=== PATIENT | male | born 1975 ===

== ENCOUNTER 2021-05-24 10:58 | Inpatient (IN) | payer OTHER, SELFPAY ==
[2021-05-24] MEDS ORDERED: ACETAMINOPHEN 325 MG TAB ONE (11:05)
[2021-05-24] MEDS ORDERED: ACETAMINOPHEN 325 MG TAB PO ONE (11:08)
[2021-05-24] MEDS ORDERED: SODIUM CHLORIDE 0.9% 1000 ML IV SOLN IV ONE (11:10)
--- NOTE | 2021-05-24 11:19 | Event Note ---
ED Screening Note ED Screening Note: cough, fever, SOB, chest discomfort, sore throat began two days ago has not been vaccinated for COVID 19 tachycardic, febrile, hypoxic given tylenol sepsis and COVID orders initiated pt placed on oxygen with improvement of oxygen saturation This initial assessment/diagnostic orders/clinical plan/treatment(s) is/are subject to change based on patients health status, clinical progression and re- assessment by fellow clinical providers in the ED. Further treatment and workup at subsequent clinical providers discretion. Patient/guardian urged not to elope from the ED as their condition may be serious if not clinically assessed and managed. Initial orders include: charge nurse Bri notified pt needs room STEPHAN
--- NOTE | 2021-05-24 11:50 | XRay Report ---
XR chest 1V ap INDICATION / CLINICAL INFORMATION: fever, cough, SOB. COMPARISON: None available. FINDINGS: SUPPORT DEVICES: None. HEART /PULMONARY VASCULATURE: No significant abnormality. LUNGS / PLEURA: Moderate multifocal airspace disease seen throughout the lungs. Nodular opacities pre sent within the left midlung. This could reflect focal infiltrate, though mass is not excluded. No pn eumothorax. ADDITIONAL FINDINGS: No significant additional findings. IMPRESSION: Multifocal pulmonary airspace disease, compatible with pneumonia. Recommend continued follow-up to re solution, as well as left-sided pulmonary mass cannot be excluded. Signer Name: Azar Juarez MD Signed: 05/24/2021 11:45 AM Workstation Name: [id number]
[2021-05-24] MEDS ORDERED: cefTRIAXone/NS 2 GM/100 ML 2 GM/100 ML BAG IV ONE (11:54)
[2021-05-24] MEDS ORDERED: AZITHROMYCIN/NS 500 MG/250 ML 500 MG/250 ML BAG IV ONE (11:55)
[2021-05-24] MEDS ORDERED: dexAMETHasone 20 MG/5 ML VIAL IV ONE (12:05)
[2021-05-24 12:19] LABS: Alanine Aminotransferase 32 units/L (7-56); Albumin 3.6 g/dL (3.9-5); BUN/Creatinine Ratio 14; Blood Urea Nitrogen 13 mg/dL (9-20); Calcium 9.1 mg/dL (8.4-10.2); Hemolysis Index 13
[2021-05-24 12:38] LABS: Hematocrit 42.5 % (35.5-45.6); Hemoglobin 14.8 gm/dl (11.8-15.2); Mean Corpuscular HGB Conc 35 % (32-34); Mean Corpuscular Volume 90 fl (84-94); Platelet Count 343 K/mm3 (140-440); Red Blood Count 4.73 M/mm3 (3.65-5.03); Red Cell Distribution Width 13.5 % (13.2-15.2)
[2021-05-24 13:06] LABS: Monocytes # (Auto) 0.6 K/mm3 (0.0-0.8); Monocytes % (Auto) 10.2 % (0.0-7.3)
--- NOTE | 2021-05-24 13:23 | Emergency Department Report ---
ED Fever HPI - General Chief Complaint: Fever Stated Complaint: CP/COUGH/SORETHROAT Time Seen by Provider: 05/24/21 12:05 - History of Present Illness Initial Comments: Patient is a 46-year-old male with no significant past medical history who is presenting with cough congestion shortness of breath. Patient did not receive vaccination for COVID-19. Patient states for the past 2 to 3 days he has had body aches shortness of breath with exertion and a cough. Patient does not know of any known exposure to anyone with COVID-19. Denies nausea vomiting diarrhea) ED Review of Systems ROS: Stated complaint: CP/COUGH/SORETHROAT Other details as noted in HPI Comment: All other systems reviewed and negative ED Past Medical Hx - Past Medical History Previous Medical History?: No - Surgical History Past Surgical History?: No - Social History Smoking Status: Never Smoker Substance Use Type: None ED Physical Exam - General Limitations: No Limitations General appearance: alert, in no apparent distress - Head Head exam: Present: atraumatic, normocephalic - Eye Eye exam: Present: normal appearance, PERRL, EOMI - ENT ENT exam: Present: mucous membranes moist - Neck Neck exam: Present: normal inspection - Respiratory Respiratory exam: Present: respiratory distress (Tachypnea), rhonchi. Absent: normal lung sounds bilaterally, wheezes, rales - Cardiovascular Cardiovascular Exam: Present: normal rhythm, tachycardia, normal heart sounds. Absent: systolic murmur, diastolic murmur, rubs, gallop - GI/Abdominal GI/Abdominal exam: Present: soft, normal bowel sounds. Absent: distended, tenderness, guarding, rebound, rigid - Rectal Rectal exam: Present: deferred - Extremities Exam Extremities exam: Present: normal inspection - Back Exam Back exam: Present: normal inspection - Neurological Exam Neurological exam: Present: alert, oriented X3 - Psychiatric Psychiatric exam: Present: normal affect, normal mood - Skin Skin exam: Present: warm, dry, intact, normal color. Absent: rash ED Course Vital Signs 05/24/21 11:01 Temperature 101.2 F H Pulse Rate 118 H Respiratory 18 Rate Blood Pressure 113/77 O2 Sat by Pulse 88 Oximetry ED Medical Decision Making - Lab Data Result diagrams: 05/24/21 11:19 05/24/21 11:19 Lab Results 05/24/21 05/24/21 05/24/21 Range/Units 11:19 11:19 11:19 WBC 5.1 (4.5-11.0) K/mm3 RBC 4.73 (3.65-5.03) M/mm3 Hgb 14.8 (11.8-15.2) gm/dl Hct 42.5 (35.5-45.6) % MCV 90 (84-94) fl MCH 31 (28-32) pg MCHC 35 H (32-34) % RDW 13.5 (13.2-15.2) % Plt Count 343 (140-440) K/mm3 [place] % (Auto) 10.2 H (0.0-7.3) % Eos % (Auto) 0.0 (0.0-4.3) % [place] # (Auto) 0.6 (0.0-0.8) K/mm3 Eos # (Auto) 0.0 (0.0-0.4) K/mm3 Baso # (Auto) 0.0 (0.0-0.1) K/mm3 Seg Neutrophils % 82.0 H (40.0-70.0) % Seg Neutrophils # 4.4 (1.8-7.7) K/mm3 D-Dimer (0-234) ng/mlDDU Sodium 131 L (137-145) mmol/L Potassium 5.0 (3.6-5.0) mmol/L Chloride 96.9 L (98-107) mmol/L Carbon Dioxide 23 (22-30) mmol/L Anion Gap 16 mmol/L BUN 13 (9-20) mg/dL Creatinine 0.9 (0.8-1.3) mg/dL Estimated GFR > 60 ml/min BUN/Creatinine Ratio 14 % Glucose 180 H (75-100) mg/dL Lactic Acid 1.90 (0.7-2.0) mmol/L Calcium 9.1 (8.4-10.2) mg/dL Ferritin (30.0-300.0) ng/mL Total Bilirubin 0.40 (0.1-1.2) mg/dL AST 36 (5-40) units/L ALT 32 (7-56) units/L Alkaline Phosphatase 55 (35-129) units/L Lactate Dehydrogenase (91-180) units/L C-Reactive Protein (0.00-1.30) mg/dL Total Protein 7.8 (6.3-8.2) g/dL Albumin 3.6 L (3.9-5) g/dL Albumin/Globulin Ratio 0.9 % 05/24/21 05/24/21 05/24/21 Range/Units 11:19 11:19 11:19 WBC (4.5-11.0) K/mm3 RBC (3.65-5.03) M/mm3 Hgb (11.8-15.2) gm/dl Hct (35.5-45.6) % MCV (84-94) fl MCH (28-32) pg MCHC (32-34) % RDW (13.2-15.2) % Plt Count (140-440) K/mm3 [place] % (Auto) (0.0-7.3) % Eos % (Auto) (0.0-4.3) % [place] # (Auto) (0.0-0.8) K/mm3 Eos # (Auto) (0.0-0.4) K/mm3 Baso # (Auto) (0.0-0.1) K/mm3 Seg Neutrophils % (40.0-70.0) % Seg Neutrophils # (1.8-7.7) K/mm3 D-Dimer 809.12 H (0-234) ng/mlDDU Sodium (137-145) mmol/L Potassium (3.6-5.0) mmol/L Chloride (98-107) mmol/L Carbon Dioxide (22-30) mmol/L Anion Gap mmol/L BUN (9-20) mg/dL Creatinine (0.8-1.3) mg/dL Estimated GFR ml/min BUN/Creatinine Ratio % Glucose (75-100) mg/dL Lactic Acid (0.7-2.0) mmol/L Calcium (8.4-10.2) mg/dL Ferritin 1761.0 H (30.0-300.0) ng/mL Total Bilirubin (0.1-1.2) mg/dL AST (5-40) units/L ALT (7-56) units/L Alkaline Phosphatase (35-129) units/L Lactate Dehydrogenase 491 H (91-180) units/L C-Reactive Protein 22.00 H (0.00-1.30) mg/dL Total Protein (6.3-8.2) g/dL Albumin (3.9-5) g/dL Albumin/Globulin Ratio % - EKG Data -: EKG Interpreted by Me EKG shows normal: sinus rhythm, axis, intervals, QRS complexes, ST-T waves Rate: normal - EKG Data Interpretation: normal EKG - Radiology Data [facility] [address] [place] [address] XRay Report Signed Patient: VICKY MARIE MR#: [id number] : 1975 Acct:[id number] Age/Sex: 46 / M ADM Date: 05/24/21 Loc: ED Attending Dr: Ordering Physician: KELVIN REEDER Date of Service: 05/24/21 Procedure(s): XR chest 1V ap Accession Number(s): [id number] cc: KELVIN REEDER Fluoro Time In Minutes: XR chest 1V ap INDICATION / CLINICAL INFORMATION: fever, cough, SOB. COMPARISON: None available. FINDINGS: SUPPORT DEVICES: None. HEART /PULMONARY VASCULATURE: No significant abnormality. LUNGS / PLEURA: Moderate multifocal airspace disease seen throughout the lungs. Nodular opacities present within the left midlung. This could reflect focal infiltrate, though mass is not excluded. No pneumothorax. ADDITIONAL FINDINGS: No significant additional findings. IMPRESSION: Multifocal pulmonary airspace disease, compatible with pneumonia. Recommend continued follow-up to resolution, as well as left-sided pulmonary mass cannot be excluded. Signer Name: Denzel Juarez MD Signed: 05/24/2021 11:45 AM Workstation Name: [email or web address] Transcribed By: Dictated By: DENZEL JUAREZ MD - Medical Decision Making Patient is oxygen saturation is 88% on room air at rest. Patient states he is more short short of breath with exertion but we did not get a post ambulatory O2 saturation. Patient started on Rocephin and azithromycin after we reviewed the chest x-ray. Given a dose of Decadron. Started on 2 L of oxygen. Patient be admitted to the hospitalist service. Critical Care Time: Yes (30) Critical care attestation.: If time is entered above; I have spent that time in minutes in the direct care of this critically ill patient, excluding procedure time. ED Disposition Clinical Impression: Suspected COVID-19 virus infection, Bilateral pneumonia, Hyponatremia, Dehydration Disposition: ADMITTED INPATIENT Is pt being admited?: Yes Does the pt Need Aspirin: No Condition: Serious Instructions: Bacterial Pneumonia (ED) Time of Disposition: 13:25
[2021-05-24 13:57] LABS: Basophils % (Auto) 0.2 % (0.0-1.8); Lymphocytes # (Auto) 0.4 K/mm3 (1.2-5.4); Lymphocytes % (Auto) 7.6 % (13.4-35.0)
[2021-05-24] MEDS ORDERED: SODIUM CHLORIDE 0.9% 500 ML 500 ML ONE (15:18)
[2021-05-24] MEDS ORDERED: SODIUM CHLORIDE 0.9% 1000 ML 2,000 ML ONE (15:18)
[2021-05-24] MEDS ORDERED: NALOXONE 0.4 MG/1 ML INJ IV PRN (20:00)
[2021-05-24] MEDS ORDERED: ONDANSETRON 4 MG/2 ML INJ IV PRN ×2 (20:00→20:06)
[2021-05-24] MEDS ORDERED: SODIUM CHLORIDE 0.9% 1000 ML 1,000 ML IV SCH (20:00)
[2021-05-24] MEDS ORDERED: oxyCODONE /ACETAMINOPHEN 5-325MG TAB PO PRN (20:00)
[2021-05-24] MEDS ORDERED: MAGNESIUM HYDROXIDE (MOM) ORAL LIQD UDC PO PRN (20:00)
[2021-05-24] MEDS ORDERED: METOCLOPRAMIDE 10 MG/2 ML INJ IV PRN (20:00)
[2021-05-24] MEDS ORDERED: ALUM-MAG HYDROXIDE-SIMETHICONE 200-200-20MG/5ML ORAL LIQD 30 ML PO PRN (20:00)
[2021-05-24] MEDS ORDERED: SENNOSIDES 8.6 MG TAB PO PRN (20:00)
[2021-05-24] MEDS ORDERED: MORPHINE 4 MG/1 ML INJ IV PRN (20:00)
[2021-05-24] MEDS ORDERED: ACETAMINOPHEN 325 MG TAB PO PRN (20:06)
[2021-05-24] MEDS ORDERED: traMADol 50 MG TAB PO PRN (20:08)
[2021-05-24] MEDS ORDERED: traZODone 50 MG TAB PO PRN (20:08)
--- NOTE | 2021-05-24 20:57 | History and Physical Report ---
<KUSH CAMPOS - Last Filed: 05/25/21 03:45> History of Present Illness Date of examination: 05/24/21 Date of admission: 05/24/21 13:25 Chief complaint: shortness of breath Cough History of present illness: This is a 46-year-old male who came to the ED with chief complaint of shortness of breath, congestion and a cough. Patient seen in the ED at bedside. He denied any past medical history including surgical history. He is seen on oxygen by nasal cannula at 2 L. He reported that he did not receive vaccination for COVID-19. He also reports generalized body ache and exertion from coughing. He denies tobacco use, chronic alcohol use, and illicit drug use. Chest x-ray was done which showed bilateral pneumonia. Patient is placed on empiric antibiotics. Blood work reviewed elevated D-dimer. CTA of the chest ordered to rule out PE. Denies nausea vomiting diarrhea) Past History Past Medical History: No medical history Past Surgical History: No surgical history Social history: lives with family Family history: no significant family history Medications and Allergies Allergies Allergy/AdvReac Type Severity Reaction Status Date / Time No Known Allergies Allergy Unverified 05/24/21 11:01 Active Meds: Active Medications Acetaminophen (Acetaminophen 325 Mg Tab) 650 mg PO Q4H PRN PRN Reason: Pain MILD(1-3)/Fever >100.5/SADLER Al Hydrox/Mg Hydrox/Simethicone (Alum-Mag Hydroxide-Simethicone 800-107-06hx/5ml Oral Liqd 30 Ml) 30 ml PO Q4H PRN PRN Reason: Indigestion Ascorbic Acid (Ascorbic Acid 500 Mg Tab) 500 mg PO QDAY [facility] Cholecalciferol (Cholecalciferol (Vit D3) 400 Unit Tab) 1,000 unit PO QDAY [facility] Dexamethasone (Dexamethasone 4 Mg/Ml Vial) 6 mg IV DAILY [facility] Famotidine (Famotidine 20 Mg/2 Ml Inj) 20 mg IV BID [facility] Sodium Chloride (Nacl 0.9% 1000 Ml) 1,000 mls @ 75 mls/hr IV DIRECT [facility] Azithromycin (Zithromax/Ns) 500 mg in 250 mls @ 250 mls/hr IV Q24H [facility] Ceftriaxone Sodium (Rocephin/Ns 1 Gm/50 Ml) 1 gm in 50 mls @ 100 mls/hr IV Q24H [facility]; Protocol Magnesium Hydroxide (Magnesium Hydroxide (Mom) Oral Liqd Udc) 30 ml PO Q4H PRN PRN Reason: Constipation Metoclopramide HCl (Metoclopramide 10 Mg/2 Ml Inj) 10 mg IV Q6H PRN PRN Reason: Nausea And Vomiting Naloxone HCl (Naloxone 0.4 Mg/1 Ml Inj) 0.1 mg IV Q2MIN PRN PRN Reason: Res Rate </= 8 or 02 SAT < 92% Ondansetron HCl (Ondansetron 4 Mg/2 Ml Inj) 4 mg IV Q8H PRN PRN Reason: Nausea And Vomiting Ondansetron HCl (Ondansetron 4 Mg/2 Ml Inj) 4 mg IV Q8H PRN PRN Reason: Nausea And Vomiting Oxycodone/Acetaminophen (Oxycodone /Acetaminophen 5-325mg Tab) 1 tab PO Q6H PRN PRN Reason: Pain, Moderate (4-6) Senna (Sennosides 8.6 Mg Tab) 8.6 mg PO Q12HR PRN PRN Reason: Constipation Tramadol HCl (Tramadol 50 Mg Tab) 50 mg PO Q6H PRN PRN Reason: Pain, Moderate (4-6) Trazodone HCl (Trazodone 50 Mg Tab) 50 mg PO QHS PRN PRN Reason: Insomnia Zinc Sulfate (Zinc Sulfate 220 Mg Cap) 220 mg PO QDAY [facility] Review of Systems Constitutional: fatigue, weakness Cardiovascular: shortness of breath Gastrointestinal: no melena Rectal: no itching, no hemorrhoids Musculoskeletal: muscle weakness, muscle cramps Neurological: no confusion Psychiatric: no disorientation, no hallucinations Hematologic/Lymphatic: no easy bruising, no easy bleeding Allergic/Immunologic: no urticaria Exam - Constitutional Vitals: Temp Pulse Resp BP Pulse Ox 101.2 F H 118 H 18 113/77 93 05/24/21 11:01 05/24/21 11:01 05/24/21 11:01 05/24/21 11:01 05/24/21 20:27 General appearance: Present: mild distress, well-nourished - EENT Eyes: Present: PERRL ENT: hearing intact, clear oral mucosa - Neck Neck: Present: supple, normal ROM - Respiratory Respiratory effort: other (Shortness of breath requiring oxygen) Respiratory: bilateral: CTA - Cardiovascular Heart rate: 118 Heart Sounds: Present: S1 & S2. Absent: rub, click - Extremities Extremities: pulses symmetrical, No edema Peripheral Pulses: within normal limits - Abdominal General gastrointestinal: Present: soft, non-tender, non-distended, normal bowel sounds Male genitourinary: Present: normal - Integumentary Integumentary: Present: clear, warm, dry - Musculoskeletal Musculoskeletal: generalized weakness - Psychiatric Psychiatric: appropriate mood/affect, intact judgment & insight, cooperative - Neurologic Neurologic: CNII-XII intact, moves all extremities - Allied Health Allied health notes reviewed: nursing Results - Labs CBC & Chem 7: 05/24/21 11:19 05/24/21 20:30 Labs: Abnormal lab results 05/24/21 05/24/21 05/24/21 Range/Units 11:19 11:19 11:19 MCHC 35 H (32-34) % Lymph % (Auto) 7.6 L (13.4-35.0) % [place] % (Auto) 10.2 H (0.0-7.3) % Lymph # (Auto) 0.4 L (1.2-5.4) K/mm3 Seg Neutrophils % 82.0 H (40.0-70.0) % D-Dimer 809.12 H (0-234) ng/mlDDU Sodium 131 L (137-145) mmol/L Chloride 96.9 L (98-107) mmol/L Glucose 180 H (75-100) mg/dL Ferritin (30.0-300.0) ng/mL Lactate Dehydrogenase (91-180) units/L C-Reactive Protein (0.00-1.30) mg/dL Albumin 3.6 L (3.9-5) g/dL 05/24/21 05/24/21 Range/Units 11:19 11:19 MCHC (32-34) % Lymph % (Auto) (13.4-35.0) % [place] % (Auto) (0.0-7.3) % Lymph # (Auto) (1.2-5.4) K/mm3 Seg Neutrophils % (40.0-70.0) % D-Dimer (0-234) ng/mlDDU Sodium (137-145) mmol/L Chloride (98-107) mmol/L Glucose (75-100) mg/dL Ferritin 1761.0 H (30.0-300.0) ng/mL Lactate Dehydrogenase 491 H (91-180) units/L C-Reactive Protein 22.00 H (0.00-1.30) mg/dL Albumin (3.9-5) g/dL Assessment and Plan - Patient Problems (1) Bilateral pneumonia Current Visit: Yes Status: Acute Plan to address problem: Start empiric antibiotic azithromycin and Rocephin ABG and chest x-ray (2) Suspected COVID-19 virus infection Current Visit: Yes Status: Acute Plan to address problem: Airborne and contact isolation Monitor inflammatory markers Empiric antibiotics, bronchodilators, oxygen supplement, and systemic steroid Ascorbic acid, zinc sulfate, vitamin D supplement Encourage the use of incentive spirometer Infectious disease consultfollow-up with plan of care. (3) Hyponatremia Current Visit: Yes Status: Acute Plan to address problem: Likely secondary to dehydration IV hydration with normal saline Monitor sodium level and other electrolytes (4) Elevated d-dimer Current Visit: Yes Status: Acute Plan to address problem: CTA of the chestrule outs PE (5) DVT prophylaxis Current Visit: Yes Status: Acute Plan to address problem: Subcutaneous Lovenox <DHAVAL EMMANUEL S - Last Filed: 05/25/21 07:11> History of Present Illness Date of admission: 05/24/21 13:25 Medications and Allergies Active Meds: Active Medications Acetaminophen (Acetaminophen 325 Mg Tab) 650 mg PO Q4H PRN PRN Reason: Pain MILD(1-3)/Fever >100.5/SADLER Al Hydrox/Mg Hydrox/Simethicone (Alum-Mag Hydroxide-Simethicone 879-441-63ka/5ml Oral Liqd 30 Ml) 30 ml PO Q4H PRN PRN Reason: Indigestion Ascorbic Acid (Ascorbic Acid 500 Mg Tab) 500 mg PO QDAY [facility] Cholecalciferol (Cholecalciferol (Vit D3) 1000 Unit (25 Mcg) Tab) 1,000 unit PO QDAY [facility] Dexamethasone (Dexamethasone 4 Mg/Ml Vial) 6 mg IV DAILY [facility] Famotidine (Famotidine 20 Mg/2 Ml Inj) 20 mg IV BID [facility] Last Admin: 05/24/21 21:37 Dose: 20 mg Documented by: Sodium Chloride (Nacl 0.9% 1000 Ml) 1,000 mls @ 75 mls/hr IV DIRECT [facility] Last Admin: 05/24/21 21:37 Dose: 75 mls/hr Documented by: Azithromycin (Zithromax/Ns) 500 mg in 250 mls @ 250 mls/hr IV Q24H [facility] Ceftriaxone Sodium (Rocephin/Ns 1 Gm/50 Ml) 1 gm in 50 mls @ 100 mls/hr IV Q24H [facility]; Protocol Magnesium Hydroxide (Magnesium Hydroxide (Mom) Oral Liqd Udc) 30 ml PO Q4H PRN PRN Reason: Constipation Metoclopramide HCl (Metoclopramide 10 Mg/2 Ml Inj) 10 mg IV Q6H PRN PRN Reason: Nausea And Vomiting Naloxone HCl (Naloxone 0.4 Mg/1 Ml Inj) 0.1 mg IV Q2MIN PRN PRN Reason: Res Rate </= 8 or 02 SAT < 92% Ondansetron HCl (Ondansetron 4 Mg/2 Ml Inj) 4 mg IV Q8H PRN PRN Reason: Nausea And Vomiting Oxycodone/Acetaminophen (Oxycodone /Acetaminophen 5-325mg Tab) 1 tab PO Q6H PRN PRN Reason: Pain, Moderate (4-6) Senna (Sennosides 8.6 Mg Tab) 8.6 mg PO Q12HR PRN PRN Reason: Constipation Tramadol HCl (Tramadol 50 Mg Tab) 50 mg PO Q6H PRN PRN Reason: Pain, Moderate (4-6) Trazodone HCl (Trazodone 50 Mg Tab) 50 mg PO QHS PRN PRN Reason: Insomnia Last Admin: 05/24/21 21:37 Dose: 50 mg Documented by: Zinc Sulfate (Zinc Sulfate 220 Mg Cap) 220 mg PO QDAY [facility] Exam - Constitutional Vitals: Temp Pulse Resp BP Pulse Ox 101.2 F H 79 35 H 119/64 95 05/24/21 11:01 05/25/21 05:46 05/25/21 05:46 05/25/21 05:46 05/25/21 05:46 Results - Labs CBC & Chem 7: 05/24/21 11:19 05/24/21 20:30 Labs: Abnormal lab results 05/24/21 05/24/21 05/24/21 Range/Units 11:19 11:19 11:19 MCHC 35 H (32-34) % Lymph % (Auto) 7.6 L (13.4-35.0) % [place] % (Auto) 10.2 H (0.0-7.3) % Lymph # (Auto) 0.4 L (1.2-5.4) K/mm3 Seg Neutrophils % 82.0 H (40.0-70.0) % D-Dimer 809.12 H (0-234) ng/mlDDU Sodium 131 L (137-145) mmol/L Chloride 96.9 L (98-107) mmol/L Glucose 180 H (75-100) mg/dL Ferritin (30.0-300.0) ng/mL Lactate Dehydrogenase (91-180) units/L C-Reactive Protein (0.00-1.30) mg/dL Albumin 3.6 L (3.9-5) g/dL 05/24/21 05/24/21 05/24/21 Range/Units 11:19 11:19 20:30 MCHC (32-34) % Lymph % (Auto) (13.4-35.0) % [place] % (Auto) (0.0-7.3) % Lymph # (Auto) (1.2-5.4) K/mm3 Seg Neutrophils % (40.0-70.0) % D-Dimer (0-234) ng/mlDDU Sodium (137-145) mmol/L Chloride (98-107) mmol/L Glucose (75-100) mg/dL Ferritin 1761.0 H (30.0-300.0) ng/mL Lactate Dehydrogenase 491 H (91-180) units/L C-Reactive Protein 22.00 H 19.30 H (0.00-1.30) mg/dL Albumin (3.9-5) g/dL 05/24/21 05/24/21 05/24/21 Range/Units 20:30 20:30 20:30 MCHC (32-34) % Lymph % (Auto) (13.4-35.0) % [place] % (Auto) (0.0-7.3) % Lymph # (Auto) (1.2-5.4) K/mm3 Seg Neutrophils % (40.0-70.0) % D-Dimer 773.79 H (0-234) ng/mlDDU Sodium (137-145) mmol/L Chloride (98-107) mmol/L Glucose 186 H (75-100) mg/dL Ferritin 1632.0 H (30.0-300.0) ng/mL Lactate Dehydrogenase 433 H (91-180) units/L C-Reactive Protein 18.90 H (0.00-1.30) mg/dL Albumin (3.9-5) g/dL Assessment and Plan Acute respiratory failure with hypoxia Patient was hypoxic at the time of admission to the emergency room sats are better at 86 and 88% on room air Patient was put on 4 L nasal cannula oxygen with which oxygen improved to 96%
[2021-05-24 21:33] LABS: C-Reactive Protein 18.9 mg/dL (0.00-1.30)
[2021-05-24] MEDS: FAMOTIDINE 20 MG/2 ML INJ IV SCH (21:37)
--- NOTE | 2021-05-24 21:45 | Cat Scan Report ---
CTA CHEST WITH IV CONTRAST INDICATION: elevated d-dimer. TECHNIQUE: Axial CT images were obtained through the chest after injection of 100 cc Omnipaque 350 IV contrast. 3 plane MIP reconstructions were produced. All CT scans at this location are performed using CT dose reduction for ALARA by means of automated exposure control. COMPARISON: One view of the chest performed today. FINDINGS: PULMONARY ARTERIES: No pulmonary emboli. AORTA AND ARTERIES: No significant abnormality. HEART: No significant abnormality. MEDIASTINUM: Multiple mildly enlarged lymph nodes are seen. A customer development representative right paratracheal node measures 1 cm in short axis dimension on image 166 of series 3. No significant abnormality of the tra kathie/main bronchi. LUNGS: There are extensive bilateral ground glass opacities and consolidations. No suspicious nodule or mass. No pneumothorax or pleural effusion. ADDITIONAL FINDINGS: None. UPPER ABDOMEN: No acute findings. BONES: No significant osseous abnormality. IMPRESSION: 1. No CT evidence for pulmonary embolism. 2. Bilateral pneumonia with likely reactive mildly enlarged mediastinal nodes. Signer Name: Lázaro Rashid MD Signed: 05/24/2021 9:40 PM Workstation Name: [id number]
[2021-05-25 08:18] LABS: Basophils % (Auto) 0.2 % (0.0-1.8); Hematocrit 38.8 % (35.5-45.6); Hemoglobin 13.7 gm/dl (11.8-15.2); Lymphocytes # (Auto) 0.7 K/mm3 (1.2-5.4); Lymphocytes % (Auto) 7.8 % (13.4-35.0); Mean Corpuscular HGB Conc 35 % (32-34); Mean Corpuscular Volume 91 fl (84-94); Monocytes # (Auto) 0.6 K/mm3 (0.0-0.8); Monocytes % (Auto) 6.4 % (0.0-7.3); Platelet Count 347 K/mm3 (140-440); Red Blood Count 4.27 M/mm3 (3.65-5.03); Red Cell Distribution Width 13.8 % (13.2-15.2)
[2021-05-25 08:36] LABS: Alanine Aminotransferase 23 units/L (7-56); Blood Urea Nitrogen 14 mg/dL (9-20); Calcium 8.4 mg/dL (8.4-10.2); Hemolysis Index 5
[2021-05-25 08:38] LABS: BUN/Creatinine Ratio 23
--- NOTE | 2021-05-25 08:40 | Progress Note ---
Assessment and Plan Assessment and plan: - Patient Problems (1) Acute Hypoxic Respiratory Failure Supplemental oxygen via 4 L nasal cannula Etiology high suspicion for COVID-19 pneumonia Admit CXR: Multifocal airspace disease, possible left-sided pulmonary mass. Please refer to official radiology report Admit CTA chest: Bilateral airspace disease with mildly enlarged mediastinal nodes. No suspicious mass or lymph nodes appreciated. abx and steroids as below prn albuterol May consider pulm consult if o2 does not improve/worsens (2) Bilateral pneumonia Start empiric antibiotic azithromycin and Rocephin (3) Suspected COVID-19 virus infection Current Visit: Yes Status: Acute Plan to address problem: Airborne and contact isolation Monitor inflammatory markers Empiric antibiotics, bronchodilators, oxygen supplement, and systemic steroid Ascorbic acid, zinc sulfate, vitamin D supplement Encourage the use of incentive spirometery Infectious disease consultfollow-up with plan of care. (4) Hyponatremia Current Visit: Yes Status: Acute Plan to address problem: Likely secondary to dehydration IV hydration with normal saline Monitor sodium level and other electrolytes (5) Elevated d-dimer Current Visit: Yes Status: Acute Plan to address problem: CTA of the chestrule outs PE (6) DVT prophylaxis Current Visit: Yes Status: Acute Plan to address problem: Subcutaneous Lovenox Hospital course to date 05/25/2021: Resting comfortably on encounter. Will follow up results of Covid test. Continue therapy above at this time. Will follow ID recommendations. If patient deteriorates will consult pulmonology. History Interval history: No overnight events. Patient resting comfortably on encounter saturating 90 to 91% currently on nasal cannula 3 L/min. Hospitalist Physical - Physical exam Narrative exam: Physical Exam: Constitutional: Alert, cooperative. No acute distress Head, Ears, Nose: Normocephalic, atraumatic. External ears, nose normal Eyes: Conjunctivae/corneas clear. No icterus. No ptosis. Neck: Supple, no meningeal signs Oral: dentition fair, no thrush Cardiovascular: S1, S2 normal. Respiratory: Good air entry, rhonchi bilaterally. On nasal cannula 3 L. GI: Soft, non-tender; bowel sounds normal. No peritoneal signs. Musculoskeletal: No pedal edema, no cyanosis. Skin: No rash or abscess, see nursing assessment for full skin exam Hem/Lymphatic: No palpable cervical or supraclavicular nodes. No lymphangitis Psych: Mood ok. Affect normal Neurological: Awake, alert, oriented. No gross abnormality - Constitutional Vitals: Temp Pulse Resp BP Pulse Ox 101.2 F H 79 35 H 119/64 95 05/24/21 11:01 05/25/21 05:46 05/25/21 05:46 05/25/21 05:46 05/25/21 05:46 General appearance: Present: mild distress, well-nourished Results - Labs CBC & Chem 7: 05/25/21 07:48 05/25/21 07:48 Labs: Laboratory Last Values WBC 9.5 K/mm3 (4.5-11.0) 05/25/21 07:48 RBC 4.27 M/mm3 (3.65-5.03) 05/25/21 07:48 Hgb 13.7 gm/dl (11.8-15.2) 05/25/21 07:48 Hct 38.8 % (35.5-45.6) 05/25/21 07:48 MCV 91 fl (84-94) 05/25/21 07:48 MCH 32 pg (28-32) 05/25/21 07:48 MCHC 35 % (32-34) H 05/25/21 07:48 RDW 13.8 % (13.2-15.2) 05/25/21 07:48 Plt Count 347 K/mm3 (140-440) 05/25/21 07:48 Lymph % (Auto) 7.8 % (13.4-35.0) L 05/25/21 07:48 [place] % (Auto) 6.4 % (0.0-7.3) 05/25/21 07:48 Eos % (Auto) 0.0 % (0.0-4.3) 05/25/21 07:48 Baso % (Auto) 0.2 % (0.0-1.8) 05/25/21 07:48 Lymph # (Auto) 0.7 K/mm3 (1.2-5.4) L 05/25/21 07:48 [place] # (Auto) 0.6 K/mm3 (0.0-0.8) 05/25/21 07:48 Eos # (Auto) 0.0 K/mm3 (0.0-0.4) 05/25/21 07:48 Baso # (Auto) 0.0 K/mm3 (0.0-0.1) 05/25/21 07:48 Add Manual Diff Complete 05/24/21 11:19 Seg Neutrophils % 85.6 % (40.0-70.0) H 05/25/21 07:48 Nucleated RBC % Not Reportable 05/24/21 11:19 Seg Neutrophils # 8.1 K/mm3 (1.8-7.7) H 05/25/21 07:48 WBC Morphology Not Reportable 05/24/21 11:19 Hypersegmented Neuts Not Reportable 05/24/21 11:19 Hyposegmented Neuts Not Reportable 05/24/21 11:19 Hypogranular Neuts Not Reportable 05/24/21 11:19 Smudge Cells Not Reportable 05/24/21 11:19 Toxic Granulation Not Reportable 05/24/21 11:19 Toxic Vacuolation Not Reportable 05/24/21 11:19 Dohle Bodies Not Reportable 05/24/21 11:19 Pelger-Huet Anomaly Not Reportable 05/24/21 11:19 Job Rods Not Reportable 05/24/21 11:19 Platelet Estimate Not Reportable 05/24/21 11:19 Clumped Platelets Not Reportable 05/24/21 11:19 Plt Clumps, EDTA Not Reportable 05/24/21 11:19 Large Platelets Not Reportable 05/24/21 11:19 Giant Platelets Not Reportable 05/24/21 11:19 Platelet Satelliting Not Reportable 05/24/21 11:19 Plt Morphology Comment Not Reportable 05/24/21 11:19 RBC Morphology Not Reportable 05/24/21 11:19 Dimorphic RBCs Not Reportable 05/24/21 11:19 Polychromasia Not Reportable 05/24/21 11:19 Hypochromasia Not Reportable 05/24/21 11:19 Poikilocytosis Not Reportable 05/24/21 11:19 Anisocytosis Not Reportable 05/24/21 11:19 Microcytosis Not Reportable 05/24/21 11:19 Macrocytosis Not Reportable 05/24/21 11:19 Spherocytes Not Reportable 05/24/21 11:19 Pappenheimer Bodies Not Reportable 05/24/21 11:19 Sickle Cells Not Reportable 05/24/21 11:19 Target Cells Not Reportable 05/24/21 11:19 Tear Drop Cells Not Reportable 05/24/21 11:19 Ovalocytes Not Reportable 05/24/21 11:19 Helmet Cells Not Reportable 05/24/21 11:19 [place] Bodies Not Reportable 05/24/21 11:19 [place] Rings Not Reportable 05/24/21 11:19 [place] Cells Not Reportable 05/24/21 11:19 Bite Cells Not Reportable 05/24/21 11:19 Crenated Cell Not Reportable 05/24/21 11:19 Elliptocytes Not Reportable 05/24/21 11:19 Acanthocytes (Spur) Not Reportable 05/24/21 11:19 Rouleaux Not Reportable 05/24/21 11:19 Hemoglobin C Crystals Not Reportable 05/24/21 11:19 Schistocytes Not Reportable 05/24/21 11:19 Malaria parasites Not Reportable 05/24/21 11:19 [place] Bodies Not Reportable 05/24/21 11:19 Hem Pathologist Commnt No 05/24/21 11:19 D-Dimer 773.79 ng/mlDDU (0-234) H 05/24/21 20:30 Sodium 137 mmol/L (137-145) 05/25/21 07:48 Potassium 4.4 mmol/L (3.6-5.0) 05/25/21 07:48 Chloride 104.4 mmol/L (98-107) 05/25/21 07:48 Carbon Dioxide 22 mmol/L (22-30) 05/25/21 07:48 Anion Gap 15 mmol/L 05/25/21 07:48 BUN 14 mg/dL (9-20) 05/25/21 07:48 Creatinine 0.6 mg/dL (0.8-1.3) L 05/25/21 07:48 Estimated GFR > 60 ml/min 05/25/21 07:48 BUN/Creatinine Ratio 23 % 05/25/21 07:48 Glucose 178 mg/dL (75-100) H 05/25/21 07:48 Lactic Acid 1.50 mmol/L (0.7-2.0) 05/24/21 13:59 Calcium 8.4 mg/dL (8.4-10.2) 05/25/21 07:48 Ferritin 1632.0 ng/mL (30.0-300.0) H 05/24/21 20:30 Total Bilirubin 0.30 mg/dL (0.1-1.2) 05/25/21 07:48 AST 26 units/L (5-40) 05/25/21 07:48 ALT 23 units/L (7-56) 05/25/21 07:48 Alkaline Phosphatase 46 units/L (35-129) 05/25/21 07:48 Lactate Dehydrogenase 433 units/L (91-180) H 05/24/21 20:30 C-Reactive Protein 18.90 mg/dL (0.00-1.30) H 05/24/21 20:30 C-Reactive Protein 19.30 mg/dL (0.00-1.30) H 05/24/21 20:30 Total Protein 6.7 g/dL (6.3-8.2) 05/25/21 07:48 Albumin 3.0 g/dL (3.9-5) L 05/25/21 07:48 Albumin/Globulin Ratio 0.8 % 05/25/21 07:48 Microbiology: Microbiology 05/24/21 11:19 Peripheral/Venous Blood Culture - Preliminary Culture in Progress 05/24/21 11:19 Peripheral/Venous Blood Culture - Preliminary Culture in Progress Active Medications - Current Medications Current Medications: Generic Name Dose Route Start Last Admin Trade Name Freq PRN Reason Stop Dose Admin Acetaminophen 650 mg 05/24/21 20:06 Acetaminophen 325 Mg Tab PO Q4H PRN Pain MILD(1-3)/Fever >100.5/SADLER Al Hydrox/Mg Hydrox/Simethicone 30 ml 05/24/21 20:00 Alum-Mag Hydroxide-Simethicone [id number]/5ml Oral Liqd 30 Ml PO Q4H PRN Indigestion Ascorbic Acid 500 mg 05/25/21 10:00 Ascorbic Acid 500 Mg Tab PO QDAY [facility] Cholecalciferol 1,000 unit 05/25/21 10:00 Cholecalciferol (Vit D3) 1000 Unit (25 Mcg) Tab PO QDAY [facility] Dexamethasone 6 mg 05/25/21 10:00 Dexamethasone 4 Mg/Ml Vial IV DAILY [facility] Famotidine 20 mg 05/24/21 22:00 08/25/21 21:37 Famotidine 20 Mg/2 Ml Inj IV 20 mg BID [facility] Administration Sodium Chloride 1,000 mls @ 75 mls/hr 05/24/21 20:00 05/24/21 21:37 Nacl 0.9% 1000 Ml IV 75 mls/hr DIRECT [facility] Administration Azithromycin 500 mg in 250 mls @ 250 mls/hr 05/25/21 17:00 Zithromax/Ns IV Q24H [facility] Ceftriaxone Sodium 2 gm in 100 mls @ 200 mls/hr 05/25/21 16:00 Rocephin/Ns 2 Gm/100 Ml IV Q24H [facility] Protocol Magnesium Hydroxide 30 ml 05/24/21 20:00 Magnesium Hydroxide (Mom) Oral Liqd Udc PO Q4H PRN Constipation Metoclopramide HCl 10 mg 05/24/21 20:00 Metoclopramide 10 Mg/2 Ml Inj IV Q6H PRN Nausea And Vomiting Naloxone HCl 0.1 mg 05/24/21 20:00 Naloxone 0.4 Mg/1 Ml Inj IV Q2MIN PRN Res Rate </= 8 or 02 SAT < 92% Ondansetron HCl 4 mg 05/24/21 20:00 Ondansetron 4 Mg/2 Ml Inj IV Q8H PRN Nausea And Vomiting Oxycodone/Acetaminophen 1 tab 05/24/21 20:00 Oxycodone /Acetaminophen 5-325mg Tab PO Q6H PRN Pain, Moderate (4-6) Senna 8.6 mg 05/24/21 20:00 Sennosides 8.6 Mg Tab PO Q12HR PRN Constipation Tramadol HCl 50 mg 05/24/21 20:08 Tramadol 50 Mg Tab PO Q6H PRN Pain, Moderate (4-6) Trazodone HCl 50 mg 05/24/21 20:08 05/24/21 21:37 Trazodone 50 Mg Tab PO 50 mg QHS PRN Administration Insomnia Zinc Sulfate 220 mg 05/25/21 10:00 Zinc Sulfate 220 Mg Cap PO QDAY [facility]
[2021-05-25] MEDS: dexAMETHasone 4 MG/ML VIAL IV SCH (10:18)
[2021-05-25] MEDS: FAMOTIDINE 20 MG/2 ML INJ IV SCH ×2 (10:18→23:49)
[2021-05-25] MEDS: ASCORBIC ACID 500 MG TAB PO SCH (10:19)
[2021-05-25] MEDS: CHOLECALCIFEROL (VIT D3) 1000 UNIT (25 mcg) TAB PO SCH (10:19)
[2021-05-25] MEDS: ZINC SULFATE 220 MG CAP PO SCH (10:19)
--- NOTE | 2021-05-25 11:06 | Electrocardiograph Report ---
[facility] Test Date: 2021-05-24 Test Time: 11:11:48 Pat Name: VICKY MARIE Department: Room: [facility] Gender: M Counter Server: HUGH : 1975 Requested By: RUTH NAPIER Order Number: [id number] Reading MD: Jeffrey Huber Measurements Intervals [place] Rate: 107 P: 19 [place]: 135 QRS: 58 QRSD: 87 T: 16 QT: 310 QTc: 414 Interpretive Statements Sinus tachycardia No previous ECG available for comparison Electronically Signed On 05-25-2021 11:06:00 EDT by Jeffrey Huber
--- NOTE | 2021-05-25 13:42 | Consultation ---
History of Present Illness - Reason for Consult Consult date: 05/25/21 PUI Requesting physician: KUSH CAMPOS - History of Present Illness The patient is a 43-year-old male with no past medical history admitted as COVID-19 PUI. Hypoxic requiring nasal cannula, unvaccinated, chest x-ray showed bilateral pneumonia. Review of Systems: reviewed in the chart, unable to obtain, minimize risk of transmission Past History Past Medical History: No medical history Past Surgical History: No surgical history Social history: lives with family Family history: no significant family history Medications and Allergies Allergies Allergy/AdvReac Type Severity Reaction Status Date / Time No Known Allergies Allergy Unverified 05/24/21 11:01 Home Medications Medication Instructions Recorded Confirmed Last Taken Type No Known Home Medications [No 05/25/21 05/25/21 Unknown History Reported Home Medications] Active Meds: Active Medications Acetaminophen (Acetaminophen 325 Mg Tab) 650 mg PO Q4H PRN PRN Reason: Pain MILD(1-3)/Fever >100.5/[place]AD[place] Al Hydrox/Mg Hydrox/Simethicone (Alum-Mag Hydroxide-Simethicone [id number]/5ml Oral Liqd 30 Ml) 30 ml PO Q4H PRN PRN Reason: Indigestion Ascorbic Acid (Ascorbic Acid 500 Mg Tab) 500 mg PO QDAY [facility] Last Admin: 05/25/21 10:19 Dose: 500 mg Documented by: Cholecalciferol (Cholecalciferol (Vit D3) 1000 Unit (25 Mcg) Tab) 1,000 unit PO QDAY [facility] Last Admin: 05/25/21 10:19 Dose: 1,000 unit Documented by: Dexamethasone (Dexamethasone 4 Mg/Ml Vial) 6 mg IV DAILY [facility] Last Admin: 05/25/21 10:18 Dose: 6 mg Documented by: Famotidine (Famotidine 20 Mg/2 Ml Inj) 20 mg IV BID [facility] Last Admin: 05/25/21 10:18 Dose: 20 mg Documented by: Sodium Chloride (Nacl 0.9% 1000 Ml) 1,000 mls @ 75 mls/hr IV DIRECT [facility] Last Admin: 05/24/21 21:37 Dose: 75 mls/hr Documented by: Azithromycin (Zithromax/Ns) 500 mg in 250 mls @ 250 mls/hr IV Q24H [facility] Ceftriaxone Sodium (Rocephin/Ns 2 Gm/100 Ml) 2 gm in 100 mls @ 200 mls/hr IV Q24H [facility]; Protocol Magnesium Hydroxide (Magnesium Hydroxide (Mom) Oral Liqd Udc) 30 ml PO Q4H PRN PRN Reason: Constipation Metoclopramide HCl (Metoclopramide 10 Mg/2 Ml Inj) 10 mg IV Q6H PRN PRN Reason: Nausea And Vomiting Naloxone HCl (Naloxone 0.4 Mg/1 Ml Inj) 0.1 mg IV Q2MIN PRN PRN Reason: Res Rate </= 8 or 02 SAT < 92% Ondansetron HCl (Ondansetron 4 Mg/2 Ml Inj) 4 mg IV Q8H PRN PRN Reason: Nausea And Vomiting Oxycodone/Acetaminophen (Oxycodone /Acetaminophen 5-325mg Tab) 1 tab PO Q6H PRN PRN Reason: Pain, Moderate (4-6) Senna (Sennosides 8.6 Mg Tab) 8.6 mg PO Q12HR PRN PRN Reason: Constipation Tramadol HCl (Tramadol 50 Mg Tab) 50 mg PO Q6H PRN PRN Reason: Pain, Moderate (4-6) Trazodone HCl (Trazodone 50 Mg Tab) 50 mg PO QHS PRN PRN Reason: Insomnia Last Admin: 05/24/21 21:37 Dose: 50 mg Documented by: Zinc Sulfate (Zinc Sulfate 220 Mg Cap) 220 mg PO QDAY [facility] Last Admin: 05/25/21 10:19 Dose: 220 mg Documented by: Physical Examination - Physical Exam Narrative exam: Physical Exam (reviewed in chart to minimize risk of transmission) Constitutional: deferred Head, Ears, Nose: deferred Eyes: deferred Neck: deferred Oral: deferred Cardiovascular: deferred Respiratory: deferred GI: deferred Musculoskeletal: deferred Skin: deferred Hem/Lymphatic: deferred Psych: deferred Neurological: deferred - Constitutional Vitals: Vital Signs Temp Pulse Resp BP Pulse Ox 101.2 F H 97 H 54 H 122/44 94 05/24/21 11:01 05/25/21 13:00 05/25/21 10:46 05/25/21 13:00 05/25/21 13:00 Results - Labs CBC & Chem 7: 05/25/21 07:48 05/25/21 07:48 Labs: Abnormal lab results 05/24/21 05/24/21 05/24/21 Range/Units 11:19 20:30 20:30 MCHC (32-34) % Lymph % (Auto) 7.6 L (13.4-35.0) % Lymph # (Auto) 0.4 L (1.2-5.4) K/mm3 Seg Neutrophils % (40.0-70.0) % Seg Neutrophils # (1.8-7.7) K/mm3 D-Dimer 773.79 H (0-234) ng/mlDDU Creatinine (0.8-1.3) mg/dL Glucose (75-100) mg/dL Ferritin (30.0-300.0) ng/mL Lactate Dehydrogenase (91-180) units/L C-Reactive Protein 19.30 H (0.00-1.30) mg/dL Albumin (3.9-5) g/dL 05/24/21 05/24/21 05/25/21 Range/Units 20:30 20:30 07:48 MCHC 35 H (32-34) % Lymph % (Auto) 7.8 L (13.4-35.0) % Lymph # (Auto) 0.7 L (1.2-5.4) K/mm3 Seg Neutrophils % 85.6 H (40.0-70.0) % Seg Neutrophils # 8.1 H (1.8-7.7) K/mm3 D-Dimer (0-234) ng/mlDDU Creatinine (0.8-1.3) mg/dL Glucose 186 H (75-100) mg/dL Ferritin 1632.0 H (30.0-300.0) ng/mL Lactate Dehydrogenase 433 H (91-180) units/L C-Reactive Protein 18.90 H (0.00-1.30) mg/dL Albumin (3.9-5) g/dL 05/25/21 Range/Units 07:48 MCHC (32-34) % Lymph % (Auto) (13.4-35.0) % Lymph # (Auto) (1.2-5.4) K/mm3 Seg Neutrophils % (40.0-70.0) % Seg Neutrophils # (1.8-7.7) K/mm3 D-Dimer (0-234) ng/mlDDU Creatinine 0.6 L (0.8-1.3) mg/dL Glucose 178 H (75-100) mg/dL Ferritin (30.0-300.0) ng/mL Lactate Dehydrogenase (91-180) units/L C-Reactive Protein (0.00-1.30) mg/dL Albumin 3.0 L (3.9-5) g/dL - Imaging and Cardiology Chest x-ray: report reviewed Assessment and Plan Cultures: SARS CoV2 PCR: Pending A/P: 46/M with: #Bilateral pneumonia: Suspicion for COVID-19 #Acute hypoxic respiratory failure: #Morbid obesity Recs: IV/PO Dexamethasone x 10 days IV remdesivir x 5 days ordered, d/c if COVID negative Currently, not a candidate for Actemra however, if requiring HFNC >30 L/min, CRP >7.5, please administer Actemra (depending on availability) prophylactic anticoagulation based on d-dimer per hospital protocol if procalcitonin is low, abx not needed trend ferritin, d-dimer, CRP every 2-3 days Quoc Oakes MD, FACP [facility] O: [phone] F: [phone]
[2021-05-25 15:26] LABS: Alanine Aminotransferase 24 units/L (7-56); Blood Urea Nitrogen 14 mg/dL (9-20); Calcium 8.3 mg/dL (8.4-10.2); Hemolysis Index 12
[2021-05-25 15:28] LABS: BUN/Creatinine Ratio 20
[2021-05-25] MEDS ORDERED: REMDESIVIR 200 MG in SODIUM CHLORIDE 0.9% 250ML 250 ML IV ONE (15:30)
[2021-05-25] MEDS ORDERED: cefTRIAXone/NS 1 GM/50 ML 1 GM/50 ML BAG IV SCH (16:00)
[2021-05-25] MEDS: SODIUM CHLORIDE 0.9% 50 ML IVPB IV SCH (16:25)
[2021-05-25] MEDS: cefTRIAXone/NS 2 GM/100 ML 2 GM/100 ML BAG IV SCH (16:26)
[2021-05-25] MEDS: BENZONATATE 100 MG CAP PO SCH ×2 (17:01→23:50)
[2021-05-25] MEDS: AZITHROMYCIN/NS 500 MG/250 ML 500 MG/250 ML BAG IV SCH (17:01)
[2021-05-26] MEDS: BENZONATATE 100 MG CAP PO SCH ×3 (05:52→22:06)
[2021-05-26 06:41] LABS: Alanine Aminotransferase 25 units/L (7-56); Albumin 3.2 g/dL (3.9-5); BUN/Creatinine Ratio 18; Blood Urea Nitrogen 14 mg/dL (9-20); Calcium 8.9 mg/dL (8.4-10.2); Hemolysis Index 5
--- NOTE | 2021-05-26 11:28 | Progress Note ---
Assessment and Plan Assessment and plan: - Patient Problems (1) Acute Hypoxic Respiratory Failure Supplemental oxygen via 4 L nasal cannula Etiology high suspicion for COVID-19 pneumonia Admit CXR: Multifocal airspace disease, possible left-sided pulmonary mass. Please refer to official radiology report Admit CTA chest: Bilateral airspace disease with mildly enlarged mediastinal nodes. No suspicious mass or lymph nodes appreciated. Covid therapies as below prn albuterol May consider pulm consult if o2 does not improve/worsens (2) COVID 19 Pneumonia Airborne and contact isolation Monitor inflammatory markers IV/PO Dexamethasone x 10 days IV remdesivir x 5 days ordered Currently not a candidate for Actemra Prophylactic Lovenox Ascorbic acid, zinc sulfate, vitamin D supplement Encourage the use of incentive spirometery Infectious disease consultfollow-up with plan of care. (3) Hyponatremia Likely secondary to dehydration IV hydration with normal saline Monitor sodium level and other electrolytes (4) Elevated d-dimer CTA of the chestrule outs PE (5) DVT prophylaxis Subcutaneous Lovenox Hospital course to date 05/25/2021: Resting comfortably on encounter. Will follow up results of Covid test. Continue therapy above at this time. Will follow ID recommendations. If patient deteriorates will consult pulmonology. 05/26/2021: Resting comfortably on encounter. Patient is Covid positive. Continuing therapy with abx, steroids, remdesivir. De-escalate O2 to NC. Anticipate d/c home with O2 in 1-2 days if patient tolerates NC. History Interval history: No acute complaints this morning. He states that he feels better compared to yesterday; the cough is still persistent and chest congestion still exists but overall improved. Still saturating 95-97% on Ventimask. When oxygen was shut off, patient began coughing and desaturating into the low 90s. Resumed oxygen therapy. Hospitalist Physical - Physical exam Narrative exam: Physical Exam: Constitutional: Alert, cooperative. No acute distress Head, Ears, Nose: Normocephalic, atraumatic. External ears, nose normal Eyes: Conjunctivae/corneas clear. No icterus. No ptosis. Neck: Supple, no meningeal signs Oral: dentition fair, no thrush Cardiovascular: S1, S2 normal. Respiratory: Good air entry, rhonchi bilaterally. On Venturi mask GI: Soft, non-tender; bowel sounds normal. No peritoneal signs. Musculoskeletal: No pedal edema, no cyanosis. Skin: No rash or abscess, see nursing assessment for full skin exam Hem/Lymphatic: No palpable cervical or supraclavicular nodes. No lymphangitis Psych: Mood ok. Affect normal Neurological: Awake, alert, oriented. No gross abnormality - Constitutional Vitals: Temp Pulse Resp BP Pulse Ox 101.2 F H 73 33 H 123/67 99 05/24/21 11:01 05/26/21 09:01 05/26/21 09:01 05/26/21 09:01 05/26/21 09:01 General appearance: Present: mild distress, well-nourished Results - Labs CBC & Chem 7: 05/25/21 07:48 05/26/21 05:50 Labs: Laboratory Last Values WBC 9.5 K/mm3 (4.5-11.0) 05/25/21 07:48 RBC 4.27 M/mm3 (3.65-5.03) 05/25/21 07:48 Hgb 13.7 gm/dl (11.8-15.2) 05/25/21 07:48 Hct 38.8 % (35.5-45.6) 05/25/21 07:48 MCV 91 fl (84-94) 05/25/21 07:48 MCH 32 pg (28-32) 05/25/21 07:48 MCHC 35 % (32-34) H 05/25/21 07:48 RDW 13.8 % (13.2-15.2) 05/25/21 07:48 Plt Count 347 K/mm3 (140-440) 05/25/21 07:48 Lymph % (Auto) 7.8 % (13.4-35.0) L 05/25/21 07:48 [place] % (Auto) 6.4 % (0.0-7.3) 05/25/21 07:48 Eos % (Auto) 0.0 % (0.0-4.3) 05/25/21 07:48 Baso % (Auto) 0.2 % (0.0-1.8) 05/25/21 07:48 Lymph # (Auto) 0.7 K/mm3 (1.2-5.4) L 05/25/21 07:48 [place] # (Auto) 0.6 K/mm3 (0.0-0.8) 05/25/21 07:48 Eos # (Auto) 0.0 K/mm3 (0.0-0.4) 05/25/21 07:48 Baso # (Auto) 0.0 K/mm3 (0.0-0.1) 05/25/21 07:48 Add Manual Diff Complete 05/24/21 11:19 Seg Neutrophils % 85.6 % (40.0-70.0) H 05/25/21 07:48 Nucleated RBC % Not Reportable 05/24/21 11:19 Seg Neutrophils # 8.1 K/mm3 (1.8-7.7) H 05/25/21 07:48 WBC Morphology Not Reportable 05/24/21 11:19 Hypersegmented Neuts Not Reportable 05/24/21 11:19 Hyposegmented Neuts Not Reportable 05/24/21 11:19 Hypogranular Neuts Not Reportable 05/24/21 11:19 Smudge Cells Not Reportable 05/24/21 11:19 Toxic Granulation Not Reportable 05/24/21 11:19 Toxic Vacuolation Not Reportable 05/24/21 11:19 Dohle Bodies Not Reportable 05/24/21 11:19 Pelger-Huet Anomaly Not Reportable 05/24/21 11:19 Job Rods Not Reportable 05/24/21 11:19 Platelet Estimate Not Reportable 05/24/21 11:19 Clumped Platelets Not Reportable 05/24/21 11:19 Plt Clumps, EDTA Not Reportable 05/24/21 11:19 Large Platelets Not Reportable 05/24/21 11:19 Giant Platelets Not Reportable 05/24/21 11:19 Platelet Satelliting Not Reportable 05/24/21 11:19 Plt Morphology Comment Not Reportable 05/24/21 11:19 RBC Morphology Not Reportable 05/24/21 11:19 Dimorphic RBCs Not Reportable 05/24/21 11:19 Polychromasia Not Reportable 05/24/21 11:19 Hypochromasia Not Reportable 05/24/21 11:19 Poikilocytosis Not Reportable 05/24/21 11:19 Anisocytosis Not Reportable 05/24/21 11:19 Microcytosis Not Reportable 05/24/21 11:19 Macrocytosis Not Reportable 05/24/21 11:19 Spherocytes Not Reportable 05/24/21 11:19 Pappenheimer Bodies Not Reportable 05/24/21 11:19 Sickle Cells Not Reportable 05/24/21 11:19 Target Cells Not Reportable 05/24/21 11:19 Tear Drop Cells Not Reportable 05/24/21 11:19 Ovalocytes Not Reportable 05/24/21 11:19 Helmet Cells Not Reportable 05/24/21 11:19 [place] Bodies Not Reportable 05/24/21 11:19 [place] Rings Not Reportable 05/24/21 11:19 Jl Cells Not Reportable 05/24/21 11:19 Bite Cells Not Reportable 05/24/21 11:19 Crenated Cell Not Reportable 05/24/21 11:19 Elliptocytes Not Reportable 05/24/21 11:19 Acanthocytes (Spur) Not Reportable 05/24/21 11:19 Rouleaux Not Reportable 05/24/21 11:19 Hemoglobin C Crystals Not Reportable 05/24/21 11:19 Schistocytes Not Reportable 05/24/21 11:19 Malaria parasites Not Reportable 05/24/21 11:19 [place]an Bodies Not Reportable 05/24/21 11:19 Hem Pathologist Commnt No 05/24/21 11:19 D-Dimer 773.79 ng/mlDDU (0-234) H 05/24/21 20:30 Sodium 138 mmol/L (137-145) 05/26/21 05:50 Potassium 4.6 mmol/L (3.6-5.0) 05/26/21 05:50 Chloride 102.3 mmol/L (98-107) 05/26/21 05:50 Carbon Dioxide 24 mmol/L (22-30) 05/26/21 05:50 Anion Gap 16 mmol/L 05/26/21 05:50 BUN 14 mg/dL (9-20) 05/26/21 05:50 Creatinine 0.8 mg/dL (0.8-1.3) 05/26/21 05:50 Estimated GFR > 60 ml/min 05/26/21 05:50 BUN/Creatinine Ratio 18 % 05/26/21 05:50 Glucose 206 mg/dL (75-100) H 05/26/21 05:50 Lactic Acid 1.50 mmol/L (0.7-2.0) 05/24/21 13:59 Calcium 8.9 mg/dL (8.4-10.2) 05/26/21 05:50 Ferritin 1632.0 ng/mL (30.0-300.0) H 05/24/21 20:30 Total Bilirubin 0.40 mg/dL (0.1-1.2) 05/26/21 05:50 AST 26 units/L (5-40) 05/26/21 05:50 ALT 25 units/L (7-56) 05/26/21 05:50 Alkaline Phosphatase 52 units/L (35-129) 05/26/21 05:50 Lactate Dehydrogenase 433 units/L (91-180) H 05/24/21 20:30 C-Reactive Protein 18.90 mg/dL (0.00-1.30) H 05/24/21 20:30 C-Reactive Protein 19.30 mg/dL (0.00-1.30) H 05/24/21 20:30 Total Protein 7.3 g/dL (6.3-8.2) 05/26/21 05:50 Albumin 3.2 g/dL (3.9-5) L 05/26/21 05:50 Albumin/Globulin Ratio 0.8 % 05/26/21 05:50 Coronavirus (PCR) Positive (Negative) A 05/25/21 Unknown Microbiology: Microbiology 05/24/21 11:19 Peripheral/Venous Blood Culture - Preliminary NO GROWTH AFTER 24 HOURS 05/24/21 11:19 Peripheral/Venous Blood Culture - Preliminary NO GROWTH AFTER 24 HOURS Active Medications - Current Medications Current Medications: Generic Name Dose Route Start Last Admin Trade Name Freq PRN Reason Stop Dose Admin Acetaminophen 650 mg 05/24/21 20:06 Acetaminophen 325 Mg Tab PO Q4H PRN Pain MILD(1-3)/Fever >100.5/SADLER Al Hydrox/Mg Hydrox/Simethicone 30 ml 05/24/21 20:00 Alum-Mag Hydroxide-Simethicone [phone]/5ml Oral Liqd 30 Ml PO Q4H PRN Indigestion Ascorbic Acid 500 mg 05/25/21 10:00 05/25/21 10:19 Ascorbic Acid 500 Mg Tab PO 500 mg QDAY TAURUS Administration Benzonatate 100 mg 05/25/21 17:00 05/26/21 05:52 Benzonatate 100 Mg Cap PO Not Given Q8HR TAURUS Cholecalciferol 1,000 unit 05/25/21 10:00 05/25/21 10:19 Cholecalciferol (Vit D3) 1000 Unit (25 Mcg) Tab PO 1,000 unit QDAY TAURUS Administration Dexamethasone 6 mg 05/25/21 10:00 05/25/21 10:18 Dexamethasone 4 Mg/Ml Vial IV 06/02/21 10:01 6 mg DAILY TAURUS Administration Famotidine 20 mg 05/24/21 22:00 05/25/21 23:49 Famotidine 20 Mg/2 Ml Inj IV 20 mg BID TAURUS Administration Sodium Chloride 1,000 mls @ 75 mls/hr 05/24/21 20:00 05/24/21 21:37 Nacl 0.9% 1000 Ml IV 75 mls/hr DIRECT TAURUS Administration Azithromycin 500 mg in 250 mls @ 250 mls/hr 05/25/21 17:00 05/25/21 17:01 Zithromax/Ns IV 250 mls/hr Q24H TAURUS Administration Ceftriaxone Sodium 2 gm in 100 mls @ 200 mls/hr 05/25/21 16:00 05/25/21 16:26 Rocephin/Ns 2 Gm/100 Ml IV 200 mls/hr Q24H TAURUS Administration Protocol REMDESIVIR 100 mg/ Sodium 250 mls @ 500 mls/hr 05/26/21 21:00 Chloride IV 05/29/21 21:29 Q24HR@2100 TAURUS Magnesium Hydroxide 30 ml 05/24/21 20:00 Magnesium Hydroxide (Mom) Oral Liqd Udc PO Q4H PRN Constipation Metoclopramide HCl 10 mg 05/24/21 20:00 Metoclopramide 10 Mg/2 Ml Inj IV Q6H PRN Nausea And Vomiting Naloxone HCl 0.1 mg 05/24/21 20:00 Naloxone 0.4 Mg/1 Ml Inj IV Q2MIN PRN Res Rate </= 8 or 02 SAT < 92% Ondansetron HCl 4 mg 05/24/21 20:00 Ondansetron 4 Mg/2 Ml Inj IV Q8H PRN Nausea And Vomiting Oxycodone/Acetaminophen 1 tab 05/24/21 20:00 Oxycodone /Acetaminophen 5-325mg Tab PO Q6H PRN Pain, Moderate (4-6) Senna 8.6 mg 05/24/21 20:00 Sennosides 8.6 Mg Tab PO Q12HR PRN Constipation Sodium Chloride 50 ml 05/25/21 15:30 05/25/21 16:25 Sodium Chloride 0.9% 50 Ml Ivpb IV 05/29/21 21:01 50 ml Q24HR@2100 TAURUS Administration Tramadol HCl 50 mg 05/24/21 20:08 Tramadol 50 Mg Tab PO Q6H PRN Pain, Moderate (4-6) Trazodone HCl 50 mg 05/24/21 20:08 05/24/21 21:37 Trazodone 50 Mg Tab PO 50 mg QHS PRN Administration Insomnia Zinc Sulfate 220 mg 05/25/21 10:00 05/25/21 10:19 Zinc Sulfate 220 Mg Cap PO 220 mg QDAY TAURUS Administration
[2021-05-26] MEDS: dexAMETHasone 4 MG/ML VIAL IV SCH (11:41)
[2021-05-26] MEDS: FAMOTIDINE 20 MG/2 ML INJ IV SCH ×2 (11:41→22:06)
[2021-05-26] MEDS: CHOLECALCIFEROL (VIT D3) 1000 UNIT (25 mcg) TAB PO SCH (11:42)
[2021-05-26] MEDS: ASCORBIC ACID 500 MG TAB PO SCH (11:42)
[2021-05-26] MEDS: ZINC SULFATE 220 MG CAP PO SCH (11:43)
--- NOTE | 2021-05-26 14:27 | Progress Note ---
Assessment and Plan Cultures: SARS CoV2 PCR: positive A/P: 46/M with: #Bilateral pneumonia due to COVID-19 #Acute hypoxic respiratory failure: on ventimask / NRB #Morbid obesity Recs: -IV/PO Dexamethasone x 10 days -IV remdesivir x 5 days -worsening hypoxia, CRP high, Actemra ordered (administer depending on availability) prophylactic anticoagulation based on d-dimer per hospital protocol if procalcitonin is low, abx not needed trend ferritin, d-dimer, CRP every 2-3 days Quoc Oakes MD, FACP [facility] O: [phone] F: [phone] Subjective Date of service: 05/26/21 Interval history: No temperature documented. Hypoxic requiring nonrebreather now. Objective - Exam Narrative Exam: Physical Exam (reviewed in chart to minimize risk of transmission) Constitutional: deferred Head, Ears, Nose: deferred Eyes: deferred Neck: deferred Oral: deferred Cardiovascular: deferred Respiratory: deferred GI: deferred Musculoskeletal: deferred Skin: deferred Hem/Lymphatic: deferred Psych: deferred Neurological: deferred - Constitutional Vitals: Vital Signs Temp Pulse Resp BP Pulse Ox 101.2 F H 73 33 H 123/67 99 05/24/21 11:01 05/26/21 09:01 05/26/21 09:01 05/26/21 09:01 05/26/21 09:01 - Labs CBC & Chem 7: 05/25/21 07:48 05/26/21 05:50 Labs: Abnormal lab results 05/25/21 05/25/21 05/26/21 Range/Units 14:42 Unknown 05:50 Sodium 136 L (137-145) mmol/L Carbon Dioxide 20 L (22-30) mmol/L Creatinine 0.7 L (0.8-1.3) mg/dL Glucose 271 H 206 H (75-100) mg/dL Calcium 8.3 L (8.4-10.2) mg/dL Albumin 3.0 L 3.2 L (3.9-5) g/dL Coronavirus (PCR) Positive A (Negative)
[2021-05-26] MEDS ORDERED: TOCILIZUMAB 600 MG in SODIUM CHLORIDE 0.9% 100 ML IV ONE (14:29)
[2021-05-26] MEDS: AZITHROMYCIN/NS 500 MG/250 ML 500 MG/250 ML BAG IV SCH (20:06)
[2021-05-26] MEDS: cefTRIAXone/NS 2 GM/100 ML 2 GM/100 ML BAG IV SCH (20:23)
[2021-05-26] MEDS: REMDESIVIR 100 MG in SODIUM CHLORIDE 0.9% 250ML 250 ML IV SCH (23:19)
[2021-05-26] MEDS: SODIUM CHLORIDE 0.9% 50 ML IVPB IV SCH (23:20)
[2021-05-27] MEDS: BENZONATATE 100 MG CAP PO SCH ×3 (05:44→21:45)
[2021-05-27 06:48] LABS: Alanine Aminotransferase 32 units/L (7-56); Albumin 3.1 g/dL (3.9-5); Blood Urea Nitrogen 16 mg/dL (9-20); Calcium 8.9 mg/dL (8.4-10.2); Hemolysis Index 50
[2021-05-27 06:49] LABS: BUN/Creatinine Ratio 27
--- NOTE | 2021-05-27 08:15 | Progress Note ---
Assessment and Plan Assessment and plan: - Patient Problems (1) Acute Hypoxic Respiratory Failure Supplemental oxygen via NRB. Saturating 93 to 95% Etiology high suspicion for COVID-19 pneumonia Admit CXR: Multifocal airspace disease, possible left-sided pulmonary mass. Please refer to official radiology report Admit CTA chest: Bilateral airspace disease with mildly enlarged mediastinal nodes. No suspicious mass or lymph nodes appreciated. Covid therapies as below prn albuterol Pulmonology consult placed: Recommends increase steroid dosage, ABX, Actemra, remdesivir, patient problems. (2) COVID 19 Pneumonia Airborne and contact isolation Monitor inflammatory markers IV/PO Dexamethasone x 10 days IV remdesivir x 5 days ordered Worsening respiratory status, Actemra ordered by ID Prophylactic Lovenox Ascorbic acid, zinc sulfate, vitamin D supplement Encourage the use of incentive spirometery Infectious disease consultfollow-up with plan of care. (3) Hyponatremia Likely secondary to dehydration IV hydration with normal saline Monitor sodium level and other electrolytes (4) Elevated d-dimer CTA of the chestrule outs PE (5) DVT prophylaxis Subcutaneous Lovenox Hospital course to date 05/25/2021: Resting comfortably on encounter. Will follow up results of Covid test. Continue therapy above at this time. Will follow ID recommendations. If patient deteriorates will consult pulmonology. 05/26/2021: Resting comfortably on encounter. Patient is Covid positive. Continuing therapy with abx, steroids, remdesivir. De-escalate O2 to NC. Anticipate d/c home with O2 in 1-2 days if patient tolerates NC. 05/27/2021: Steroids increased by pulmonology to 10 twice daily. May need to consider high-dose Solu-Medrol if no response. Patient will be encouraged to self prone. History Interval history: No overnight events. Patient remains on nonrebreather. He has occasional dry cough. Hospitalist Physical - Physical exam Narrative exam: Physical Exam: Constitutional: Alert, cooperative. No acute distress Head, Ears, Nose: Normocephalic, atraumatic. External ears, nose normal Eyes: Conjunctivae/corneas clear. No icterus. No ptosis. Neck: Supple, no meningeal signs Oral: dentition fair, no thrush Cardiovascular: S1, S2 normal. Respiratory: Good air entry, rhonchi bilaterally. On NRB mask GI: Soft, non-tender; bowel sounds normal. No peritoneal signs. Musculoskeletal: No pedal edema, no cyanosis. Skin: No rash or abscess, see nursing assessment for full skin exam Hem/Lymphatic: No palpable cervical or supraclavicular nodes. No lymphangitis Psych: Mood ok. Affect normal Neurological: Awake, alert, oriented. No gross abnormality - Constitutional Vitals: Temp Pulse Resp BP Pulse Ox 98.5 F 69 22 130/76 93 05/27/21 03:57 05/27/21 03:57 05/27/21 03:57 05/27/21 03:57 05/27/21 03:57 General appearance: Present: mild distress, well-nourished Results - Labs CBC & Chem 7: 05/25/21 07:48 05/27/21 04:14 Labs: Laboratory Last Values WBC 9.5 K/mm3 (4.5-11.0) 05/25/21 07:48 RBC 4.27 M/mm3 (3.65-5.03) 05/25/21 07:48 Hgb 13.7 gm/dl (11.8-15.2) 05/25/21 07:48 Hct 38.8 % (35.5-45.6) 05/25/21 07:48 MCV 91 fl (84-94) 05/25/21 07:48 MCH 32 pg (28-32) 05/25/21 07:48 MCHC 35 % (32-34) H 05/25/21 07:48 RDW 13.8 % (13.2-15.2) 05/25/21 07:48 Plt Count 347 K/mm3 (140-440) 05/25/21 07:48 Lymph % (Auto) 7.8 % (13.4-35.0) L 05/25/21 07:48 [place] % (Auto) 6.4 % (0.0-7.3) 05/25/21 07:48 Eos % (Auto) 0.0 % (0.0-4.3) 05/25/21 07:48 Baso % (Auto) 0.2 % (0.0-1.8) 05/25/21 07:48 Lymph # (Auto) 0.7 K/mm3 (1.2-5.4) L 05/25/21 07:48 [place] # (Auto) 0.6 K/mm3 (0.0-0.8) 05/25/21 07:48 Eos # (Auto) 0.0 K/mm3 (0.0-0.4) 05/25/21 07:48 Baso # (Auto) 0.0 K/mm3 (0.0-0.1) 05/25/21 07:48 Add Manual Diff Complete 05/24/21 11:19 Seg Neutrophils % 85.6 % (40.0-70.0) H 05/25/21 07:48 Nucleated RBC % Not Reportable 05/24/21 11:19 Seg Neutrophils # 8.1 K/mm3 (1.8-7.7) H 05/25/21 07:48 WBC Morphology Not Reportable 05/24/21 11:19 Hypersegmented Neuts Not Reportable 05/24/21 11:19 Hyposegmented Neuts Not Reportable 05/24/21 11:19 Hypogranular Neuts Not Reportable 05/24/21 11:19 Smudge Cells Not Reportable 05/24/21 11:19 Toxic Granulation Not Reportable 05/24/21 11:19 Toxic Vacuolation Not Reportable 05/24/21 11:19 Dohle Bodies Not Reportable 05/24/21 11:19 Pel[place]-Huet Anomaly Not Reportable 05/24/21 11:19 Job Rods Not Reportable 05/24/21 11:19 Platelet Estimate Not Reportable 05/24/21 11:19 Clumped Platelets Not Reportable 05/24/21 11:19 Plt Clumps, EDTA Not Reportable 05/24/21 11:19 Large Platelets Not Reportable 05/24/21 11:19 Giant Platelets Not Reportable 05/24/21 11:19 Platelet Satelliting Not Reportable 05/24/21 11:19 Plt Morphology Comment Not Reportable 05/24/21 11:19 RBC Morphology Not Reportable 05/24/21 11:19 Dimorphic RBCs Not Reportable 05/24/21 11:19 Polychromasia Not Reportable 05/24/21 11:19 Hypochromasia Not Reportable 05/24/21 11:19 Poikilocytosis Not Reportable 05/24/21 11:19 Anisocytosis Not Reportable 05/24/21 11:19 Microcytosis Not Reportable 05/24/21 11:19 Macrocytosis Not Reportable 05/24/21 11:19 Spherocytes Not Reportable 05/24/21 11:19 Pappenheimer Bodies Not Reportable 05/24/21 11:19 Sickle Cells Not Reportable 05/24/21 11:19 Target Cells Not Reportable 05/24/21 11:19 Tear Drop Cells Not Reportable 05/24/21 11:19 Ovalocytes Not Reportable 05/24/21 11:19 Helmet Cells Not Reportable 05/24/21 11:19 Faith-[place] Bodies Not Reportable 05/24/21 11:19 [place] Rings Not Reportable 05/24/21 11:19 Jl Cells Not Reportable 05/24/21 11:19 Bite Cells Not Reportable 05/24/21 11:19 Crenated Cell Not Reportable 05/24/21 11:19 Elliptocytes Not Reportable 05/24/21 11:19 Acanthocytes (Spur) Not Reportable 05/24/21 11:19 Rouleaux Not Reportable 05/24/21 11:19 Hemoglobin C Crystals Not Reportable 05/24/21 11:19 Schistocytes Not Reportable 05/24/21 11:19 Malaria parasites Not Reportable 05/24/21 11:19 Saman Bodies Not Reportable 05/24/21 11:19 Hem Pathologist Commnt No 05/24/21 11:19 D-Dimer 773.79 ng/mlDDU (0-234) H 05/24/21 20:30 Sodium 139 mmol/L (137-145) 05/27/21 04:14 Potassium 4.7 mmol/L (3.6-5.0) 05/27/21 04:14 Chloride 102.1 mmol/L (98-107) 05/27/21 04:14 Carbon Dioxide 26 mmol/L (22-30) 05/27/21 04:14 Anion Gap 16 mmol/L 05/27/21 04:14 BUN 16 mg/dL (9-20) 05/27/21 04:14 Creatinine 0.6 mg/dL (0.8-1.3) L 05/27/21 04:14 Estimated GFR > 60 ml/min 05/27/21 04:14 BUN/Creatinine Ratio 27 % 05/27/21 04:14 Glucose 182 mg/dL (75-100) H 05/27/21 04:14 Lactic Acid 1.50 mmol/L (0.7-2.0) 05/24/21 13:59 Calcium 8.9 mg/dL (8.4-10.2) 05/27/21 04:14 Ferritin 1632.0 ng/mL (30.0-300.0) H 05/24/21 20:30 Total Bilirubin 0.30 mg/dL (0.1-1.2) 05/27/21 04:14 AST 34 units/L (5-40) 05/27/21 04:14 ALT 32 units/L (7-56) 05/27/21 04:14 Alkaline Phosphatase 58 units/L (35-129) 05/27/21 04:14 Lactate Dehydrogenase 433 units/L (91-180) H 05/24/21 20:30 C-Reactive Protein 18.90 mg/dL (0.00-1.30) H 05/24/21 20:30 C-Reactive Protein 19.30 mg/dL (0.00-1.30) H 05/24/21 20:30 Total Protein 7.0 g/dL (6.3-8.2) 05/27/21 04:14 Albumin 3.1 g/dL (3.9-5) L 05/27/21 04:14 Albumin/Globulin Ratio 0.8 % 05/27/21 04:14 Coronavirus (PCR) Positive (Negative) A 05/25/21 Unknown Microbiology: Microbiology 05/24/21 11:19 Peripheral/Venous Blood Culture - Preliminary NO GROWTH AFTER 48 HOURS 05/24/21 11:19 Peripheral/Venous Blood Culture - Preliminary NO GROWTH AFTER 48 HOURS Johnson/IV: Voiding Method Urinal Active Medications - Current Medications Current Medications: Generic Name Dose Route Start Last Admin Trade Name Freq PRN Reason Stop Dose Admin Acetaminophen 650 mg 05/24/21 20:06 Acetaminophen 325 Mg Tab PO Q4H PRN Pain MILD(1-3)/Fever >100.5/SADLER Al Hydrox/Mg Hydrox/Simethicone 30 ml 05/24/21 20:00 Alum-Mag Hydroxide-Simethicone [phone]/5ml Oral Liqd 30 Ml PO Q4H PRN Indigestion Ascorbic Acid 500 mg 05/25/21 10:00 05/26/21 11:42 Ascorbic Acid 500 Mg Tab PO 500 mg QDAY TAURUS Administration Benzonatate 100 mg 05/25/21 17:00 05/27/21 05:44 Benzonatate 100 Mg Cap PO 100 mg Q8HR TAURUS Administration Cholecalciferol 1,000 unit 05/25/21 10:00 05/26/21 11:42 Cholecalciferol (Vit D3) 1000 Unit (25 Mcg) Tab PO 1,000 unit QDAY TAURUS Administration Dexamethasone 6 mg 05/27/21 10:00 Dexamethasone 4 Mg Tab PO 06/02/21 12:00 DAILY TAURUS Enoxaparin Sodium 40 mg 05/27/21 22:00 Enoxaparin 40 Mg/0.4 Ml Inj SUB-Q QDAY@2200 [facility] Protocol Famotidine 20 mg 05/24/21 22:00 05/26/21 22:06 Famotidine 20 Mg/2 Ml Inj IV 20 mg BID TAURUS Administration Sodium Chloride 1,000 mls @ 75 mls/hr 05/24/21 20:00 05/24/21 21:37 Nacl 0.9% 1000 Ml IV 75 mls/hr DIRECT TAURUS Administration Azithromycin 500 mg in 250 mls @ 250 mls/hr 05/25/21 17:00 05/26/21 20:06 Zithromax/Ns IV 250 mls/hr Q24H TAURUS Administration Ceftriaxone Sodium 2 gm in 100 mls @ 200 mls/hr 05/25/21 16:00 05/26/21 20:23 Rocephin/Ns 2 Gm/100 Ml IV 200 mls/hr Q24H TAURUS Administration Protocol REMDESIVIR 100 mg/ Sodium 250 mls @ 500 mls/hr 05/26/21 21:00 05/26/21 23:19 Chloride IV 05/29/21 21:29 500 mls/hr Q24HR@2100 TAURUS Administration TOCILIZUMAB 648 mg/ Sodium 103.6 mls @ 120 mls/hr 05/26/21 16:00 Chloride IV 05/26/21 16:51 ONCE ONE Magnesium Hydroxide 30 ml 05/24/21 20:00 Magnesium Hydroxide (Mom) Oral Liqd Udc PO Q4H PRN Constipation Metoclopramide HCl 10 mg 05/24/21 20:00 Metoclopramide 10 Mg/2 Ml Inj IV Q6H PRN Nausea And Vomiting Naloxone HCl 0.1 mg 05/24/21 20:00 Naloxone 0.4 Mg/1 Ml Inj IV Q2MIN PRN Res Rate </= 8 or 02 SAT < 92% Ondansetron HCl 4 mg 05/24/21 20:00 Ondansetron 4 Mg/2 Ml Inj IV Q8H PRN Nausea And Vomiting Oxycodone/Acetaminophen 1 tab 05/24/21 20:00 Oxycodone /Acetaminophen 5-325mg Tab PO Q6H PRN Pain, Moderate (4-6) Senna 8.6 mg 05/24/21 20:00 Sennosides 8.6 Mg Tab PO Q12HR PRN Constipation Sodium Chloride 50 ml 05/25/21 15:30 05/26/21 23:20 Sodium Chloride 0.9% 50 Ml Ivpb IV 05/29/21 21:01 50 ml Q24HR@2100 TAURUS Administration Tramadol HCl 50 mg 05/24/21 20:08 Tramadol 50 Mg Tab PO Q6H PRN Pain, Moderate (4-6) Trazodone HCl 50 mg 05/24/21 20:08 05/24/21 21:37 Trazodone 50 Mg Tab PO 50 mg QHS PRN Administration Insomnia Zinc Sulfate 220 mg 05/25/21 10:00 05/26/21 11:43 Zinc Sulfate 220 Mg Cap PO 220 mg QDAY TAURUS Administration
[2021-05-27] MEDS: ASCORBIC ACID 500 MG TAB PO SCH (09:26)
[2021-05-27] MEDS: CHOLECALCIFEROL (VIT D3) 1000 UNIT (25 mcg) TAB PO SCH (09:26)
[2021-05-27] MEDS: ZINC SULFATE 220 MG CAP PO SCH (09:26)
--- NOTE | 2021-05-27 09:59 | XRay Report ---
CHEST 1 VIEW 05/27/2021 8:50 AM INDICATION / CLINICAL INFORMATION: pneumonia. COMPARISON: 05/24/2021 FINDINGS: SUPPORT DEVICES: None. HEART / MEDIASTINUM: No significant abnormality. LUNGS / PLEURA: Extensive multifocal bilateral airspace disease has worsened. No pneumothorax. ADDITIONAL FINDINGS: No significant additional findings. IMPRESSION: 1. Worsening bilateral pneumonia Signer Name: Elvin Alcala MD Signed: 05/27/2021 9:55 AM Workstation Name: [id number] ([id number]
[2021-05-27] MEDS ORDERED: DEXAMETHASONE 4 MG TAB PO SCH (10:00)
[2021-05-27 10:19] LABS: C-Reactive Protein 10.4 mg/dL (0.00-1.30)
[2021-05-27] MEDS: FAMOTIDINE 20 MG/2 ML INJ IV SCH ×2 (10:33→21:45)
--- NOTE | 2021-05-27 11:39 | Consultation ---
History of Present Illness Consult date: 05/27/21 Requesting physician: DUANE CASTRO Reason for consult: hypoxemia, other (COVID) History of present illness: 46 y/o obese male admitted with acute respiratory failure secondary to COVID 19 Past History Past Medical History: No medical history Past Surgical History: No surgical history Social history: lives with family Family history: no significant family history Medications and Allergies Allergies Allergy/AdvReac Type Severity Reaction Status Date / Time No Known Allergies Allergy Unverified 05/24/21 11:01 Home Medications Medication Instructions Recorded Confirmed Last Taken Type No Known Home Medications [No 05/25/21 05/25/21 Unknown History Reported Home Medications] Active Meds: Active Medications Acetaminophen (Acetaminophen 325 Mg Tab) 650 mg PO Q4H PRN PRN Reason: Pain MILD(1-3)/Fever >100.5/SADLER Al Hydrox/Mg Hydrox/Simethicone (Alum-Mag Hydroxide-Simethicone [id number]/5ml Oral Liqd 30 Ml) 30 ml PO Q4H PRN PRN Reason: Indigestion Ascorbic Acid (Ascorbic Acid 500 Mg Tab) 500 mg PO QDAY [facility] Last Admin: 05/27/21 09:26 Dose: 500 mg Documented by: Benzonatate (Benzonatate 100 Mg Cap) 100 mg PO Q8HR [facility] Last Admin: 05/27/21 05:44 Dose: 100 mg Documented by: Cholecalciferol (Cholecalciferol (Vit D3) 1000 Unit (25 Mcg) Tab) 1,000 unit PO QDAY [facility] Last Admin: 05/27/21 09:26 Dose: 1,000 unit Documented by: Dexamethasone (Dexamethasone 4 Mg Tab) 10 mg PO Q12H [facility] Stop: 06/02/21 12:00 Enoxaparin Sodium (Enoxaparin 40 Mg/0.4 Ml Inj) 40 mg SUB-Q QDAY@2200 [facility]; Protocol Famotidine (Famotidine 20 Mg/2 Ml Inj) 20 mg IV BID [facility] Last Admin: 05/27/21 10:33 Dose: 20 mg Documented by: Sodium Chloride (Nacl 0.9% 1000 Ml) 1,000 mls @ 75 mls/hr IV DIRECT [facility] Last Admin: 05/24/21 21:37 Dose: 75 mls/hr Documented by: Azithromycin (Zithromax/Ns) 500 mg in 250 mls @ 250 mls/hr IV Q24H [facility] Stop: 05/28/21 20:00 Last Admin: 05/26/21 20:06 Dose: 250 mls/hr Documented by: Ceftriaxone Sodium (Rocephin/Ns 2 Gm/100 Ml) 2 gm in 100 mls @ 200 mls/hr IV Q24H [facility]; Protocol Stop: 05/28/21 20:00 Last Admin: 05/26/21 20:23 Dose: 200 mls/hr Documented by: REMDESIVIR 100 mg/ Sodium (Chloride) 250 mls @ 500 mls/hr IV Q24HR@2100 [facility] Stop: 05/29/21 21:29 Last Admin: 05/26/21 23:19 Dose: 500 mls/hr Documented by: TOCILIZUMAB 648 mg/ Sodium (Chloride) 103.6 mls @ 120 mls/hr IV ONCE ONE Stop: 05/26/21 16:51 Magnesium Hydroxide (Magnesium Hydroxide (Mom) Oral Liqd Udc) 30 ml PO Q4H PRN PRN Reason: Constipation Metoclopramide HCl (Metoclopramide 10 Mg/2 Ml Inj) 10 mg IV Q6H PRN PRN Reason: Nausea And Vomiting Naloxone HCl (Naloxone 0.4 Mg/1 Ml Inj) 0.1 mg IV Q2MIN PRN PRN Reason: Res Rate </= 8 or 02 SAT < 92% Ondansetron HCl (Ondansetron 4 Mg/2 Ml Inj) 4 mg IV Q8H PRN PRN Reason: Nausea And Vomiting Oxycodone/Acetaminophen (Oxycodone /Acetaminophen 5-325mg Tab) 1 tab PO Q6H PRN PRN Reason: Pain, Moderate (4-6) Senna (Sennosides 8.6 Mg Tab) 8.6 mg PO Q12HR PRN PRN Reason: Constipation Sodium Chloride (Sodium Chloride 0.9% 50 Ml Ivpb) 50 ml IV Q24HR@2100 [facility] Stop: 05/29/21 21:01 Last Admin: 05/26/21 23:20 Dose: 50 ml Documented by: Tramadol HCl (Tramadol 50 Mg Tab) 50 mg PO Q6H PRN PRN Reason: Pain, Moderate (4-6) Trazodone HCl (Trazodone 50 Mg Tab) 50 mg PO QHS PRN PRN Reason: Insomnia Last Admin: 05/24/21 21:37 Dose: 50 mg Documented by: Zinc Sulfate (Zinc Sulfate 220 Mg Cap) 220 mg PO QDAY [facility] Last Admin: 05/27/21 09:26 Dose: 220 mg Documented by: Physical Examination Vital signs: Vital Signs Temp Pulse Resp BP Pulse Ox 101.2 F H 118 H 18 113/77 88 05/24/21 11:01 05/24/21 11:01 05/24/21 11:01 05/24/21 11:01 05/24/21 11:01 Results - Laboratory Findings CBC and BMP: 05/25/21 07:48 05/27/21 04:14 PT/INR, D-dimer D-Dimer 1730.61 ng/mlDDU (0-234) H 05/27/21 10:00 Abnormal lab findings: Abnormal Labs 05/24/21 05/24/21 05/24/21 11:19 11:19 11:19 MCHC 35 H Lymph % (Auto) 7.6 L [place] % (Auto) 10.2 H Lymph # (Auto) 0.4 L Seg Neutrophils % 82.0 H Seg Neutrophils # D-Dimer 809.12 H Sodium 131 L Chloride 96.9 L Carbon Dioxide Creatinine Glucose 180 H Calcium Ferritin Lactate Dehydrogenase C-Reactive Protein Albumin 3.6 L Coronavirus (PCR) 05/24/21 05/24/21 05/24/21 11:19 11:19 20:30 MCHC Lymph % (Auto) [place] % (Auto) Lymph # (Auto) Seg Neutrophils % Seg Neutrophils # D-Dimer Sodium Chloride Carbon Dioxide Creatinine Glucose Calcium Ferritin 1761.0 H Lactate Dehydrogenase 491 H C-Reactive Protein 22.00 H 19.30 H Albumin Coronavirus (PCR) 05/24/21 05/24/21 05/24/21 20:30 20:30 20:30 MCHC Lymph % (Auto) [place] % (Auto) Lymph # (Auto) Seg Neutrophils % Seg Neutrophils # D-Dimer 773.79 H Sodium Chloride Carbon Dioxide Creatinine Glucose 186 H Calcium Ferritin 1632.0 H Lactate Dehydrogenase 433 H C-Reactive Protein 18.90 H Albumin Coronavirus (PCR) 05/25/21 05/25/21 05/25/21 07:48 07:48 14:42 MCHC 35 H Lymph % (Auto) 7.8 L [place] % (Auto) Lymph # (Auto) 0.7 L Seg Neutrophils % 85.6 H Seg Neutrophils # 8.1 H D-Dimer Sodium 136 L Chloride Carbon Dioxide 20 L Creatinine 0.6 L 0.7 L Glucose 178 H 271 H Calcium 8.3 L Ferritin Lactate Dehydrogenase C-Reactive Protein Albumin 3.0 L 3.0 L Coronavirus (PCR) 05/25/21 05/26/21 05/27/21 Unknown 05:50 04:14 MCHC Lymph % (Auto) [place] % (Auto) Lymph # (Auto) Seg Neutrophils % Seg Neutrophils # D-Dimer Sodium Chloride Carbon Dioxide Creatinine 0.6 L Glucose 206 H 182 H Calcium Ferritin Lactate Dehydrogenase C-Reactive Protein Albumin 3.2 L 3.1 L Coronavirus (PCR) Positive A 05/27/21 05/27/21 05/27/21 04:14 10:00 10:00 MCHC Lymph % (Auto) [place] % (Auto) Lymph # (Auto) Seg Neutrophils % Seg Neutrophils # D-Dimer 1730.61 H Sodium Chloride Carbon Dioxide Creatinine Glucose Calcium Ferritin 1694.0 H Lactate Dehydrogenase 604 H C-Reactive Protein 10.40 H Albumin Coronavirus (PCR) - Diagnostic Findings Chest x-ray: image reviewed Assessment and Plan 46 y/o obese male admitted with acute respiratory failure secondary to COVID 19 1. Increased steroids to 10 BID given obesity. If no improvement in 96 hours then will change to high dose solumedrol 2. Remdesivir 3. Actemra given yesterday 4. Prone 5. Guarded prognosis.
[2021-05-27] MEDS: DEXAMETHASONE 4 MG TAB PO SCH (13:02)
[2021-05-27] MEDS: cefTRIAXone/NS 2 GM/100 ML 2 GM/100 ML BAG IV SCH (15:33)
[2021-05-27] MEDS: AZITHROMYCIN/NS 500 MG/250 ML 500 MG/250 ML BAG IV SCH (16:37)
[2021-05-27] MEDS: REMDESIVIR 100 MG in SODIUM CHLORIDE 0.9% 250ML 250 ML IV SCH (21:44)
[2021-05-27] MEDS: SODIUM CHLORIDE 0.9% 50 ML IVPB IV SCH (21:45)
[2021-05-27] MEDS: ENOXAPARIN 40 MG/0.4 ML INJ SUB-Q SCH ×2 (21:45→21:59)
[2021-05-28] MEDS: DEXAMETHASONE 4 MG TAB PO SCH ×3 (00:10→23:46)
[2021-05-28 05:16] LABS: Hematocrit 41.3 % (35.5-45.6); Hemoglobin 14.1 gm/dl (11.8-15.2); Mean Corpuscular HGB Conc 34 % (32-34); Mean Corpuscular Volume 92 fl (84-94); Platelet Count 449 K/mm3 (140-440); Red Cell Distribution Width 13.5 % (13.2-15.2)
[2021-05-28 05:32] LABS: Alanine Aminotransferase 29 units/L (7-56); Albumin 3.2 g/dL (3.9-5); Blood Urea Nitrogen 17 mg/dL (9-20); Calcium 9.1 mg/dL (8.4-10.2); Hemolysis Index 3
[2021-05-28] MEDS: BENZONATATE 100 MG CAP PO SCH ×3 (06:15→23:37)
[2021-05-28 07:01] LABS: BUN/Creatinine Ratio 28
--- NOTE | 2021-05-28 07:56 | Progress Note ---
Assessment and Plan - Patient Problems (1) Acute Hypoxic Respiratory Failure Supplemental oxygen via NRB. Saturating 93 to 95% Etiology high suspicion for COVID-19 pneumonia Admit CXR: Multifocal airspace disease, possible left-sided pulmonary mass. Please refer to official radiology report Admit CTA chest: Bilateral airspace disease with mildly enlarged mediastinal nodes. No suspicious mass or lymph nodes appreciated. Covid therapies as below prn albuterol Pulmonology consult placed: Recommends increase steroid dosage, ABX, Actemra, remdesivir, patient problems. (2) COVID 19 Pneumonia Airborne and contact isolation Monitor inflammatory markers IV/PO Dexamethasone x 10 days IV remdesivir x 5 days ordered Worsening respiratory status, Actemra ordered by ID Prophylactic Lovenox Ascorbic acid, zinc sulfate, vitamin D supplement Encourage the use of incentive spirometery Infectious disease consultfollow-up with plan of care. (3) Hyponatremia Likely secondary to dehydration IV hydration with normal saline Monitor sodium level and other electrolytes (4) Elevated d-dimer CTA of the chestrule outs PE (5) DVT prophylaxis Subcutaneous Lovenox Hospital course to date 05/25/2021: Resting comfortably on encounter. Will follow up results of Covid test. Continue therapy above at this time. Will follow ID recommendations. If patient deteriorates will consult pulmonology. 05/26/2021: Resting comfortably on encounter. Patient is Covid positive. Continuing therapy with abx, steroids, remdesivir. De-escalate O2 to NC. Anticipate d/c home with O2 in 1-2 days if patient tolerates NC. 05/27/2021: Steroids increased by Pulmonology to 10 twice daily. May need to consider high-dose Solu-Medrol if no response in 96 hours. Patient will be encouraged to self prone. 05/28/2021: Patient remains on Ventimask. Did not tolerate de-escalation to nasal cannula. continued to encourage patient to self prone Subjective Interval history: Patient feeling well on encounter. He had no acute complaints and was comfortable. Ventimask overlying face during encounter with saturations in the mid 90s. Attempted to de-escalate to nasal cannula however saturations fell to range of 78-83. During this time, patient was coughing. Remainder of ROS negative. Objective - Exam Narrative Exam: Physical Exam: Constitutional: Alert, cooperative. No acute distress Head, Ears, Nose: Normocephalic, atraumatic. External ears, nose normal Eyes: Conjunctivae/corneas clear. No icterus. No ptosis. Neck: Supple, no meningeal signs Oral: dentition fair, no thrush Cardiovascular: S1, S2 normal. Respiratory: Good air entry, rhonchi bilaterally. On NRB mask GI: Soft, non-tender; bowel sounds normal. No peritoneal signs. Musculoskeletal: No pedal edema, no cyanosis. Skin: No rash or abscess, see nursing assessment for full skin exam Hem/Lymphatic: No palpable cervical or supraclavicular nodes. No lymphangitis Psych: Mood ok. Affect normal Neurological: Awake, alert, oriented. No gross abnormality - Constitutional Vitals: Vital Signs - 12hr 05/27/21 05/27/21 05/28/21 21:52 23:00 06:09 Temperature 97.5 F L 98.2 F Pulse Rate 75 80 Pulse Rate [ 75 Right Brachial] Respiratory 18 18 18 Rate Blood Pressure 137/80 131/84 O2 Sat by Pulse 91 91 90 Oximetry - Labs CBC & Chem 7: 05/28/21 04:05 05/28/21 04:05 Labs: Abnormal lab results 05/27/21 05/27/21 05/27/21 Range/Units 04:14 10:00 10:00 Plt Count (140-440) K/mm3 D-Dimer 1730.61 H (0-234) ng/mlDDU Creatinine (0.8-1.3) mg/dL Glucose (75-100) mg/dL Ferritin 1694.0 H (30.0-300.0) ng/mL Lactate Dehydrogenase 604 H (91-180) units/L C-Reactive Protein 10.40 H (0.00-1.30) mg/dL Albumin (3.9-5) g/dL 05/28/21 05/28/21 05/28/21 Range/Units 04:05 04:05 04:05 Plt Count 449 H (140-440) K/mm3 D-Dimer 3141.44 H (0-234) ng/mlDDU Creatinine 0.6 L (0.8-1.3) mg/dL Glucose 248 H (75-100) mg/dL Ferritin (30.0-300.0) ng/mL Lactate Dehydrogenase (91-180) units/L C-Reactive Protein (0.00-1.30) mg/dL Albumin 3.2 L (3.9-5) g/dL 05/28/21 05/28/21 Range/Units 04:05 04:05 Plt Count (140-440) K/mm3 D-Dimer (0-234) ng/mlDDU Creatinine (0.8-1.3) mg/dL Glucose (75-100) mg/dL Ferritin 1374.0 H (30.0-300.0) ng/mL Lactate Dehydrogenase 460 H (91-180) units/L C-Reactive Protein 9.00 H (0.00-1.30) mg/dL Albumin (3.9-5) g/dL
[2021-05-28] MEDS ORDERED: DEXTROSE 50% IN WATER (25GM) 50 ML SYRINGE IV PRN (07:58)
[2021-05-28] MEDS: CHOLECALCIFEROL (VIT D3) 1000 UNIT (25 mcg) TAB PO SCH (09:06)
[2021-05-28] MEDS: ZINC SULFATE 220 MG CAP PO SCH (09:06)
[2021-05-28] MEDS: FAMOTIDINE 20 MG/2 ML INJ IV SCH ×2 (09:06→23:36)
[2021-05-28] MEDS: ASCORBIC ACID 500 MG TAB PO SCH (09:06)
[2021-05-28 09:12] LABS: RBC Morphology Normal; Total Cells Counted 100
[2021-05-28 09:13] LABS: Platelet Estimate Consistent w Auto; Toxic Granulation 1+
--- NOTE | 2021-05-28 09:40 | Progress Note ---
Assessment and Plan 46 y/o obese male admitted with acute respiratory failure secondary to COVID 19 05/28/21: Continue BID steroids given obesity. Continue for another 72 hours. Patient refusing prophylaxis for DVT as D-Dimer continues to rise. COVID patient's are prone to be hypercoaguable. COntinue Remdesivir 1. Increased steroids to 10 BID given obesity. If no improvement in 96 hours then will change to high dose solumedrol 2. Remdesivir 3. Actemra pending availability 4. Prone 5. Guarded prognosis. Subjective Date of service: 05/28/21 Interval history: Patient refused lovenox injection for DVT prophylaxis per nurse documentation. Remains on HFNC, last sat documented at 90 at 0600 this morning. Objective Vital Signs - 12hr 05/27/21 05/27/21 05/28/21 21:52 23:00 06:09 Temperature 97.5 F L 98.2 F Pulse Rate 75 80 Pulse Rate [ 75 Right Brachial] Respiratory 18 18 18 Rate Blood Pressure 137/80 131/84 O2 Sat by Pulse 91 91 90 Oximetry CBC and BMP: 05/28/21 04:05 05/28/21 04:05 ABG, PT/INR, D-dimer: PT/INR, D-dimer D-Dimer 3141.44 ng/mlDDU (0-234) H 05/28/21 04:05 Abnormal lab findings: Abnormal Labs 05/24/21 05/24/21 05/24/21 11:19 11:19 11:19 MCHC 35 H Plt Count Lymph % (Auto) 7.6 L [place] % (Auto) 10.2 H Lymph # (Auto) 0.4 L Seg Neutrophils % 82.0 H Seg Neuts % (Manual) Lymphocytes % (Manual) Seg Neutrophils # Seg Neutrophils # Man Lymphocytes # (Manual) D-Dimer 809.12 H Sodium 131 L Chloride 96.9 L Carbon Dioxide Creatinine Glucose 180 H Calcium Ferritin Lactate Dehydrogenase C-Reactive Protein Albumin 3.6 L Coronavirus (PCR) 05/24/21 05/24/21 05/24/21 11:19 11:19 20:30 MCHC Plt Count Lymph % (Auto) [place] % (Auto) Lymph # (Auto) Seg Neutrophils % Seg Neuts % (Manual) Lymphocytes % (Manual) Seg Neutrophils # Seg Neutrophils # Man Lymphocytes # (Manual) D-Dimer Sodium Chloride Carbon Dioxide Creatinine Glucose Calcium Ferritin 1761.0 H Lactate Dehydrogenase 491 H C-Reactive Protein 22.00 H 19.30 H Albumin Coronavirus (PCR) 05/24/21 05/24/21 05/24/21 20:30 20:30 20:30 MCHC Plt Count Lymph % (Auto) [place] % (Auto) Lymph # (Auto) Seg Neutrophils % Seg Neuts % (Manual) Lymphocytes % (Manual) Seg Neutrophils # Seg Neutrophils # Man Lymphocytes # (Manual) D-Dimer 773.79 H Sodium Chloride Carbon Dioxide Creatinine Glucose 186 H Calcium Ferritin 1632.0 H Lactate Dehydrogenase 433 H C-Reactive Protein 18.90 H Albumin Coronavirus (PCR) 05/25/21 05/25/21 05/25/21 07:48 07:48 14:42 MCHC 35 H Plt Count Lymph % (Auto) 7.8 L [place] % (Auto) Lymph # (Auto) 0.7 L Seg Neutrophils % 85.6 H Seg Neuts % (Manual) Lymphocytes % (Manual) Seg Neutrophils # 8.1 H Seg Neutrophils # Man Lymphocytes # (Manual) D-Dimer Sodium 136 L Chloride Carbon Dioxide 20 L Creatinine 0.6 L 0.7 L Glucose 178 H 271 H Calcium 8.3 L Ferritin Lactate Dehydrogenase C-Reactive Protein Albumin 3.0 L 3.0 L Coronavirus (PCR) 05/25/21 05/26/21 05/27/21 Unknown 05:50 04:14 MCHC Plt Count Lymph % (Auto) [place] % (Auto) Lymph # (Auto) Seg Neutrophils % Seg Neuts % (Manual) Lymphocytes % (Manual) Seg Neutrophils # Seg Neutrophils # Man Lymphocytes # (Manual) D-Dimer Sodium Chloride Carbon Dioxide Creatinine 0.6 L Glucose 206 H 182 H Calcium Ferritin Lactate Dehydrogenase C-Reactive Protein Albumin 3.2 L 3.1 L Coronavirus (PCR) Positive A 05/27/21 05/27/21 05/27/21 04:14 10:00 10:00 MCHC Plt Count Lymph % (Auto) [place] % (Auto) Lymph # (Auto) Seg Neutrophils % Seg Neuts % (Manual) Lymphocytes % (Manual) Seg Neutrophils # Seg Neutrophils # Man Lymphocytes # (Manual) D-Dimer 1730.61 H Sodium Chloride Carbon Dioxide Creatinine Glucose Calcium Ferritin 1694.0 H Lactate Dehydrogenase 604 H C-Reactive Protein 10.40 H Albumin Coronavirus (PCR) 05/28/21 05/28/21 05/28/21 04:05 04:05 04:05 MCHC Plt Count 449 H Lymph % (Auto) [place] % (Auto) Lymph # (Auto) Seg Neutrophils % Seg Neuts % (Manual) 94.0 H Lymphocytes % (Manual) 3.0 L Seg Neutrophils # Seg Neutrophils # Man 9.8 H Lymphocytes # (Manual) 0.3 L D-Dimer 3141.44 H Sodium Chloride Carbon Dioxide Creatinine 0.6 L Glucose 248 H Calcium Ferritin Lactate Dehydrogenase C-Reactive Protein Albumin 3.2 L Coronavirus (PCR) 05/28/21 05/28/21 04:05 04:05 MCHC Plt Count Lymph % (Auto) [place] % (Auto) Lymph # (Auto) Seg Neutrophils % Seg Neuts % (Manual) Lymphocytes % (Manual) Seg Neutrophils # Seg Neutrophils # Man Lymphocytes # (Manual) D-Dimer Sodium Chloride Carbon Dioxide Creatinine Glucose Calcium Ferritin 1374.0 H Lactate Dehydrogenase 460 H C-Reactive Protein 9.00 H Albumin Coronavirus (PCR)
--- NOTE | 2021-05-28 11:02 | XRay Report ---
CHEST 1 VIEW 05/28/2021 9:16 AM INDICATION / CLINICAL INFORMATION: covid 19 pna. COMPARISON: 05/27/21 FINDINGS: SUPPORT DEVICES: None. HEART / MEDIASTINUM: No significant abnormality. LUNGS / PLEURA: Moderately extensive bilateral pulmonary opacities are unchanged. No pneumothorax. ADDITIONAL FINDINGS: No significant additional findings. IMPRESSION: 1. No significant change. Signer Name: Dorota Pozo MD Signed: 05/28/2021 10:58 AM Workstation Name: [id number]
[2021-05-28] MEDS ORDERED: INSULIN LISPRO 100 UNIT/ML SUB-Q SCH ×2 (11:30)
[2021-05-28] MEDS ORDERED: TOCILIZUMAB 648 MG in SODIUM CHLORIDE 0.9% 100 ML IV ONE (13:00)
[2021-05-28] MEDS: cefTRIAXone/NS 2 GM/100 ML 2 GM/100 ML BAG IV SCH (16:16)
[2021-05-28] MEDS: AZITHROMYCIN/NS 500 MG/250 ML 500 MG/250 ML BAG IV SCH (16:16)
[2021-05-28] MEDS: REMDESIVIR 100 MG in SODIUM CHLORIDE 0.9% 250ML 250 ML IV SCH (23:36)
[2021-05-28] MEDS: SODIUM CHLORIDE 0.9% 50 ML IVPB IV SCH (23:36)
[2021-05-28] MEDS: ENOXAPARIN 40 MG/0.4 ML INJ SUB-Q SCH (23:36)
[2021-05-28] MEDS: INSULIN GLARGINE 100 UNITS/ML SUB-Q SCH (23:43)
[2021-05-29] MEDS: BENZONATATE 100 MG CAP PO SCH ×3 (06:45→21:20)
--- NOTE | 2021-05-29 07:58 | Progress Note ---
Assessment and Plan Assessment and plan: - Patient Problems (1) Acute Hypoxic Respiratory Failure Supplemental oxygen via NRB. Saturating 93 to 95% Etiology high suspicion for COVID-19 pneumonia Admit CXR: Multifocal airspace disease, possible left-sided pulmonary mass. Please refer to official radiology report Admit CTA chest: Bilateral airspace disease with mildly enlarged mediastinal nodes. No suspicious mass or lymph nodes appreciated. Covid therapies as below prn albuterol Pulmonology consult placed: Recommends increase steroid dosage, ABX, Actemra, remdesivir, patient problems. (2) COVID 19 Pneumonia Airborne and contact isolation Monitor inflammatory markers IV/PO Dexamethasone x 10 days IV remdesivir x 5 days ordered Worsening respiratory status, Actemra ordered by ID Prophylactic Lovenox Ascorbic acid, zinc sulfate, vitamin D supplement Encourage the use of incentive spirometery Infectious disease consultfollow-up with plan of care. (3) Hyponatremia Likely secondary to dehydration IV hydration with normal saline Monitor sodium level and other electrolytes (4) Elevated d-dimer CTA of the chestrule outs PE (5) DVT prophylaxis Subcutaneous Lovenox Hospital course to date 05/25/2021: Resting comfortably on encounter. Will follow up results of Covid test. Continue therapy above at this time. Will follow ID recommendations. If patient deteriorates will consult pulmonology. 05/26/2021: Resting comfortably on encounter. Patient is Covid positive. Continuing therapy with abx, steroids, remdesivir. De-escalate O2 to NC. Anticipate d/c home with O2 in 1-2 days if patient tolerates NC. 05/27/2021: Steroids increased by Pulmonology to Decadron 10 mg twice daily. May need to consider high-dose Solu-Medrol if no response in 96 hours. Patient will be encouraged to self prone. 05/28/2021: Patient remains on Ventimask. Did not tolerate de-escalation to nasal cannula. continued to encourage patient to self prone 05/29/2021: Patient remains on nonrebreather 100%. Encourage patient to get up and walk around room as he appears pretty comfortable on bedside encounter. We will continue therapy for Covid pneumonia. Will attempt de-escalation tomorrow patient continues to demonstrate improvement. History Interval history: Patient feeling well on encounter. Still requiring oxygen. Unable to wean off nonrebreather at this time. He did ambulate throughout the room and tolerated this well. Advised patient to remain active if possible. Called diamond Smiley ([phone]) and updated her on patient's condition. Hospitalist Physical - Physical exam Narrative exam: Physical Exam: Constitutional: Alert, cooperative. No acute distress. NRB in place. Head, Ears, Nose: Normocephalic, atraumatic. External ears, nose normal Eyes: Conjunctivae/corneas clear. No icterus. No ptosis. Neck: Supple, no meningeal signs Oral: dentition fair, no thrush Cardiovascular: S1, S2 normal. Respiratory: Good air entry, rhonchi bilaterally. On NRB mask GI: Soft, non-tender; bowel sounds normal. No peritoneal signs. Musculoskeletal: No pedal edema, no cyanosis. Skin: No rash or abscess, see nursing assessment for full skin exam Hem/Lymphatic: No palpable cervical or supraclavicular nodes. No lymphangitis Psych: Mood ok. Affect normal Neurological: Awake, alert, oriented. No gross abnormality - Constitutional Vitals: Temp Pulse Resp BP Pulse Ox 97.7 F 76 20 131/84 91 05/29/21 05:48 05/29/21 05:48 05/29/21 05:48 05/29/21 05:48 05/29/21 05:48 General appearance: Present: mild distress, well-nourished Results - Labs CBC & Chem 7: 05/28/21 04:05 05/28/21 04:05 Labs: Laboratory Last Values WBC 10.4 K/mm3 (4.5-11.0) 05/28/21 04:05 RBC 4.50 M/mm3 (3.65-5.03) 05/28/21 04:05 Hgb 14.1 gm/dl (11.8-15.2) 05/28/21 04:05 Hct 41.3 % (35.5-45.6) 05/28/21 04:05 MCV 92 fl (84-94) 05/28/21 04:05 MCH 31 pg (28-32) 05/28/21 04:05 MCHC 34 % (32-34) 05/28/21 04:05 RDW 13.5 % (13.2-15.2) 05/28/21 04:05 Plt Count 449 K/mm3 (140-440) H 05/28/21 04:05 Lymph % (Auto) 7.8 % (13.4-35.0) L 05/25/21 07:48 [place] % (Auto) 6.4 % (0.0-7.3) 05/25/21 07:48 Eos % (Auto) 0.0 % (0.0-4.3) 05/25/21 07:48 Baso % (Auto) 0.2 % (0.0-1.8) 05/25/21 07:48 Lymph # (Auto) 0.7 K/mm3 (1.2-5.4) L 05/25/21 07:48 [place] # (Auto) 0.6 K/mm3 (0.0-0.8) 05/25/21 07:48 Eos # (Auto) 0.0 K/mm3 (0.0-0.4) 05/25/21 07:48 Baso # (Auto) 0.0 K/mm3 (0.0-0.1) 05/25/21 07:48 Add Manual Diff Complete 05/28/21 04:05 Total Counted 100 05/28/21 04:05 Seg Neutrophils % Hole Digger Operator 05/28/21 04:05 Seg Neuts % (Manual) 94.0 % (40.0-70.0) H 05/28/21 04:05 Lymphocytes % (Manual) 3.0 % (13.4-35.0) L 05/28/21 04:05 Monocytes % (Manual) 3.0 % (0.0-7.3) 05/28/21 04:05 Nucleated RBC % Not Reportable 05/28/21 04:05 Seg Neutrophils # 8.1 K/mm3 (1.8-7.7) H 05/25/21 07:48 Seg Neutrophils # Man 9.8 K/mm3 (1.8-7.7) H 05/28/21 04:05 Band Neutrophils # 0.0 K/mm3 05/28/21 04:05 Lymphocytes # (Manual) 0.3 K/mm3 (1.2-5.4) L 05/28/21 04:05 Abs React Lymphs (Man) 0.0 K/mm3 05/28/21 04:05 Monocytes # (Manual) 0.3 K/mm3 (0.0-0.8) 05/28/21 04:05 Eosinophils # (Manual) 0.0 K/mm3 (0.0-0.4) 05/28/21 04:05 Basophils # (Manual) 0.0 K/mm3 (0.0-0.1) 05/28/21 04:05 Metamyelocytes # 0.0 K/mm3 05/28/21 04:05 Myelocytes # 0.0 K/mm3 05/28/21 04:05 Promyelocytes # 0.0 K/mm3 05/28/21 04:05 Blast Cells # 0.0 K/mm3 05/28/21 04:05 WBC Morphology Not Reportable 05/28/21 04:05 Hypersegmented Neuts Not Reportable 05/28/21 04:05 Hyposegmented Neuts Not Reportable 05/28/21 04:05 Hypogranular Neuts Not Reportable 05/28/21 04:05 Smudge Cells Not Reportable 05/28/21 04:05 Toxic Granulation 1+ 05/28/21 04:05 Toxic Vacuolation Not Reportable 05/28/21 04:05 Dohle Bodies Not Reportable 05/28/21 04:05 Pelger-Huet Anomaly Not Reportable 05/28/21 04:05 Job Rods Not Reportable 05/28/21 04:05 Platelet Estimate Consistent w auto 05/28/21 04:05 Clumped Platelets Not Reportable 05/28/21 04:05 Plt Clumps, EDTA Not Reportable 05/28/21 04:05 Large Platelets Not Reportable 05/28/21 04:05 Giant Platelets Not Reportable 05/28/21 04:05 Platelet Satelliting Not Reportable 05/28/21 04:05 Plt Morphology Comment Not Reportable 05/28/21 04:05 RBC Morphology Normal 05/28/21 04:05 Dimorphic RBCs Not Reportable 05/28/21 04:05 Polychromasia Not Reportable 05/28/21 04:05 Hypochromasia Not Reportable 05/28/21 04:05 Poikilocytosis Not Reportable 05/28/21 04:05 Anisocytosis Not Reportable 05/28/21 04:05 Microcytosis Not Reportable 05/28/21 04:05 Macrocytosis Not Reportable 05/28/21 04:05 Spherocytes Not Reportable 05/28/21 04:05 Pappenheimer Bodies Not Reportable 05/28/21 04:05 Sickle Cells Not Reportable 05/28/21 04:05 Target Cells Not Reportable 05/28/21 04:05 Tear Drop Cells Not Reportable 05/28/21 04:05 Ovalocytes Not Reportable 05/28/21 04:05 Helmet Cells Not Reportable 05/28/21 04:05 [place] Bodies Not Reportable 05/28/21 04:05 [place] Rings Not Reportable 05/28/21 04:05 Jl Cells Not Reportable 05/28/21 04:05 Bite Cells Not Reportable 05/28/21 04:05 Crenated Cell Not Reportable 05/28/21 04:05 Elliptocytes Not Reportable 05/28/21 04:05 Acanthocytes (Spur) Not Reportable 05/28/21 04:05 Rouleaux Not Reportable 05/28/21 04:05 Hemoglobin C Crystals Not Reportable 05/28/21 04:05 Schistocytes Not Reportable 05/28/21 04:05 Malaria parasites Not Reportable 05/28/21 04:05 Saman Bodies Not Reportable 05/28/21 04:05 Hem Pathologist Commnt No 05/28/21 04:05 D-Dimer 3141.44 ng/mlDDU (0-234) H 05/28/21 04:05 Sodium 137 mmol/L (137-145) 05/28/21 04:05 Potassium 4.5 mmol/L (3.6-5.0) 05/28/21 04:05 Chloride 99.6 mmol/L (98-107) 05/28/21 04:05 Carbon Dioxide 28 mmol/L (22-30) 05/28/21 04:05 Anion Gap 14 mmol/L 05/28/21 04:05 BUN 17 mg/dL (9-20) 05/28/21 04:05 Creatinine 0.6 mg/dL (0.8-1.3) L 05/28/21 04:05 Estimated GFR > 60 ml/min 05/28/21 04:05 BUN/Creatinine Ratio 28 % 05/28/21 04:05 Glucose 248 mg/dL (75-100) H 05/28/21 04:05 POC Glucose 276 mg/dL (70-105) H 05/29/21 07:40 Lactic Acid 1.50 mmol/L (0.7-2.0) 05/24/21 13:59 Calcium 9.1 mg/dL (8.4-10.2) 05/28/21 04:05 Ferritin 1374.0 ng/mL (30.0-300.0) H 05/28/21 04:05 Total Bilirubin 0.50 mg/dL (0.1-1.2) 05/28/21 04:05 AST 18 units/L (5-40) 05/28/21 04:05 ALT 29 units/L (7-56) 05/28/21 04:05 Alkaline Phosphatase 65 units/L (35-129) 05/28/21 04:05 Lactate Dehydrogenase 460 units/L (91-180) H 05/28/21 04:05 C-Reactive Protein 9.00 mg/dL (0.00-1.30) H 05/28/21 04:05 Total Protein 7.3 g/dL (6.3-8.2) 05/28/21 04:05 Albumin 3.2 g/dL (3.9-5) L 05/28/21 04:05 Albumin/Globulin Ratio 0.8 % 05/28/21 04:05 Procalcitonin 0.23 ng/mL (<0.15) 05/24/21 11:19 Coronavirus (PCR) Positive (Negative) A 05/25/21 Unknown Microbiology: Microbiology 05/24/21 11:19 Peripheral/Venous Blood Culture - Preliminary NO GROWTH AFTER 4 DAYS 05/24/21 11:19 Peripheral/Venous Blood Culture - Preliminary NO GROWTH AFTER 4 DAYS Johnson/IV: Voiding Method Urinal Active Medications - Current Medications Current Medications: Generic Name Dose Route Start Last Admin Trade Name Freq PRN Reason Stop Dose Admin Acetaminophen 650 mg 05/24/21 20:06 Acetaminophen 325 Mg Tab PO Q4H PRN Pain MILD(1-3)/Fever >100.5/SADLER Al Hydrox/Mg Hydrox/Simethicone 30 ml 05/24/21 20:00 Alum-Mag Hydroxide-Simethicone [id number]/5ml Oral Liqd 30 Ml PO Q4H PRN Indigestion Ascorbic Acid 500 mg 05/25/21 10:00 05/28/21 09:06 Ascorbic Acid 500 Mg Tab PO 500 mg QDAY TAURUS Administration Benzonatate 100 mg 05/25/21 17:00 05/29/21 06:45 Benzonatate 100 Mg Cap PO 100 mg Q8HR TAURUS Administration Cholecalciferol 1,000 unit 05/25/21 10:00 05/28/21 09:06 Cholecalciferol (Vit D3) 1000 Unit (25 Mcg) Tab PO 1,000 unit QDAY TAURUS Administration Dexamethasone 10 mg 05/27/21 12:00 05/28/21 23:46 Dexamethasone 4 Mg Tab PO 06/02/21 12:00 10 mg Q12H TAURUS Administration Enoxaparin Sodium 40 mg 05/27/21 22:00 05/28/21 23:36 Enoxaparin 40 Mg/0.4 Ml Inj SUB-Q 40 mg QDAY@2200 TAURUS Administration Protocol Famotidine 20 mg 05/24/21 22:00 05/28/21 23:36 Famotidine 20 Mg/2 Ml Inj IV 20 mg BID TAURUS Administration Sodium Chloride 1,000 mls @ 75 mls/hr 05/24/21 20:00 05/24/21 21:37 Nacl 0.9% 1000 Ml IV 75 mls/hr DIRECT TAURUS Administration REMDESIVIR 100 mg/ Sodium 250 mls @ 500 mls/hr 05/26/21 21:00 05/28/21 23:36 Chloride IV 05/29/21 21:29 500 mls/hr Q24HR@2100 TAURUS Administration Insulin Glargine 10 units 05/28/21 22:00 05/28/21 23:43 Insulin Glargine 100 Units/Ml SUB-Q 10 units QHS TAURUS Administration Magnesium Hydroxide 30 ml 05/24/21 20:00 Magnesium Hydroxide (Mom) Oral Liqd Udc PO Q4H PRN Constipation Metoclopramide HCl 10 mg 05/24/21 20:00 Metoclopramide 10 Mg/2 Ml Inj IV Q6H PRN Nausea And Vomiting Naloxone HCl 0.1 mg 05/24/21 20:00 Naloxone 0.4 Mg/1 Ml Inj IV Q2MIN PRN Res Rate </= 8 or 02 SAT < 92% Ondansetron HCl 4 mg 05/24/21 20:00 Ondansetron 4 Mg/2 Ml Inj IV Q8H PRN Nausea And Vomiting Oxycodone/Acetaminophen 1 tab 05/24/21 20:00 Oxycodone /Acetaminophen 5-325mg Tab PO Q6H PRN Pain, Moderate (4-6) Senna 8.6 mg 05/24/21 20:00 Sennosides 8.6 Mg Tab PO Q12HR PRN Constipation Sodium Chloride 50 ml 05/25/21 15:30 05/28/21 23:36 Sodium Chloride 0.9% 50 Ml Ivpb IV 05/29/21 21:01 50 ml Q24HR@2100 TAURUS Administration Tramadol HCl 50 mg 05/24/21 20:08 Tramadol 50 Mg Tab PO Q6H PRN Pain, Moderate (4-6) Trazodone HCl 50 mg 05/24/21 20:08 05/24/21 21:37 Trazodone 50 Mg Tab PO 50 mg QHS PRN Administration Insomnia Zinc Sulfate 220 mg 05/25/21 10:00 05/28/21 09:06 Zinc Sulfate 220 Mg Cap PO 220 mg QDAY TAURUS Administration Nutrition/Malnutrition Assess - Dietary Evaluation Nutrition/Malnutrition Findings: Nutrition Notes Start: 05/28/21 08:57 Freq: Status: Active Protocol: Document 05/28/21 08:58 (Rec: 05/28/21 09:01 [id number]) Nutrition Notes Need for Assessment generated from: MD Order Initial or Follow up Brief Note Current Diagnosis Respiratory Failure Other Pertinent Diagnosis COIVD, pneu Current Diet regular Subjective/Other Information MD consult for diet education. Pt tuvaluan speaking and unable to complete remotely. Nutrition Intervention Follow-Up By: 05/31/21 Additional Comments F/u: diet education needs via local RN
--- NOTE | 2021-05-29 09:14 | XRay Report ---
XR chest 1V ap INDICATION / CLINICAL INFORMATION: pneumonia. COMPARISON: 05/28/2021 FINDINGS: SUPPORT DEVICES: None HEART /PULMONARY VASCULATURE: Unchanged. LUNGS / PLEURA: Diffuse pulmonary airspace disease is unchanged, given imaged lung volumes. No sizabl e pleural effusion. No pneumothorax. IMPRESSION: No significant change in multifocal pneumonia, given depth of inspiration. Signer Name: Azar Juarez MD Signed: 05/29/2021 9:10 AM Workstation Name: [id number]
--- NOTE | 2021-05-29 10:32 | Progress Note ---
Assessment and Plan Cultures: SARS CoV2 PCR: positive A/P: 46/M with: #Bilateral pneumonia due to COVID-19 #Acute hypoxic respiratory failure: on ventimask / NRB #Morbid obesity Recs: -IV/PO Dexamethasone x 10 days -IV remdesivir x 5 days -worsening hypoxia, CRP high, Actemra ordered (administer depending on availability) prophylactic anticoagulation based on d-dimer per hospital protocol Procalcitonin low, antibiotics not needed. trend ferritin, d-dimer, CRP every 2-3 days Soledad Maldonado MD [facility] ([facility]) O: [phone] F: [phone] Subjective Date of service: 05/29/21 Interval history: Afebrile, normal white count. Nonrebreather Imaging personally reviewed: Chest x-ray: Multifocal pneumonia Objective - Exam Narrative Exam: Physical exam deferred to reduce risk of transmission of COVID-19. Please refer to primary team's note. - Constitutional Vitals: Vital Signs Temp Pulse Resp BP Pulse Ox 97.7 F 76 20 131/84 96 05/29/21 05:48 05/29/21 05:48 05/29/21 05:48 05/29/21 05:48 05/29/21 10:11 Temperature -Last 24 Hours Temperature 97.7 F Temperature 97.6 F Temperature 98.0 F Temperature 98.2 F - Labs CBC & Chem 7: 05/28/21 04:05 05/28/21 04:05 Labs: Abnormal lab results 05/28/21 05/29/21 Range/Units 23:41 07:40 POC Glucose 259 H 276 H (70-105) mg/dL
[2021-05-29] MEDS: CHOLECALCIFEROL (VIT D3) 1000 UNIT (25 mcg) TAB PO SCH (11:14)
[2021-05-29] MEDS: FAMOTIDINE 20 MG/2 ML INJ IV SCH ×2 (11:14→21:20)
[2021-05-29] MEDS: ZINC SULFATE 220 MG CAP PO SCH (11:14)
[2021-05-29] MEDS: ASCORBIC ACID 500 MG TAB PO SCH (11:14)
[2021-05-29] MEDS: INSULIN LISPRO 100 UNIT/ML SUB-Q SCH ×3 (11:30→23:06)
[2021-05-29] MEDS: DEXAMETHASONE 4 MG TAB PO SCH (13:21)
--- NOTE | 2021-05-29 14:32 | Progress Note ---
Assessment and Plan 46 y/o obese male admitted with acute respiratory failure secondary to COVID 19 05/29/21: BID steroids, continue for 48 hours. Took prophylaxis last night for DVT. May need large doses of steroids. Guarded prognosis. 05/28/21: Continue BID steroids given obesity. Continue for another 72 hours. Patient refusing prophylaxis for DVT as D-Dimer continues to rise. COVID patient's are prone to be hypercoaguable. COntinue Remdesivir 1. Increased steroids to 10 BID given obesity. If no improvement in 96 hours then will change to high dose solumedrol 2. Remdesivir 3. Actemra pending availability 4. Prone 5. Guarded prognosis. Subjective Date of service: 05/29/21 Interval history: No acute events. Oxygen requirement is the same. Objective Vital Signs - 12hr 05/29/21 05/29/21 05:48 10:11 Temperature 97.7 F Pulse Rate 76 Respiratory 20 Rate Blood Pressure 131/84 O2 Sat by Pulse 91 96 Oximetry CBC and BMP: 05/28/21 04:05 05/28/21 04:05 ABG, PT/INR, D-dimer: PT/INR, D-dimer D-Dimer 3141.44 ng/mlDDU (0-234) H 05/28/21 04:05 Abnormal lab findings: Abnormal Labs 05/24/21 05/24/21 05/24/21 11:19 11:19 11:19 MCHC 35 H Plt Count Lymph % (Auto) 7.[address] [facility] % (Auto) 10.2 H Lymph # (Auto) 0.4 L Seg Neutrophils % 82.0 H Seg Neuts % (Manual) Lymphocytes % (Manual) Seg Neutrophils # Seg Neutrophils # Man Lymphocytes # (Manual) D-Dimer 809.12 H Sodium 131 L Chloride 96.9 L Carbon Dioxide Creatinine Glucose 180 H POC Glucose Calcium Ferritin Lactate Dehydrogenase C-Reactive Protein Albumin 3.6 L Coronavirus (PCR) 05/24/21 05/24/21 05/24/21 11:19 11:19 20:30 MCHC Plt Count Lymph % (Auto) [facility] % (Auto) Lymph # (Auto) Seg Neutrophils % Seg Neuts % (Manual) Lymphocytes % (Manual) Seg Neutrophils # Seg Neutrophils # Man Lymphocytes # (Manual) D-Dimer Sodium Chloride Carbon Dioxide Creatinine Glucose POC Glucose Calcium Ferritin 1761.0 H Lactate Dehydrogenase 491 H C-Reactive Protein 22.00 H 19.30 H Albumin Coronavirus (PCR) 05/24/21 05/24/21 05/24/21 20:30 20:30 20:30 MCHC Plt Count Lymph % (Auto) [facility] % (Auto) Lymph # (Auto) Seg Neutrophils % Seg Neuts % (Manual) Lymphocytes % (Manual) Seg Neutrophils # Seg Neutrophils # Man Lymphocytes # (Manual) D-Dimer 773.79 H Sodium Chloride Carbon Dioxide Creatinine Glucose 186 H POC Glucose Calcium Ferritin 1632.0 H Lactate Dehydrogenase 433 H C-Reactive Protein 18.90 H Albumin Coronavirus (PCR) 05/25/21 05/25/21 05/25/21 07:48 07:48 14:42 MCHC 35 H Plt Count Lymph % (Auto) 7.[address] [facility] % (Auto) Lymph # (Auto) 0.7 L Seg Neutrophils % 85.6 H Seg Neuts % (Manual) Lymphocytes % (Manual) Seg Neutrophils # 8.1 H Seg Neutrophils # Man Lymphocytes # (Manual) D-Dimer Sodium 136 L Chloride Carbon Dioxide 20 L Creatinine 0.6 L 0.7 L Glucose 178 H 271 H POC Glucose Calcium 8.3 L Ferritin Lactate Dehydrogenase C-Reactive Protein Albumin 3.0 L 3.0 L Coronavirus (PCR) 05/25/21 05/26/21 05/27/21 Unknown 05:50 04:14 MCHC Plt Count Lymph % (Auto) [facility] % (Auto) Lymph # (Auto) Seg Neutrophils % Seg Neuts % (Manual) Lymphocytes % (Manual) Seg Neutrophils # Seg Neutrophils # Man Lymphocytes # (Manual) D-Dimer Sodium Chloride Carbon Dioxide Creatinine 0.6 L Glucose 206 H 182 H POC Glucose Calcium Ferritin Lactate Dehydrogenase C-Reactive Protein Albumin 3.2 L 3.1 L Coronavirus (PCR) Positive A 05/27/21 05/27/21 05/27/21 04:14 10:00 10:00 MCHC Plt Count Lymph % (Auto) [facility] % (Auto) Lymph # (Auto) Seg Neutrophils % Seg Neuts % (Manual) Lymphocytes % (Manual) Seg Neutrophils # Seg Neutrophils # Man Lymphocytes # (Manual) D-Dimer 1730.61 H Sodium Chloride Carbon Dioxide Creatinine Glucose POC Glucose Calcium Ferritin 1694.0 H Lactate Dehydrogenase 604 H C-Reactive Protein 10.40 H Albumin Coronavirus (PCR) 05/28/21 05/28/21 05/28/21 04:05 04:05 04:05 MCHC Plt Count 449 H Lymph % (Auto) [facility] % (Auto) Lymph # (Auto) Seg Neutrophils % Seg Neuts % (Manual) 94.0 H Lymphocytes % (Manual) 3.0 L Seg Neutrophils # Seg Neutrophils # Man 9.8 H Lymphocytes # (Manual) 0.3 L D-Dimer 3141.44 H Sodium Chloride Carbon Dioxide Creatinine 0.6 L Glucose 248 H POC Glucose Calcium Ferritin Lactate Dehydrogenase C-Reactive Protein Albumin 3.2 L Coronavirus (PCR) 05/28/21 05/28/21 05/28/21 04:05 04:05 23:41 MCHC Plt Count Lymph % (Auto) [facility] % (Auto) Lymph # (Auto) Seg Neutrophils % Seg Neuts % (Manual) Lymphocytes % (Manual) Seg Neutrophils # Seg Neutrophils # Man Lymphocytes # (Manual) D-Dimer Sodium Chloride Carbon Dioxide Creatinine Glucose POC Glucose 259 H Calcium Ferritin 1374.0 H Lactate Dehydrogenase 460 H C-Reactive Protein 9.00 H Albumin Coronavirus (PCR) 05/29/21 05/29/21 07:40 12:04 MCHC Plt Count Lymph % (Auto) [facility] % (Auto) Lymph # (Auto) Seg Neutrophils % Seg Neuts % (Manual) Lymphocytes % (Manual) Seg Neutrophils # Seg Neutrophils # Man Lymphocytes # (Manual) D-Dimer Sodium Chloride Carbon Dioxide Creatinine Glucose POC Glucose 276 H 296 H Calcium Ferritin Lactate Dehydrogenase C-Reactive Protein Albumin Coronavirus (PCR)
[2021-05-29] MEDS: ENOXAPARIN 40 MG/0.4 ML INJ SUB-Q SCH (21:20)
[2021-05-29] MEDS: INSULIN GLARGINE 100 UNITS/ML SUB-Q SCH (23:06)
[2021-05-29] MEDS: REMDESIVIR 100 MG in SODIUM CHLORIDE 0.9% 250ML 250 ML IV SCH (23:07)
[2021-05-29] MEDS: SODIUM CHLORIDE 0.9% 50 ML IVPB IV SCH (23:50)
[2021-05-30] MEDS: DEXAMETHASONE 4 MG TAB PO SCH ×3 (00:47→23:35)
[2021-05-30] MEDS: BENZONATATE 100 MG CAP PO SCH ×3 (05:43→22:07)
[2021-05-30] MEDS: INSULIN LISPRO 100 UNIT/ML SUB-Q SCH ×4 (07:30→22:17)
[2021-05-30 07:40] LABS: Hematocrit 43.5 % (35.5-45.6); Hemoglobin 14.5 gm/dl (11.8-15.2); Mean Corpuscular HGB Conc 33 % (32-34); Mean Corpuscular Volume 90 fl (84-94); Platelet Count 595 K/mm3 (140-440); Red Blood Count 4.82 M/mm3 (3.65-5.03); Red Cell Distribution Width 13.8 % (13.2-15.2)
[2021-05-30 08:27] LABS: Alanine Aminotransferase 28 units/L (7-56); Blood Urea Nitrogen 21 mg/dL (9-20); Hemolysis Index 9
[2021-05-30 08:37] LABS: BUN/Creatinine Ratio 42
--- NOTE | 2021-05-30 10:21 | Progress Note ---
Assessment and Plan Cultures: SARS CoV2 PCR: positive A/P: 46/M with: #Bilateral pneumonia due to COVID-19 #Acute hypoxic respiratory failure: on ventimask / NRB #Morbid obesity Recs: -IV/PO Dexamethasone x 10 days. Currently on BID dosing per pulm. -IV remdesivir x 5 days -prophylactic anticoagulation based on d-dimer per hospital protocol -Leukocytosis likely secondary to steroids, will re-check procalcitonin. -trend ferritin, d-dimer, CRP every 2-3 days Soledad Maldonado MD [facility] ([facility]) O: [phone] F: [phone] Subjective Date of service: 05/30/21 Interval history: Afebrile, white count increased to 16.3. On nonrebreather Imaging personally reviewed: Chest x-ray: No significant change, ongoing multifocal pneumonia. Objective - Exam Narrative Exam: Physical exam deferred to reduce risk of transmission of COVID-19. Please refer to primary team's note. - Constitutional Vitals: Vital Signs Temp Pulse Resp BP Pulse Ox 97.6 F 60 20 134/86 95 05/30/21 05:25 05/30/21 05:25 05/30/21 05:25 05/30/21 05:25 05/30/21 09:26 Temperature -Last 24 Hours Temperature 97.6 F Temperature 97.8 F Temperature 98.1 F - Labs CBC & Chem 7: 05/30/21 07:01 05/30/21 07:01 Labs: Abnormal lab results 05/29/21 05/29/21 05/29/21 Range/Units 12:04 16:20 20:54 WBC (4.5-11.0) K/mm3 Plt Count (140-440) K/mm3 D-Dimer (0-234) ng/mlDDU BUN (9-20) mg/dL Creatinine (0.8-1.3) mg/dL Glucose (75-100) mg/dL POC Glucose 296 H 250 H 248 H (70-105) mg/dL Ferritin (30.0-300.0) ng/mL Lactate Dehydrogenase (91-180) units/L C-Reactive Protein (0.00-1.30) mg/dL Albumin (3.9-5) g/dL 05/30/21 05/30/21 05/30/21 Range/Units 07:01 07:01 07:01 WBC 16.3 H (4.5-11.0) K/mm3 Plt Count 595 H (140-440) K/mm3 D-Dimer 1223.46 H (0-234) ng/mlDDU BUN 21 H (9-20) mg/dL Creatinine 0.5 L (0.8-1.3) mg/dL Glucose 210 H (75-100) mg/dL POC Glucose (70-105) mg/dL Ferritin (30.0-300.0) ng/mL Lactate Dehydrogenase 379 H (91-180) units/L C-Reactive Protein 2.80 H (0.00-1.30) mg/dL Albumin 3.0 L (3.9-5) g/dL 05/30/21 05/30/21 Range/Units 07:01 08:02 WBC (4.5-11.0) K/mm3 Plt Count (140-440) K/mm3 D-Dimer (0-234) ng/mlDDU BUN (9-20) mg/dL Creatinine (0.8-1.3) mg/dL Glucose (75-100) mg/dL POC Glucose 198 H (70-105) mg/dL Ferritin 1066.0 H (30.0-300.0) ng/mL Lactate Dehydrogenase (91-180) units/L C-Reactive Protein (0.00-1.30) mg/dL Albumin (3.9-5) g/dL
[2021-05-30] MEDS: FAMOTIDINE 20 MG/2 ML INJ IV SCH ×2 (10:33→22:07)
[2021-05-30] MEDS: ASCORBIC ACID 500 MG TAB PO SCH (10:33)
[2021-05-30] MEDS: ZINC SULFATE 220 MG CAP PO SCH (10:33)
[2021-05-30] MEDS: CHOLECALCIFEROL (VIT D3) 1000 UNIT (25 mcg) TAB PO SCH (10:33)
--- NOTE | 2021-05-30 11:14 | Progress Note ---
Assessment and Plan 46 y/o obese male admitted with acute respiratory failure secondary to COVID 19 05/30/21: BID steroids for one more day. If not weaning then will put on solumedrol 125 TID. Appears patient is cooperating with all therapy now. 05/29/21: BID steroids, continue for 48 hours. Took prophylaxis last night for DVT. May need large doses of steroids. Guarded prognosis. 05/28/21: Continue BID steroids given obesity. Continue for another 72 hours. Patient refusing prophylaxis for DVT as D-Dimer continues to rise. COVID patie nt's are prone to be hypercoaguable. COntinue Remdesivir 1. Increased steroids to 10 BID given obesity. If no improvement in 96 hours then will change to high dose solumedrol 2. Remdesivir 3. Actemra pending availability 4. Prone 5. Guarded prognosis. Subjective Date of service: 05/30/21 Interval history: No acute events. no weaning done. Objective Vital Signs - 12hr 05/29/21 05/30/21 05/30/21 23:59 05:25 07:36 Temperature 97.6 F Pulse Rate 60 Respiratory 20 Rate Blood Pressure 134/86 O2 Sat by Pulse 98 94 96 Oximetry 05/30/21 09:26 Temperature Pulse Rate Respiratory Rate Blood Pressure O2 Sat by Pulse 95 Oximetry CBC and BMP: 05/30/21 07:01 05/30/21 07:01 ABG, PT/INR, D-dimer: PT/INR, D-dimer D-Dimer 1223.46 ng/mlDDU (0-234) H 05/30/21 07:01 Abnormal lab findings: Abnormal Labs 05/24/21 05/24/21 05/24/21 11:19 11:19 11:19 WBC MCHC 35 H Plt Count Lymph % (Auto) 7.6 L [place] % (Auto) 10.2 H Lymph # (Auto) 0.4 L Seg Neutrophils % 82.0 H Seg Neuts % (Manual) Lymphocytes % (Manual) Seg Neutrophils # Seg Neutrophils # Man Lymphocytes # (Manual) D-Dimer 809.12 H Sodium 131 L Chloride 96.9 L Carbon Dioxide BUN Creatinine Glucose 180 H POC Glucose Calcium Ferritin Lactate Dehydrogenase C-Reactive Protein Albumin 3.6 L Coronavirus (PCR) 05/24/21 05/24/21 05/24/21 11:19 11:19 20:30 WBC MCHC Plt Count Lymph % (Auto) [place] % (Auto) Lymph # (Auto) Seg Neutrophils % Seg Neuts % (Manual) Lymphocytes % (Manual) Seg Neutrophils # Seg Neutrophils # Man Lymphocytes # (Manual) D-Dimer Sodium Chloride Carbon Dioxide BUN Creatinine Glucose POC Glucose Calcium Ferritin 1761.0 H Lactate Dehydrogenase 491 H C-Reactive Protein 22.00 H 19.30 H Albumin Coronavirus (PCR) 05/24/21 05/24/21 05/24/21 20:30 20:30 20:30 WBC MCHC Plt Count Lymph % (Auto) [place] % (Auto) Lymph # (Auto) Seg Neutrophils % Seg Neuts % (Manual) Lymphocytes % (Manual) Seg Neutrophils # Seg Neutrophils # Man Lymphocytes # (Manual) D-Dimer 773.79 H Sodium Chloride Carbon Dioxide BUN Creatinine Glucose 186 H POC Glucose Calcium Ferritin 1632.0 H Lactate Dehydrogenase 433 H C-Reactive Protein 18.90 H Albumin Coronavirus (PCR) 05/25/21 05/25/21 05/25/21 07:48 07:48 14:42 WBC MCHC 35 H Plt Count Lymph % (Auto) 7.8 L [place] % (Auto) Lymph # (Auto) 0.7 L Seg Neutrophils % 85.6 H Seg Neuts % (Manual) Lymphocytes % (Manual) Seg Neutrophils # 8.1 H Seg Neutrophils # Man Lymphocytes # (Manual) D-Dimer Sodium 136 L Chloride Carbon Dioxide 20 L BUN Creatinine 0.6 L 0.7 L Glucose 178 H 271 H POC Glucose Calcium 8.3 L Ferritin Lactate Dehydrogenase C-Reactive Protein Albumin 3.0 L 3.0 L Coronavirus (PCR) 05/25/21 05/26/21 05/27/21 Unknown 05:50 04:14 WBC MCHC Plt Count Lymph % (Auto) [place] % (Auto) Lymph # (Auto) Seg Neutrophils % Seg Neuts % (Manual) Lymphocytes % (Manual) Seg Neutrophils # Seg Neutrophils # Man Lymphocytes # (Manual) D-Dimer Sodium Chloride Carbon Dioxide BUN Creatinine 0.6 L Glucose 206 H 182 H POC Glucose Calcium Ferritin Lactate Dehydrogenase C-Reactive Protein Albumin 3.2 L 3.1 L Coronavirus (PCR) Positive A 05/27/21 05/27/21 05/27/21 04:14 10:00 10:00 WBC MCHC Plt Count Lymph % (Auto) [place] % (Auto) Lymph # (Auto) Seg Neutrophils % Seg Neuts % (Manual) Lymphocytes % (Manual) Seg Neutrophils # Seg Neutrophils # Man Lymphocytes # (Manual) D-Dimer 1730.61 H Sodium Chloride Carbon Dioxide BUN Creatinine Glucose POC Glucose Calcium Ferritin 1694.0 H Lactate Dehydrogenase 604 H C-Reactive Protein 10.40 H Albumin Coronavirus (PCR) 05/28/21 05/28/21 05/28/21 04:05 04:05 04:05 WBC MCHC Plt Count 449 H Lymph % (Auto) [place] % (Auto) Lymph # (Auto) Seg Neutrophils % Seg Neuts % (Manual) 94.0 H Lymphocytes % (Manual) 3.0 L Seg Neutrophils # Seg Neutrophils # Man 9.8 H Lymphocytes # (Manual) 0.3 L D-Dimer 3141.44 H Sodium Chloride Carbon Dioxide BUN Creatinine 0.6 L Glucose 248 H POC Glucose Calcium Ferritin Lactate Dehydrogenase C-Reactive Protein Albumin 3.2 L Coronavirus (PCR) 05/28/21 05/28/21 05/28/21 04:05 04:05 23:41 WBC MCHC Plt Count Lymph % (Auto) [place] % (Auto) Lymph # (Auto) Seg Neutrophils % Seg Neuts % (Manual) Lymphocytes % (Manual) Seg Neutrophils # Seg Neutrophils # Man Lymphocytes # (Manual) D-Dimer Sodium Chloride Carbon Dioxide BUN Creatinine Glucose POC Glucose 259 H Calcium Ferritin 1374.0 H Lactate Dehydrogenase 460 H C-Reactive Protein 9.00 H Albumin Coronavirus (PCR) 05/29/21 05/29/21 05/29/21 07:40 12:04 16:20 WBC MCHC Plt Count Lymph % (Auto) [place] % (Auto) Lymph # (Auto) Seg Neutrophils % Seg Neuts % (Manual) Lymphocytes % (Manual) Seg Neutrophils # Seg Neutrophils # Man Lymphocytes # (Manual) D-Dimer Sodium Chloride Carbon Dioxide BUN Creatinine Glucose POC Glucose 276 H 296 H 250 H Calcium Ferritin Lactate Dehydrogenase C-Reactive Protein Albumin Coronavirus (PCR) 05/29/21 05/30/21 05/30/21 20:54 07:01 07:01 WBC 16.3 H MCHC Plt Count 595 H Lymph % (Auto) [place] % (Auto) Lymph # (Auto) Seg Neutrophils % Seg Neuts % (Manual) Lymphocytes % (Manual) Seg Neutrophils # Seg Neutrophils # Man Lymphocytes # (Manual) D-Dimer 1223.46 H Sodium Chloride Carbon Dioxide BUN Creatinine Glucose POC Glucose 248 H Calcium Ferritin Lactate Dehydrogenase C-Reactive Protein Albumin Coronavirus (PCR) 05/30/21 05/30/21 05/30/21 07:01 07:01 08:02 WBC MCHC Plt Count Lymph % (Auto) [place] % (Auto) Lymph # (Auto) Seg Neutrophils % Seg Neuts % (Manual) Lymphocytes % (Manual) Seg Neutrophils # Seg Neutrophils # Man Lymphocytes # (Manual) D-Dimer Sodium Chloride Carbon Dioxide BUN 21 H Creatinine 0.5 L Glucose 210 H POC Glucose 198 H Calcium Ferritin 1066.0 H Lactate Dehydrogenase 379 H C-Reactive Protein 2.80 H Albumin 3.0 L Coronavirus (PCR)
--- NOTE | 2021-05-30 15:26 | Progress Note ---
Assessment and Plan The patient is a 43-year-old male with no past medical history admitted for COVID-19 pneumonia. Hypoxic requiring high flow O2, unvaccinated, chest x-ray showed bilateral patchy infiltrates. Assessment and plan: -- COVID 19 Pneumonia Airborne and contact isolation Monitor inflammatory markers IV/PO Dexamethasone x 10 days IV remdesivir x 5 days ordered Worsening respiratory status, Actemra ordered by ID Prophylactic Lovenox Ascorbic acid, zinc sulfate, vitamin D supplement Encourage the use of incentive spirometery Infectious disease consultfollow-up with plan of care. -- Acute Hypoxic Respiratory Failure Supplemental oxygen via NRB. Saturating 93 to 95% Etiology high suspicion for COVID-19 pneumonia Admit CXR: Multifocal airspace disease, possible left-sided pulmonary mass. Please refer to official radiology report Admit CTA chest: Bilateral airspace disease with mildly enlarged mediastinal nodes. No suspicious mass or lymph nodes appreciated. Covid therapies as below prn albuterol Pulmonology consult placed: Recommends increase steroid dosage, ABX, Actemra, remdesivir, patient problems. -- Hyponatremia Likely secondary to dehydration IV hydration with normal saline Monitor sodium level and other electrolytes -- Elevated d-dimer CTA of the chestrule outs PE -- DVT prophylaxis Subcutaneous Lovenox Hospital course to date 05/25/2021: Resting comfortably on encounter. Will follow up results of Covid test. Continue therapy above at this time. Will follow ID recommendations. If patient deteriorates will consult pulmonology. 05/26/2021: Resting comfortably on encounter. Patient is Covid positive. Continuing therapy with abx, steroids, remdesivir. De-escalate O2 to NC. Anticipate d/c home with O2 in 1-2 days if patient tolerates NC. 05/27/2021: Steroids increased by Pulmonology to Decadron 10 mg twice daily. May need to consider high-dose Solu-Medrol if no response in 96 hours. Patient will be encouraged to self prone. 05/28/2021: Patient remains on Ventimask. Did not tolerate de-escalation to nasal cannula. continued to encourage patient to self prone 05/29/2021: Patient remains on nonrebreather 100%. Encourage patient to get up and walk around room as he appears pretty comfortable on bedside encounter. We will continue therapy for Covid pneumonia. Will attempt de-escalation tomorrow patient continues to demonstrate improvement. 05/30/21: Patient on 15 L high flow O2, encourage proning yes abdomen, continue high dose of steroid. Pulmonary and ID following, follow inflammatory markers. Subjective Date of service: 05/30/21 Interval history: Patient seen and examined. Medical records and medication list reviewed. No acute event overnight noted by the RN. Patient complains of difficulty breathing, remains on high flow O2. Patient is tolerating diet. Discussed plan of care at bedside with patient. Objective - Exam Narrative Exam: Limited physical exam due to COVID-19 pandemic to minimize transmission of the disease and to preserve PPE. Vital reviewed and stable. GENERAL: well-developed well-nourished male lying on bed appeared to be in no discomfort. HEENT: Normocephalic. Atraumatic. NECK: Supple. CHEST/LUNGS: breathing with high flow O2. HEART/CARDIOVASCULAR: Heart rate stable on telemetry ABDOMEN: Visibly not distended SKIN: There is no rash NEURO: No focal motor deficit. Follows command. MUSCULOSKELETAL: No joint effusion EXTRIMITY: No swelling, no cyanosis or clubbing. PSYCH: Cooperative. - Constitutional Vitals: Vital Signs - 12hr 05/30/21 05/30/21 05/30/21 05:25 07:36 09:26 Temperature 97.6 F Pulse Rate 60 Respiratory 20 Rate Blood Pressure 134/86 O2 Sat by Pulse 94 96 95 Oximetry - Labs CBC & Chem 7: 06/02/21 03:55 06/03/21 05:29 Labs: Abnormal lab results 05/29/21 05/29/21 05/30/21 Range/Units 16:20 20:54 07:01 WBC 16.3 H (4.5-11.0) K/mm3 Plt Count 595 H (140-440) K/mm3 D-Dimer (0-234) ng/mlDDU BUN (9-20) mg/dL Creatinine (0.8-1.3) mg/dL Glucose (75-100) mg/dL POC Glucose 250 H 248 H (70-105) mg/dL Ferritin (30.0-300.0) ng/mL Lactate Dehydrogenase (91-180) units/L C-Reactive Protein (0.00-1.30) mg/dL Albumin (3.9-5) g/dL 0805/30/21 05/30/21 Range/Units 07:01 07:01 07:01 WBC (4.5-11.0) K/mm3 Plt Count (140-440) K/mm3 D-Dimer 1223.46 H (0-234) ng/mlDDU BUN 21 H (9-20) mg/dL Creatinine 0.5 L (0.8-1.3) mg/dL Glucose 210 H (75-100) mg/dL POC Glucose (70-105) mg/dL Ferritin 1066.0 H (30.0-300.0) ng/mL Lactate Dehydrogenase 379 H (91-180) units/L C-Reactive Protein 2.80 H (0.00-1.30) mg/dL Albumin 3.0 L (3.9-5) g/dL 05/30/21 05/30/21 Range/Units 08:02 11:56 WBC (4.5-11.0) K/mm3 Plt Count (140-440) K/mm3 D-Dimer (0-234) ng/mlDDU BUN (9-20) mg/dL Creatinine (0.8-1.3) mg/dL Glucose (75-100) mg/dL POC Glucose 198 H 256 H (70-105) mg/dL Ferritin (30.0-300.0) ng/mL Lactate Dehydrogenase (91-180) units/L C-Reactive Protein (0.00-1.30) mg/dL Albumin (3.9-5) g/dL
[2021-05-30 16:29] LABS: Total Cells Counted 100
[2021-05-30 16:30] LABS: Platelet Estimate Consistent w Auto; RBC Morphology Normal
[2021-05-30] MEDS: ENOXAPARIN 40 MG/0.4 ML INJ SUB-Q SCH (22:06)
[2021-05-30] MEDS: INSULIN GLARGINE 100 UNITS/ML SUB-Q SCH (22:07)
[2021-05-30] MEDS: MELATONIN 5 MG TAB PO PRN (23:35)
[2021-05-31] MEDS: BENZONATATE 100 MG CAP PO SCH ×3 (05:38→22:51)
[2021-05-31] MEDS: INSULIN LISPRO 100 UNIT/ML SUB-Q SCH ×4 (08:26→22:52)
[2021-05-31] MEDS: ASCORBIC ACID 500 MG TAB PO SCH (13:01)
[2021-05-31] MEDS: CHOLECALCIFEROL (VIT D3) 1000 UNIT (25 mcg) TAB PO SCH (13:02)
[2021-05-31] MEDS: DEXAMETHASONE 4 MG TAB PO SCH (13:02)
[2021-05-31] MEDS: FAMOTIDINE 20 MG/2 ML INJ IV SCH ×2 (13:04→22:52)
[2021-05-31] MEDS: ZINC SULFATE 220 MG CAP PO SCH (13:04)
--- NOTE | 2021-05-31 14:36 | Progress Note ---
Assessment and Plan Cultures: SARS CoV2 PCR: positive A/P: 46/M with: #Bilateral pneumonia due to COVID-19 #Acute hypoxic respiratory failure: on HFNC #Morbid obesity Recs: -IV/PO Dexamethasone x 10 days. Currently on BID dosing per pulm. -Completed remdesivir -prophylactic anticoagulation based on d-dimer per hospital protocol -Leukocytosis likely secondary to steroids, will re-check procalcitonin. -trend ferritin, d-dimer, CRP every 2-3 days Soledad Maldonado MD [facility] O: [phone] F: [phone] Subjective Date of service: 05/31/21 Interval history: Afebrile, white count remains elevated to 16.3. On high flow nasal cannula. Objective - Exam Narrative Exam: Physical exam deferred to reduce risk of transmission of COVID-19. Please refer to primary team's note. - Constitutional Vitals: Vital Signs Temp Pulse Resp BP Pulse Ox 97.8 F 63 24 104/70 95 05/31/21 11:40 05/31/21 11:40 05/31/21 11:40 05/31/21 11:40 05/31/21 11:40 Temperature -Last 24 Hours Temperature 97.8 F Temperature 98.2 F Temperature 97.7 F Temperature 98.1 F - Labs CBC & Chem 7: 05/30/21 07:01 05/30/21 07:01 Labs: Abnormal lab results 05/30/21 05/30/21 05/30/21 Range/Units 07:01 16:07 20:49 Seg Neuts % (Manual) 91.0 H (40.0-70.0) % Lymphocytes % (Manual) 2.0 L (13.4-35.0) % Seg Neutrophils # Man 14.8 H (1.8-7.7) K/mm3 Lymphocytes # (Manual) 0.3 L (1.2-5.4) K/mm3 Monocytes # (Manual) 1.1 H (0.0-0.8) K/mm3 POC Glucose 165 H 260 H (70-105) mg/dL 05/31/21 05/31/21 Range/Units 08:13 11:32 Seg Neuts % (Manual) (40.0-70.0) % Lymphocytes % (Manual) (13.4-35.0) % Seg Neutrophils # Man (1.8-7.7) K/mm3 Lymphocytes # (Manual) (1.2-5.4) K/mm3 Monocytes # (Manual) (0.0-0.8) K/mm3 POC Glucose 254 H 257 H (70-105) mg/dL
--- NOTE | 2021-05-31 15:11 | Progress Note ---
Assessment and Plan 46 y/o obese male admitted with acute respiratory failure secondary to COVID 19 05/31/21: Will increase to Solumedrol 125 TID starting now. 05/30/21: BID steroids for one more day. If not weaning then will put on solumedrol 125 TID. Appears patient is cooperating with all therapy now. 05/29/21: BID steroids, continue for 48 hours. Took prophylaxis last night for DVT. May need large doses of steroids. Guarded prognosis. 05/28/21: Continue BID steroids given obesity. Continue for another 72 hours. Patient refusing prophylaxis for DVT as D-Dimer continues to rise. COVID patient's are prone to be hypercoaguable. COntinue Remdesivir 1. Increased steroids to 10 BID given obesity. If no improvement in 96 hours then will change to high dose solumedrol 2. Remdesivir 3. Actemra pending availability 4. Prone 5. Guarded prognosis. Subjective Date of service: 05/31/21 Interval history: Flow and oxygen increased last night. Now weaned to lower setting but still higher than yesterday. Objective Vital Signs - 12hr 05/31/21 05/31/21 05/31/21 05:58 08:48 11:40 Temperature 98.2 F 97.8 F Pulse Rate 54 L 63 Respiratory 20 24 Rate Blood Pressure 114/71 Blood Pressure 104/70 [Left] O2 Sat by Pulse 97 97 95 Oximetry CBC and BMP: 05/30/21 07:01 05/30/21 07:01 ABG, PT/INR, D-dimer: PT/INR, D-dimer D-Dimer 1223.46 ng/mlDDU (0-234) H 05/30/21 07:01 Abnormal lab findings: Abnormal Labs 05/24/21 05/24/21 05/24/21 11:19 11:19 11:19 WBC MCHC 35 H Plt Count Lymph % (Auto) 7.6 L [place] % (Auto) 10.2 H Lymph # (Auto) 0.4 L Seg Neutrophils % 82.0 H Seg Neuts % (Manual) Lymphocytes % (Manual) Seg Neutrophils # Seg Neutrophils # Man Lymphocytes # (Manual) Monocytes # (Manual) D-Dimer 809.12 H Sodium 131 L Chloride 96.9 L Carbon Dioxide BUN Creatinine Glucose 180 H POC Glucose Calcium Ferritin Lactate Dehydrogenase C-Reactive Protein Albumin 3.6 L Coronavirus (PCR) 05/24/21 05/24/21 05/24/21 11:19 11:19 20:30 WBC MCHC Plt Count Lymph % (Auto) [place] % (Auto) Lymph # (Auto) Seg Neutrophils % Seg Neuts % (Manual) Lymphocytes % (Manual) Seg Neutrophils # Seg Neutrophils # Man Lymphocytes # (Manual) Monocytes # (Manual) D-Dimer Sodium Chloride Carbon Dioxide BUN Creatinine Glucose POC Glucose Calcium Ferritin 1761.0 H Lactate Dehydrogenase 491 H C-Reactive Protein 22.00 H 19.30 H Albumin Coronavirus (PCR) 05/24/21 05/24/21 05/24/21 20:30 20:30 20:30 WBC MCHC Plt Count Lymph % (Auto) [place] % (Auto) Lymph # (Auto) Seg Neutrophils % Seg Neuts % (Manual) Lymphocytes % (Manual) Seg Neutrophils # Seg Neutrophils # Man Lymphocytes # (Manual) Monocytes # (Manual) D-Dimer 773.79 H Sodium Chloride Carbon Dioxide BUN Creatinine Glucose 186 H POC Glucose Calcium Ferritin 1632.0 H Lactate Dehydrogenase 433 H C-Reactive Protein 18.90 H Albumin Coronavirus (PCR) 05/25/21 05/25/21 05/25/21 07:48 07:48 14:42 WBC MCHC 35 H Plt Count Lymph % (Auto) 7.8 L [place] % (Auto) Lymph # (Auto) 0.7 L Seg Neutrophils % 85.6 H Seg Neuts % (Manual) Lymphocytes % (Manual) Seg Neutrophils # 8.1 H Seg Neutrophils # Man Lymphocytes # (Manual) Monocytes # (Manual) D-Dimer Sodium 136 L Chloride Carbon Dioxide 20 L BUN Creatinine 0.6 L 0.7 L Glucose 178 H 271 H POC Glucose Calcium 8.3 L Ferritin Lactate Dehydrogenase C-Reactive Protein Albumin 3.0 L 3.0 L Coronavirus (PCR) 05/25/21 05/26/21 05/27/21 Unknown 05:50 04:14 WBC MCHC Plt Count Lymph % (Auto) [place] % (Auto) Lymph # (Auto) Seg Neutrophils % Seg Neuts % (Manual) Lymphocytes % (Manual) Seg Neutrophils # Seg Neutrophils # Man Lymphocytes # (Manual) Monocytes # (Manual) D-Dimer Sodium Chloride Carbon Dioxide BUN Creatinine 0.6 L Glucose 206 H 182 H POC Glucose Calcium Ferritin Lactate Dehydrogenase C-Reactive Protein Albumin 3.2 L 3.1 L Coronavirus (PCR) Positive A 05/27/21 05/27/21 05/27/21 04:14 10:00 10:00 WBC MCHC Plt Count Lymph % (Auto) [place] % (Auto) Lymph # (Auto) Seg Neutrophils % Seg Neuts % (Manual) Lymphocytes % (Manual) Seg Neutrophils # Seg Neutrophils # Man Lymphocytes # (Manual) Monocytes # (Manual) D-Dimer 1730.61 H Sodium Chloride Carbon Dioxide BUN Creatinine Glucose POC Glucose Calcium Ferritin 1694.0 H Lactate Dehydrogenase 604 H C-Reactive Protein 10.40 H Albumin Coronavirus (PCR) 05/28/21 05/28/21 05/28/21 04:05 04:05 04:05 WBC MCHC Plt Count 449 H Lymph % (Auto) [place] % (Auto) Lymph # (Auto) Seg Neutrophils % Seg Neuts % (Manual) 94.0 H Lymphocytes % (Manual) 3.0 L Seg Neutrophils # Seg Neutrophils # Man 9.8 H Lymphocytes # (Manual) 0.3 L Monocytes # (Manual) D-Dimer 3141.44 H Sodium Chloride Carbon Dioxide BUN Creatinine 0.6 L Glucose 248 H POC Glucose Calcium Ferritin Lactate Dehydrogenase C-Reactive Protein Albumin 3.2 L Coronavirus (PCR) 05/28/21 05/28/21 05/28/21 04:05 04:05 23:41 WBC MCHC Plt Count Lymph % (Auto) [place] % (Auto) Lymph # (Auto) Seg Neutrophils % Seg Neuts % (Manual) Lymphocytes % (Manual) Seg Neutrophils # Seg Neutrophils # Man Lymphocytes # (Manual) Monocytes # (Manual) D-Dimer Sodium Chloride Carbon Dioxide BUN Creatinine Glucose POC Glucose 259 H Calcium Ferritin 1374.0 H Lactate Dehydrogenase 460 H C-Reactive Protein 9.00 H Albumin Coronavirus (PCR) 05/29/21 05/29/21 05/29/21 07:40 12:04 16:20 WBC MCHC Plt Count Lymph % (Auto) [place] % (Auto) Lymph # (Auto) Seg Neutrophils % Seg Neuts % (Manual) Lymphocytes % (Manual) Seg Neutrophils # Seg Neutrophils # Man Lymphocytes # (Manual) Monocytes # (Manual) D-Dimer Sodium Chloride Carbon Dioxide BUN Creatinine Glucose POC Glucose 276 H 296 H 250 H Calcium Ferritin Lactate Dehydrogenase C-Reactive Protein Albumin Coronavirus (PCR) 08/05/30/21 05/30/21 20:54 07:01 07:01 WBC 16.3 H MCHC Plt Count 595 H Lymph % (Auto) [place] % (Auto) Lymph # (Auto) Seg Neutrophils % Seg Neuts % (Manual) 91.0 H Lymphocytes % (Manual) 2.0 L Seg Neutrophils # Seg Neutrophils # Man 14.8 H Lymphocytes # (Manual) 0.3 L Monocytes # (Manual) 1.1 H D-Dimer 1223.46 H Sodium Chloride Carbon Dioxide BUN Creatinine Glucose POC Glucose 248 H Calcium Ferritin Lactate Dehydrogenase C-Reactive Protein Albumin Coronavirus (PCR) 05/30/21 05/30/21 05/30/21 07:01 07:01 08:02 WBC MCHC Plt Count Lymph % (Auto) [place] % (Auto) Lymph # (Auto) Seg Neutrophils % Seg Neuts % (Manual) Lymphocytes % (Manual) Seg Neutrophils # Seg Neutrophils # Man Lymphocytes # (Manual) Monocytes # (Manual) D-Dimer Sodium Chloride Carbon Dioxide BUN 21 H Creatinine 0.5 L Glucose 210 H POC Glucose 198 H Calcium Ferritin 1066.0 H Lactate Dehydrogenase 379 H C-Reactive Protein 2.80 H Albumin 3.0 L Coronavirus (PCR) 05/30/21 05/30/21 05/30/21 11:56 16:07 20:49 WBC MCHC Plt Count Lymph % (Auto) [place] % (Auto) Lymph # (Auto) Seg Neutrophils % Seg Neuts % (Manual) Lymphocytes % (Manual) Seg Neutrophils # Seg Neutrophils # Man Lymphocytes # (Manual) Monocytes # (Manual) D-Dimer Sodium Chloride Carbon Dioxide BUN Creatinine Glucose POC Glucose 256 H 165 H 260 H Calcium Ferritin Lactate Dehydrogenase C-Reactive Protein Albumin Coronavirus (PCR) 05/31/21 05/31/21 08:13 11:32 WBC MCHC Plt Count Lymph % (Auto) [place] % (Auto) Lymph # (Auto) Seg Neutrophils % Seg Neuts % (Manual) Lymphocytes % (Manual) Seg Neutrophils # Seg Neutrophils # Man Lymphocytes # (Manual) Monocytes # (Manual) D-Dimer Sodium Chloride Carbon Dioxide BUN Creatinine Glucose POC Glucose 254 H 257 H Calcium Ferritin Lactate Dehydrogenase C-Reactive Protein Albumin Coronavirus (PCR)
--- NOTE | 2021-05-31 15:29 | Progress Note ---
Assessment and Plan The patient is a 43-year-old male with no past medical history admitted for COVID-19 pneumonia. Hypoxic requiring high flow O2, unvaccinated, chest x-ray showed bilateral patchy infiltrates. Assessment and plan: -- COVID 19 Pneumonia Airborne and contact isolation Monitor inflammatory markers IV/PO Dexamethasone x 10 days IV remdesivir x 5 days ordered Worsening respiratory status, Actemra ordered by ID Prophylactic Lovenox Ascorbic acid, zinc sulfate, vitamin D supplement Encourage the use of incentive spirometery Infectious disease consultfollow-up with plan of care. -- Acute Hypoxic Respiratory Failure Supplemental oxygen via NRB. Saturating 93 to 95% Etiology high suspicion for COVID-19 pneumonia Admit CXR: Multifocal airspace disease, possible left-sided pulmonary mass. Please refer to official radiology report Admit CTA chest: Bilateral airspace disease with mildly enlarged mediastinal nodes. No suspicious mass or lymph nodes appreciated. Covid therapies as below prn albuterol Pulmonology consult placed: Recommends increase steroid dosage, ABX, Actemra, remdesivir, patient problems. -- Hyponatremia Likely secondary to dehydration IV hydration with normal saline Monitor sodium level and other electrolytes -- Elevated d-dimer CTA of the chestrule outs PE -- DVT prophylaxis Subcutaneous Lovenox Hospital course to date 05/25/2021: Resting comfortably on encounter. Will follow up results of Covid test. Continue therapy above at this time. Will follow ID recommendations. If patient deteriorates will consult pulmonology. 05/26/2021: Resting comfortably on encounter. Patient is Covid positive. Continuing therapy with abx, steroids, remdesivir. De-escalate O2 to NC. Anticipate d/c home with O2 in 1-2 days if patient tolerates NC. 05/27/2021: Steroids increased by Pulmonology to Decadron 10 mg twice daily. May need to consider high-dose Solu-Medrol if no response in 96 hours. Patient will be encouraged to self prone. 05/28/2021: Patient remains on Ventimask. Did not tolerate de-escalation to nasal cannula. continued to encourage patient to self prone 05/29/2021: Patient remains on nonrebreather 100%. Encourage patient to get up and walk around room as he appears pretty comfortable on bedside encounter. We will continue therapy for Covid pneumonia. Will attempt de-escalation tomorrow patient continues to demonstrate improvement. 05/30/21: Patient on 15 L high flow O2, encourage proning , continue high dose of steroid. Pulmonary and ID following, follow inflammatory markers 05/31: Patient on 35 L high flow O2 today, continue higher dose of steroid, continue to follow inflammatory markers, guarded prognosis, Subjective Date of service: 05/31/21 Interval history: Patient seen and examined. Medical records and medication list reviewed. No acute event overnight noted by the RN. Patient complains of difficulty breathing, remains on high flow O2. Patient is tolerating diet. Discussed plan of care at bedside with patient. Objective - Exam Narrative Exam: Limited physical exam due to COVID-19 pandemic to minimize transmission of the disease and to preserve PPE. Vital reviewed and stable. GENERAL: well-developed well-nourished male lying on bed appeared to be in no discomfort. HEENT: Normocephalic. Atraumatic. NECK: Supple. CHEST/LUNGS: breathing with high flow O2. HEART/CARDIOVASCULAR: Heart rate stable on telemetry ABDOMEN: Visibly not distended SKIN: There is no rash NEURO: No focal motor deficit. Follows command. MUSCULOSKELETAL: No joint effusion EXTRIMITY: No swelling, no cyanosis or clubbing. PSYCH: Cooperative. - Constitutional Vitals: Vital Signs - 12hr 05/31/21 05/31/21 05/31/21 05:58 08:48 11:40 Temperature 98.2 F 97.8 F Pulse Rate 54 L 63 Respiratory 20 24 Rate Blood Pressure 114/71 Blood Pressure 104/70 [Left] O2 Sat by Pulse 97 97 95 Oximetry - Labs CBC & Chem 7: 06/02/21 03:55 06/03/21 05:29 Labs: Abnormal lab results 05/30/21 05/30/21 05/30/21 Range/Units 07:01 16:07 20:49 Seg Neuts % (Manual) 91.0 H (40.0-70.0) % Lymphocytes % (Manual) 2.0 L (13.4-35.0) % Seg Neutrophils # Man 14.8 H (1.8-7.7) K/mm3 Lymphocytes # (Manual) 0.3 L (1.2-5.4) K/mm3 Monocytes # (Manual) 1.1 H (0.0-0.8) K/mm3 POC Glucose 165 H 260 H (70-105) mg/dL 05/31/21 05/31/21 Range/Units 08:13 11:32 Seg Neuts % (Manual) (40.0-70.0) % Lymphocytes % (Manual) (13.4-35.0) % Seg Neutrophils # Man (1.8-7.7) K/mm3 Lymphocytes # (Manual) (1.2-5.4) K/mm3 Monocytes # (Manual) (0.0-0.8) K/mm3 POC Glucose 254 H 257 H (70-105) mg/dL
[2021-05-31] MEDS: methylPREDNISolone Sod Succinate 125 MG/2 ML INJ IV SCH ×2 (18:36→23:06)
[2021-05-31] MEDS: MELATONIN 5 MG TAB PO PRN (22:51)
[2021-05-31] MEDS: INSULIN GLARGINE 100 UNITS/ML SUB-Q SCH (22:51)
[2021-05-31] MEDS: ENOXAPARIN 40 MG/0.4 ML INJ SUB-Q SCH (22:51)
[2021-06-01] MEDS: BENZONATATE 100 MG CAP PO SCH ×3 (06:10→22:24)
--- NOTE | 2021-06-01 09:43 | Progress Note ---
Assessment and Plan 46 y/o obese male admitted with acute respiratory failure secondary to COVID 19 06/01/21: Continue TID solumedrol. Prone as tolerated. Guarded prognosis. 05/31/21: Will increase to Solumedrol 125 TID starting now. 05/30/21: BID steroids for one more day. If not weaning then will put on solumedrol 125 TID. Appears patient is cooperating with all therapy now. 05/29/21: BID steroids, continue for 48 hours. Took prophylaxis last night for DVT. May need large doses of steroids. Guarded prognosis. 05/28/21: Continue BID steroids given obesity. Continue for another 72 hours. Patient refusing prophylaxis for DVT as D-Dimer continues to rise. COVID patient's are prone to be hypercoaguable. COntinue Remdesivir 1. Increased steroids to 10 BID given obesity. If no improvement in 96 hours then will change to high dose solumedrol 2. Remdesivir 3. Actemra pending availability 4. Prone 5. Guarded prognosis. Subjective Date of service: 06/01/21 Interval history: Patient now down to 70% FiO2, good sats. Objective Vital Signs - 12hr 05/31/21 05/31/21 06/01/21 21:44 22:00 00:00 Temperature 98.0 F Pulse Rate 64 Respiratory 22 Rate Blood Pressure 111/72 O2 Sat by Pulse 90 96 94 Oximetry 06/01/21 05:10 Temperature 98.5 F Pulse Rate 57 L Respiratory 20 Rate Blood Pressure 95/53 O2 Sat by Pulse 94 Oximetry CBC and BMP: 05/30/21 07:01 05/30/21 07:01 ABG, PT/INR, D-dimer: PT/INR, D-dimer D-Dimer 1223.46 ng/mlDDU (0-234) H 05/30/21 07:01 Abnormal lab findings: Abnormal Labs 05/24/21 05/24/21 05/24/21 11:19 11:19 11:19 WBC MCHC 35 H Plt Count Lymph % (Auto) 7.6 L [place] % (Auto) 10.2 H Lymph # (Auto) 0.4 L Seg Neutrophils % 82.0 H Seg Neuts % (Manual) Lymphocytes % (Manual) Seg Neutrophils # Seg Neutrophils # Man Lymphocytes # (Manual) Monocytes # (Manual) D-Dimer 809.12 H Sodium 131 L Chloride 96.9 L Carbon Dioxide BUN Creatinine Glucose 180 H POC Glucose Calcium Ferritin Lactate Dehydrogenase C-Reactive Protein Albumin 3.6 L Coronavirus (PCR) 05/24/21 05/24/21 05/24/21 11:19 11:19 20:30 WBC MCHC Plt Count Lymph % (Auto) [place] % (Auto) Lymph # (Auto) Seg Neutrophils % Seg Neuts % (Manual) Lymphocytes % (Manual) Seg Neutrophils # Seg Neutrophils # Man Lymphocytes # (Manual) Monocytes # (Manual) D-Dimer Sodium Chloride Carbon Dioxide BUN Creatinine Glucose POC Glucose Calcium Ferritin 1761.0 H Lactate Dehydrogenase 491 H C-Reactive Protein 22.00 H 19.30 H Albumin Coronavirus (PCR) 05/24/21 05/24/21 05/24/21 20:30 20:30 20:30 WBC MCHC Plt Count Lymph % (Auto) [place] % (Auto) Lymph # (Auto) Seg Neutrophils % Seg Neuts % (Manual) Lymphocytes % (Manual) Seg Neutrophils # Seg Neutrophils # Man Lymphocytes # (Manual) Monocytes # (Manual) D-Dimer 773.79 H Sodium Chloride Carbon Dioxide BUN Creatinine Glucose 186 H POC Glucose Calcium Ferritin 1632.0 H Lactate Dehydrogenase 433 H C-Reactive Protein 18.90 H Albumin Coronavirus (PCR) 05/25/21 05/25/21 05/25/21 07:48 07:48 14:42 WBC MCHC 35 H Plt Count Lymph % (Auto) 7.8 L [place] % (Auto) Lymph # (Auto) 0.7 L Seg Neutrophils % 85.6 H Seg Neuts % (Manual) Lymphocytes % (Manual) Seg Neutrophils # 8.1 H Seg Neutrophils # Man Lymphocytes # (Manual) Monocytes # (Manual) D-Dimer Sodium 136 L Chloride Carbon Dioxide 20 L BUN Creatinine 0.6 L 0.7 L Glucose 178 H 271 H POC Glucose Calcium 8.3 L Ferritin Lactate Dehydrogenase C-Reactive Protein Albumin 3.0 L 3.0 L Coronavirus (PCR) 05/25/21 05/26/21 05/27/21 Unknown 05:50 04:14 WBC MCHC Plt Count Lymph % (Auto) [place] % (Auto) Lymph # (Auto) Seg Neutrophils % Seg Neuts % (Manual) Lymphocytes % (Manual) Seg Neutrophils # Seg Neutrophils # Man Lymphocytes # (Manual) Monocytes # (Manual) D-Dimer Sodium Chloride Carbon Dioxide BUN Creatinine 0.6 L Glucose 206 H 182 H POC Glucose Calcium Ferritin Lactate Dehydrogenase C-Reactive Protein Albumin 3.2 L 3.1 L Coronavirus (PCR) Positive A 05/27/21 05/27/21 05/27/21 04:14 10:00 10:00 WBC MCHC Plt Count Lymph % (Auto) [place] % (Auto) Lymph # (Auto) Seg Neutrophils % Seg Neuts % (Manual) Lymphocytes % (Manual) Seg Neutrophils # Seg Neutrophils # Man Lymphocytes # (Manual) Monocytes # (Manual) D-Dimer 1730.61 H Sodium Chloride Carbon Dioxide BUN Creatinine Glucose POC Glucose Calcium Ferritin 1694.0 H Lactate Dehydrogenase 604 H C-Reactive Protein 10.40 H Albumin Coronavirus (PCR) 05/28/21 05/28/21 05/28/21 04:05 04:05 04:05 WBC MCHC Plt Count 449 H Lymph % (Auto) [place] % (Auto) Lymph # (Auto) Seg Neutrophils % Seg Neuts % (Manual) 94.0 H Lymphocytes % (Manual) 3.0 L Seg Neutrophils # Seg Neutrophils # Man 9.8 H Lymphocytes # (Manual) 0.3 L Monocytes # (Manual) D-Dimer 3141.44 H Sodium Chloride Carbon Dioxide BUN Creatinine 0.6 L Glucose 248 H POC Glucose Calcium Ferritin Lactate Dehydrogenase C-Reactive Protein Albumin 3.2 L Coronavirus (PCR) 05/28/21 05/28/21 05/28/21 04:05 04:05 23:41 WBC MCHC Plt Count Lymph % (Auto) [place] % (Auto) Lymph # (Auto) Seg Neutrophils % Seg Neuts % (Manual) Lymphocytes % (Manual) Seg Neutrophils # Seg Neutrophils # Man Lymphocytes # (Manual) Monocytes # (Manual) D-Dimer Sodium Chloride Carbon Dioxide BUN Creatinine Glucose POC Glucose 259 H Calcium Ferritin 1374.0 H Lactate Dehydrogenase 460 H C-Reactive Protein 9.00 H Albumin Coronavirus (PCR) 05/29/21 05/29/21 05/29/21 07:40 12:04 16:20 WBC MCHC Plt Count Lymph % (Auto) [place] % (Auto) Lymph # (Auto) Seg Neutrophils % Seg Neuts % (Manual) Lymphocytes % (Manual) Seg Neutrophils # Seg Neutrophils # Man Lymphocytes # (Manual) Monocytes # (Manual) D-Dimer Sodium Chloride Carbon Dioxide BUN Creatinine Glucose POC Glucose 276 H 296 H 250 H Calcium Ferritin Lactate Dehydrogenase C-Reactive Protein Albumin Coronavirus (PCR) 05/29/21 05/30/21 05/30/21 20:54 07:01 07:01 WBC 16.3 H MCHC Plt Count 595 H Lymph % (Auto) [place] % (Auto) Lymph # (Auto) Seg Neutrophils % Seg Neuts % (Manual) 91.0 H Lymphocytes % (Manual) 2.0 L Seg Neutrophils # Seg Neutrophils # Man 14.8 H Lymphocytes # (Manual) 0.3 L Monocytes # (Manual) 1.1 H D-Dimer 1223.46 H Sodium Chloride Carbon Dioxide BUN Creatinine Glucose POC Glucose 248 H Calcium Ferritin Lactate Dehydrogenase C-Reactive Protein Albumin Coronavirus (PCR) 05/30/21 05/30/21 05/30/21 07:01 07:01 08:02 WBC MCHC Plt Count Lymph % (Auto) [place] % (Auto) Lymph # (Auto) Seg Neutrophils % Seg Neuts % (Manual) Lymphocytes % (Manual) Seg Neutrophils # Seg Neutrophils # Man Lymphocytes # (Manual) Monocytes # (Manual) D-Dimer Sodium Chloride Carbon Dioxide BUN 21 H Creatinine 0.5 L Glucose 210 H POC Glucose 198 H Calcium Ferritin 1066.0 H Lactate Dehydrogenase 379 H C-Reactive Protein 2.80 H Albumin 3.0 L Coronavirus (PCR) 05/30/21 05/30/21 05/30/21 11:56 16:07 20:49 WBC MCHC Plt Count Lymph % (Auto) [place] % (Auto) Lymph # (Auto) Seg Neutrophils % Seg Neuts % (Manual) Lymphocytes % (Manual) Seg Neutrophils # Seg Neutrophils # Man Lymphocytes # (Manual) Monocytes # (Manual) D-Dimer Sodium Chloride Carbon Dioxide BUN Creatinine Glucose POC Glucose 256 H 165 H 260 H Calcium Ferritin Lactate Dehydrogenase C-Reactive Protein Albumin Coronavirus (PCR) 05/31/21 05/31/21 05/31/21 08:13 11:32 17:14 WBC MCHC Plt Count Lymph % (Auto) [place] % (Auto) Lymph # (Auto) Seg Neutrophils % Seg Neuts % (Manual) Lymphocytes % (Manual) Seg Neutrophils # Seg Neutrophils # Man Lymphocytes # (Manual) Monocytes # (Manual) D-Dimer Sodium Chloride Carbon Dioxide BUN Creatinine Glucose POC Glucose 254 H 257 H 322 H Calcium Ferritin Lactate Dehydrogenase C-Reactive Protein Albumin Coronavirus (PCR) 05/31/21 06/01/21 21:42 07:50 WBC MCHC Plt Count Lymph % (Auto) [place] % (Auto) Lymph # (Auto) Seg Neutrophils % Seg Neuts % (Manual) Lymphocytes % (Manual) Seg Neutrophils # Seg Neutrophils # Man Lymphocytes # (Manual) Monocytes # (Manual) D-Dimer Sodium Chloride Carbon Dioxide BUN Creatinine Glucose POC Glucose 261 H 237 H Calcium Ferritin Lactate Dehydrogenase C-Reactive Protein Albumin Coronavirus (PCR)
[2021-06-01] MEDS: INSULIN LISPRO 100 UNIT/ML SUB-Q SCH ×4 (11:04→22:25)
[2021-06-01] MEDS: ZINC SULFATE 220 MG CAP PO SCH (11:06)
[2021-06-01] MEDS: ASCORBIC ACID 500 MG TAB PO SCH (11:06)
[2021-06-01] MEDS: methylPREDNISolone Sod Succinate 125 MG/2 ML INJ IV SCH ×2 (11:06→18:38)
[2021-06-01] MEDS: FAMOTIDINE 20 MG/2 ML INJ IV SCH (11:07)
[2021-06-01] MEDS: CHOLECALCIFEROL (VIT D3) 1000 UNIT (25 mcg) TAB PO SCH (11:07)
[2021-06-01] MEDS: FAMOTIDINE 20 MG TAB PO SCH ×2 (11:08→22:24)
--- NOTE | 2021-06-01 11:26 | Progress Note ---
Assessment and Plan Cultures: SARS CoV2 PCR: positive A/P: 46/M with: #Bilateral pneumonia due to COVID-19 #Acute hypoxic respiratory failure: on HFNC #Morbid obesity Recs: -Now on high dose solu-medrol -Completed remdesivir -prophylactic anticoagulation based on d-dimer per hospital protocol -Leukocytosis likely secondary to steroids, procal low -trend ferritin, d-dimer, CRP every 2-3 days Soledad Maldonado MD [facility], [place], [facility] ([facility] O: [phone] F: [phone] Subjective Date of service: 06/01/21 Interval history: Afebrile, on HFNC. Now on high dose steroids. Objective - Exam Narrative Exam: Physical exam deferred to reduce risk of transmission of COVID-19. Please refer to primary team's note. - Constitutional Vitals: Vital Signs Temp Pulse Resp BP Pulse Ox 98.7 F 78 20 94/57 96 06/01/21 10:34 06/01/21 10:34 06/01/21 10:34 06/01/21 10:34 06/01/21 10:34 Temperature -Last 24 Hours Temperature 98.7 F Temperature 98.5 F Temperature 98.0 F Temperature 97.6 F Temperature 97.8 F - Labs CBC & Chem 7: 05/30/21 07:01 05/30/21 07:01 Labs: Abnormal lab results 05/31/21 05/31/21 05/31/21 Range/Units 11:32 17:14 21:42 POC Glucose 257 H 322 H 261 H (70-105) mg/dL 06/01/21 Range/Units 07:50 POC Glucose 237 H (70-105) mg/dL
--- NOTE | 2021-06-01 15:53 | Progress Note ---
Assessment and Plan -- COVID 19 Pneumonia Airborne and contact isolation Monitor inflammatory markers IV/PO Dexamethasone x 10 days IV remdesivir x 5 days ordered Worsening respiratory status, Actemra ordered by ID Prophylactic Lovenox Ascorbic acid, zinc sulfate, vitamin D supplement Encourage the use of incentive spirometery Infectious disease consultfollow-up with plan of care. -- Acute Hypoxic Respiratory Failure Supplemental oxygen via NRB. Saturating 93 to 95% Etiology high suspicion for COVID-19 pneumonia Admit CXR: Multifocal airspace disease, possible left-sided pulmonary mass. Please refer to official radiology report Admit CTA chest: Bilateral airspace disease with mildly enlarged mediastinal nodes. No suspicious mass or lymph nodes appreciated. Covid therapies as below prn albuterol Pulmonology consult placed: Recommends increase steroid dosage, ABX, Actemra, remdesivir, patient problems. -- Hyponatremia Likely secondary to dehydration IV hydration with normal saline Monitor sodium level and other electrolytes -- Elevated d-dimer CTA of the chestrule outs PE -- DVT prophylaxis Subcutaneous Lovenox Hospital course to date 05/25/2021: Resting comfortably on encounter. Will follow up results of Covid test. Continue therapy above at this time. Will follow ID recommendations. If patient deteriorates will consult pulmonology. 05/26/2021: Resting comfortably on encounter. Patient is Covid positive. Continuing therapy with abx, steroids, remdesivir. De-escalate O2 to NC. Anticipate d/c home with O2 in 1-2 days if patient tolerates NC. 05/27/2021: Steroids increased by Pulmonology to Decadron 10 mg twice daily. May need to consider high-dose Solu-Medrol if no response in 96 hours. Patient will be encouraged to self prone. 05/28/2021: Patient remains on Ventimask. Did not tolerate de-escalation to nasal cannula. continued to encourage patient to self prone 05/29/2021: Patient remains on nonrebreather 100%. Encourage patient to get up and walk around room as he appears pretty comfortable on bedside encounter. We will continue therapy for Covid pneumonia. Will attempt de-escalation tomorrow patient continues to demonstrate improvement. 05/30/21: Patient on 15 L high flow O2, encourage proning , continue high dose of steroid. Pulmonary and ID following, follow inflammatory markers 05/31: Patient on 35 L high flow O2 today, continue higher dose of steroid, continue to follow inflammatory markers, guarded prognosis, 06/01: Patient remains on high flow O2, 30 L. Continue empiric steroid, follow inflammatory markers. Completed remdesivir. Guarded prognosis Subjective Date of service: 06/01/21 Interval history: Patient seen and examined. Medical records and medication list reviewed. No acute event overnight noted by the RN. Patient complains of difficulty breathing, remains on high flow O2. Patient is tolerating diet. Discussed plan of care at bedside with patient. Objective - Exam Narrative Exam: Limited physical exam due to COVID-19 pandemic to minimize transmission of the disease and to preserve PPE. Vital reviewed and stable. GENERAL: well-developed well-nourished male lying on bed appeared to be in no discomfort. HEENT: Normocephalic. Atraumatic. NECK: Supple. CHEST/LUNGS: breathing with high flow O2. HEART/CARDIOVASCULAR: Heart rate stable on telemetry ABDOMEN: Visibly not distended SKIN: There is no rash NEURO: No focal motor deficit. Follows command. MUSCULOSKELETAL: No joint effusion EXTRIMITY: No swelling, no cyanosis or clubbing. PSYCH: Cooperative. - Constitutional Vitals: Vital Signs - 12hr 06/01/21 06/01/21 06/01/21 05:10 10:30 10:34 Temperature 98.5 F 98.7 F Pulse Rate 57 L 78 Respiratory 20 20 Rate Blood Pressure 95/53 94/57 O2 Sat by Pulse 94 99 96 Oximetry 06/01/21 10:45 Temperature Pulse Rate Respiratory Rate Blood Pressure O2 Sat by Pulse 94 Oximetry - Labs CBC & Chem 7: 06/02/21 03:55 06/03/21 05:29 Labs: Abnormal lab results 05/31/21 05/31/21 06/01/21 Range/Units 17:14 21:42 07:50 POC Glucose 322 H 261 H 237 H (70-105) mg/dL 06/01/21 Range/Units 11:09 POC Glucose 274 H (70-105) mg/dL
[2021-06-01] MEDS: ENOXAPARIN 40 MG/0.4 ML INJ SUB-Q SCH (22:24)
[2021-06-01] MEDS: INSULIN GLARGINE 100 UNITS/ML SUB-Q SCH (22:24)
[2021-06-02] MEDS: methylPREDNISolone Sod Succinate 125 MG/2 ML INJ IV SCH ×3 (00:04→18:29)
[2021-06-02 05:56] LABS: Hematocrit 46.7 % (35.5-45.6); Hemoglobin 15.6 gm/dl (11.8-15.2); Mean Corpuscular HGB Conc 33 % (32-34); Mean Corpuscular Volume 92 fl (84-94); Platelet Count 568 K/mm3 (140-440); Red Blood Count 5.11 M/mm3 (3.65-5.03); Red Cell Distribution Width 13.1 % (13.2-15.2)
[2021-06-02] MEDS: BENZONATATE 100 MG CAP PO SCH ×3 (05:59→21:31)
[2021-06-02 06:08] LABS: Blood Urea Nitrogen 23 mg/dL (9-20); Calcium 8.4 mg/dL (8.4-10.2); Hemolysis Index 85
[2021-06-02 06:09] LABS: BUN/Creatinine Ratio 38
[2021-06-02] MEDS ORDERED: SODIUM POLYSTYRENE 15 GM/60 ML ORAL LIQD PO NR (10:45)
--- NOTE | 2021-06-02 10:56 | Progress Note ---
Assessment and Plan Cultures: SARS CoV2 PCR: positive A/P: 46/M with: #Bilateral pneumonia due to COVID-19 #Acute hypoxic respiratory failure: on HFNC #Morbid obesity Recs: -Now on high dose solu-medrol -Completed remdesivir -prophylactic anticoagulation based on d-dimer per hospital protocol -Leukocytosis likely secondary to steroids, procal low -trend ferritin, d-dimer, CRP every 2-3 days Soledad Maldonado MD [facility] ([facility] O: [phone] F: [phone] Subjective Date of service: 06/02/21 Interval history: Afebrile, white count elevated 25.4. This is increased. currently on high flow nasal cannula. Objective - Exam Narrative Exam: Physical exam deferred to reduce risk of transmission of COVID-19. Please refer to primary team's note. - Constitutional Vitals: Vital Signs Temp Pulse Resp BP Pulse Ox 98.1 F 68 18 117/83 93 06/02/21 04:49 06/02/21 04:49 06/02/21 04:49 06/02/21 04:49 06/02/21 04:49 Temperature -Last 24 Hours Temperature 98.1 F Temperature 98.3 F Temperature 97.5 F - Labs CBC & Chem 7: 06/02/21 03:55 06/02/21 03:55 Labs: Abnormal lab results 06/01/21 06/01/21 06/01/21 Range/Units 11:09 16:51 20:54 WBC (4.5-11.0) K/mm3 RBC (3.65-5.03) M/mm3 Hgb (11.8-15.2) gm/dl Hct (35.5-45.6) % RDW (13.2-15.2) % Plt Count (140-440) K/mm3 Sodium (137-145) mmol/L Chloride (98-107) mmol/L BUN (9-20) mg/dL Creatinine (0.8-1.3) mg/dL Glucose (75-100) mg/dL POC Glucose 274 H 239 H 275 H (70-105) mg/dL 06/02/21 06/02/21 Range/Units 03:55 03:55 WBC 25.4 H (4.5-11.0) K/mm3 RBC 5.11 H (3.65-5.03) M/mm3 Hgb 15.6 H (11.8-15.2) gm/dl Hct 46.7 H (35.5-45.6) % RDW 13.1 L (13.2-15.2) % Plt Count 568 H (140-440) K/mm3 Sodium 132 L (137-145) mmol/L Chloride 96.0 L (98-107) mmol/L BUN 23 H (9-20) mg/dL Creatinine 0.6 L (0.8-1.3) mg/dL Glucose 245 H (75-100) mg/dL POC Glucose (70-105) mg/dL
[2021-06-02] MEDS: INSULIN LISPRO 100 UNIT/ML SUB-Q SCH ×4 (11:12→21:33)
[2021-06-02] MEDS: CHOLECALCIFEROL (VIT D3) 1000 UNIT (25 mcg) TAB PO SCH (11:14)
[2021-06-02] MEDS: FAMOTIDINE 20 MG TAB PO SCH ×2 (11:14→21:30)
[2021-06-02] MEDS: ZINC SULFATE 220 MG CAP PO SCH (11:14)
[2021-06-02] MEDS: ASCORBIC ACID 500 MG TAB PO SCH (11:17)
--- NOTE | 2021-06-02 11:53 | Progress Note ---
Assessment and Plan 46 y/o obese male admitted with acute respiratory failure secondary to COVID 19 06/02/21: Requirement continues to improve. Continue TID solumedrol with proning. Prognosis is still guarded. 06/01/21: Continue TID solumedrol. Prone as tolerated. Guarded prognosis. 05/31/21: Will increase to Solumedrol 125 TID starting now. 05/30/21: BID steroids for one more day. If not weaning then will put on solumedrol 125 TID. Appears patient is cooperating with all therapy now. 05/29/21: BID steroids, continue for 48 hours. Took prophylaxis last night for DVT. May need large doses of steroids. Guarded prognosis. 05/28/21: Continue BID steroids given obesity. Continue for another 72 hours. Patient refusing prophylaxis for DVT as D-Dimer continues to rise. COVID patient's are prone to be hypercoaguable. COntinue Remdesivir 1. Increased steroids to 10 BID given obesity. If no improvement in 96 hours then will change to high dose solumedrol 2. Remdesivir 3. Actemra pending availability 4. Prone 5. Guarded prognosis. Subjective Date of service: 06/02/21 Interval history: Down to 30 and 60. Good sats. Objective Vital Signs - 12hr 06/02/21 06/02/21 06/02/21 04:00 04:49 11:00 Temperature 98.1 F Pulse Rate 68 Respiratory 18 Rate Blood Pressure 117/83 O2 Sat by Pulse 93 93 93 Oximetry CBC and BMP: 06/02/21 03:55 06/02/21 03:55 ABG, PT/INR, D-dimer: PT/INR, D-dimer D-Dimer 1223.46 ng/mlDDU (0-234) H 05/30/21 07:01 Abnormal lab findings: Abnormal Labs 05/24/21 05/24/21 05/24/21 11:19 11:19 11:19 WBC RBC Hgb Hct MCHC 35 H RDW Plt Count Lymph % (Auto) 7.6 L [place] % (Auto) 10.2 H Lymph # (Auto) 0.4 L Seg Neutrophils % 82.0 H Seg Neuts % (Manual) Lymphocytes % (Manual) Seg Neutrophils # Seg Neutrophils # Man Lymphocytes # (Manual) Monocytes # (Manual) D-Dimer 809.12 H Sodium 131 L Chloride 96.9 L Carbon Dioxide BUN Creatinine Glucose 180 H POC Glucose Calcium Ferritin Lactate Dehydrogenase C-Reactive Protein Albumin 3.6 L Coronavirus (PCR) 05/24/21 05/24/21 05/24/21 11:19 11:19 20:30 WBC RBC Hgb Hct MCHC RDW Plt Count Lymph % (Auto) [place] % (Auto) Lymph # (Auto) Seg Neutrophils % Seg Neuts % (Manual) Lymphocytes % (Manual) Seg Neutrophils # Seg Neutrophils # Man Lymphocytes # (Manual) Monocytes # (Manual) D-Dimer Sodium Chloride Carbon Dioxide BUN Creatinine Glucose POC Glucose Calcium Ferritin 1761.0 H Lactate Dehydrogenase 491 H C-Reactive Protein 22.00 H 19.30 H Albumin Coronavirus (PCR) 05/24/21 05/24/21 05/24/21 20:30 20:30 20:30 WBC RBC Hgb Hct MCHC RDW Plt Count Lymph % (Auto) [place] % (Auto) Lymph # (Auto) Seg Neutrophils % Seg Neuts % (Manual) Lymphocytes % (Manual) Seg Neutrophils # Seg Neutrophils # Man Lymphocytes # (Manual) Monocytes # (Manual) D-Dimer 773.79 H Sodium Chloride Carbon Dioxide BUN Creatinine Glucose 186 H POC Glucose Calcium Ferritin 1632.0 H Lactate Dehydrogenase 433 H C-Reactive Protein 18.90 H Albumin Coronavirus (PCR) 05/25/21 05/25/21 05/25/21 07:48 07:48 14:42 WBC RBC Hgb Hct MCHC 35 H RDW Plt Count Lymph % (Auto) 7.8 L [place] % (Auto) Lymph # (Auto) 0.7 L Seg Neutrophils % 85.6 H Seg Neuts % (Manual) Lymphocytes % (Manual) Seg Neutrophils # 8.1 H Seg Neutrophils # Man Lymphocytes # (Manual) Monocytes # (Manual) D-Dimer Sodium 136 L Chloride Carbon Dioxide 20 L BUN Creatinine 0.6 L 0.7 L Glucose 178 H 271 H POC Glucose Calcium 8.3 L Ferritin Lactate Dehydrogenase C-Reactive Protein Albumin 3.0 L 3.0 L Coronavirus (PCR) 05/25/21 05/26/21 05/27/21 Unknown 05:50 04:14 WBC RBC Hgb Hct MCHC RDW Plt Count Lymph % (Auto) [place] % (Auto) Lymph # (Auto) Seg Neutrophils % Seg Neuts % (Manual) Lymphocytes % (Manual) Seg Neutrophils # Seg Neutrophils # Man Lymphocytes # (Manual) Monocytes # (Manual) D-Dimer Sodium Chloride Carbon Dioxide BUN Creatinine 0.6 L Glucose 206 H 182 H POC Glucose Calcium Ferritin Lactate Dehydrogenase C-Reactive Protein Albumin 3.2 L 3.1 L Coronavirus (PCR) Positive A 05/27/21 05/27/21 05/27/21 04:14 10:00 10:00 WBC RBC Hgb Hct MCHC RDW Plt Count Lymph % (Auto) [place] % (Auto) Lymph # (Auto) Seg Neutrophils % Seg Neuts % (Manual) Lymphocytes % (Manual) Seg Neutrophils # Seg Neutrophils # Man Lymphocytes # (Manual) Monocytes # (Manual) D-Dimer 1730.61 H Sodium Chloride Carbon Dioxide BUN Creatinine Glucose POC Glucose Calcium Ferritin 1694.0 H Lactate Dehydrogenase 604 H C-Reactive Protein 10.40 H Albumin Coronavirus (PCR) 05/28/21 05/28/21 05/28/21 04:05 04:05 04:05 WBC RBC Hgb Hct MCHC RDW Plt Count 449 H Lymph % (Auto) [place] % (Auto) Lymph # (Auto) Seg Neutrophils % Seg Neuts % (Manual) 94.0 H Lymphocytes % (Manual) 3.0 L Seg Neutrophils # Seg Neutrophils # Man 9.8 H Lymphocytes # (Manual) 0.3 L Monocytes # (Manual) D-Dimer 3141.44 H Sodium Chloride Carbon Dioxide BUN Creatinine 0.6 L Glucose 248 H POC Glucose Calcium Ferritin Lactate Dehydrogenase C-Reactive Protein Albumin 3.2 L Coronavirus (PCR) 05/28/21 05/28/21 05/28/21 04:05 04:05 23:41 WBC RBC Hgb Hct MCHC RDW Plt Count Lymph % (Auto) [place] % (Auto) Lymph # (Auto) Seg Neutrophils % Seg Neuts % (Manual) Lymphocytes % (Manual) Seg Neutrophils # Seg Neutrophils # Man Lymphocytes # (Manual) Monocytes # (Manual) D-Dimer Sodium Chloride Carbon Dioxide BUN Creatinine Glucose POC Glucose 259 H Calcium Ferritin 1374.0 H Lactate Dehydrogenase 460 H C-Reactive Protein 9.00 H Albumin Coronavirus (PCR) 05/29/21 05/29/21 05/29/21 07:40 12:04 16:20 WBC RBC Hgb Hct MCHC RDW Plt Count Lymph % (Auto) [place] % (Auto) Lymph # (Auto) Seg Neutrophils % Seg Neuts % (Manual) Lymphocytes % (Manual) Seg Neutrophils # Seg Neutrophils # Man Lymphocytes # (Manual) Monocytes # (Manual) D-Dimer Sodium Chloride Carbon Dioxide BUN Creatinine Glucose POC Glucose 276 H 296 H 250 H Calcium Ferritin Lactate Dehydrogenase C-Reactive Protein Albumin Coronavirus (PCR) 05/29/21 05/30/21 05/30/21 20:54 07:01 07:01 WBC 16.3 H RBC Hgb Hct MCHC RDW Plt Count 595 H Lymph % (Auto) [place] % (Auto) Lymph # (Auto) Seg Neutrophils % Seg Neuts % (Manual) 91.0 H Lymphocytes % (Manual) 2.0 L Seg Neutrophils # Seg Neutrophils # Man 14.8 H Lymphocytes # (Manual) 0.3 L Monocytes # (Manual) 1.1 H D-Dimer 1223.46 H Sodium Chloride Carbon Dioxide BUN Creatinine Glucose POC Glucose 248 H Calcium Ferritin Lactate Dehydrogenase C-Reactive Protein Albumin Coronavirus (PCR) 05/30/21 05/30/21 05/30/21 07:01 07:01 08:02 WBC RBC Hgb Hct MCHC RDW Plt Count Lymph % (Auto) [place] % (Auto) Lymph # (Auto) Seg Neutrophils % Seg Neuts % (Manual) Lymphocytes % (Manual) Seg Neutrophils # Seg Neutrophils # Man Lymphocytes # (Manual) Monocytes # (Manual) D-Dimer Sodium Chloride Carbon Dioxide BUN 21 H Creatinine 0.5 L Glucose 210 H POC Glucose 198 H Calcium Ferritin 1066.0 H Lactate Dehydrogenase 379 H C-Reactive Protein 2.80 H Albumin 3.0 L Coronavirus (PCR) 05/30/21 05/30/21 05/30/21 11:56 16:07 20:49 WBC RBC Hgb Hct MCHC RDW Plt Count Lymph % (Auto) [place] % (Auto) Lymph # (Auto) Seg Neutrophils % Seg Neuts % (Manual) Lymphocytes % (Manual) Seg Neutrophils # Seg Neutrophils # Man Lymphocytes # (Manual) Monocytes # (Manual) D-Dimer Sodium Chloride Carbon Dioxide BUN Creatinine Glucose POC Glucose 256 H 165 H 260 H Calcium Ferritin Lactate Dehydrogenase C-Reactive Protein Albumin Coronavirus (PCR) 05/31/21 05/31/21 05/31/21 08:13 11:32 17:14 WBC RBC Hgb Hct MCHC RDW Plt Count Lymph % (Auto) [place] % (Auto) Lymph # (Auto) Seg Neutrophils % Seg Neuts % (Manual) Lymphocytes % (Manual) Seg Neutrophils # Seg Neutrophils # Man Lymphocytes # (Manual) Monocytes # (Manual) D-Dimer Sodium Chloride Carbon Dioxide BUN Creatinine Glucose POC Glucose 254 H 257 H 322 H Calcium Ferritin Lactate Dehydrogenase C-Reactive Protein Albumin Coronavirus (PCR) 05/31/21 06/01/21 06/01/21 21:42 07:50 11:09 WBC RBC Hgb Hct MCHC RDW Plt Count Lymph % (Auto) [place] % (Auto) Lymph # (Auto) Seg Neutrophils % Seg Neuts % (Manual) Lymphocytes % (Manual) Seg Neutrophils # Seg Neutrophils # Man Lymphocytes # (Manual) Monocytes # (Manual) D-Dimer Sodium Chloride Carbon Dioxide BUN Creatinine Glucose POC Glucose 261 H 237 H 274 H Calcium Ferritin Lactate Dehydrogenase C-Reactive Protein Albumin Coronavirus (PCR) 06/01/21 06/01/21 06/02/21 16:51 20:54 03:55 WBC 25.4 H RBC 5.11 H Hgb 15.6 H Hct 46.7 H MCHC RDW 13.1 L Plt Count 568 H Lymph % (Auto) [place] % (Auto) Lymph # (Auto) Seg Neutrophils % Seg Neuts % (Manual) Lymphocytes % (Manual) Seg Neutrophils # Seg Neutrophils # Man Lymphocytes # (Manual) Monocytes # (Manual) D-Dimer Sodium Chloride Carbon Dioxide BUN Creatinine Glucose POC Glucose 239 H 275 H Calcium Ferritin Lactate Dehydrogenase C-Reactive Protein Albumin Coronavirus (PCR) 06/02/21 06/02/21 03:55 11:19 WBC RBC Hgb Hct MCHC RDW Plt Count Lymph % (Auto) [place] % (Auto) Lymph # (Auto) Seg Neutrophils % Seg Neuts % (Manual) Lymphocytes % (Manual) Seg Neutrophils # Seg Neutrophils # Man Lymphocytes # (Manual) Monocytes # (Manual) D-Dimer Sodium 132 L Chloride 96.0 L Carbon Dioxide BUN 23 H Creatinine 0.6 L Glucose 245 H POC Glucose 263 H Calcium Ferritin Lactate Dehydrogenase C-Reactive Protein Albumin Coronavirus (PCR)
[2021-06-02 15:17] LABS: Total Cells Counted 100
[2021-06-02 15:18] LABS: Platelet Estimate Consistent w Auto; RBC Morphology Normal
--- NOTE | 2021-06-02 16:27 | Progress Note ---
Assessment and Plan The patient is a 43-year-old male with no past medical history admitted for COVID-19 pneumonia. Hypoxic requiring high flow O2, unvaccinated, chest x-ray showed bilateral patchy infiltrates. Assessment and plan: -- COVID 19 Pneumonia Airborne and contact isolation Monitor inflammatory markers IV/PO Dexamethasone x 10 days IV remdesivir x 5 days ordered Worsening respiratory status, Actemra ordered by ID Prophylactic Lovenox Ascorbic acid, zinc sulfate, vitamin D supplement Encourage the use of incentive spirometery Infectious disease consultfollow-up with plan of care. -- Acute Hypoxic Respiratory Failure Supplemental oxygen via NRB. Saturating 93 to 95% Etiology high suspicion for COVID-19 pneumonia Admit CXR: Multifocal airspace disease, possible left-sided pulmonary mass. Please refer to official radiology report Admit CTA chest: Bilateral airspace disease with mildly enlarged mediastinal nodes. No suspicious mass or lymph nodes appreciated. Covid therapies as below prn albuterol Pulmonology consult placed: Recommends increase steroid dosage, ABX, Actemra, remdesivir, patient problems. -- Hyponatremia Likely secondary to dehydration IV hydration with normal saline Monitor sodium level and other electrolytes -- Elevated d-dimer CTA of the chestrule outs PE -- DVT prophylaxis Subcutaneous Lovenox Hospital course to date 05/25/2021: Resting comfortably on encounter. Will follow up results of Covid test. Continue therapy above at this time. Will follow ID recommendations. If patient deteriorates will consult pulmonology. 05/26/2021: Resting comfortably on encounter. Patient is Covid positive. Continuing therapy with abx, steroids, remdesivir. De-escalate O2 to NC. Anticipate d/c home with O2 in 1-2 days if patient tolerates NC. 05/27/2021: Steroids increased by Pulmonology to Decadron 10 mg twice daily. May need to consider high-dose Solu-Medrol if no response in 96 hours. Patient will be encouraged to self prone. 05/28/2021: Patient remains on Ventimask. Did not tolerate de-escalation to nasal cannula. continued to encourage patient to self prone 05/29/2021: Patient remains on nonrebreather 100%. Encourage patient to get up and walk around room as he appears pretty comfortable on bedside encounter. We will continue therapy for Covid pneumonia. Will attempt de-escalation tomorrow patient continues to demonstrate improvement. 05/30/21: Patient on 15 L high flow O2, encourage proning , continue high dose of steroid. Pulmonary and ID following, follow inflammatory markers 05/31: Patient on 35 L high flow O2 today, continue higher dose of steroid, continue to follow inflammatory markers, guarded prognosis, 06/01: Patient remains on high flow O2, 30 L. Continue empiric steroid, follow inflammatory markers. Completed remdesivir. Guarded prognosis 06/02/21: Patient remains on 30 L high flow O2, continue empiric steroid, follow inflammatory markers, guarded prognosis. ID and pulmonary following. Subjective Date of service: 06/02/21 Interval history: Patient seen and examined. Medical records and medication list reviewed. No acute event overnight noted by the RN. Patient complains of difficulty breathing, remains on high flow O2. Patient is tolerating diet. Discussed plan of care at bedside with patient. Objective - Exam Narrative Exam: Limited physical exam due to COVID-19 pandemic to minimize transmission of the disease and to preserve PPE. Vital reviewed and stable. GENERAL: well-developed well-nourished male lying on bed appeared to be in no discomfort. HEENT: Normocephalic. Atraumatic. NECK: Supple. CHEST/LUNGS: breathing with high flow O2. HEART/CARDIOVASCULAR: Heart rate stable on telemetry ABDOMEN: Visibly not distended SKIN: There is no rash NEURO: No focal motor deficit. Follows command. MUSCULOSKELETAL: No joint effusion EXTRIMITY: No swelling, no cyanosis or clubbing. PSYCH: Cooperative. - Constitutional Vitals: Vital Signs - 12hr 06/02/21 06/02/21 06/02/21 04:49 09:05 11:00 Temperature 98.1 F Pulse Rate 68 Respiratory 18 18 Rate Blood Pressure 117/83 O2 Sat by Pulse 93 94 93 Oximetry - Labs CBC & Chem 7: 06/02/21 03:55 06/03/21 05:29 Labs: Abnormal lab results 06/01/21 06/01/21 06/02/21 Range/Units 16:51 20:54 03:55 WBC 25.4 H (4.5-11.0) K/mm3 RBC 5.11 H (3.65-5.03) M/mm3 Hgb 15.6 H (11.8-15.2) gm/dl Hct 46.7 H (35.5-45.6) % RDW 13.1 L (13.2-15.2) % Plt Count 568 H (140-440) K/mm3 Seg Neuts % (Manual) 91.0 H (40.0-70.0) % Lymphocytes % (Manual) 3.0 L (13.4-35.0) % Seg Neutrophils # Man 23.1 H (1.8-7.7) K/mm3 Lymphocytes # (Manual) 0.8 L (1.2-5.4) K/mm3 Monocytes # (Manual) 1.5 H (0.0-0.8) K/mm3 Sodium (137-145) mmol/L Chloride (98-107) mmol/L BUN (9-20) mg/dL Creatinine (0.8-1.3) mg/dL Glucose (75-100) mg/dL POC Glucose 239 H 275 H (70-105) mg/dL 06/02/21 06/02/21 Range/Units 03:55 11:19 WBC (4.5-11.0) K/mm3 RBC (3.65-5.03) M/mm3 Hgb (11.8-15.2) gm/dl Hct (35.5-45.6) % RDW (13.2-15.2) % Plt Count (140-440) K/mm3 Seg Neuts % (Manual) (40.0-70.0) % Lymphocytes % (Manual) (13.4-35.0) % Seg Neutrophils # Man (1.8-7.7) K/mm3 Lymphocytes # (Manual) (1.2-5.4) K/mm3 Monocytes # (Manual) (0.0-0.8) K/mm3 Sodium 132 L (137-145) mmol/L Chloride 96.0 L (98-107) mmol/L BUN 23 H (9-20) mg/dL Creatinine 0.6 L (0.8-1.3) mg/dL Glucose 245 H (75-100) mg/dL POC Glucose 263 H (70-105) mg/dL
[2021-06-02] MEDS: ENOXAPARIN 40 MG/0.4 ML INJ SUB-Q SCH (21:28)
[2021-06-02] MEDS: INSULIN GLARGINE 100 UNITS/ML SUB-Q SCH (21:32)
[2021-06-03] MEDS: methylPREDNISolone Sod Succinate 125 MG/2 ML INJ IV SCH ×3 (00:30→17:24)
[2021-06-03] MEDS: BENZONATATE 100 MG CAP PO SCH ×3 (05:27→22:03)
[2021-06-03 06:47] LABS: Blood Urea Nitrogen 22 mg/dL (9-20); Calcium 8.2 mg/dL (8.4-10.2); Hemolysis Index 9
[2021-06-03 06:50] LABS: BUN/Creatinine Ratio 37
[2021-06-03] MEDS: ZINC SULFATE 220 MG CAP PO SCH (09:26)
[2021-06-03] MEDS: CHOLECALCIFEROL (VIT D3) 1000 UNIT (25 mcg) TAB PO SCH (09:26)
[2021-06-03] MEDS: FAMOTIDINE 20 MG TAB PO SCH ×2 (09:26→22:03)
[2021-06-03] MEDS: ASCORBIC ACID 500 MG TAB PO SCH (09:26)
[2021-06-03] MEDS: INSULIN LISPRO 100 UNIT/ML SUB-Q SCH ×4 (09:29→22:04)
--- NOTE | 2021-06-03 14:07 | Progress Note ---
Assessment and Plan The patient is a 43-year-old male with no past medical history admitted for COVID-19 pneumonia. Hypoxic requiring high flow O2, unvaccinated, chest x-ray showed bilateral patchy infiltrates. Assessment and plan: -- COVID 19 Pneumonia Airborne and contact isolation Monitor inflammatory markers Continue IV empiric steroid IV remdesivir x 5 days completed Worsening respiratory status, status post Actemra on 05/26 Prophylactic Lovenox Ascorbic acid, zinc sulfate, vitamin D supplement Encourage the use of incentive spirometery Infectious disease consultfollow-up with plan of care. -- Acute Hypoxic Respiratory Failure Supplemental oxygen via NRB. Saturating 93 to 95% Etiology high suspicion for COVID-19 pneumonia Admit CXR: Multifocal airspace disease, possible left-sided pulmonary mass. Please refer to official radiology report Admit CTA chest: Bilateral airspace disease with mildly enlarged mediastinal nodes. No suspicious mass or lymph nodes appreciated. Covid therapies as below prn albuterol Pulmonology consult placed: Recommends increase steroid dosage, ABX, Actemra, remdesivir, patient problems. -- Hyponatremia Likely secondary to dehydration IV hydration with normal saline Monitor sodium level and other electrolytes --Hyperglycemia, likely steroid-induced, will check A1c -- Elevated d-dimer CTA of the chestrule outs PE -- DVT prophylaxis Subcutaneous Lovenox Hospital course to date 05/25/2021: Resting comfortably on encounter. Will follow up results of Covid test. Continue therapy above at this time. Will follow ID recommendations. If patient deteriorates will consult pulmonology. 05/26/2021: Resting comfortably on encounter. Patient is Covid positive. Continuing therapy with abx, steroids, remdesivir. De-escalate O2 to NC. Anti cipate d/c home with O2 in 1-2 days if patient tolerates NC. 05/27/2021: Steroids increased by Pulmonology to Decadron 10 mg twice daily. May need to consider high-dose Solu-Medrol if no response in 96 hours. Patient will be encouraged to self prone. 05/28/2021: Patient remains on Ventimask. Did not tolerate de-escalation to nasal cannula. continued to encourage patient to self prone 05/29/2021: Patient remains on nonrebreather 100%. Encourage patient to get up and walk around room as he appears pretty comfortable on bedside encounter. We will continue therapy for Covid pneumonia. Will attempt de-escalation tomorrow patient continues to demonstrate improvement. 05/30/21: Patient on 15 L high flow O2, encourage proning yes abdomen, continue high dose of steroid. Pulmonary and ID following, follow inflammatory markers. 05/31: Patient on 35 L high flow O2 today, continue higher dose of steroid, continue to follow inflammatory markers, guarded prognosis, 06/01: Patient remains on high flow O2, 30 L. Continue empiric steroid, follow inflammatory markers. Completed remdesivir. Guarded prognosis 06/02/21: Patient remains on 30 L high flow O2, continue empiric steroid, follow inflammatory markers, guarded prognosis. ID and pulmonary following. 05/03/21: Patient on 25 mm high flow O2 today, continue empiric steroid continue to follow inflammatory markers, ordered A1c, ID and pulmonary care following. Guarded prognosis. Subjective Date of service: 06/03/21 Interval history: Patient seen and examined. Medical records and medication list reviewed. No acute event overnight noted by the RN. Patient complains of difficulty breathing, remains on high flow O2. Patient is tolerating diet. Discussed plan of care at bedside with patient. Objective - Exam Narrative Exam: Limited physical exam due to COVID-19 pandemic to minimize transmission of the disease and to preserve PPE. Vital reviewed and stable. GENERAL: well-developed well-nourished male lying on bed appeared to be in no discomfort. HEENT: Normocephalic. Atraumatic. NECK: Supple. CHEST/LUNGS: breathing with high flow O2. HEART/CARDIOVASCULAR: Heart rate stable on telemetry ABDOMEN: Visibly not distended SKIN: There is no rash NEURO: No focal motor deficit. Follows command. MUSCULOSKELETAL: No joint effusion EXTRIMITY: No swelling, no cyanosis or clubbing. PSYCH: Cooperative. - Constitutional Vitals: Vital Signs - 12hr 06/03/21 06/03/21 06/03/21 04:00 04:24 09:35 Temperature 98.0 F Pulse Rate 66 Respiratory 18 Rate Blood Pressure 114/70 O2 Sat by Pulse 92 94 97 Oximetry 06/03/21 06/03/21 10:34 13:51 Temperature 98.2 F Pulse Rate 91 H Respiratory 20 Rate Blood Pressure 116/77 O2 Sat by Pulse 90 95 Oximetry - Labs CBC & Chem 7: 06/02/21 03:55 09/04/21 05:29 Labs: Abnormal lab results 06/02/21 06/02/21 06/02/21 Range/Units 03:55 16:53 21:20 Seg Neuts % (Manual) 91.0 H (40.0-70.0) % Lymphocytes % (Manual) 3.0 L (13.4-35.0) % Seg Neutrophils # Man 23.1 H (1.8-7.7) K/mm3 Lymphocytes # (Manual) 0.8 L (1.2-5.4) K/mm3 Monocytes # (Manual) 1.5 H (0.0-0.8) K/mm3 BUN (9-20) mg/dL Creatinine (0.8-1.3) mg/dL Glucose (75-100) mg/dL POC Glucose 264 H 341 H (70-105) mg/dL Calcium (8.4-10.2) mg/dL 06/03/21 06/03/21 06/03/21 Range/Units 05:29 07:31 12:17 Seg Neuts % (Manual) (40.0-70.0) % Lymphocytes % (Manual) (13.4-35.0) % Seg Neutrophils # Man (1.8-7.7) K/mm3 Lymphocytes # (Manual) (1.2-5.4) K/mm3 Monocytes # (Manual) (0.0-0.8) K/mm3 BUN 22 H (9-20) mg/dL Creatinine 0.6 L (0.8-1.3) mg/dL Glucose 246 H (75-100) mg/dL POC Glucose 231 H 187 H (70-105) mg/dL Calcium 8.2 L (8.4-10.2) mg/dL
[2021-06-03] MEDS: INSULIN GLARGINE 100 UNITS/ML SUB-Q SCH (22:03)
[2021-06-03] MEDS: ENOXAPARIN 40 MG/0.4 ML INJ SUB-Q SCH (22:03)
[2021-06-04] MEDS: methylPREDNISolone Sod Succinate 125 MG/2 ML INJ IV SCH ×3 (00:35→16:45)
[2021-06-04] MEDS: BENZONATATE 100 MG CAP PO SCH ×3 (06:10→22:51)
[2021-06-04] MEDS: CHOLECALCIFEROL (VIT D3) 1000 UNIT (25 mcg) TAB PO SCH (10:22)
[2021-06-04] MEDS: INSULIN LISPRO 100 UNIT/ML SUB-Q SCH ×4 (10:22→22:51)
[2021-06-04] MEDS: ZINC SULFATE 220 MG CAP PO SCH (10:22)
[2021-06-04] MEDS: ASCORBIC ACID 500 MG TAB PO SCH (10:22)
[2021-06-04] MEDS: FAMOTIDINE 20 MG TAB PO SCH ×2 (10:40→22:51)
--- NOTE | 2021-06-04 11:59 | Progress Note ---
Assessment and Plan ssessment and Plan 46 y/o obese male admitted with acute respiratory failure secondary to COVID 19 06/04/2021: Seems like patient has continued to improve. Currently on 25 L nasal cannula with 50% FiO2 on high flow nasal cannula. Continue with the current regimen, continue to wean FiO2 06/02/21: Requirement continues to improve. Continue TID solumedrol with proning. Prognosis is still guarded. 06/01/21: Continue TID solumedrol. Prone as tolerated. Guarded prognosis. 05/31/21: Will increase to Solumedrol 125 TID starting now. 05/30/21: BID steroids for one more day. If not weaning then will put on solumedrol 125 TID. Appears patient is cooperating with all therapy now. 05/29/21: BID steroids, continue for 48 hours. Took prophylaxis last night for DVT. May need large doses of steroids. Guarded prognosis. 05/28/21: Continue BID steroids given obesity. Continue for another 72 hours. Patient refusing prophylaxis for DVT as D-Dimer continues to rise. COVID patient's are prone to be hypercoaguable. COntinue Remdesivir 1. Increased steroids to 10 BID given obesity. If no improvement in 96 hours then will change to high dose solumedrol 2. Remdesivir 3. Actemra pending availability 4. Prone 5. Guarded prognosis. Subjective Date of service: 06/04/21 Interval history: Patient doing well on high flow nasal cannula with 25 L and 50% FiO2 awake alert sitting up in bed Objective - Exam Narrative Exam: Limited physical exam due to COVID-19 pandemic to minimize transmission of the disease and to preserve PPE. Vital reviewed and stable. GENERAL: well-developed well-nourished male lying on bed appeared to be in no discomfort. HEENT: Normocephalic. Atraumatic. NECK: Supple. CHEST/LUNGS: breathing with high flow O2. HEART/CARDIOVASCULAR: Heart rate stable on telemetry ABDOMEN: Visibly not distended SKIN: There is no rash NEURO: No focal motor deficit. Follows command. MUSCULOSKELETAL: No joint effusion EXTRIMITY: No swelling, no cyanosis or clubbing. PSYCH: Cooperative. Vital Signs - 12hr 06/04/21 06/04/21 02:16 08:00 O2 Sat by Pulse 93 93 Oximetry CBC and BMP: 06/02/21 03:55 06/03/21 05:29 ABG, PT/INR, D-dimer: PT/INR, D-dimer D-Dimer 1223.46 ng/mlDDU (0-234) H 05/30/21 07:01 Abnormal lab findings: Abnormal Labs 05/24/21 05/24/21 05/24/21 11:19 11:19 11:19 WBC RBC Hgb Hct MCHC 35 H RDW Plt Count Lymph % (Auto) 7.6 L [place] % (Auto) 10.2 H Lymph # (Auto) 0.4 L Seg Neutrophils % 82.0 H Seg Neuts % (Manual) Lymphocytes % (Manual) Seg Neutrophils # Seg Neutrophils # Man Lymphocytes # (Manual) Monocytes # (Manual) D-Dimer 809.12 H Sodium 131 L Chloride 96.9 L Carbon Dioxide BUN Creatinine Glucose 180 H POC Glucose Hemoglobin A1c Calcium Ferritin Lactate Dehydrogenase C-Reactive Protein Albumin 3.6 L Coronavirus (PCR) 05/24/21 05/24/21 05/24/21 11:19 11:19 20:30 WBC RBC Hgb Hct MCHC RDW Plt Count Lymph % (Auto) [place] % (Auto) Lymph # (Auto) Seg Neutrophils % Seg Neuts % (Manual) Lymphocytes % (Manual) Seg Neutrophils # Seg Neutrophils # Man Lymphocytes # (Manual) Monocytes # (Manual) D-Dimer Sodium Chloride Carbon Dioxide BUN Creatinine Glucose POC Glucose Hemoglobin A1c Calcium Ferritin 1761.0 H Lactate Dehydrogenase 491 H C-Reactive Protein 22.00 H 19.30 H Albumin Coronavirus (PCR) 05/24/21 05/24/21 05/24/21 20:30 20:30 20:30 WBC RBC Hgb Hct MCHC RDW Plt Count Lymph % (Auto) [place] % (Auto) Lymph # (Auto) Seg Neutrophils % Seg Neuts % (Manual) Lymphocytes % (Manual) Seg Neutrophils # Seg Neutrophils # Man Lymphocytes # (Manual) Monocytes # (Manual) D-Dimer 773.79 H Sodium Chloride Carbon Dioxide BUN Creatinine Glucose 186 H POC Glucose Hemoglobin A1c Calcium Ferritin 1632.0 H Lactate Dehydrogenase 433 H C-Reactive Protein 18.90 H Albumin Coronavirus (PCR) 05/25/21 05/25/21 05/25/21 07:48 07:48 14:42 WBC RBC Hgb Hct MCHC 35 H RDW Plt Count Lymph % (Auto) 7.8 L [place] % (Auto) Lymph # (Auto) 0.7 L Seg Neutrophils % 85.6 H Seg Neuts % (Manual) Lymphocytes % (Manual) Seg Neutrophils # 8.1 H Seg Neutrophils # Man Lymphocytes # (Manual) Monocytes # (Manual) D-Dimer Sodium 136 L Chloride Carbon Dioxide 20 L BUN Creatinine 0.6 L 0.7 L Glucose 178 H 271 H POC Glucose Hemoglobin A1c Calcium 8.3 L Ferritin Lactate Dehydrogenase C-Reactive Protein Albumin 3.0 L 3.0 L Coronavirus (PCR) 05/25/21 05/26/21 05/27/21 Unknown 05:50 04:14 WBC RBC Hgb Hct MCHC RDW Plt Count Lymph % (Auto) [place] % (Auto) Lymph # (Auto) Seg Neutrophils % Seg Neuts % (Manual) Lymphocytes % (Manual) Seg Neutrophils # Seg Neutrophils # Man Lymphocytes # (Manual) Monocytes # (Manual) D-Dimer Sodium Chloride Carbon Dioxide BUN Creatinine 0.6 L Glucose 206 H 182 H POC Glucose Hemoglobin A1c Calcium Ferritin Lactate Dehydrogenase C-Reactive Protein Albumin 3.2 L 3.1 L Coronavirus (PCR) Positive A 05/27/21 05/27/21 05/27/21 04:14 10:00 10:00 WBC RBC Hgb Hct MCHC RDW Plt Count Lymph % (Auto) [place] % (Auto) Lymph # (Auto) Seg Neutrophils % Seg Neuts % (Manual) Lymphocytes % (Manual) Seg Neutrophils # Seg Neutrophils # Man Lymphocytes # (Manual) Monocytes # (Manual) D-Dimer 1730.61 H Sodium Chloride Carbon Dioxide BUN Creatinine Glucose POC Glucose Hemoglobin A1c Calcium Ferritin 1694.0 H Lactate Dehydrogenase 604 H C-Reactive Protein 10.40 H Albumin Coronavirus (PCR) 05/28/21 05/28/21 05/28/21 04:05 04:05 04:05 WBC RBC Hgb Hct MCHC RDW Plt Count 449 H Lymph % (Auto) [place] % (Auto) Lymph # (Auto) Seg Neutrophils % Seg Neuts % (Manual) 94.0 H Lymphocytes % (Manual) 3.0 L Seg Neutrophils # Seg Neutrophils # Man 9.8 H Lymphocytes # (Manual) 0.3 L Monocytes # (Manual) D-Dimer 3141.44 H Sodium Chloride Carbon Dioxide BUN Creatinine 0.6 L Glucose 248 H POC Glucose Hemoglobin A1c Calcium Ferritin Lactate Dehydrogenase C-Reactive Protein Albumin 3.2 L Coronavirus (PCR) 05/28/21 05/28/21 05/28/21 04:05 04:05 23:41 WBC RBC Hgb Hct MCHC RDW Plt Count Lymph % (Auto) [place] % (Auto) Lymph # (Auto) Seg Neutrophils % Seg Neuts % (Manual) Lymphocytes % (Manual) Seg Neutrophils # Seg Neutrophils # Man Lymphocytes # (Manual) Monocytes # (Manual) D-Dimer Sodium Chloride Carbon Dioxide BUN Creatinine Glucose POC Glucose 259 H Hemoglobin A1c Calcium Ferritin 1374.0 H Lactate Dehydrogenase 460 H C-Reactive Protein 9.00 H Albumin Coronavirus (PCR) 05/29/21 05/29/21 05/29/21 07:40 12:04 16:20 WBC RBC Hgb Hct MCHC RDW Plt Count Lymph % (Auto) [place] % (Auto) Lymph # (Auto) Seg Neutrophils % Seg Neuts % (Manual) Lymphocytes % (Manual) Seg Neutrophils # Seg Neutrophils # Man Lymphocytes # (Manual) Monocytes # (Manual) D-Dimer Sodium Chloride Carbon Dioxide BUN Creatinine Glucose POC Glucose 276 H 296 H 250 H Hemoglobin A1c Calcium Ferritin Lactate Dehydrogenase C-Reactive Protein Albumin Coronavirus (PCR) 05/29/21 05/30/21 05/30/21 20:54 07:01 07:01 WBC 16.3 H RBC Hgb Hct MCHC RDW Plt Count 595 H Lymph % (Auto) [place] % (Auto) Lymph # (Auto) Seg Neutrophils % Seg Neuts % (Manual) 91.0 H Lymphocytes % (Manual) 2.0 L Seg Neutrophils # Seg Neutrophils # Man 14.8 H Lymphocytes # (Manual) 0.3 L Monocytes # (Manual) 1.1 H D-Dimer 1223.46 H Sodium Chloride Carbon Dioxide BUN Creatinine Glucose POC Glucose 248 H Hemoglobin A1c Calcium Ferritin Lactate Dehydrogenase C-Reactive Protein Albumin Coronavirus (PCR) 05/30/21 05/30/21 05/30/21 07:01 07:01 08:02 WBC RBC Hgb Hct MCHC RDW Plt Count Lymph % (Auto) [place] % (Auto) Lymph # (Auto) Seg Neutrophils % Seg Neuts % (Manual) Lymphocytes % (Manual) Seg Neutrophils # Seg Neutrophils # Man Lymphocytes # (Manual) Monocytes # (Manual) D-Dimer Sodium Chloride Carbon Dioxide BUN 21 H Creatinine 0.5 L Glucose 210 H POC Glucose 198 H Hemoglobin A1c Calcium Ferritin 1066.0 H Lactate Dehydrogenase 379 H C-Reactive Protein 2.80 H Albumin 3.0 L Coronavirus (PCR) 05/30/21 05/30/21 05/30/21 11:56 16:07 20:49 WBC RBC Hgb Hct MCHC RDW Plt Count Lymph % (Auto) [place] % (Auto) Lymph # (Auto) Seg Neutrophils % Seg Neuts % (Manual) Lymphocytes % (Manual) Seg Neutrophils # Seg Neutrophils # Man Lymphocytes # (Manual) Monocytes # (Manual) D-Dimer Sodium Chloride Carbon Dioxide BUN Creatinine Glucose POC Glucose 256 H 165 H 260 H Hemoglobin A1c Calcium Ferritin Lactate Dehydrogenase C-Reactive Protein Albumin Coronavirus (PCR) 05/31/21 05/31/21 05/31/21 08:13 11:32 17:14 WBC RBC Hgb Hct MCHC RDW Plt Count Lymph % (Auto) [place] % (Auto) Lymph # (Auto) Seg Neutrophils % Seg Neuts % (Manual) Lymphocytes % (Manual) Seg Neutrophils # Seg Neutrophils # Man Lymphocytes # (Manual) Monocytes # (Manual) D-Dimer Sodium Chloride Carbon Dioxide BUN Creatinine Glucose POC Glucose 254 H 257 H 322 H Hemoglobin A1c Calcium Ferritin Lactate Dehydrogenase C-Reactive Protein Albumin Coronavirus (PCR) 05/31/21 06/01/21 06/01/21 21:42 07:50 11:09 WBC RBC Hgb Hct MCHC RDW Plt Count Lymph % (Auto) [place] % (Auto) Lymph # (Auto) Seg Neutrophils % Seg Neuts % (Manual) Lymphocytes % (Manual) Seg Neutrophils # Seg Neutrophils # Man Lymphocytes # (Manual) Monocytes # (Manual) D-Dimer Sodium Chloride Carbon Dioxide BUN Creatinine Glucose POC Glucose 261 H 237 H 274 H Hemoglobin A1c Calcium Ferritin Lactate Dehydrogenase C-Reactive Protein Albumin Coronavirus (PCR) 06/01/21 06/01/21 06/02/21 16:51 20:54 03:55 WBC 25.4 H RBC 5.11 H Hgb 15.6 H Hct 46.7 H MCHC RDW 13.1 L Plt Count 568 H Lymph % (Auto) [place] % (Auto) Lymph # (Auto) Seg Neutrophils % Seg Neuts % (Manual) 91.0 H Lymphocytes % (Manual) 3.0 L Seg Neutrophils # Seg Neutrophils # Man 23.1 H Lymphocytes # (Manual) 0.8 L Monocytes # (Manual) 1.5 H D-Dimer Sodium Chloride Carbon Dioxide BUN Creatinine Glucose POC Glucose 239 H 275 H Hemoglobin A1c Calcium Ferritin Lactate Dehydrogenase C-Reactive Protein Albumin Coronavirus (PCR) 06/02/21 06/02/21 06/02/21 03:55 11:19 16:53 WBC RBC Hgb Hct MCHC RDW Plt Count Lymph % (Auto) [place] % (Auto) Lymph # (Auto) Seg Neutrophils % Seg Neuts % (Manual) Lymphocytes % (Manual) Seg Neutrophils # Seg Neutrophils # Man Lymphocytes # (Manual) Monocytes # (Manual) D-Dimer Sodium 132 L Chloride 96.0 L Carbon Dioxide BUN 23 H Creatinine 0.6 L Glucose 245 H POC Glucose 263 H 264 H Hemoglobin A1c Calcium Ferritin Lactate Dehydrogenase C-Reactive Protein Albumin Coronavirus (PCR) 06/02/21 06/03/21 06/03/21 21:20 05:29 07:31 WBC RBC Hgb Hct MCHC RDW Plt Count Lymph % (Auto) [place] % (Auto) Lymph # (Auto) Seg Neutrophils % Seg Neuts % (Manual) Lymphocytes % (Manual) Seg Neutrophils # Seg Neutrophils # Man Lymphocytes # (Manual) Monocytes # (Manual) D-Dimer Sodium Chloride Carbon Dioxide BUN 22 H Creatinine 0.6 L Glucose 246 H POC Glucose 341 H 231 H Hemoglobin A1c Calcium 8.2 L Ferritin Lactate Dehydrogenase C-Reactive Protein Albumin Coronavirus (PCR) 06/03/21 06/03/21 06/03/21 12:17 15:00 16:14 WBC RBC Hgb Hct MCHC RDW Plt Count Lymph % (Auto) [place] % (Auto) Lymph # (Auto) Seg Neutrophils % Seg Neuts % (Manual) Lymphocytes % (Manual) Seg Neutrophils # Seg Neutrophils # Man Lymphocytes # (Manual) Monocytes # (Manual) D-Dimer Sodium Chloride Carbon Dioxide BUN Creatinine Glucose POC Glucose 187 H 244 H Hemoglobin A1c 7.8 H Calcium Ferritin Lactate Dehydrogenase C-Reactive Protein Albumin Coronavirus (PCR) 06/03/21 06/04/21 22:00 08:17 WBC RBC Hgb Hct MCHC RDW Plt Count Lymph % (Auto) [place] % (Auto) Lymph # (Auto) Seg Neutrophils % Seg Neuts % (Manual) Lymphocytes % (Manual) Seg Neutrophils # Seg Neutrophils # Man Lymphocytes # (Manual) Monocytes # (Manual) D-Dimer Sodium Chloride Carbon Dioxide BUN Creatinine Glucose POC Glucose 234 H 237 H Hemoglobin A1c Calcium Ferritin Lactate Dehydrogenase C-Reactive Protein Albumin Coronavirus (PCR)
--- NOTE | 2021-06-04 12:42 | Progress Note ---
Assessment and Plan The patient is a 43-year-old male with no past medical history admitted for COVID-19 pneumonia. Hypoxic requiring high flow O2, unvaccinated, chest x-ray showed bilateral patchy infiltrates. Assessment and plan: -- COVID 19 Pneumonia Airborne and contact isolation Monitor inflammatory markers Continue IV empiric steroid IV remdesivir x 5 days completed Worsening respiratory status, status post Actemra on 05/26 Prophylactic Lovenox Ascorbic acid, zinc sulfate, vitamin D supplement Encourage the use of incentive spirometery Infectious disease consultfollow-up with plan of care. -- Acute Hypoxic Respiratory Failure Supplemental oxygen via NRB. Saturating 93 to 95% Etiology high suspicion for COVID-19 pneumonia Admit CXR: Multifocal airspace disease, possible left-sided pulmonary mass. Please refer to official radiology report Admit CTA chest: Bilateral airspace disease with mildly enlarged mediastinal nodes. No suspicious mass or lymph nodes appreciated. Covid therapies as below prn albuterol Pulmonology consult placed: Recommends increase steroid dosage, ABX, Actemra, remdesivir -- Hyponatremia Likely secondary to dehydration IV hydration with normal saline Monitor sodium level and other electrolytes --Diabetes mellitus type 2 with hyperglycemia, likely steroid-induced, A1c >7 Continue sliding scale and Lantus at bedtime -- Elevated d-dimer CTA of the chestrule outs PE -- DVT prophylaxis Subcutaneous Lovenox Hospital course to date 05/25/2021: Resting comfortably on encounter. Will follow up results of Covid test. Continue therapy above at this time. Will follow ID recommendations. If patient deteriorates will consult pulmonology. 05/26/2021: Resting comfortably on encounter. Patient is Covid positive. Continuing therapy with abx, steroids, remdesivir. De-escalate O2 to NC. Anticipate d/c home with O2 in 1-2 days if patient tolerates NC. 05/27/2021: Steroids increased by Pulmonology to Decadron 10 mg twice daily. May need to consider high-dose Solu-Medrol if no response in 96 hours. Patient will be encouraged to self prone. 05/28/2021: Patient remains on Ventimask. Did not tolerate de-escalation to nasal cannula. continued to encourage patient to self prone 05/29/2021: Patient remains on nonrebreather 100%. Encourage patient to get up and walk around room as he appears pretty comfortable on bedside encounter. We will continue therapy for Covid pneumonia. Will attempt de-escalation tomorrow patient continues to demonstrate improvement. 05/30/21: Patient on 15 L high flow O2, encourage proning yes abdomen, continue high dose of steroid. Pulmonary and ID following, follow inflammatory markers. 05/31: Patient on 35 L high flow O2 today, continue higher dose of steroid, continue to follow inflammatory markers, guarded prognosis, 06/01: Patient remains on high flow O2, 30 L. Continue empiric steroid, follow inflammatory markers. Completed remdesivir. Guarded prognosis 06/02/21: Patient remains on 30 L high flow O2, continue empiric steroid, follow inflammatory markers, guarded prognosis. ID and pulmonary following. 05/03/21: Patient on 25 mm high flow O2 today, continue empiric steroid continue to follow inflammatory markers, ordered A1c, ID and pulmonary care following. Guarded prognosis. 05/04/21; remains on high flow O2, vitals otherwise stable. Continue empiric steroid. Continue to follow inflammatory markers. Guarded prognosis. Wean off O2 as tolerated. Subjective Date of service: 06/04/21 Interval history: Patient seen and examined. Medical records and medication list reviewed. No acute event overnight noted by the RN. Patient complains of difficulty breathing, remains on high flow O2. Patient is tolerating diet. Discussed plan of care at bedside with patient. Objective - Exam Narrative Exam: Limited physical exam due to COVID-19 pandemic to minimize transmission of the disease and to preserve PPE. Vital reviewed and stable. GENERAL: well-developed well-nourished male lying on bed appeared to be in no discomfort. HEENT: Normocephalic. Atraumatic. NECK: Supple. CHEST/LUNGS: breathing with high flow O2. HEART/CARDIOVASCULAR: Heart rate stable on telemetry ABDOMEN: Visibly not distended SKIN: There is no rash NEURO: No focal motor deficit. Follows command. MUSCULOSKELETAL: No joint effusion EXTRIMITY: No swelling, no cyanosis or clubbing. PSYCH: Cooperative. - Constitutional Vitals: Vital Signs - 12hr 06/04/21 06/04/21 02:16 08:00 O2 Sat by Pulse 93 93 Oximetry - Labs CBC & Chem 7: 06/04/21 15:14 06/06/21 03:52 Labs: Abnormal lab results 06/03/21 06/03/21 06/03/21 Range/Units 15:00 16:14 22:00 POC Glucose 244 H 234 H (70-105) mg/dL Hemoglobin A1c 7.8 H (4-6) % 06/04/21 06/04/21 Range/Units 08:17 12:01 POC Glucose 237 H 176 H (70-105) mg/dL Hemoglobin A1c (4-6) %
[2021-06-04 15:58] LABS: Hematocrit 42.8 % (35.5-45.6); Hemoglobin 14.3 gm/dl (11.8-15.2); Mean Corpuscular HGB Conc 34 % (32-34); Mean Corpuscular Volume 91 fl (84-94); Platelet Count 484 K/mm3 (140-440); Red Blood Count 4.73 M/mm3 (3.65-5.03); Red Cell Distribution Width 13.4 % (13.2-15.2)
[2021-06-04 16:18] LABS: C-Reactive Protein 0.2 mg/dL (0.00-1.30)
[2021-06-04 16:19] LABS: Blood Urea Nitrogen 26 mg/dL (9-20); Hemolysis Index 15
[2021-06-04 16:45] LABS: BUN/Creatinine Ratio 37
[2021-06-04 17:01] LABS: Platelet Estimate Consistent w Auto; RBC Morphology Normal; Total Cells Counted 100
[2021-06-04] MEDS: ENOXAPARIN 40 MG/0.4 ML INJ SUB-Q SCH (22:50)
[2021-06-04] MEDS: INSULIN GLARGINE 100 UNITS/ML SUB-Q SCH (23:02)
[2021-06-05] MEDS: INSULIN LISPRO 100 UNIT/ML SUB-Q SCH ×4 (07:45→23:15)
[2021-06-05] MEDS: BENZONATATE 100 MG CAP PO SCH ×3 (07:48→23:16)
[2021-06-05] MEDS: methylPREDNISolone Sod Succinate 125 MG/2 ML INJ IV SCH ×3 (07:50→23:18)
--- NOTE | 2021-06-05 09:00 | Progress Note ---
Assessment and Plan The patient is a 43-year-old male with no past medical history admitted for COVID-19 pneumonia. Hypoxic requiring high flow O2, unvaccinated, chest x-ray showed bilateral patchy infiltrates. Assessment and plan: -- COVID 19 Pneumonia Airborne and contact isolation Monitor inflammatory markers Continue IV empiric steroid IV remdesivir x 5 days completed Worsening respiratory status, status post Actemra on 05/26 Prophylactic Lovenox Ascorbic acid, zinc sulfate, vitamin D supplement Encourage the use of incentive spirometery Infectious disease consultfollow-up with plan of care. -- Acute Hypoxic Respiratory Failure Supplemental oxygen via NRB. Saturating 93 to 95% Etiology high suspicion for COVID-19 pneumonia Admit CXR: Multifocal airspace disease, possible left-sided pulmonary mass. Please refer to official radiology report Admit CTA chest: Bilateral airspace disease with mildly enlarged mediastinal nodes. No suspicious mass or lymph nodes appreciated. Covid therapies as below prn albuterol Pulmonology consult placed: Recommends increase steroid dosage, ABX, Actemra, remdesivir, patient problems. -- Hyponatremia Likely secondary to dehydration IV hydration with normal saline Monitor sodium level and other electrolytes --Diabetes mellitus type 2 with hyperglycemia, likely steroid-induced, A1c >7 Continue sliding scale and Lantus at bedtime -- Elevated d-dimer CTA of the chestrule outs PE --Morbid obesity: Associated with worse outcome for COVID-19 Continue to follow clinically, dietary on board -- [facility] to date 05/25/2021: Resting comfortably on encounter. Will follow up results of Covid test. Continue therapy above at this time. Will follow ID recommendations. If patient deteriorates will consult pulmonology. 05/26/2021: Resting comfortably on encounter. Patient is Covid positive. C ontinuing therapy with abx, steroids, remdesivir. De-escalate O2 to NC. Anticipate d/c home with O2 in 1-2 days if patient tolerates NC. 05/27/2021: Steroids increased by Pulmonology to Decadron 10 mg twice daily. May need to consider high-dose Solu-Medrol if no response in 96 hours. Patient will be encouraged to self prone. 05/28/2021: Patient remains on Ventimask. Did not tolerate de-escalation to nasal cannula. continued to encourage patient to self prone 05/29/2021: Patient remains on nonrebreather 100%. Encourage patient to get up and walk around room as he appears pretty comfortable on bedside encounter. We will continue therapy for Covid pneumonia. Will attempt de-escalation tomorrow patient continues to demonstrate improvement. 05/30/21: Patient on 15 L high flow O2, encourage proning yes abdomen, continue high dose of steroid. Pulmonary and ID following, follow inflammatory markers. 05/31: Patient on 35 L high flow O2 today, continue higher dose of steroid, continue to follow inflammatory markers, guarded prognosis, 06/01: Patient remains on high flow O2, 30 L. Continue empiric steroid, follow inflammatory markers. Completed remdesivir. Guarded prognosis 06/02/21: Patient remains on 30 L high flow O2, continue empiric steroid, follow inflammatory markers, guarded prognosis. ID and pulmonary following. 05/03/21: Patient on 25 mm high flow O2 today, continue empiric steroid continue to follow inflammatory markers, ordered A1c, ID and pulmonary care following. Guarded prognosis. 05/04/21; remains on high flow O2, vitals otherwise stable. Continue empiric s teroid. Continue to follow inflammatory markers. Guarded prognosis. Wean off O2 as tolerated. 05/05/21: Patient appears to have no discomfort, but remains on high flow O2. Wean off O2 as tolerated per pulmonary. Continue to follow inflammatory markers. Guarded prognosis. Subjective Date of service: 06/05/21 Interval history: Patient seen and examined. Medical records and medication list reviewed. No acute event overnight noted by the RN. Patient complains of difficulty breathing, remains on high flow O2. Patient is tolerating diet. Discussed plan of care at bedside with patient. Objective - Exam Narrative Exam: Limited physical exam due to COVID-19 pandemic to minimize transmission of the disease and to preserve PPE. Vital reviewed and stable. GENERAL: well-developed well-nourished male lying on bed appeared to be in no discomfort. HEENT: Normocephalic. Atraumatic. NECK: Supple. CHEST/LUNGS: breathing with high flow O2. HEART/CARDIOVASCULAR: Heart rate stable on telemetry ABDOMEN: Visibly not distended SKIN: There is no rash NEURO: No focal motor deficit. Follows command. MUSCULOSKELETAL: No joint effusion EXTRIMITY: No swelling, no cyanosis or clubbing. PSYCH: Cooperative. - Constitutional Vitals: Vital Signs - 12hr 06/04/21 06/04/21 06/05/21 22:30 23:04 00:22 Temperature Pulse Rate 80 Respiratory 26 H 20 Rate Blood Pressure 134/88 O2 Sat by Pulse 95 90 96 Oximetry 06/05/21 06/05/21 04:32 05:44 Temperature 97.5 F L Pulse Rate 71 Respiratory 22 Rate Blood Pressure 125/87 O2 Sat by Pulse 95 97 Oximetry - Labs CBC & Chem 7: 06/04/21 15:14 06/06/21 03:52 Labs: Abnormal lab results 06/04/21 06/04/21 06/04/21 Range/Units 12:01 15:14 15:14 WBC 24.2 H (4.5-11.0) K/mm3 Plt Count 484 H (140-440) K/mm3 Seg Neuts % (Manual) 95.0 H (40.0-70.0) % Seg Neutrophils # Man 23.0 H (1.8-7.7) K/mm3 Lymphocytes # (Manual) 0.0 L (1.2-5.4) K/mm3 D-Dimer (0-234) ng/mlDDU Sodium 135 L (137-145) mmol/L BUN 26 H (9-20) mg/dL Creatinine 0.7 L (0.8-1.3) mg/dL Glucose 263 H (75-100) mg/dL POC Glucose 176 H (70-105) mg/dL Ferritin (30.0-300.0) ng/mL Lactate Dehydrogenase (91-180) units/L 06/04/21 06/04/21 06/04/21 Range/Units 15:14 15:14 15:14 WBC (4.5-11.0) K/mm3 Plt Count (140-440) K/mm3 Seg Neuts % (Manual) (40.0-70.0) % Seg Neutrophils # Man (1.8-7.7) K/mm3 Lymphocytes # (Manual) (1.2-5.4) K/mm3 D-Dimer 612.11 H (0-234) ng/mlDDU Sodium (137-145) mmol/L BUN (9-20) mg/dL Creatinine (0.8-1.3) mg/dL Glucose (75-100) mg/dL POC Glucose (70-105) mg/dL Ferritin 1264.0 H (30.0-300.0) ng/mL Lactate Dehydrogenase 303 H (91-180) units/L 06/04/21 06/04/21 06/05/21 Range/Units 15:40 21:26 07:41 WBC (4.5-11.0) K/mm3 Plt Count (140-440) K/mm3 Seg Neuts % (Manual) (40.0-70.0) % Seg Neutrophils # Man (1.8-7.7) K/mm3 Lymphocytes # (Manual) (1.2-5.4) K/mm3 D-Dimer (0-234) ng/mlDDU Sodium (137-145) mmol/L BUN (9-20) mg/dL Creatinine (0.8-1.3) mg/dL Glucose (75-100) mg/dL POC Glucose 232 H 272 H 117 H (70-105) mg/dL Ferritin (30.0-300.0) ng/mL Lactate Dehydrogenase (91-180) units/L
[2021-06-05] MEDS: FAMOTIDINE 20 MG TAB PO SCH ×2 (10:18→23:16)
[2021-06-05] MEDS: ZINC SULFATE 220 MG CAP PO SCH (10:18)
[2021-06-05] MEDS: ASCORBIC ACID 500 MG TAB PO SCH (10:19)
[2021-06-05] MEDS: CHOLECALCIFEROL (VIT D3) 1000 UNIT (25 mcg) TAB PO SCH (10:19)
--- NOTE | 2021-06-05 10:51 | Progress Note ---
Assessment and Plan 46 y/o obese male admitted with acute respiratory failure secondary to COVID 19 06/05/21: COntinue to wean as tolerated. Needs repeat CXR as I am not sure why his oxygen requirement is increasing. Guarded prognosis. 06/02/21: Requirement continues to improve. Continue TID solumedrol with proning. Prognosis is still guarded. 06/01/21: Continue TID solumedrol. Prone as tolerated. Guarded prognosis. 05/31/21: Will increase to Solumedrol 125 TID starting now. 05/30/21: BID steroids for one more day. If not weaning then will put on solumedrol 125 TID. Appears patient is cooperating with all therapy now. 05/29/21: BID steroids, continue for 48 hours. Took prophylaxis last night for DVT. May need large doses of steroids. Guarded prognosis. 05/28/21: Continue BID steroids given obesity. Continue for another 72 hours. Patient refusing prophylaxis for DVT as D-Dimer continues to rise. COVID patient's are prone to be hypercoaguable. COntinue Remdesivir 1. Increased steroids to 10 BID given obesity. If no improvement in 96 hours then will change to high dose solumedrol 2. Remdesivir 3. Actemra pending availability 4. Prone 5. Guarded prognosis. Subjective Date of service: 06/05/21 Interval history: Down to 25 liters but oxygen had to be increased back up to 45%. Objective Vital Signs - 12hr 06/04/21 06/05/21 06/05/21 23:04 00:22 04:32 Temperature 97.5 F L Pulse Rate 80 71 Respiratory 26 H 20 22 Rate Blood Pressure 134/88 125/87 O2 Sat by Pulse 90 96 95 Oximetry 06/05/21 05:44 Temperature Pulse Rate Respiratory Rate Blood Pressure O2 Sat by Pulse 97 Oximetry CBC and BMP: 06/04/21 15:14 06/04/21 15:14 ABG, PT/INR, D-dimer: PT/INR, D-dimer D-Dimer 612.11 ng/mlDDU (0-234) H 06/04/21 15:14 Abnormal lab findings: Abnormal Labs 05/24/21 05/24/21 05/24/21 11:19 11:19 11:19 WBC RBC Hgb Hct MCHC 35 H RDW Plt Count Lymph % (Auto) 7.6 L [place] % (Auto) 10.2 H Lymph # (Auto) 0.4 L Seg Neutrophils % 82.0 H Seg Neuts % (Manual) Lymphocytes % (Manual) Seg Neutrophils # Seg Neutrophils # Man Lymphocytes # (Manual) Monocytes # (Manual) D-Dimer 809.12 H Sodium 131 L Chloride 96.9 L Carbon Dioxide BUN Creatinine Glucose 180 H POC Glucose Hemoglobin A1c Calcium Ferritin Lactate Dehydrogenase C-Reactive Protein Albumin 3.6 L Coronavirus (PCR) 05/24/21 05/24/21 05/24/21 11:19 11:19 20:30 WBC RBC Hgb Hct MCHC RDW Plt Count Lymph % (Auto) [place] % (Auto) Lymph # (Auto) Seg Neutrophils % Seg Neuts % (Manual) Lymphocytes % (Manual) Seg Neutrophils # Seg Neutrophils # Man Lymphocytes # (Manual) Monocytes # (Manual) D-Dimer Sodium Chloride Carbon Dioxide BUN Creatinine Glucose POC Glucose Hemoglobin A1c Calcium Ferritin 1761.0 H Lactate Dehydrogenase 491 H C-Reactive Protein 22.00 H 19.30 H Albumin Coronavirus (PCR) 05/24/21 05/24/21 05/24/21 20:30 20:30 20:30 WBC RBC Hgb Hct MCHC RDW Plt Count Lymph % (Auto) [place] % (Auto) Lymph # (Auto) Seg Neutrophils % Seg Neuts % (Manual) Lymphocytes % (Manual) Seg Neutrophils # Seg Neutrophils # Man Lymphocytes # (Manual) Monocytes # (Manual) D-Dimer 773.79 H Sodium Chloride Carbon Dioxide BUN Creatinine Glucose 186 H POC Glucose Hemoglobin A1c Calcium Ferritin 1632.0 H Lactate Dehydrogenase 433 H C-Reactive Protein 18.90 H Albumin Coronavirus (PCR) 05/25/21 05/25/21 05/25/21 07:48 07:48 14:42 WBC RBC Hgb Hct MCHC 35 H RDW Plt Count Lymph % (Auto) 7.8 L [place] % (Auto) Lymph # (Auto) 0.7 L Seg Neutrophils % 85.6 H Seg Neuts % (Manual) Lymphocytes % (Manual) Seg Neutrophils # 8.1 H Seg Neutrophils # Man Lymphocytes # (Manual) Monocytes # (Manual) D-Dimer Sodium 136 L Chloride Carbon Dioxide 20 L BUN Creatinine 0.6 L 0.7 L Glucose 178 H 271 H POC Glucose Hemoglobin A1c Calcium 8.3 L Ferritin Lactate Dehydrogenase C-Reactive Protein Albumin 3.0 L 3.0 L Coronavirus (PCR) 05/25/21 05/26/21 05/27/21 Unknown 05:50 04:14 WBC RBC Hgb Hct MCHC RDW Plt Count Lymph % (Auto) [place] % (Auto) Lymph # (Auto) Seg Neutrophils % Seg Neuts % (Manual) Lymphocytes % (Manual) Seg Neutrophils # Seg Neutrophils # Man Lymphocytes # (Manual) Monocytes # (Manual) D-Dimer Sodium Chloride Carbon Dioxide BUN Creatinine 0.6 L Glucose 206 H 182 H POC Glucose Hemoglobin A1c Calcium Ferritin Lactate Dehydrogenase C-Reactive Protein Albumin 3.2 L 3.1 L Coronavirus (PCR) Positive A 05/27/21 05/27/21 05/27/21 04:14 10:00 10:00 WBC RBC Hgb Hct MCHC RDW Plt Count Lymph % (Auto) [place] % (Auto) Lymph # (Auto) Seg Neutrophils % Seg Neuts % (Manual) Lymphocytes % (Manual) Seg Neutrophils # Seg Neutrophils # Man Lymphocytes # (Manual) Monocytes # (Manual) D-Dimer 1730.61 H Sodium Chloride Carbon Dioxide BUN Creatinine Glucose POC Glucose Hemoglobin A1c Calcium Ferritin 1694.0 H Lactate Dehydrogenase 604 H C-Reactive Protein 10.40 H Albumin Coronavirus (PCR) 05/28/21 05/28/21 05/28/21 04:05 04:05 04:05 WBC RBC Hgb Hct MCHC RDW Plt Count 449 H Lymph % (Auto) [place] % (Auto) Lymph # (Auto) Seg Neutrophils % Seg Neuts % (Manual) 94.0 H Lymphocytes % (Manual) 3.0 L Seg Neutrophils # Seg Neutrophils # Man 9.8 H Lymphocytes # (Manual) 0.3 L Monocytes # (Manual) D-Dimer 3141.44 H Sodium Chloride Carbon Dioxide BUN Creatinine 0.6 L Glucose 248 H POC Glucose Hemoglobin A1c Calcium Ferritin Lactate Dehydrogenase C-Reactive Protein Albumin 3.2 L Coronavirus (PCR) 05/28/21 05/28/21 05/28/21 04:05 04:05 23:41 WBC RBC Hgb Hct MCHC RDW Plt Count Lymph % (Auto) [place] % (Auto) Lymph # (Auto) Seg Neutrophils % Seg Neuts % (Manual) Lymphocytes % (Manual) Seg Neutrophils # Seg Neutrophils # Man Lymphocytes # (Manual) Monocytes # (Manual) D-Dimer Sodium Chloride Carbon Dioxide BUN Creatinine Glucose POC Glucose 259 H Hemoglobin A1c Calcium Ferritin 1374.0 H Lactate Dehydrogenase 460 H C-Reactive Protein 9.00 H Albumin Coronavirus (PCR) 05/29/21 05/29/21 05/29/21 07:40 12:04 16:20 WBC RBC Hgb Hct MCHC RDW Plt Count Lymph % (Auto) [place] % (Auto) Lymph # (Auto) Seg Neutrophils % Seg Neuts % (Manual) Lymphocytes % (Manual) Seg Neutrophils # Seg Neutrophils # Man Lymphocytes # (Manual) Monocytes # (Manual) D-Dimer Sodium Chloride Carbon Dioxide BUN Creatinine Glucose POC Glucose 276 H 296 H 250 H Hemoglobin A1c Calcium Ferritin Lactate Dehydrogenase C-Reactive Protein Albumin Coronavirus (PCR) 05/29/21 05/30/21 05/30/21 20:54 07:01 07:01 WBC 16.3 H RBC Hgb Hct MCHC RDW Plt Count 595 H Lymph % (Auto) [place] % (Auto) Lymph # (Auto) Seg Neutrophils % Seg Neuts % (Manual) 91.0 H Lymphocytes % (Manual) 2.0 L Seg Neutrophils # Seg Neutrophils # Man 14.8 H Lymphocytes # (Manual) 0.3 L Monocytes # (Manual) 1.1 H D-Dimer 1223.46 H Sodium Chloride Carbon Dioxide BUN Creatinine Glucose POC Glucose 248 H Hemoglobin A1c Calcium Ferritin Lactate Dehydrogenase C-Reactive Protein Albumin Coronavirus (PCR) 05/30/21 05/30/21 05/30/21 07:01 07:01 08:02 WBC RBC Hgb Hct MCHC RDW Plt Count Lymph % (Auto) [place] % (Auto) Lymph # (Auto) Seg Neutrophils % Seg Neuts % (Manual) Lymphocytes % (Manual) Seg Neutrophils # Seg Neutrophils # Man Lymphocytes # (Manual) Monocytes # (Manual) D-Dimer Sodium Chloride Carbon Dioxide BUN 21 H Creatinine 0.5 L Glucose 210 H POC Glucose 198 H Hemoglobin A1c Calcium Ferritin 1066.0 H Lactate Dehydrogenase 379 H C-Reactive Protein 2.80 H Albumin 3.0 L Coronavirus (PCR) 05/30/21 05/30/21 05/30/21 11:56 16:07 20:49 WBC RBC Hgb Hct MCHC RDW Plt Count Lymph % (Auto) [place] % (Auto) Lymph # (Auto) Seg Neutrophils % Seg Neuts % (Manual) Lymphocytes % (Manual) Seg Neutrophils # Seg Neutrophils # Man Lymphocytes # (Manual) Monocytes # (Manual) D-Dimer Sodium Chloride Carbon Dioxide BUN Creatinine Glucose POC Glucose 256 H 165 H 260 H Hemoglobin A1c Calcium Ferritin Lactate Dehydrogenase C-Reactive Protein Albumin Coronavirus (PCR) 05/31/21 05/31/21 05/31/21 08:13 11:32 17:14 WBC RBC Hgb Hct MCHC RDW Plt Count Lymph % (Auto) [place] % (Auto) Lymph # (Auto) Seg Neutrophils % Seg Neuts % (Manual) Lymphocytes % (Manual) Seg Neutrophils # Seg Neutrophils # Man Lymphocytes # (Manual) Monocytes # (Manual) D-Dimer Sodium Chloride Carbon Dioxide BUN Creatinine Glucose POC Glucose 254 H 257 H 322 H Hemoglobin A1c Calcium Ferritin Lactate Dehydrogenase C-Reactive Protein Albumin Coronavirus (PCR) 05/31/21 06/01/21 06/01/21 21:42 07:50 11:09 WBC RBC Hgb Hct MCHC RDW Plt Count Lymph % (Auto) [place] % (Auto) Lymph # (Auto) Seg Neutrophils % Seg Neuts % (Manual) Lymphocytes % (Manual) Seg Neutrophils # Seg Neutrophils # Man Lymphocytes # (Manual) Monocytes # (Manual) D-Dimer Sodium Chloride Carbon Dioxide BUN Creatinine Glucose POC Glucose 261 H 237 H 274 H Hemoglobin A1c Calcium Ferritin Lactate Dehydrogenase C-Reactive Protein Albumin Coronavirus (PCR) 06/01/21 06/01/21 06/02/21 16:51 20:54 03:55 WBC 25.4 H RBC 5.11 H Hgb 15.6 H Hct 46.7 H MCHC RDW 13.1 L Plt Count 568 H Lymph % (Auto) [place] % (Auto) Lymph # (Auto) Seg Neutrophils % Seg Neuts % (Manual) 91.0 H Lymphocytes % (Manual) 3.0 L Seg Neutrophils # Seg Neutrophils # Man 23.1 H Lymphocytes # (Manual) 0.8 L Monocytes # (Manual) 1.5 H D-Dimer Sodium Chloride Carbon Dioxide BUN Creatinine Glucose POC Glucose 239 H 275 H Hemoglobin A1c Calcium Ferritin Lactate Dehydrogenase C-Reactive Protein Albumin Coronavirus (PCR) 06/02/21 06/02/21 06/02/21 03:55 11:19 16:53 WBC RBC Hgb Hct MCHC RDW Plt Count Lymph % (Auto) [place] % (Auto) Lymph # (Auto) Seg Neutrophils % Seg Neuts % (Manual) Lymphocytes % (Manual) Seg Neutrophils # Seg Neutrophils # Man Lymphocytes # (Manual) Monocytes # (Manual) D-Dimer Sodium 132 L Chloride 96.0 L Carbon Dioxide BUN 23 H Creatinine 0.6 L Glucose 245 H POC Glucose 263 H 264 H Hemoglobin A1c Calcium Ferritin Lactate Dehydrogenase C-Reactive Protein Albumin Coronavirus (PCR) 06/02/21 06/03/21 06/03/21 21:20 05:29 07:31 WBC RBC Hgb Hct MCHC RDW Plt Count Lymph % (Auto) [place] % (Auto) Lymph # (Auto) Seg Neutrophils % Seg Neuts % (Manual) Lymphocytes % (Manual) Seg Neutrophils # Seg Neutrophils # Man Lymphocytes # (Manual) Monocytes # (Manual) D-Dimer Sodium Chloride Carbon Dioxide BUN 22 H Creatinine 0.6 L Glucose 246 H POC Glucose 341 H 231 H Hemoglobin A1c Calcium 8.2 L Ferritin Lactate Dehydrogenase C-Reactive Protein Albumin Coronavirus (PCR) 06/03/21 06/03/21 06/03/21 12:17 15:00 16:14 WBC RBC Hgb Hct MCHC RDW Plt Count Lymph % (Auto) [place] % (Auto) Lymph # (Auto) Seg Neutrophils % Seg Neuts % (Manual) Lymphocytes % (Manual) Seg Neutrophils # Seg Neutrophils # Man Lymphocytes # (Manual) Monocytes # (Manual) D-Dimer Sodium Chloride Carbon Dioxide BUN Creatinine Glucose POC Glucose 187 H 244 H Hemoglobin A1c 7.8 H Calcium Ferritin Lactate Dehydrogenase C-Reactive Protein Albumin Coronavirus (PCR) 06/03/21 06/04/21 06/04/21 22:00 08:17 12:01 WBC RBC Hgb Hct MCHC RDW Plt Count Lymph % (Auto) [place] % (Auto) Lymph # (Auto) Seg Neutrophils % Seg Neuts % (Manual) Lymphocytes % (Manual) Seg Neutrophils # Seg Neutrophils # Man Lymphocytes # (Manual) Monocytes # (Manual) D-Dimer Sodium Chloride Carbon Dioxide BUN Creatinine Glucose POC Glucose 234 H 237 H 176 H Hemoglobin A1c Calcium Ferritin Lactate Dehydrogenase C-Reactive Protein Albumin Coronavirus (PCR) 06/04/21 06/04/21 06/04/21 15:14 15:14 15:14 WBC 24.2 H RBC Hgb Hct MCHC RDW Plt Count 484 H Lymph % (Auto) [place] % (Auto) Lymph # (Auto) Seg Neutrophils % Seg Neuts % (Manual) 95.0 H Lymphocytes % (Manual) Seg Neutrophils # Seg Neutrophils # Man 23.0 H Lymphocytes # (Manual) 0.0 L Monocytes # (Manual) D-Dimer 612.11 H Sodium 135 L Chloride Carbon Dioxide BUN 26 H Creatinine 0.7 L Glucose 263 H POC Glucose Hemoglobin A1c Calcium Ferritin Lactate Dehydrogenase C-Reactive Protein Albumin Coronavirus (PCR) 06/04/21 06/04/21 06/04/21 15:14 15:14 15:40 WBC RBC Hgb Hct MCHC RDW Plt Count Lymph % (Auto) [place] % (Auto) Lymph # (Auto) Seg Neutrophils % Seg Neuts % (Manual) Lymphocytes % (Manual) Seg Neutrophils # Seg Neutrophils # Man Lymphocytes # (Manual) Monocytes # (Manual) D-Dimer Sodium Chloride Carbon Dioxide BUN Creatinine Glucose POC Glucose 232 H Hemoglobin A1c Calcium Ferritin 1264.0 H Lactate Dehydrogenase 303 H C-Reactive Protein Albumin Coronavirus (PCR) 06/04/21 06/05/21 21:26 07:41 WBC RBC Hgb Hct MCHC RDW Plt Count Lymph % (Auto) [place] % (Auto) Lymph # (Auto) Seg Neutrophils % Seg Neuts % (Manual) Lymphocytes % (Manual) Seg Neutrophils # Seg Neutrophils # Man Lymphocytes # (Manual) Monocytes # (Manual) D-Dimer Sodium Chloride Carbon Dioxide BUN Creatinine Glucose POC Glucose 272 H 117 H Hemoglobin A1c Calcium Ferritin Lactate Dehydrogenase C-Reactive Protein Albumin Coronavirus (PCR)
--- NOTE | 2021-06-05 11:45 | XRay Report ---
CHEST 1 VIEW 06/05/2021 11:04 AM INDICATION / CLINICAL INFORMATION: Worsening hypoxemia, covid.. COMPARISON: One view of the chest from 05/29/2021. FINDINGS: SUPPORT DEVICES: None. HEART / MEDIASTINUM: No significant abnormality. LUNGS / PLEURA: Lung volumes are similarly reduced with improved bilateral airspace opacities. No sig nificant pleural effusion. No pneumothorax. ADDITIONAL FINDINGS: No significant additional findings. IMPRESSION: Interval improvement of bilateral pneumonia. No new acute findings. Signer Name: Lázaro Rashid MD Signed: 06/05/2021 11:41 AM Workstation Name: [id number]
[2021-06-05] MEDS: INSULIN GLARGINE 100 UNITS/ML SUB-Q SCH (23:15)
[2021-06-05] MEDS: ENOXAPARIN 40 MG/0.4 ML INJ SUB-Q SCH (23:17)
[2021-06-06] MEDS: BENZONATATE 100 MG CAP PO SCH ×3 (05:44→22:50)
[2021-06-06 05:52] LABS: Blood Urea Nitrogen 25 mg/dL (9-20); Hemolysis Index 4
[2021-06-06 06:06] LABS: BUN/Creatinine Ratio 42
[2021-06-06] MEDS: methylPREDNISolone Sod Succinate 125 MG/2 ML INJ IV SCH ×4 (08:55→23:04)
[2021-06-06] MEDS: INSULIN LISPRO 100 UNIT/ML SUB-Q SCH ×4 (08:55→22:47)
--- NOTE | 2021-06-06 08:58 | Progress Note ---
Assessment and Plan 46 y/o obese male admitted with acute respiratory failure secondary to COVID 19 06/06/21: Wean HFNC, has been stable the last 2 days, should be able to. CXR actually is improved so may have just been a transient dip. Need to be more aggressive with weaning. Prognosis remains guarded. 06/05/21: COntinue to wean as tolerated. Needs repeat CXR as I am not sure why his oxygen requirement is increasing. Guarded prognosis. 06/02/21: Requirement continues to improve. Continue TID solumedrol with proning. Prognosis is still guarded. 06/01/21: Continue TID solumedrol. Prone as tolerated. Guarded prognosis. 05/31/21: Will increase to Solumedrol 125 TID starting now. 05/30/21: BID steroids for one more day. If not weaning then will put on solumedrol 125 TID. Appears patient is cooperating with all therapy now. 05/29/21: BID steroids, continue for 48 hours. Took prophylaxis last night for DVT. May need large doses of steroids. Guarded prognosis. 05/28/21: Continue BID steroids given obesity. Continue for another 72 hours. Patient refusing prophylaxis for DVT as D-Dimer continues to rise. COVID patient's are prone to be hypercoaguable. COntinue Remdesivir 1. Increased steroids to 10 BID given obesity. If no improvement in 96 hours then will change to high dose solumedrol 2. Remdesivir 3. Actemra pending availability 4. Prone 5. Guarded prognosis. Subjective Date of service: 06/06/21 Interval history: no acute events. On the same HFNC settings as yesterday. stable sats. Objective Vital Signs - 12hr 06/05/21 06/05/21 06/05/21 21:01 22:00 22:33 Temperature 97.6 F Pulse Rate 75 Respiratory 19 22 Rate Blood Pressure 135/88 O2 Sat by Pulse 94 97 92 Oximetry 06/06/21 06/06/21 06/06/21 03:07 06:27 08:00 Temperature 98.1 F Pulse Rate 61 Respiratory 22 Rate Blood Pressure 136/87 O2 Sat by Pulse 93 93 96 Oximetry CBC and BMP: 06/04/21 15:14 06/06/21 03:52 ABG, PT/INR, D-dimer: PT/INR, D-dimer D-Dimer 612.11 ng/mlDDU (0-234) H 06/04/21 15:14 Abnormal lab findings: Abnormal Labs 05/24/21 05/24/21 05/24/21 11:19 11:19 11:19 WBC RBC Hgb Hct MCHC 35 H RDW Plt Count Lymph % (Auto) 7.6 L [place] % (Auto) 10.2 H Lymph # (Auto) 0.4 L Seg Neutrophils % 82.0 H Seg Neuts % (Manual) Lymphocytes % (Manual) Seg Neutrophils # Seg Neutrophils # Man Lymphocytes # (Manual) Monocytes # (Manual) D-Dimer 809.12 H Sodium 131 L Chloride 96.9 L Carbon Dioxide BUN Creatinine Glucose 180 H POC Glucose Hemoglobin A1c Calcium Ferritin Lactate Dehydrogenase C-Reactive Protein Albumin 3.6 L Coronavirus (PCR) 05/24/21 05/24/21 05/24/21 11:19 11:19 20:30 WBC RBC Hgb Hct MCHC RDW Plt Count Lymph % (Auto) [place] % (Auto) Lymph # (Auto) Seg Neutrophils % Seg Neuts % (Manual) Lymphocytes % (Manual) Seg Neutrophils # Seg Neutrophils # Man Lymphocytes # (Manual) Monocytes # (Manual) D-Dimer Sodium Chloride Carbon Dioxide BUN Creatinine Glucose POC Glucose Hemoglobin A1c Calcium Ferritin 1761.0 H Lactate Dehydrogenase 491 H C-Reactive Protein 22.00 H 19.30 H Albumin Coronavirus (PCR) 05/24/21 05/24/21 05/24/21 20:30 20:30 20:30 WBC RBC Hgb Hct MCHC RDW Plt Count Lymph % (Auto) [place] % (Auto) Lymph # (Auto) Seg Neutrophils % Seg Neuts % (Manual) Lymphocytes % (Manual) Seg Neutrophils # Seg Neutrophils # Man Lymphocytes # (Manual) Monocytes # (Manual) D-Dimer 773.79 H Sodium Chloride Carbon Dioxide BUN Creatinine Glucose 186 H POC Glucose Hemoglobin A1c Calcium Ferritin 1632.0 H Lactate Dehydrogenase 433 H C-Reactive Protein 18.90 H Albumin Coronavirus (PCR) 05/25/21 05/25/21 05/25/21 07:48 07:48 14:42 WBC RBC Hgb Hct MCHC 35 H RDW Plt Count Lymph % (Auto) 7.8 L [place] % (Auto) Lymph # (Auto) 0.7 L Seg Neutrophils % 85.6 H Seg Neuts % (Manual) Lymphocytes % (Manual) Seg Neutrophils # 8.1 H Seg Neutrophils # Man Lymphocytes # (Manual) Monocytes # (Manual) D-Dimer Sodium 136 L Chloride Carbon Dioxide 20 L BUN Creatinine 0.6 L 0.7 L Glucose 178 H 271 H POC Glucose Hemoglobin A1c Calcium 8.3 L Ferritin Lactate Dehydrogenase C-Reactive Protein Albumin 3.0 L 3.0 L Coronavirus (PCR) 05/25/21 05/26/21 05/27/21 Unknown 05:50 04:14 WBC RBC Hgb Hct MCHC RDW Plt Count Lymph % (Auto) [place] % (Auto) Lymph # (Auto) Seg Neutrophils % Seg Neuts % (Manual) Lymphocytes % (Manual) Seg Neutrophils # Seg Neutrophils # Man Lymphocytes # (Manual) Monocytes # (Manual) D-Dimer Sodium Chloride Carbon Dioxide BUN Creatinine 0.6 L Glucose 206 H 182 H POC Glucose Hemoglobin A1c Calcium Ferritin Lactate Dehydrogenase C-Reactive Protein Albumin 3.2 L 3.1 L Coronavirus (PCR) Positive A 05/27/21 05/27/21 05/27/21 04:14 10:00 10:00 WBC RBC Hgb Hct MCHC RDW Plt Count Lymph % (Auto) [place] % (Auto) Lymph # (Auto) Seg Neutrophils % Seg Neuts % (Manual) Lymphocytes % (Manual) Seg Neutrophils # Seg Neutrophils # Man Lymphocytes # (Manual) Monocytes # (Manual) D-Dimer 1730.61 H Sodium Chloride Carbon Dioxide BUN Creatinine Glucose POC Glucose Hemoglobin A1c Calcium Ferritin 1694.0 H Lactate Dehydrogenase 604 H C-Reactive Protein 10.40 H Albumin Coronavirus (PCR) 05/28/21 05/28/21 05/28/21 04:05 04:05 04:05 WBC RBC Hgb Hct MCHC RDW Plt Count 449 H Lymph % (Auto) [place] % (Auto) Lymph # (Auto) Seg Neutrophils % Seg Neuts % (Manual) 94.0 H Lymphocytes % (Manual) 3.0 L Seg Neutrophils # Seg Neutrophils # Man 9.8 H Lymphocytes # (Manual) 0.3 L Monocytes # (Manual) D-Dimer 3141.44 H Sodium Chloride Carbon Dioxide BUN Creatinine 0.6 L Glucose 248 H POC Glucose Hemoglobin A1c Calcium Ferritin Lactate Dehydrogenase C-Reactive Protein Albumin 3.2 L Coronavirus (PCR) 05/28/21 05/28/2105/28/21 04:05 04:05 23:41 WBC RBC Hgb Hct MCHC RDW Plt Count Lymph % (Auto) [place] % (Auto) Lymph # (Auto) Seg Neutrophils % Seg Neuts % (Manual) Lymphocytes % (Manual) Seg Neutrophils # Seg Neutrophils # Man Lymphocytes # (Manual) Monocytes # (Manual) D-Dimer Sodium Chloride Carbon Dioxide BUN Creatinine Glucose POC Glucose 259 H Hemoglobin A1c Calcium Ferritin 1374.0 H Lactate Dehydrogenase 460 H C-Reactive Protein 9.00 H Albumin Coronavirus (PCR) 05/29/21 05/29/21 05/29/21 07:40 12:04 16:20 WBC RBC Hgb Hct MCHC RDW Plt Count Lymph % (Auto) [place] % (Auto) Lymph # (Auto) Seg Neutrophils % Seg Neuts % (Manual) Lymphocytes % (Manual) Seg Neutrophils # Seg Neutrophils # Man Lymphocytes # (Manual) Monocytes # (Manual) D-Dimer Sodium Chloride Carbon Dioxide BUN Creatinine Glucose POC Glucose 276 H 296 H 250 H Hemoglobin A1c Calcium Ferritin Lactate Dehydrogenase C-Reactive Protein Albumin Coronavirus (PCR) 05/29/21 05/30/21 05/30/21 20:54 07:01 07:01 WBC 16.3 H RBC Hgb Hct MCHC RDW Plt Count 595 H Lymph % (Auto) [place] % (Auto) Lymph # (Auto) Seg Neutrophils % Seg Neuts % (Manual) 91.0 H Lymphocytes % (Manual) 2.0 L Seg Neutrophils # Seg Neutrophils # Man 14.8 H Lymphocytes # (Manual) 0.3 L Monocytes # (Manual) 1.1 H D-Dimer 1223.46 H Sodium Chloride Carbon Dioxide BUN Creatinine Glucose POC Glucose 248 H Hemoglobin A1c Calcium Ferritin Lactate Dehydrogenase C-Reactive Protein Albumin Coronavirus (PCR) 05/30/21 05/30/21 05/30/21 07:01 07:01 08:02 WBC RBC Hgb Hct MCHC RDW Plt Count Lymph % (Auto) [place] % (Auto) Lymph # (Auto) Seg Neutrophils % Seg Neuts % (Manual) Lymphocytes % (Manual) Seg Neutrophils # Seg Neutrophils # Man Lymphocytes # (Manual) Monocytes # (Manual) D-Dimer Sodium Chloride Carbon Dioxide BUN 21 H Creatinine 0.5 L Glucose 210 H POC Glucose 198 H Hemoglobin A1c Calcium Ferritin 1066.0 H Lactate Dehydrogenase 379 H C-Reactive Protein 2.80 H Albumin 3.0 L Coronavirus (PCR) 05/30/21 05/30/21 05/30/21 11:56 16:07 20:49 WBC RBC Hgb Hct MCHC RDW Plt Count Lymph % (Auto) [place] % (Auto) Lymph # (Auto) Seg Neutrophils % Seg Neuts % (Manual) Lymphocytes % (Manual) Seg Neutrophils # Seg Neutrophils # Man Lymphocytes # (Manual) Monocytes # (Manual) D-Dimer Sodium Chloride Carbon Dioxide BUN Creatinine Glucose POC Glucose 256 H 165 H 260 H Hemoglobin A1c Calcium Ferritin Lactate Dehydrogenase C-Reactive Protein Albumin Coronavirus (PCR) 05/31/21 05/31/21 05/31/21 08:13 11:32 17:14 WBC RBC Hgb Hct MCHC RDW Plt Count Lymph % (Auto) [place] % (Auto) Lymph # (Auto) Seg Neutrophils % Seg Neuts % (Manual) Lymphocytes % (Manual) Seg Neutrophils # Seg Neutrophils # Man Lymphocytes # (Manual) Monocytes # (Manual) D-Dimer Sodium Chloride Carbon Dioxide BUN Creatinine Glucose POC Glucose 254 H 257 H 322 H Hemoglobin A1c Calcium Ferritin Lactate Dehydrogenase C-Reactive Protein Albumin Coronavirus (PCR) 05/31/21 06/01/21 06/01/21 21:42 07:50 11:09 WBC RBC Hgb Hct MCHC RDW Plt Count Lymph % (Auto) [place] % (Auto) Lymph # (Auto) Seg Neutrophils % Seg Neuts % (Manual) Lymphocytes % (Manual) Seg Neutrophils # Seg Neutrophils # Man Lymphocytes # (Manual) Monocytes # (Manual) D-Dimer Sodium Chloride Carbon Dioxide BUN Creatinine Glucose POC Glucose 261 H 237 H 274 H Hemoglobin A1c Calcium Ferritin Lactate Dehydrogenase C-Reactive Protein Albumin Coronavirus (PCR) 06/01/21 06/01/21 06/02/21 16:51 20:54 03:55 WBC 25.4 H RBC 5.11 H Hgb 15.6 H Hct 46.7 H MCHC RDW 13.1 L Plt Count 568 H Lymph % (Auto) [place] % (Auto) Lymph # (Auto) Seg Neutrophils % Seg Neuts % (Manual) 91.0 H Lymphocytes % (Manual) 3.0 L Seg Neutrophils # Seg Neutrophils # Man 23.1 H Lymphocytes # (Manual) 0.8 L Monocytes # (Manual) 1.5 H D-Dimer Sodium Chloride Carbon Dioxide BUN Creatinine Glucose POC Glucose 239 H 275 H Hemoglobin A1c Calcium Ferritin Lactate Dehydrogenase C-Reactive Protein Albumin Coronavirus (PCR) 06/02/21 06/02/21 06/02/21 03:55 11:19 16:53 WBC RBC Hgb Hct MCHC RDW Plt Count Lymph % (Auto) [place] % (Auto) Lymph # (Auto) Seg Neutrophils % Seg Neuts % (Manual) Lymphocytes % (Manual) Seg Neutrophils # Seg Neutrophils # Man Lymphocytes # (Manual) Monocytes # (Manual) D-Dimer Sodium 132 L Chloride 96.0 L Carbon Dioxide BUN 23 H Creatinine 0.6 L Glucose 245 H POC Glucose 263 H 264 H Hemoglobin A1c Calcium Ferritin Lactate Dehydrogenase C-Reactive Protein Albumin Coronavirus (PCR) 06/02/21 06/03/21 06/03/21 21:20 05:29 07:31 WBC RBC Hgb Hct MCHC RDW Plt Count Lymph % (Auto) [place] % (Auto) Lymph # (Auto) Seg Neutrophils % Seg Neuts % (Manual) Lymphocytes % (Manual) Seg Neutrophils # Seg Neutrophils # Man Lymphocytes # (Manual) Monocytes # (Manual) D-Dimer Sodium Chloride Carbon Dioxide BUN 22 H Creatinine 0.6 L Glucose 246 H POC Glucose 341 H 231 H Hemoglobin A1c Calcium 8.2 L Ferritin Lactate Dehydrogenase C-Reactive Protein Albumin Coronavirus (PCR) 06/03/21 06/03/21 06/03/21 12:17 15:00 16:14 WBC RBC Hgb Hct MCHC RDW Plt Count Lymph % (Auto) [place] % (Auto) Lymph # (Auto) Seg Neutrophils % Seg Neuts % (Manual) Lymphocytes % (Manual) Seg Neutrophils # Seg Neutrophils # Man Lymphocytes # (Manual) Monocytes # (Manual) D-Dimer Sodium Chloride Carbon Dioxide BUN Creatinine Glucose POC Glucose 187 H 244 H Hemoglobin A1c 7.8 H Calcium Ferritin Lactate Dehydrogenase C-Reactive Protein Albumin Coronavirus (PCR) 06/03/21 06/04/21 06/04/21 22:00 08:17 12:01 WBC RBC Hgb Hct MCHC RDW Plt Count Lymph % (Auto) [place] % (Auto) Lymph # (Auto) Seg Neutrophils % Seg Neuts % (Manual) Lymphocytes % (Manual) Seg Neutrophils # Seg Neutrophils # Man Lymphocytes # (Manual) Monocytes # (Manual) D-Dimer Sodium Chloride Carbon Dioxide BUN Creatinine Glucose POC Glucose 234 H 237 H 176 H Hemoglobin A1c Calcium Ferritin Lactate Dehydrogenase C-Reactive Protein Albumin Coronavirus (PCR) 06/04/21 06/04/21 06/04/21 15:14 15:14 15:14 WBC 24.2 H RBC Hgb Hct MCHC RDW Plt Count 484 H Lymph % (Auto) [place] % (Auto) Lymph # (Auto) Seg Neutrophils % Seg Neuts % (Manual) 95.0 H Lymphocytes % (Manual) Seg Neutrophils # Seg Neutrophils # Man 23.0 H Lymphocytes # (Manual) 0.0 L Monocytes # (Manual) D-Dimer 612.11 H Sodium 135 L Chloride Carbon Dioxide BUN 26 H Creatinine 0.7 L Glucose 263 H POC Glucose Hemoglobin A1c Calcium Ferritin Lactate Dehydrogenase C-Reactive Protein Albumin Coronavirus (PCR) 06/04/21 06/04/21 06/04/21 15:14 15:14 15:40 WBC RBC Hgb Hct MCHC RDW Plt Count Lymph % (Auto) [place] % (Auto) Lymph # (Auto) Seg Neutrophils % Seg Neuts % (Manual) Lymphocytes % (Manual) Seg Neutrophils # Seg Neutrophils # Man Lymphocytes # (Manual) Monocytes # (Manual) D-Dimer Sodium Chloride Carbon Dioxide BUN Creatinine Glucose POC Glucose 232 H Hemoglobin A1c Calcium Ferritin 1264.0 H Lactate Dehydrogenase 303 H C-Reactive Protein Albumin Coronavirus (PCR) 06/04/21 06/05/21 06/05/21 21:26 07:41 11:35 WBC RBC Hgb Hct MCHC RDW Plt Count Lymph % (Auto) [place] % (Auto) Lymph # (Auto) Seg Neutrophils % Seg Neuts % (Manual) Lymphocytes % (Manual) Seg Neutrophils # Seg Neutrophils # Man Lymphocytes # (Manual) Monocytes # (Manual) D-Dimer Sodium Chloride Carbon Dioxide BUN Creatinine Glucose POC Glucose 272 H 117 H 229 H Hemoglobin A1c Calcium Ferritin Lactate Dehydrogenase C-Reactive Protein Albumin Coronavirus (PCR) 06/05/21 06/05/21 06/06/21 16:30 21:25 03:52 WBC RBC Hgb Hct MCHC RDW Plt Count Lymph % (Auto) [place] % (Auto) Lymph # (Auto) Seg Neutrophils % Seg Neuts % (Manual) Lymphocytes % (Manual) Seg Neutrophils # Seg Neutrophils # Man Lymphocytes # (Manual) Monocytes # (Manual) D-Dimer Sodium Chloride Carbon Dioxide BUN 25 H Creatinine 0.6 L Glucose 199 H POC Glucose 246 H 253 H Hemoglobin A1c Calcium 8.0 L Ferritin Lactate Dehydrogenase C-Reactive Protein Albumin Coronavirus (PCR) 06/06/21 08:37 WBC RBC Hgb Hct MCHC RDW Plt Count Lymph % (Auto) [place] % (Auto) Lymph # (Auto) Seg Neutrophils % Seg Neuts % (Manual) Lymphocytes % (Manual) Seg Neutrophils # Seg Neutrophils # Man Lymphocytes # (Manual) Monocytes # (Manual) D-Dimer Sodium Chloride Carbon Dioxide BUN Creatinine Glucose POC Glucose 172 H Hemoglobin A1c Calcium Ferritin Lactate Dehydrogenase C-Reactive Protein Albumin Coronavirus (PCR)
[2021-06-06] MEDS: ASCORBIC ACID 500 MG TAB PO SCH (09:02)
[2021-06-06] MEDS: CHOLECALCIFEROL (VIT D3) 1000 UNIT (25 mcg) TAB PO SCH (09:02)
[2021-06-06] MEDS: ZINC SULFATE 220 MG CAP PO SCH (09:02)
[2021-06-06] MEDS: FAMOTIDINE 20 MG TAB PO SCH ×2 (09:02→22:49)
--- NOTE | 2021-06-06 11:45 | Progress Note ---
Assessment and Plan Cultures: SARS CoV2 PCR: positive A/P: 46/M with: #Bilateral pneumonia due to COVID-19 #Acute hypoxic respiratory failure: on HFNC #Morbid obesity Recs: -Now on high dose solu-medrol -Completed remdesivir -prophylactic anticoagulation based on d-dimer per hospital protocol -Leukocytosis likely secondary to steroids, procal low -trend ferritin, d-dimer, CRP every 2-3 days Soledad Maldonado MD [facility] O: [phone] F: [phone] Subjective Date of service: 06/06/21 Interval history: Afebrile, white count remains elevated. On high flow nasal cannula Imaging personally reviewed: Chest x-ray: Interval improvement of bilateral pneumonia Objective - Exam Narrative Exam: Physical exam deferred to reduce risk of transmission of COVID-19. Please refer to primary team's note. - Constitutional Vitals: Vital Signs Temp Pulse Resp BP Pulse Ox 98.1 F 61 22 136/87 96 06/06/21 06:27 06/06/21 06:27 06/06/21 06:27 06/06/21 06:27 06/06/21 08:00 Temperature -Last 24 Hours Temperature 98.1 F Temperature 97.6 F Temperature 97.7 F Temperature 98.1 F - Labs CBC & Chem 7: 06/04/21 15:14 06/06/21 03:52 Labs: Abnormal lab results 06/05/21 06/05/21 06/06/21 Range/Units 16:30 21:25 03:52 BUN 25 H (9-20) mg/dL Creatinine 0.6 L (0.8-1.3) mg/dL Glucose 199 H (75-100) mg/dL POC Glucose 246 H 253 H (70-105) mg/dL Calcium 8.0 L (8.4-10.2) mg/dL 06/06/21 06/06/21 Range/Units 08:37 11:26 BUN (9-20) mg/dL Creatinine (0.8-1.3) mg/dL Glucose (75-100) mg/dL POC Glucose 172 H 188 H (70-105) mg/dL Calcium (8.4-10.2) mg/dL
--- NOTE | 2021-06-06 16:00 | Progress Note ---
Assessment and Plan The patient is a 43-year-old male with no past medical history admitted for COVID-19 pneumonia. Hypoxic requiring high flow O2, unvaccinated, chest x-ray showed bilateral patchy infiltrates. Assessment and plan: -- COVID 19 Pneumonia Airborne and contact isolation Monitor inflammatory markers Continue IV empiric steroid IV remdesivir x 5 days completed Worsening respiratory status, status post Actemra on 05/26 Prophylactic Lovenox Ascorbic acid, zinc sulfate, vitamin D supplement Encourage the use of incentive spirometery Infectious disease consultfollow-up with plan of care. -- Acute Hypoxic Respiratory Failure Supplemental oxygen via NRB. Saturating 93 to 95% Etiology high suspicion for COVID-19 pneumonia Admit CXR: Multifocal airspace disease, possible left-sided pulmonary mass. Please refer to official radiology report Admit CTA chest: Bilateral airspace disease with mildly enlarged mediastinal nodes. No suspicious mass or lymph nodes appreciated. Covid therapies as below prn albuterol Pulmonology consult placed: Recommends increase steroid dosage, ABX, Actemra, remdesivir, patient problems. -- Hyponatremia Likely secondary to dehydration IV hydration with normal saline Monitor sodium level and other electrolytes --Diabetes mellitus type 2 with hyperglycemia, likely steroid-induced, A1c >7 Continue sliding scale and Lantus at bedtime -- Elevated d-dimer CTA of the chestrule outs PE --Morbid obesity: Associated with worse outcome for COVID-19 Continue to follow clinically, dietary on board -- [facility] to date 05/25/2021: Resting comfortably on encounter. Will follow up results of Covid test. Continue therapy above at this time. Will follow ID recommendations. If patient deteriorates will consult pulmonology. 05/26/2021: Resting comfortably on encounter. Patient is Covid positive. C ontinuing therapy with abx, steroids, remdesivir. De-escalate O2 to NC. Anticipate d/c home with O2 in 1-2 days if patient tolerates NC. 05/27/2021: Steroids increased by Pulmonology to Decadron 10 mg twice daily. May need to consider high-dose Solu-Medrol if no response in 96 hours. Patient will be encouraged to self prone. 05/28/2021: Patient remains on Ventimask. Did not tolerate de-escalation to nasal cannula. continued to encourage patient to self prone 05/29/2021: Patient remains on nonrebreather 100%. Encourage patient to get up and walk around room as he appears pretty comfortable on bedside encounter. We will continue therapy for Covid pneumonia. Will attempt de-escalation tomorrow patient continues to demonstrate improvement. 05/30/21: Patient on 15 L high flow O2, encourage proning yes abdomen, continue high dose of steroid. Pulmonary and ID following, follow inflammatory markers. 05/31: Patient on 35 L high flow O2 today, continue higher dose of steroid, continue to follow inflammatory markers, guarded prognosis, 06/01: Patient remains on high flow O2, 30 L. Continue empiric steroid, follow inflammatory markers. Completed remdesivir. Guarded prognosis 06/02/21: Patient remains on 30 L high flow O2, continue empiric steroid, follow inflammatory markers, guarded prognosis. ID and pulmonary following. 05/03/21: Patient on 25 mm high flow O2 today, continue empiric steroid continue to follow inflammatory markers, ordered A1c, ID and pulmonary care following. Guarded prognosis. 05/04/21; remains on high flow O2, vitals otherwise stable. Continue empiric s teroid. Continue to follow inflammatory markers. Guarded prognosis. Wean off O2 as tolerated. 05/05/21: Patient appears to have no discomfort, but remains on high flow O2. Wean off O2 as tolerated per pulmonary. Continue to follow inflammatory markers. Guarded prognosis. 05/06/21: Chest x-ray has improved, pulmonary recommended aggressive weaning, remains on high flow O2. Continue to follow inflammatory markers. Guarded prognosis. Subjective Date of service: 06/06/21 Interval history: Patient seen and examined. Medical records and medication list reviewed. No acute event overnight noted by the RN. Patient complains of difficulty breathing, remains on high flow O2. Patient is tolerating diet. Discussed plan of care at bedside with patient. Objective - Exam Narrative Exam: Limited physical exam due to COVID-19 pandemic to minimize transmission of the disease and to preserve PPE. Vital reviewed and stable. GENERAL: well-developed well-nourished male lying on bed appeared to be in no discomfort. HEENT: Normocephalic. Atraumatic. NECK: Supple. CHEST/LUNGS: breathing with high flow O2. HEART/CARDIOVASCULAR: Heart rate stable on telemetry ABDOMEN: Visibly not distended SKIN: There is no rash NEURO: No focal motor deficit. Follows command. MUSCULOSKELETAL: No joint effusion EXTRIMITY: No swelling, no cyanosis or clubbing. PSYCH: Cooperative. - Constitutional Vitals: Vital Signs - 12hr 06/06/21 06/06/21 06/06/21 06:27 08:00 11:26 Temperature 98.1 F 98.1 F Pulse Rate 61 68 Respiratory 22 18 Rate Blood Pressure 136/87 123/86 O2 Sat by Pulse 93 96 95 Oximetry - Labs CBC & Chem 7: 06/04/21 15:14 06/06/21 03:52 Labs: Abnormal lab results 06/05/21 06/05/21 06/06/21 Range/Units 16:30 21:25 03:52 BUN 25 H (9-20) mg/dL Creatinine 0.6 L (0.8-1.3) mg/dL Glucose 199 H (75-100) mg/dL POC Glucose 246 H 253 H (70-105) mg/dL Calcium 8.0 L (8.4-10.2) mg/dL 06/06/21 06/06/21 Range/Units 08:37 11:26 BUN (9-20) mg/dL Creatinine (0.8-1.3) mg/dL Glucose (75-100) mg/dL POC Glucose 172 H 188 H (70-105) mg/dL Calcium (8.4-10.2) mg/dL
[2021-06-06] MEDS: INSULIN GLARGINE 100 UNITS/ML SUB-Q SCH (22:48)
[2021-06-06] MEDS: ENOXAPARIN 40 MG/0.4 ML INJ SUB-Q SCH (22:49)
[2021-06-07] MEDS: BENZONATATE 100 MG CAP PO SCH ×3 (05:42→21:55)
[2021-06-07] MEDS: INSULIN LISPRO 100 UNIT/ML SUB-Q SCH ×4 (07:30→21:59)
[2021-06-07] MEDS: ZINC SULFATE 220 MG CAP PO SCH (11:12)
[2021-06-07] MEDS: ASCORBIC ACID 500 MG TAB PO SCH (11:12)
[2021-06-07] MEDS: FAMOTIDINE 20 MG TAB PO SCH ×2 (11:12→21:55)
[2021-06-07] MEDS: CHOLECALCIFEROL (VIT D3) 1000 UNIT (25 mcg) TAB PO SCH (11:12)
[2021-06-07] MEDS: methylPREDNISolone Sod Succinate 125 MG/2 ML INJ IV SCH ×3 (11:13→23:08)
--- NOTE | 2021-06-07 14:25 | Progress Note ---
Assessment and Plan Cultures: SARS CoV2 PCR: positive A/P: 46/M with: #Bilateral pneumonia due to COVID-19 #Acute hypoxic respiratory failure: on HFNC #Morbid obesity Recs: -Now on high dose solu-medrol -Completed remdesivir -prophylactic anticoagulation based on d-dimer per hospital protocol -Leukocytosis likely secondary to steroids, procal low -trend ferritin, d-dimer, CRP every 2-3 days ID will sign off. Please shalini with questions. Soledad Maldonado MD [facility] ([facility] O: [phone] F: [phone] Subjective Date of service: 06/07/21 Interval history: Afebrile, white count elevated. Currently on high flow nasal cannula. Objective - Exam Narrative Exam: Physical exam deferred to reduce risk of transmission of COVID-19. Please refer to primary team's note. - Constitutional Vitals: Vital Signs Temp Pulse Resp BP Pulse Ox 98.4 F 69 18 114/77 97 06/07/21 11:11 06/07/21 11:11 06/07/21 11:11 06/07/21 11:11 06/07/21 12:05 Temperature -Last 24 Hours Temperature 98.4 F Temperature 97.8 F Temperature 98.0 F Temperature 98.6 F - Labs CBC & Chem 7: 06/04/21 15:14 06/06/21 03:52 Labs: Abnormal lab results 06/06/21 06/06/21 06/07/21 Range/Units 16:10 21:56 07:30 D-Dimer (0-234) ng/mlDDU POC Glucose 239 H 267 H 161 H (70-105) mg/dL 06/07/21 06/07/21 Range/Units 11:11 13:36 D-Dimer 551.86 H (0-234) ng/mlDDU POC Glucose 241 H (70-105) mg/dL
[2021-06-07 15:08] LABS: C-Reactive Protein 0.1 mg/dL (0.00-1.30)
--- NOTE | 2021-06-07 16:23 | Progress Note ---
Assessment and Plan 46 y/o obese male admitted with acute respiratory failure secondary to COVID 19 06/07/21: Still no further weaning. Not sure why he cant. Documented sats are good. Guarded prognosis 06/06/21: Wean HFNC, has been stable the last 2 days, should be able to. CXR actually is improved so may have just been a transient dip. Need to be more aggressive with weaning. Prognosis remains guarded. 06/05/21: COntinue to wean as tolerated. Needs repeat CXR as I am not sure why his oxygen requirement is increasing. Guarded prognosis. 06/02/21: Requirement continues to improve. Continue TID solumedrol with proning. Prognosis is still guarded. 06/01/21: Continue TID solumedrol. Prone as tolerated. Guarded prognosis. 05/31/21: Will increase to Solumedrol 125 TID starting now. 05/30/21: BID steroids for one more day. If not weaning then will put on solumedrol 125 TID. Appears patient is cooperating with all therapy now. 05/29/21: BID steroids, continue for 48 hours. Took prophylaxis last night for DVT. May need large doses of steroids. Guarded prognosis. 05/28/21: Continue BID steroids given obesity. Continue for another 72 hours. Patient refusing prophylaxis for DVT as D-Dimer continues to rise. COVID patient's are prone to be hypercoaguable. COntinue Remdesivir 1. Increased steroids to 10 BID given obesity. If no improvement in 96 hours then will change to high dose solumedrol 2. Remdesivir 3. Actemra pending availability 4. Prone 5. Guarded prognosis. Subjective Date of service: 06/07/21 Interval history: No acute events. Objective Vital Signs - 12hr 06/07/21 06/07/21 11:11 12:05 Temperature 98.4 F Pulse Rate 69 Respiratory 18 Rate Blood Pressure 114/77 O2 Sat by Pulse 95 97 Oximetry CBC and BMP: 06/04/21 15:14 06/06/21 03:52 ABG, PT/INR, D-dimer: PT/INR, D-dimer D-Dimer 551.86 ng/mlDDU (0-234) H 06/07/21 13:36 Abnormal lab findings: Abnormal Labs 08/05/24/21 05/24/21 11:19 11:19 11:19 WBC RBC Hgb Hct MCHC 35 H RDW Plt Count Lymph % (Auto) 7.6 L [place] % (Auto) 10.2 H Lymph # (Auto) 0.4 L Seg Neutrophils % 82.0 H Seg Neuts % (Manual) Lymphocytes % (Manual) Seg Neutrophils # Seg Neutrophils # Man Lymphocytes # (Manual) Monocytes # (Manual) D-Dimer 809.12 H Sodium 131 L Chloride 96.9 L Carbon Dioxide BUN Creatinine Glucose 180 H POC Glucose Hemoglobin A1c Calcium Ferritin Lactate Dehydrogenase C-Reactive Protein Albumin 3.6 L Coronavirus (PCR) 05/24/21 05/24/21 05/24/21 11:19 11:19 20:30 WBC RBC Hgb Hct MCHC RDW Plt Count Lymph % (Auto) [place] % (Auto) Lymph # (Auto) Seg Neutrophils % Seg Neuts % (Manual) Lymphocytes % (Manual) Seg Neutrophils # Seg Neutrophils # Man Lymphocytes # (Manual) Monocytes # (Manual) D-Dimer Sodium Chloride Carbon Dioxide BUN Creatinine Glucose POC Glucose Hemoglobin A1c Calcium Ferritin 1761.0 H Lactate Dehydrogenase 491 H C-Reactive Protein 22.00 H 19.30 H Albumin Coronavirus (PCR) 05/24/21 05/24/21 05/24/21 20:30 20:30 20:30 WBC RBC Hgb Hct MCHC RDW Plt Count Lymph % (Auto) [place] % (Auto) Lymph # (Auto) Seg Neutrophils % Seg Neuts % (Manual) Lymphocytes % (Manual) Seg Neutrophils # Seg Neutrophils # Man Lymphocytes # (Manual) Monocytes # (Manual) D-Dimer 773.79 H Sodium Chloride Carbon Dioxide BUN Creatinine Glucose 186 H POC Glucose Hemoglobin A1c Calcium Ferritin 1632.0 H Lactate Dehydrogenase 433 H C-Reactive Protein 18.90 H Albumin Coronavirus (PCR) 05/25/21 05/25/21 05/25/21 07:48 07:48 14:42 WBC RBC Hgb Hct MCHC 35 H RDW Plt Count Lymph % (Auto) 7.8 L [place] % (Auto) Lymph # (Auto) 0.7 L Seg Neutrophils % 85.6 H Seg Neuts % (Manual) Lymphocytes % (Manual) Seg Neutrophils # 8.1 H Seg Neutrophils # Man Lymphocytes # (Manual) Monocytes # (Manual) D-Dimer Sodium 136 L Chloride Carbon Dioxide 20 L BUN Creatinine 0.6 L 0.7 L Glucose 178 H 271 H POC Glucose Hemoglobin A1c Calcium 8.3 L Ferritin Lactate Dehydrogenase C-Reactive Protein Albumin 3.0 L 3.0 L Coronavirus (PCR) 05/25/21 05/26/21 05/27/21 Unknown 05:50 04:14 WBC RBC Hgb Hct MCHC RDW Plt Count Lymph % (Auto) [place] % (Auto) Lymph # (Auto) Seg Neutrophils % Seg Neuts % (Manual) Lymphocytes % (Manual) Seg Neutrophils # Seg Neutrophils # Man Lymphocytes # (Manual) Monocytes # (Manual) D-Dimer Sodium Chloride Carbon Dioxide BUN Creatinine 0.6 L Glucose 206 H 182 H POC Glucose Hemoglobin A1c Calcium Ferritin Lactate Dehydrogenase C-Reactive Protein Albumin 3.2 L 3.1 L Coronavirus (PCR) Positive A 05/27/21 05/27/21 05/27/21 04:14 10:00 10:00 WBC RBC Hgb Hct MCHC RDW Plt Count Lymph % (Auto) [place] % (Auto) Lymph # (Auto) Seg Neutrophils % Seg Neuts % (Manual) Lymphocytes % (Manual) Seg Neutrophils # Seg Neutrophils # Man Lymphocytes # (Manual) Monocytes # (Manual) D-Dimer 1730.61 H Sodium Chloride Carbon Dioxide BUN Creatinine Glucose POC Glucose Hemoglobin A1c Calcium Ferritin 1694.0 H Lactate Dehydrogenase 604 H C-Reactive Protein 10.40 H Albumin Coronavirus (PCR) 05/28/21 05/28/21 05/28/21 04:05 04:05 04:05 WBC RBC Hgb Hct MCHC RDW Plt Count 449 H Lymph % (Auto) [place] % (Auto) Lymph # (Auto) Seg Neutrophils % Seg Neuts % (Manual) 94.0 H Lymphocytes % (Manual) 3.0 L Seg Neutrophils # Seg Neutrophils # Man 9.8 H Lymphocytes # (Manual) 0.3 L Monocytes # (Manual) D-Dimer 3141.44 H Sodium Chloride Carbon Dioxide BUN Creatinine 0.6 L Glucose 248 H POC Glucose Hemoglobin A1c Calcium Ferritin Lactate Dehydrogenase C-Reactive Protein Albumin 3.2 L Coronavirus (PCR) 05/28/21 05/28/21 05/28/21 04:05 04:05 23:41 WBC RBC Hgb Hct MCHC RDW Plt Count Lymph % (Auto) [place] % (Auto) Lymph # (Auto) Seg Neutrophils % Seg Neuts % (Manual) Lymphocytes % (Manual) Seg Neutrophils # Seg Neutrophils # Man Lymphocytes # (Manual) Monocytes # (Manual) D-Dimer Sodium Chloride Carbon Dioxide BUN Creatinine Glucose POC Glucose 259 H Hemoglobin A1c Calcium Ferritin 1374.0 H Lactate Dehydrogenase 460 H C-Reactive Protein 9.00 H Albumin Coronavirus (PCR) 05/29/21 05/29/21 05/29/21 07:40 12:04 16:20 WBC RBC Hgb Hct MCHC RDW Plt Count Lymph % (Auto) [place] % (Auto) Lymph # (Auto) Seg Neutrophils % Seg Neuts % (Manual) Lymphocytes % (Manual) Seg Neutrophils # Seg Neutrophils # Man Lymphocytes # (Manual) Monocytes # (Manual) D-Dimer Sodium Chloride Carbon Dioxide BUN Creatinine Glucose POC Glucose 276 H 296 H 250 H Hemoglobin A1c Calcium Ferritin Lactate Dehydrogenase C-Reactive Protein Albumin Coronavirus (PCR) 05/29/21 05/30/21 05/30/21 20:54 07:01 07:01 WBC 16.3 H RBC Hgb Hct MCHC RDW Plt Count 595 H Lymph % (Auto) [place] % (Auto) Lymph # (Auto) Seg Neutrophils % Seg Neuts % (Manual) 91.0 H Lymphocytes % (Manual) 2.0 L Seg Neutrophils # Seg Neutrophils # Man 14.8 H Lymphocytes # (Manual) 0.3 L Monocytes # (Manual) 1.1 H D-Dimer 1223.46 H Sodium Chloride Carbon Dioxide BUN Creatinine Glucose POC Glucose 248 H Hemoglobin A1c Calcium Ferritin Lactate Dehydrogenase C-Reactive Protein Albumin Coronavirus (PCR) 05/30/21 05/30/21 05/30/21 07:01 07:01 08:02 WBC RBC Hgb Hct MCHC RDW Plt Count Lymph % (Auto) [place] % (Auto) Lymph # (Auto) Seg Neutrophils % Seg Neuts % (Manual) Lymphocytes % (Manual) Seg Neutrophils # Seg Neutrophils # Man Lymphocytes # (Manual) Monocytes # (Manual) D-Dimer Sodium Chloride Carbon Dioxide BUN 21 H Creatinine 0.5 L Glucose 210 H POC Glucose 198 H Hemoglobin A1c Calcium Ferritin 1066.0 H Lactate Dehydrogenase 379 H C-Reactive Protein 2.80 H Albumin 3.0 L Coronavirus (PCR) 05/30/21 05/30/21 05/30/21 11:56 16:07 20:49 WBC RBC Hgb Hct MCHC RDW Plt Count Lymph % (Auto) [place] % (Auto) Lymph # (Auto) Seg Neutrophils % Seg Neuts % (Manual) Lymphocytes % (Manual) Seg Neutrophils # Seg Neutrophils # Man Lymphocytes # (Manual) Monocytes # (Manual) D-Dimer Sodium Chloride Carbon Dioxide BUN Creatinine Glucose POC Glucose 256 H 165 H 260 H Hemoglobin A1c Calcium Ferritin Lactate Dehydrogenase C-Reactive Protein Albumin Coronavirus (PCR) 05/31/21 05/31/21 05/31/21 08:13 11:32 17:14 WBC RBC Hgb Hct MCHC RDW Plt Count Lymph % (Auto) [place] % (Auto) Lymph # (Auto) Seg Neutrophils % Seg Neuts % (Manual) Lymphocytes % (Manual) Seg Neutrophils # Seg Neutrophils # Man Lymphocytes # (Manual) Monocytes # (Manual) D-Dimer Sodium Chloride Carbon Dioxide BUN Creatinine Glucose POC Glucose 254 H 257 H 322 H Hemoglobin A1c Calcium Ferritin Lactate Dehydrogenase C-Reactive Protein Albumin Coronavirus (PCR) 05/31/21 06/01/21 06/01/21 21:42 07:50 11:09 WBC RBC Hgb Hct MCHC RDW Plt Count Lymph % (Auto) [place] % (Auto) Lymph # (Auto) Seg Neutrophils % Seg Neuts % (Manual) Lymphocytes % (Manual) Seg Neutrophils # Seg Neutrophils # Man Lymphocytes # (Manual) Monocytes # (Manual) D-Dimer Sodium Chloride Carbon Dioxide BUN Creatinine Glucose POC Glucose 261 H 237 H 274 H Hemoglobin A1c Calcium Ferritin Lactate Dehydrogenase C-Reactive Protein Albumin Coronavirus (PCR) 06/01/21 06/01/21 06/02/21 16:51 20:54 03:55 WBC 25.4 H RBC 5.11 H Hgb 15.6 H Hct 46.7 H MCHC RDW 13.1 L Plt Count 568 H Lymph % (Auto) [place] % (Auto) Lymph # (Auto) Seg Neutrophils % Seg Neuts % (Manual) 91.0 H Lymphocytes % (Manual) 3.0 L Seg Neutrophils # Seg Neutrophils # Man 23.1 H Lymphocytes # (Manual) 0.8 L Monocytes # (Manual) 1.5 H D-Dimer Sodium Chloride Carbon Dioxide BUN Creatinine Glucose POC Glucose 239 H 275 H Hemoglobin A1c Calcium Ferritin Lactate Dehydrogenase C-Reactive Protein Albumin Coronavirus (PCR) 06/02/21 06/02/21 06/02/21 03:55 11:19 16:53 WBC RBC Hgb Hct MCHC RDW Plt Count Lymph % (Auto) [place] % (Auto) Lymph # (Auto) Seg Neutrophils % Seg Neuts % (Manual) Lymphocytes % (Manual) Seg Neutrophils # Seg Neutrophils # Man Lymphocytes # (Manual) Monocytes # (Manual) D-Dimer Sodium 132 L Chloride 96.0 L Carbon Dioxide BUN 23 H Creatinine 0.6 L Glucose 245 H POC Glucose 263 H 264 H Hemoglobin A1c Calcium Ferritin Lactate Dehydrogenase C-Reactive Protein Albumin Coronavirus (PCR) 06/02/21 06/03/21 06/03/21 21:20 05:29 07:31 WBC RBC Hgb Hct MCHC RDW Plt Count Lymph % (Auto) [place] % (Auto) Lymph # (Auto) Seg Neutrophils % Seg Neuts % (Manual) Lymphocytes % (Manual) Seg Neutrophils # Seg Neutrophils # Man Lymphocytes # (Manual) Monocytes # (Manual) D-Dimer Sodium Chloride Carbon Dioxide BUN 22 H Creatinine 0.6 L Glucose 246 H POC Glucose 341 H 231 H Hemoglobin A1c Calcium 8.2 L Ferritin Lactate Dehydrogenase C-Reactive Protein Albumin Coronavirus (PCR) 06/03/21 06/03/21 06/03/21 12:17 15:00 16:14 WBC RBC Hgb Hct MCHC RDW Plt Count Lymph % (Auto) [place] % (Auto) Lymph # (Auto) Seg Neutrophils % Seg Neuts % (Manual) Lymphocytes % (Manual) Seg Neutrophils # Seg Neutrophils # Man Lymphocytes # (Manual) Monocytes # (Manual) D-Dimer Sodium Chloride Carbon Dioxide BUN Creatinine Glucose POC Glucose 187 H 244 H Hemoglobin A1c 7.8 H Calcium Ferritin Lactate Dehydrogenase C-Reactive Protein Albumin Coronavirus (PCR) 06/03/21 06/04/21 06/04/21 22:00 08:17 12:01 WBC RBC Hgb Hct MCHC RDW Plt Count Lymph % (Auto) [place] % (Auto) Lymph # (Auto) Seg Neutrophils % Seg Neuts % (Manual) Lymphocytes % (Manual) Seg Neutrophils # Seg Neutrophils # Man Lymphocytes # (Manual) Monocytes # (Manual) D-Dimer Sodium Chloride Carbon Dioxide BUN Creatinine Glucose POC Glucose 234 H 237 H 176 H Hemoglobin A1c Calcium Ferritin Lactate Dehydrogenase C-Reactive Protein Albumin Coronavirus (PCR) 06/04/21 06/04/21 06/04/21 15:14 15:14 15:14 WBC 24.2 H RBC Hgb Hct MCHC RDW Plt Count 484 H Lymph % (Auto) [place] % (Auto) Lymph # (Auto) Seg Neutrophils % Seg Neuts % (Manual) 95.0 H Lymphocytes % (Manual) Seg Neutrophils # Seg Neutrophils # Man 23.0 H Lymphocytes # (Manual) 0.0 L Monocytes # (Manual) D-Dimer 612.11 H Sodium 135 L Chloride Carbon Dioxide BUN 26 H Creatinine 0.7 L Glucose 263 H POC Glucose Hemoglobin A1c Calcium Ferritin Lactate Dehydrogenase C-Reactive Protein Albumin Coronavirus (PCR) 06/04/21 06/04/21 06/04/21 15:14 15:14 15:40 WBC RBC Hgb Hct MCHC RDW Plt Count Lymph % (Auto) [place] % (Auto) Lymph # (Auto) Seg Neutrophils % Seg Neuts % (Manual) Lymphocytes % (Manual) Seg Neutrophils # Seg Neutrophils # Man Lymphocytes # (Manual) Monocytes # (Manual) D-Dimer Sodium Chloride Carbon Dioxide BUN Creatinine Glucose POC Glucose 232 H Hemoglobin A1c Calcium Ferritin 1264.0 H Lactate Dehydrogenase 303 H C-Reactive Protein Albumin Coronavirus (PCR) 06/04/21 06/05/21 06/05/21 21:26 07:41 11:35 WBC RBC Hgb Hct MCHC RDW Plt Count Lymph % (Auto) [place] % (Auto) Lymph # (Auto) Seg Neutrophils % Seg Neuts % (Manual) Lymphocytes % (Manual) Seg Neutrophils # Seg Neutrophils # Man Lymphocytes # (Manual) Monocytes # (Manual) D-Dimer Sodium Chloride Carbon Dioxide BUN Creatinine Glucose POC Glucose 272 H 117 H 229 H Hemoglobin A1c Calcium Ferritin Lactate Dehydrogenase C-Reactive Protein Albumin Coronavirus (PCR) 06/05/21 06/05/21 06/06/21 16:30 21:25 03:52 WBC RBC Hgb Hct MCHC RDW Plt Count Lymph % (Auto) [place] % (Auto) Lymph # (Auto) Seg Neutrophils % Seg Neuts % (Manual) Lymphocytes % (Manual) Seg Neutrophils # Seg Neutrophils # Man Lymphocytes # (Manual) Monocytes # (Manual) D-Dimer Sodium Chloride Carbon Dioxide BUN 25 H Creatinine 0.6 L Glucose 199 H POC Glucose 246 H 253 H Hemoglobin A1c Calcium 8.0 L Ferritin Lactate Dehydrogenase C-Reactive Protein Albumin Coronavirus (PCR) 06/06/21 06/06/21 06/06/21 08:37 11:26 16:10 WBC RBC Hgb Hct MCHC RDW Plt Count Lymph % (Auto) [place] % (Auto) Lymph # (Auto) Seg Neutrophils % Seg Neuts % (Manual) Lymphocytes % (Manual) Seg Neutrophils # Seg Neutrophils # Man Lymphocytes # (Manual) Monocytes # (Manual) D-Dimer Sodium Chloride Carbon Dioxide BUN Creatinine Glucose POC Glucose 172 H 188 H 239 H Hemoglobin A1c Calcium Ferritin Lactate Dehydrogenase C-Reactive Protein Albumin Coronavirus (PCR) 06/06/21 06/07/21 06/07/21 21:56 07:30 11:11 WBC RBC Hgb Hct MCHC RDW Plt Count Lymph % (Auto) [place] % (Auto) Lymph # (Auto) Seg Neutrophils % Seg Neuts % (Manual) Lymphocytes % (Manual) Seg Neutrophils # Seg Neutrophils # Man Lymphocytes # (Manual) Monocytes # (Manual) D-Dimer Sodium Chloride Carbon Dioxide BUN Creatinine Glucose POC Glucose 267 H 161 H 241 H Hemoglobin A1c Calcium Ferritin Lactate Dehydrogenase C-Reactive Protein Albumin Coronavirus (PCR) 06/07/21 06/07/21 06/07/21 13:36 13:36 13:36 WBC RBC Hgb Hct MCHC RDW Plt Count Lymph % (Auto) [place] % (Auto) Lymph # (Auto) Seg Neutrophils % Seg Neuts % (Manual) Lymphocytes % (Manual) Seg Neutrophils # Seg Neutrophils # Man Lymphocytes # (Manual) Monocytes # (Manual) D-Dimer 551.86 H Sodium Chloride Carbon Dioxide BUN Creatinine Glucose POC Glucose Hemoglobin A1c Calcium Ferritin 1438.0 H Lactate Dehydrogenase 299 H C-Reactive Protein Albumin Coronavirus (PCR) 06/07/21 15:59 WBC RBC Hgb Hct MCHC RDW Plt Count Lymph % (Auto) [place] % (Auto) Lymph # (Auto) Seg Neutrophils % Seg Neuts % (Manual) Lymphocytes % (Manual) Seg Neutrophils # Seg Neutrophils # Man Lymphocytes # (Manual) Monocytes # (Manual) D-Dimer Sodium Chloride Carbon Dioxide BUN Creatinine Glucose POC Glucose 268 H Hemoglobin A1c Calcium Ferritin Lactate Dehydrogenase C-Reactive Protein Albumin Coronavirus (PCR)
--- NOTE | 2021-06-07 16:28 | Progress Note ---
Assessment and Plan The patient is a 43-year-old male with no past medical history admitted for COVID-19 pneumonia. Hypoxic requiring high flow O2, unvaccinated, chest x-ray showed bilateral patchy infiltrates. Assessment and plan: -- COVID 19 Pneumonia Airborne and contact isolation Monitor inflammatory markers Continue IV empiric steroid IV remdesivir x 5 days completed Worsening respiratory status, status post Actemra on 05/26 Prophylactic Lovenox Ascorbic acid, zinc sulfate, vitamin D supplement Encourage the use of incentive spirometery Infectious disease consultfollow-up with plan of care. -- Acute Hypoxic Respiratory Failure Supplemental oxygen via NRB. Saturating 93 to 95% Etiology high suspicion for COVID-19 pneumonia Admit CXR: Multifocal airspace disease, possible left-sided pulmonary mass. Please refer to official radiology report Admit CTA chest: Bilateral airspace disease with mildly enlarged mediastinal nodes. No suspicious mass or lymph nodes appreciated. Covid therapies as below prn albuterol Pulmonology consult placed: Recommends increase steroid dosage, ABX, Actemra, remdesivir, patient problems. -- Hyponatremia Likely secondary to dehydration IV hydration with normal saline Monitor sodium level and other electrolytes --Diabetes mellitus type 2 with hyperglycemia, likely steroid-induced, A1c >7 Continue sliding scale and Lantus at bedtime -- Elevated d-dimer CTA of the chestrule outs PE --Morbid obesity: Associated with worse outcome for COVID-19 Continue to follow clinically, dietary on board -- DVT prophylaxis Subcutaneous [facility] course to date 05/25/2021: Resting comfortably on encounter. Will follow up results of Covid test. Continue therapy above at this time. Will follow ID recommendations. If patient deteriorates will consult pulmonology. 05/26/2021: Resting comfortably on encounter. Patient is Covid positive. C ontinuing therapy with abx, steroids, remdesivir. De-escalate O2 to NC. Anticipate d/c home with O2 in 1-2 days if patient tolerates NC. 05/27/2021: Steroids increased by Pulmonology to Decadron 10 mg twice daily. May need to consider high-dose Solu-Medrol if no response in 96 hours. Patient will be encouraged to self prone. 05/28/2021: Patient remains on Ventimask. Did not tolerate de-escalation to nasal cannula. continued to encourage patient to self prone 05/29/2021: Patient remains on nonrebreather 100%. Encourage patient to get up and walk around room as he appears pretty comfortable on bedside encounter. We will continue therapy for Covid pneumonia. Will attempt de-escalation tomorrow patient continues to demonstrate improvement. 05/30/21: Patient on 15 L high flow O2, encourage proning yes abdomen, continue high dose of steroid. Pulmonary and ID following, follow inflammatory markers. 05/31: Patient on 35 L high flow O2 today, continue higher dose of steroid, continue to follow inflammatory markers, guarded prognosis, 06/01: Patient remains on high flow O2, 30 L. Continue empiric steroid, follow inflammatory markers. Completed remdesivir. Guarded prognosis 06/02/21: Patient remains on 30 L high flow O2, continue empiric steroid, follow inflammatory markers, guarded prognosis. ID and pulmonary following. 05/03/21: Patient on 25 mm high flow O2 today, continue empiric steroid continue to follow inflammatory markers, ordered A1c, ID and pulmonary care following. Guarded prognosis. 05/04/21; remains on high flow O2, vitals otherwise stable. Continue empiric s teroid. Continue to follow inflammatory markers. Guarded prognosis. Wean off O2 as tolerated. 05/05/21: Patient appears to have no discomfort, but remains on high flow O2. Wean off O2 as tolerated per pulmonary. Continue to follow inflammatory markers. Guarded prognosis. 05/06/21: Chest x-ray has improved, pulmonary recommended aggressive weaning, remains on high flow O2. Continue to follow inflammatory markers. Guarded prognosis. 05/07/21: Patient remains on 25 L high flow O2. Continue to monitor vitals tolerated. Continue to follow inflammatory markers patient appears to be otherwise clinically stable. Subjective Date of service: 06/07/21 Interval history: Patient seen and examined. Medical records and medication list reviewed. No acute event overnight noted by the RN. Patient complains of difficulty breathing, remains on high flow O2. Patient is tolerating diet. Discussed plan of care at bedside with patient. Objective - Exam Narrative Exam: Limited physical exam due to COVID-19 pandemic to minimize transmission of the disease and to preserve PPE. Vital reviewed and stable. GENERAL: well-developed well-nourished male lying on bed appeared to be in no discomfort. HEENT: Normocephalic. Atraumatic. NECK: Supple. CHEST/LUNGS: breathing with high flow O2. HEART/CARDIOVASCULAR: Heart rate stable on telemetry ABDOMEN: Visibly not distended SKIN: There is no rash NEURO: No focal motor deficit. Follows command. MUSCULOSKELETAL: No joint effusion EXTRIMITY: No swelling, no cyanosis or clubbing. PSYCH: Cooperative. - Constitutional Vitals: Vital Signs - 12hr 06/07/21 06/07/21 11:11 12:05 Temperature 98.4 F Pulse Rate 69 Respiratory 18 Rate Blood Pressure 114/77 O2 Sat by Pulse 95 97 Oximetry - Labs CBC & Chem 7: 06/04/21 15:14 06/06/21 03:52 Labs: Abnormal lab results 06/06/21 06/07/21 06/07/21 Range/Units 21:56 07:30 11:11 D-Dimer (0-234) ng/mlDDU POC Glucose 267 H 161 H 241 H (70-105) mg/dL Ferritin (30.0-300.0) ng/mL Lactate Dehydrogenase (91-180) units/L 06/07/21 06/07/21 06/07/21 Range/Units 13:36 13:36 13:36 D-Dimer 551.86 H (0-234) ng/mlDDU POC Glucose (70-105) mg/dL Ferritin 1438.0 H (30.0-300.0) ng/mL Lactate Dehydrogenase 299 H (91-180) units/L 06/07/21 Range/Units 15:59 D-Dimer (0-234) ng/mlDDU POC Glucose 268 H (70-105) mg/dL Ferritin (30.0-300.0) ng/mL Lactate Dehydrogenase (91-180) units/L
[2021-06-07] MEDS: ENOXAPARIN 40 MG/0.4 ML INJ SUB-Q SCH (21:55)
[2021-06-07] MEDS: INSULIN GLARGINE 100 UNITS/ML SUB-Q SCH (21:59)
[2021-06-08] MEDS: BENZONATATE 100 MG CAP PO SCH ×3 (05:47→22:22)
--- NOTE | 2021-06-08 07:36 | Progress Note ---
Assessment and Plan Assessment and plan: -- COVID 19 Pneumonia Airborne and contact isolation Monitor inflammatory markers Continue IV empiric steroid IV remdesivir x 5 days completed Worsening respiratory status, status post Actemra on 05/26 Prophylactic Lovenox Ascorbic acid, zinc sulfate, vitamin D supplement Encourage the use of incentive spirometery Able to wean down to 6 L O2. Very good sign anticipated discharge 1 to 2 days. Infectious disease consultfollow-up with plan of care. -- Acute Hypoxic Respiratory Failure Supplemental oxygen nasal cannula now. 6 L. COVID-19 pneumonia. Admit CXR: Multifocal airspace disease, possible left-sided pulmonary mass. Please refer to official radiology report Admit CTA chest: Bilateral airspace disease with mildly enlarged mediastinal nodes. No suspicious mass or lymph nodes appreciated. Covid therapies as below prn albuterol Pulmonology consult placed: Recommends increase steroid dosage, ABX, Actemra, remdesivir, patient problems. -- Hyponatremia Likely secondary to dehydration IV hydration with normal saline Monitor sodium level and other electrolytes --Diabetes mellitus type 2 with hyperglycemia, likely steroid-induced, A1c >7 suboptimal control. Continue sliding scale and will increase Lantus at bedtime -- Elevated d-dimer CTA of the chestrule outs PE --Morbid obesity: Associated with worse outcome for COVID-19 Continue to follow clinically, dietary on board -- DVT prophylaxis Subcutaneous Lovenox Subjective Date of service: 06/08/21 Principal diagnosis: COVID-19 pneumonia Interval history: Hospital course to date 05/25/2021: Resting comfortably on encounter. Will follow up results of Covid test. Continue therapy above at this time. Will follow ID recommendations. If patient deteriorates will consult pulmonology. 05/26/2021: Resting comfortably on encounter. Patient is Covid positive. Continuing therapy with abx, steroids, remdesivir. De-escalate O2 to NC. Anticipate d/c home with O2 in 1-2 days if patient tolerates NC. 05/27/2021: Steroids increased by Pulmonology to Decadron 10 mg twice daily. May need to consider high-dose Solu-Medrol if no response in 96 hours. Patient will be encouraged to self prone. 05/28/2021: Patient remains on Ventimask. Did not tolerate de-escalation to nasal cannula. continued to encourage patient to self prone 05/29/2021: Patient remains on nonrebreather 100%. Encourage patient to get up and walk around room as he appears pretty comfortable on bedside encounter. We will continue therapy for Covid pneumonia. Will attempt de-escalation tomorrow patient continues to demonstrate improvement. 05/30/21: Patient on 15 L high flow O2, encourage proning yes abdomen, continue high dose of steroid. Pulmonary and ID following, follow inflammatory markers. 05/31: Patient on 35 L high flow O2 today, continue higher dose of steroid, continue to follow inflammatory markers, guarded prognosis, 06/01: Patient remains on high flow O2, 30 L. Continue empiric steroid, follow inflammatory markers. Completed remdesivir. Guarded prognosis 06/02/21: Patient remains on 30 L high flow O2, continue empiric steroid, follow inflammatory markers, guarded prognosis. ID and pulmonary following. 05/03/21: Patient on 25 mm high flow O2 today, continue empiric steroid continue to follow inflammatory markers, ordered A1c, ID and pulmonary care following. Guarded prognosis. 05/04/21; remains on high flow O2, vitals otherwise stable. Continue empiric steroid. Continue to follow inflammatory markers. Guarded prognosis. Wean off O2 as tolerated. 05/05/21: Patient appears to have no discomfort, but remains on high flow O2. Wean off O2 as tolerated per pulmonary. Continue to follow inflammatory markers. Guarded prognosis. 05/06/21: Chest x-ray has improved, pulmonary recommended aggressive weaning, remains on high flow O2. Continue to follow inflammatory markers. Guarded prognosis. 06/08/2021 patient was on 25 L of O2 now. Now has been weaned down to 6 L nasal cannula. We will continue to wean as tolerated. When 3 L anticipate discharge 24 to 48 hours. All questions and concerns answered. Objective - Constitutional Vitals: Vital Signs - 12hr 06/07/21 06/07/21 06/07/21 20:00 21:52 22:00 Temperature 97.8 F Pulse Rate 65 Respiratory 20 Rate Blood Pressure 128/84 O2 Sat by Pulse 88 91 95 Oximetry 06/08/21 02:00 Temperature Pulse Rate Respiratory Rate Blood Pressure O2 Sat by Pulse 95 Oximetry General appearance: Present: no acute distress, well-nourished - EENT Eyes: PERRL, EOM intact ENT: hearing intact, clear oral mucosa Ears: bilateral: normal - Neck Neck: supple, normal ROM - Respiratory Respiratory effort: normal Respiratory: bilateral: CTA - Breasts Breasts: normal - Cardiovascular Rhythm: regular Heart Sounds: Present: S1 & S2. Absent: gallop, rub Extremities: pulses intact, No edema, normal color, Full ROM - Gastrointestinal General gastrointestinal: Present: soft, non-tender, non-distended, normal bowel sounds - Genitourinary Male genitourinary: normal - Integumentary Integumentary: clear, warm, dry - Musculoskeletal Musculoskeletal: 1, strength equal bilaterally - Neurologic Neurologic: moves all extremities - Psychiatric Psychiatric: memory intact, appropriate mood/affect, intact judgment & insight - Labs CBC & Chem 7: 06/04/21 15:14 06/06/21 03:52 Labs: Abnormal lab results 06/07/21 06/07/21 06/07/21 Range/Units 11:11 13:36 13:36 D-Dimer 551.86 H (0-234) ng/mlDDU POC Glucose 241 H (70-105) mg/dL Ferritin 1438.0 H (30.0-300.0) ng/mL Lactate Dehydrogenase (91-180) units/L 06/07/21 06/07/21 06/07/21 Range/Units 13:36 15:59 21:50 D-Dimer (0-234) ng/mlDDU POC Glucose 268 H 244 H (70-105) mg/dL Ferritin (30.0-300.0) ng/mL Lactate Dehydrogenase 299 H (91-180) units/L
[2021-06-08] MEDS: INSULIN LISPRO 100 UNIT/ML SUB-Q SCH ×4 (08:29→22:25)
[2021-06-08] MEDS: methylPREDNISolone Sod Succinate 125 MG/2 ML INJ IV SCH ×3 (08:37→23:11)
[2021-06-08] MEDS: FAMOTIDINE 20 MG TAB PO SCH ×2 (10:37→22:23)
[2021-06-08] MEDS: ZINC SULFATE 220 MG CAP PO SCH (10:37)
[2021-06-08] MEDS: ASCORBIC ACID 500 MG TAB PO SCH (10:38)
[2021-06-08] MEDS: CHOLECALCIFEROL (VIT D3) 1000 UNIT (25 mcg) TAB PO SCH (10:40)
--- NOTE | 2021-06-08 16:16 | Progress Note ---
Assessment and Plan 46 y/o obese male admitted with acute respiratory failure secondary to COVID 19 06/08/21: Now down to nasal cannula at 6 with good sats. Promising situation. Continue to wean as tolerated. Hopeful discharge in the next 24-48 hrs. 06/07/21: Still no further weaning. Not sure why he cant. Documented sats are good. Guarded prognosis 06/06/21: Wean HFNC, has been stable the last 2 days, should be able to. CXR actually is improved so may have just been a transient dip. Need to be more aggressive with weaning. Prognosis remains guarded. 06/05/21: COntinue to wean as tolerated. Needs repeat CXR as I am not sure why his oxygen requirement is increasing. Guarded prognosis. 06/02/21: Requirement continues to improve. Continue TID solumedrol with proning. Prognosis is still guarded. 06/01/21: Continue TID solumedrol. Prone as tolerated. Guarded prognosis. 05/31/21: Will increase to Solumedrol 125 TID starting now. 05/30/21: BID steroids for one more day. If not weaning then will put on solumedrol 125 TID. Appears patient is cooperating with all therapy now. 05/29/21: BID steroids, continue for 48 hours. Took prophylaxis last night for DVT. May need large doses of steroids. Guarded prognosis. 05/28/21: Continue BID steroids given obesity. Continue for another 72 hours. Patient refusing prophylaxis for DVT as D-Dimer continues to rise. COVID patient's are prone to be hypercoaguable. COntinue Remdesivir 1. Increased steroids to 10 BID given obesity. If no improvement in 96 hours then will change to high dose solumedrol 2. Remdesivir 3. Actemra pending availability 4. Prone 5. Guarded prognosis. Subjective Date of service: 06/08/21 Interval history: Down to 6 liters with good sats. Objective Vital Signs - 12hr 06/08/21 06/08/21 06/08/21 08:55 09:55 11:15 Temperature 99.0 F Pulse Rate 81 Respiratory 18 Rate Blood Pressure 135/88 O2 Sat by Pulse 92 92 95 Oximetry CBC and BMP: 06/04/21 15:14 06/06/21 03:52 ABG, PT/INR, D-dimer: PT/INR, D-dimer D-Dimer 551.86 ng/mlDDU (0-234) H 06/07/21 13:36 Abnormal lab findings: Abnormal Labs 05/24/21 05/24/21 05/24/21 11:19 11:19 11:19 WBC RBC Hgb Hct MCHC 35 H RDW Plt Count Lymph % (Auto) 7.6 L [place] % (Auto) 10.2 H Lymph # (Auto) 0.4 L Seg Neutrophils % 82.0 H Seg Neuts % (Manual) Lymphocytes % (Manual) Seg Neutrophils # Seg Neutrophils # Man Lymphocytes # (Manual) Monocytes # (Manual) D-Dimer 809.12 H Sodium 131 L Chloride 96.9 L Carbon Dioxide BUN Creatinine Glucose 180 H POC Glucose Hemoglobin A1c Calcium Ferritin Lactate Dehydrogenase C-Reactive Protein Albumin 3.6 L Coronavirus (PCR) 05/24/21 05/24/21 05/24/21 11:19 11:19 20:30 WBC RBC Hgb Hct MCHC RDW Plt Count Lymph % (Auto) [place] % (Auto) Lymph # (Auto) Seg Neutrophils % Seg Neuts % (Manual) Lymphocytes % (Manual) Seg Neutrophils # Seg Neutrophils # Man Lymphocytes # (Manual) Monocytes # (Manual) D-Dimer Sodium Chloride Carbon Dioxide BUN Creatinine Glucose POC Glucose Hemoglobin A1c Calcium Ferritin 1761.0 H Lactate Dehydrogenase 491 H C-Reactive Protein 22.00 H 19.30 H Albumin Coronavirus (PCR) 05/24/21 05/24/21 05/24/21 20:30 20:30 20:30 WBC RBC Hgb Hct MCHC RDW Plt Count Lymph % (Auto) [place] % (Auto) Lymph # (Auto) Seg Neutrophils % Seg Neuts % (Manual) Lymphocytes % (Manual) Seg Neutrophils # Seg Neutrophils # Man Lymphocytes # (Manual) Monocytes # (Manual) D-Dimer 773.79 H Sodium Chloride Carbon Dioxide BUN Creatinine Glucose 186 H POC Glucose Hemoglobin A1c Calcium Ferritin 1632.0 H Lactate Dehydrogenase 433 H C-Reactive Protein 18.90 H Albumin Coronavirus (PCR) 05/25/21 05/25/21 05/25/21 07:48 07:48 14:42 WBC RBC Hgb Hct MCHC 35 H RDW Plt Count Lymph % (Auto) 7.8 L [place] % (Auto) Lymph # (Auto) 0.7 L Seg Neutrophils % 85.6 H Seg Neuts % (Manual) Lymphocytes % (Manual) Seg Neutrophils # 8.1 H Seg Neutrophils # Man Lymphocytes # (Manual) Monocytes # (Manual) D-Dimer Sodium 136 L Chloride Carbon Dioxide 20 L BUN Creatinine 0.6 L 0.7 L Glucose 178 H 271 H POC Glucose Hemoglobin A1c Calcium 8.3 L Ferritin Lactate Dehydrogenase C-Reactive Protein Albumin 3.0 L 3.0 L Coronavirus (PCR) 05/25/21 05/26/21 05/27/21 Unknown 05:50 04:14 WBC RBC Hgb Hct MCHC RDW Plt Count Lymph % (Auto) [place] % (Auto) Lymph # (Auto) Seg Neutrophils % Seg Neuts % (Manual) Lymphocytes % (Manual) Seg Neutrophils # Seg Neutrophils # Man Lymphocytes # (Manual) Monocytes # (Manual) D-Dimer Sodium Chloride Carbon Dioxide BUN Creatinine 0.6 L Glucose 206 H 182 H POC Glucose Hemoglobin A1c Calcium Ferritin Lactate Dehydrogenase C-Reactive Protein Albumin 3.2 L 3.1 L Coronavirus (PCR) Positive A 05/27/21 05/27/21 05/27/21 04:14 10:00 10:00 WBC RBC Hgb Hct MCHC RDW Plt Count Lymph % (Auto) [place] % (Auto) Lymph # (Auto) Seg Neutrophils % Seg Neuts % (Manual) Lymphocytes % (Manual) Seg Neutrophils # Seg Neutrophils # Man Lymphocytes # (Manual) Monocytes # (Manual) D-Dimer 1730.61 H Sodium Chloride Carbon Dioxide BUN Creatinine Glucose POC Glucose Hemoglobin A1c Calcium Ferritin 1694.0 H Lactate Dehydrogenase 604 H C-Reactive Protein 10.40 H Albumin Coronavirus (PCR) 05/28/21 05/28/21 05/28/21 04:05 04:05 04:05 WBC RBC Hgb Hct MCHC RDW Plt Count 449 H Lymph % (Auto) [place] % (Auto) Lymph # (Auto) Seg Neutrophils % Seg Neuts % (Manual) 94.0 H Lymphocytes % (Manual) 3.0 L Seg Neutrophils # Seg Neutrophils # Man 9.8 H Lymphocytes # (Manual) 0.3 L Monocytes # (Manual) D-Dimer 3141.44 H Sodium Chloride Carbon Dioxide BUN Creatinine 0.6 L Glucose 248 H POC Glucose Hemoglobin A1c Calcium Ferritin Lactate Dehydrogenase C-Reactive Protein Albumin 3.2 L Coronavirus (PCR) 05/28/21 05/28/21 05/28/21 04:05 04:05 23:41 WBC RBC Hgb Hct MCHC RDW Plt Count Lymph % (Auto) [place] % (Auto) Lymph # (Auto) Seg Neutrophils % Seg Neuts % (Manual) Lymphocytes % (Manual) Seg Neutrophils # Seg Neutrophils # Man Lymphocytes # (Manual) Monocytes # (Manual) D-Dimer Sodium Chloride Carbon Dioxide BUN Creatinine Glucose POC Glucose 259 H Hemoglobin A1c Calcium Ferritin 1374.0 H Lactate Dehydrogenase 460 H C-Reactive Protein 9.00 H Albumin Coronavirus (PCR) 05/29/21 05/29/21 05/29/21 07:40 12:04 16:20 WBC RBC Hgb Hct MCHC RDW Plt Count Lymph % (Auto) [place] % (Auto) Lymph # (Auto) Seg Neutrophils % Seg Neuts % (Manual) Lymphocytes % (Manual) Seg Neutrophils # Seg Neutrophils # Man Lymphocytes # (Manual) Monocytes # (Manual) D-Dimer Sodium Chloride Carbon Dioxide BUN Creatinine Glucose POC Glucose 276 H 296 H 250 H Hemoglobin A1c Calcium Ferritin Lactate Dehydrogenase C-Reactive Protein Albumin Coronavirus (PCR) 05/29/21 05/30/21 05/30/21 20:54 07:01 07:01 WBC 16.3 H RBC Hgb Hct MCHC RDW Plt Count 595 H Lymph % (Auto) [place] % (Auto) Lymph # (Auto) Seg Neutrophils % Seg Neuts % (Manual) 91.0 H Lymphocytes % (Manual) 2.0 L Seg Neutrophils # Seg Neutrophils # Man 14.8 H Lymphocytes # (Manual) 0.3 L Monocytes # (Manual) 1.1 H D-Dimer 1223.46 H Sodium Chloride Carbon Dioxide BUN Creatinine Glucose POC Glucose 248 H Hemoglobin A1c Calcium Ferritin Lactate Dehydrogenase C-Reactive Protein Albumin Coronavirus (PCR) 05/30/21 05/30/21 05/30/21 07:01 07:01 08:02 WBC RBC Hgb Hct MCHC RDW Plt Count Lymph % (Auto) [place] % (Auto) Lymph # (Auto) Seg Neutrophils % Seg Neuts % (Manual) Lymphocytes % (Manual) Seg Neutrophils # Seg Neutrophils # Man Lymphocytes # (Manual) Monocytes # (Manual) D-Dimer Sodium Chloride Carbon Dioxide BUN 21 H Creatinine 0.5 L Glucose 210 H POC Glucose 198 H Hemoglobin A1c Calcium Ferritin 1066.0 H Lactate Dehydrogenase 379 H C-Reactive Protein 2.80 H Albumin 3.0 L Coronavirus (PCR) 05/30/21 05/30/21 05/30/21 11:56 16:07 20:49 WBC RBC Hgb Hct MCHC RDW Plt Count Lymph % (Auto) [place] % (Auto) Lymph # (Auto) Seg Neutrophils % Seg Neuts % (Manual) Lymphocytes % (Manual) Seg Neutrophils # Seg Neutrophils # Man Lymphocytes # (Manual) Monocytes # (Manual) D-Dimer Sodium Chloride Carbon Dioxide BUN Creatinine Glucose POC Glucose 256 H 165 H 260 H Hemoglobin A1c Calcium Ferritin Lactate Dehydrogenase C-Reactive Protein Albumin Coronavirus (PCR) 05/31/21 05/31/21 05/31/21 08:13 11:32 17:14 WBC RBC Hgb Hct MCHC RDW Plt Count Lymph % (Auto) [place] % (Auto) Lymph # (Auto) Seg Neutrophils % Seg Neuts % (Manual) Lymphocytes % (Manual) Seg Neutrophils # Seg Neutrophils # Man Lymphocytes # (Manual) Monocytes # (Manual) D-Dimer Sodium Chloride Carbon Dioxide BUN Creatinine Glucose POC Glucose 254 H 257 H 322 H Hemoglobin A1c Calcium Ferritin Lactate Dehydrogenase C-Reactive Protein Albumin Coronavirus (PCR) 05/31/21 06/01/21 06/01/21 21:42 07:50 11:09 WBC RBC Hgb Hct MCHC RDW Plt Count Lymph % (Auto) [place] % (Auto) Lymph # (Auto) Seg Neutrophils % Seg Neuts % (Manual) Lymphocytes % (Manual) Seg Neutrophils # Seg Neutrophils # Man Lymphocytes # (Manual) Monocytes # (Manual) D-Dimer Sodium Chloride Carbon Dioxide BUN Creatinine Glucose POC Glucose 261 H 237 H 274 H Hemoglobin A1c Calcium Ferritin Lactate Dehydrogenase C-Reactive Protein Albumin Coronavirus (PCR) 06/01/21 06/01/21 06/02/21 16:51 20:54 03:55 WBC 25.4 H RBC 5.11 H Hgb 15.6 H Hct 46.7 H MCHC RDW 13.1 L Plt Count 568 H Lymph % (Auto) [place] % (Auto) Lymph # (Auto) Seg Neutrophils % Seg Neuts % (Manual) 91.0 H Lymphocytes % (Manual) 3.0 L Seg Neutrophils # Seg Neutrophils # Man 23.1 H Lymphocytes # (Manual) 0.8 L Monocytes # (Manual) 1.5 H D-Dimer Sodium Chloride Carbon Dioxide BUN Creatinine Glucose POC Glucose 239 H 275 H Hemoglobin A1c Calcium Ferritin Lactate Dehydrogenase C-Reactive Protein Albumin Coronavirus (PCR) 06/02/21 06/02/21 06/02/21 03:55 11:19 16:53 WBC RBC Hgb Hct MCHC RDW Plt Count Lymph % (Auto) [place] % (Auto) Lymph # (Auto) Seg Neutrophils % Seg Neuts % (Manual) Lymphocytes % (Manual) Seg Neutrophils # Seg Neutrophils # Man Lymphocytes # (Manual) Monocytes # (Manual) D-Dimer Sodium 132 L Chloride 96.0 L Carbon Dioxide BUN 23 H Creatinine 0.6 L Glucose 245 H POC Glucose 263 H 264 H Hemoglobin A1c Calcium Ferritin Lactate Dehydrogenase C-Reactive Protein Albumin Coronavirus (PCR) 06/02/21 06/03/21 06/03/21 21:20 05:29 07:31 WBC RBC Hgb Hct MCHC RDW Plt Count Lymph % (Auto) [place] % (Auto) Lymph # (Auto) Seg Neutrophils % Seg Neuts % (Manual) Lymphocytes % (Manual) Seg Neutrophils # Seg Neutrophils # Man Lymphocytes # (Manual) Monocytes # (Manual) D-Dimer Sodium Chloride Carbon Dioxide BUN 22 H Creatinine 0.6 L Glucose 246 H POC Glucose 341 H 231 H Hemoglobin A1c Calcium 8.2 L Ferritin Lactate Dehydrogenase C-Reactive Protein Albumin Coronavirus (PCR) 06/03/21 06/03/21 06/03/21 12:17 15:00 16:14 WBC RBC Hgb Hct MCHC RDW Plt Count Lymph % (Auto) [place] % (Auto) Lymph # (Auto) Seg Neutrophils % Seg Neuts % (Manual) Lymphocytes % (Manual) Seg Neutrophils # Seg Neutrophils # Man Lymphocytes # (Manual) Monocytes # (Manual) D-Dimer Sodium Chloride Carbon Dioxide BUN Creatinine Glucose POC Glucose 187 H 244 H Hemoglobin A1c 7.8 H Calcium Ferritin Lactate Dehydrogenase C-Reactive Protein Albumin Coronavirus (PCR) 06/03/21 06/04/21 06/04/21 22:00 08:17 12:01 WBC RBC Hgb Hct MCHC RDW Plt Count Lymph % (Auto) [place] % (Auto) Lymph # (Auto) Seg Neutrophils % Seg Neuts % (Manual) Lymphocytes % (Manual) Seg Neutrophils # Seg Neutrophils # Man Lymphocytes # (Manual) Monocytes # (Manual) D-Dimer Sodium Chloride Carbon Dioxide BUN Creatinine Glucose POC Glucose 234 H 237 H 176 H Hemoglobin A1c Calcium Ferritin Lactate Dehydrogenase C-Reactive Protein Albumin Coronavirus (PCR) 06/04/21 06/04/21 06/04/21 15:14 15:14 15:14 WBC 24.2 H RBC Hgb Hct MCHC RDW Plt Count 484 H Lymph % (Auto) [place] % (Auto) Lymph # (Auto) Seg Neutrophils % Seg Neuts % (Manual) 95.0 H Lymphocytes % (Manual) Seg Neutrophils # Seg Neutrophils # Man 23.0 H Lymphocytes # (Manual) 0.0 L Monocytes # (Manual) D-Dimer 612.11 H Sodium 135 L Chloride Carbon Dioxide BUN 26 H Creatinine 0.7 L Glucose 263 H POC Glucose Hemoglobin A1c Calcium Ferritin Lactate Dehydrogenase C-Reactive Protein Albumin Coronavirus (PCR) 06/04/21 06/04/21 06/04/21 15:14 15:14 15:40 WBC RBC Hgb Hct MCHC RDW Plt Count Lymph % (Auto) [place] % (Auto) Lymph # (Auto) Seg Neutrophils % Seg Neuts % (Manual) Lymphocytes % (Manual) Seg Neutrophils # Seg Neutrophils # Man Lymphocytes # (Manual) Monocytes # (Manual) D-Dimer Sodium Chloride Carbon Dioxide BUN Creatinine Glucose POC Glucose 232 H Hemoglobin A1c Calcium Ferritin 1264.0 H Lactate Dehydrogenase 303 H C-Reactive Protein Albumin Coronavirus (PCR) 06/04/21 06/05/21 06/05/21 21:26 07:41 11:35 WBC RBC Hgb Hct MCHC RDW Plt Count Lymph % (Auto) [place] % (Auto) Lymph # (Auto) Seg Neutrophils % Seg Neuts % (Manual) Lymphocytes % (Manual) Seg Neutrophils # Seg Neutrophils # Man Lymphocytes # (Manual) Monocytes # (Manual) D-Dimer Sodium Chloride Carbon Dioxide BUN Creatinine Glucose POC Glucose 272 H 117 H 229 H Hemoglobin A1c Calcium Ferritin Lactate Dehydrogenase C-Reactive Protein Albumin Coronavirus (PCR) 06/05/21 06/05/21 06/06/21 16:30 21:25 03:52 WBC RBC Hgb Hct MCHC RDW Plt Count Lymph % (Auto) [place] % (Auto) Lymph # (Auto) Seg Neutrophils % Seg Neuts % (Manual) Lymphocytes % (Manual) Seg Neutrophils # Seg Neutrophils # Man Lymphocytes # (Manual) Monocytes # (Manual) D-Dimer Sodium Chloride Carbon Dioxide BUN 25 H Creatinine 0.6 L Glucose 199 H POC Glucose 246 H 253 H Hemoglobin A1c Calcium 8.0 L Ferritin Lactate Dehydrogenase C-Reactive Protein Albumin Coronavirus (PCR) 06/06/21 06/06/21 06/06/21 08:37 11:26 16:10 WBC RBC Hgb Hct MCHC RDW Plt Count Lymph % (Auto) [place] % (Auto) Lymph # (Auto) Seg Neutrophils % Seg Neuts % (Manual) Lymphocytes % (Manual) Seg Neutrophils # Seg Neutrophils # Man Lymphocytes # (Manual) Monocytes # (Manual) D-Dimer Sodium Chloride Carbon Dioxide BUN Creatinine Glucose POC Glucose 172 H 188 H 239 H Hemoglobin A1c Calcium Ferritin Lactate Dehydrogenase C-Reactive Protein Albumin Coronavirus (PCR) 06/06/21 06/07/21 06/07/21 21:56 07:30 11:11 WBC RBC Hgb Hct MCHC RDW Plt Count Lymph % (Auto) [place] % (Auto) Lymph # (Auto) Seg Neutrophils % Seg Neuts % (Manual) Lymphocytes % (Manual) Seg Neutrophils # Seg Neutrophils # Man Lymphocytes # (Manual) Monocytes # (Manual) D-Dimer Sodium Chloride Carbon Dioxide BUN Creatinine Glucose POC Glucose 267 H 161 H 241 H Hemoglobin A1c Calcium Ferritin Lactate Dehydrogenase C-Reactive Protein Albumin Coronavirus (PCR) 06/07/21 06/07/21 06/07/21 13:36 13:36 13:36 WBC RBC Hgb Hct MCHC RDW Plt Count Lymph % (Auto) [place] % (Auto) Lymph # (Auto) Seg Neutrophils % Seg Neuts % (Manual) Lymphocytes % (Manual) Seg Neutrophils # Seg Neutrophils # Man Lymphocytes # (Manual) Monocytes # (Manual) D-Dimer 551.86 H Sodium Chloride Carbon Dioxide BUN Creatinine Glucose POC Glucose Hemoglobin A1c Calcium Ferritin 1438.0 H Lactate Dehydrogenase 299 H C-Reactive Protein Albumin Coronavirus (PCR) 06/07/21 06/07/21 06/08/21 15:59 21:50 07:53 WBC RBC Hgb Hct MCHC RDW Plt Count Lymph % (Auto) [place] % (Auto) Lymph # (Auto) Seg Neutrophils % Seg Neuts % (Manual) Lymphocytes % (Manual) Seg Neutrophils # Seg Neutrophils # Man Lymphocytes # (Manual) Monocytes # (Manual) D-Dimer Sodium Chloride Carbon Dioxide BUN Creatinine Glucose POC Glucose 268 H 244 H 146 H Hemoglobin A1c Calcium Ferritin Lactate Dehydrogenase C-Reactive Protein Albumin Coronavirus (PCR) 06/08/21 12:07 WBC RBC Hgb Hct MCHC RDW Plt Count Lymph % (Auto) [place] % (Auto) Lymph # (Auto) Seg Neutrophils % Seg Neuts % (Manual) Lymphocytes % (Manual) Seg Neutrophils # Seg Neutrophils # Man Lymphocytes # (Manual) Monocytes # (Manual) D-Dimer Sodium Chloride Carbon Dioxide BUN Creatinine Glucose POC Glucose 236 H Hemoglobin A1c Calcium Ferritin Lactate Dehydrogenase C-Reactive Protein Albumin Coronavirus (PCR)
[2021-06-08] MEDS ORDERED: INSULIN GLARGINE 100 UNITS/ML SUB-Q SCH (22:00)
[2021-06-08] MEDS: ENOXAPARIN 40 MG/0.4 ML INJ SUB-Q SCH (22:22)
[2021-06-09] MEDS: BENZONATATE 100 MG CAP PO SCH ×3 (05:32→22:31)
[2021-06-09] MEDS: INSULIN LISPRO 100 UNIT/ML SUB-Q SCH ×4 (09:30→22:32)
[2021-06-09] MEDS: ASCORBIC ACID 500 MG TAB PO SCH (10:10)
[2021-06-09] MEDS: FAMOTIDINE 20 MG TAB PO SCH ×2 (10:11→22:31)
[2021-06-09] MEDS: ZINC SULFATE 220 MG CAP PO SCH (10:11)
[2021-06-09] MEDS: methylPREDNISolone Sod Succinate 125 MG/2 ML INJ IV SCH ×2 (10:12→16:59)
[2021-06-09] MEDS: CHOLECALCIFEROL (VIT D3) 1000 UNIT (25 mcg) TAB PO SCH (10:13)
--- NOTE | 2021-06-09 13:22 | Progress Note ---
Assessment and Plan Assessment and plan: -- COVID 19 Pneumonia Airborne and contact isolation Monitor inflammatory markers Continue IV empiric steroid IV remdesivir x 5 days completed Worsening respiratory status, status post Actemra on 05/26 Prophylactic Lovenox Ascorbic acid, zinc sulfate, vitamin D supplement Encourage the use of incentive spirometery Able to wean down to 6 L O2. Did not do well on most recent walk test. Infectious disease consultfollow-up with plan of care. -- Acute Hypoxic Respiratory Failure Supplemental oxygen nasal cannula now. 6 L.-Wean as tolerated. COVID-19 pneumonia. Admit CXR: Multifocal airspace disease, possible left-sided pulmonary mass. Please refer to official radiology report Admit CTA chest: Bilateral airspace disease with mildly enlarged mediastinal nodes. No suspicious mass or lymph nodes appreciated. Covid therapies as below prn albuterol Pulmonology consult placed: Recommends increase steroid dosage, ABX, Actemra, remdesivir, patient problems. -- Hyponatremia Likely secondary to dehydration IV hydration with normal saline Monitor sodium level and other electrolytes --Diabetes mellitus type 2 with hyperglycemia, likely steroid-induced, A1c >7 suboptimal control. Continue sliding scale and will increase Lantus at bedtime, improved with increase long-acting insulin however remains suboptimal. Titrate Lantus. -- Elevated d-dimer CTA of the chestrule outs PE --Morbid obesity: Associated with worse outcome for COVID-19 Continue to follow clinically, dietary on board -- DVT prophylaxis Subcutaneous Lovenox Subjective Date of service: 06/09/21 Principal diagnosis: COVID-19 pneumonia Interval history: Hospital course to date 05/25/2021: Resting comfortably on encounter. Will follow up results of Covid test. Continue therapy above at this time. Will follow ID recommendations. If patient deteriorates will consult pulmonology. 05/26/2021: Resting comfortably on encounter. Patient is Covid positive. Continuing therapy with abx, steroids, remdesivir. De-escalate O2 to NC. Anticipate d/c home with O2 in 1-2 days if patient tolerates NC. 05/27/2021: Steroids increased by Pulmonology to Decadron 10 mg twice daily. May need to consider high-dose Solu-Medrol if no response in 96 hours. Patient will be encouraged to self prone. 05/28/2021: Patient remains on Ventimask. Did not tolerate de-escalation to nasal cannula. continued to encourage patient to self prone 05/29/2021: Patient remains on nonrebreather 100%. Encourage patient to get up and walk around room as he appears pretty comfortable on bedside encounter. We will continue therapy for Covid pneumonia. Will attempt de-escalation tomorrow patient continues to demonstrate improvement. 05/30/21: Patient on 15 L high flow O2, encourage proning yes abdomen, continue high dose of steroid. Pulmonary and ID following, follow inflammatory markers. 05/31: Patient on 35 L high flow O2 today, continue higher dose of steroid, continue to follow inflammatory markers, guarded prognosis, 06/01: Patient remains on high flow O2, 30 L. Continue empiric steroid, follow inflammatory markers. Completed remdesivir. Guarded prognosis 06/02/21: Patient remains on 30 L high flow O2, continue empiric steroid, follow inflammatory markers, guarded prognosis. ID and pulmonary following. 05/03/21: Patient on 25 mm high flow O2 today, continue empiric steroid continue to follow inflammatory markers, ordered A1c, ID and pulmonary care following. Guarded prognosis. 05/04/21; remains on high flow O2, vitals otherwise stable. Continue empiric steroid. Continue to follow inflammatory markers. Guarded prognosis. Wean off O2 as tolerated. 05/05/21: Patient appears to have no discomfort, but remains on high flow O2. Wean off O2 as tolerated per pulmonary. Continue to follow inflammatory markers. Guarded prognosis. 05/06/21: Chest x-ray has improved, pulmonary recommended aggressive weaning, remains on high flow O2. Continue to follow inflammatory markers. Guarded prognosis. 06/08/2021 patient was on 25 L of O2 now. Now has been weaned down to 6 L nasal cannula. We will continue to wean as tolerated. When 3 L anticipate discharge 24 to 48 hours. All questions and concerns answered. 06/09/2021. Patient with significant improvement. Wean from 25 L down to 4 L. We did provide walk test. And patient became hypoxic to 84 and had to be placed back on 6 L. While patient has shown significant improvement continues to require hospitalization. Objective - Constitutional Vitals: Vital Signs - 12hr 06/09/21 06/09/21 05:09 09:10 Temperature 97.8 F Pulse Rate 60 Respiratory 20 Rate Blood Pressure 131/85 O2 Sat by Pulse 95 95 Oximetry General appearance: Present: no acute distress, well-nourished - EENT Eyes: PERRL, EOM intact ENT: hearing intact, clear oral mucosa Ears: bilateral: normal - Neck Neck: supple, normal ROM - Respiratory Respiratory effort: normal Respiratory: bilateral: diminished - Breasts Breasts: normal - Cardiovascular Rhythm: regular Heart Sounds: Present: S1 & S2. Absent: gallop, rub Extremities: pulses intact, No edema, normal color, Full ROM - Gastrointestinal General gastrointestinal: Present: soft, non-tender, non-distended, normal bowel sounds - Genitourinary Male genitourinary: normal - Integumentary Integumentary: clear, warm, dry - Musculoskeletal Musculoskeletal: 1, strength equal bilaterally - Neurologic Neurologic: moves all extremities - Psychiatric Psychiatric: memory intact, appropriate mood/affect, intact judgment & insight - Labs CBC & Chem 7: 06/04/21 15:14 06/06/21 03:52 Labs: Abnormal lab results 06/08/21 06/08/21 Range/Units 16:39 22:18 POC Glucose 219 H 272 H (70-105) mg/dL
--- NOTE | 2021-06-09 13:54 | Progress Note ---
Assessment and Plan 46 y/o obese male admitted with acute respiratory failure secondary to COVID 19 06/09/21: Continue to wean, should be able to drop to at least 4. Will drop steroids to 60q8. Proning should continue. Will need walk test prior to discharge to determine oxygen needs. 06/08/21: Now down to nasal cannula at 6 with good sats. Promising situation. Continue to wean as tolerated. Hopeful discharge in the next 24-48 hrs. 06/07/21: Still no further weaning. Not sure why he cant. Documented sats are good. Guarded prognosis 06/06/21: Wean HFNC, has been stable the last 2 days, should be able to. CXR actually is improved so may have just been a transient dip. Need to be more aggressive with weaning. Prognosis remains guarded. 06/05/21: COntinue to wean as tolerated. Needs repeat CXR as I am not sure why his oxygen requirement is increasing. Guarded prognosis. 06/02/21: Requirement continues to improve. Continue TID solumedrol with proning. Prognosis is still guarded. 06/01/21: Continue TID solumedrol. Prone as tolerated. Guarded prognosis. 05/31/21: Will increase to Solumedrol 125 TID starting now. 05/30/21: BID steroids for one more day. If not weaning then will put on solumedrol 125 TID. Appears patient is cooperating with all therapy now. 05/29/21: BID steroids, continue for 48 hours. Took prophylaxis last night for DVT. May need large doses of steroids. Guarded prognosis. 05/28/21: Continue BID steroids given obesity. Continue for another 72 hours. Patient refusing prophylaxis for DVT as D-Dimer continues to rise. COVID patient's are prone to be hypercoaguable. COntinue Remdesivir 1. Increased steroids to 10 BID given obesity. If no improvement in 96 hours then will change to high dose solumedrol 2. Remdesivir 3. Actemra pending availability 4. Prone 5. Guarded prognosis. Subjective Date of service: 06/09/21 Principal diagnosis: COVID-19 pneumonia Interval history: Still on 6 liters. Good sats. Objective Vital Signs - 12hr 06/09/21 06/09/21 05:09 09:10 Temperature 97.8 F Pulse Rate 60 Respiratory 20 Rate Blood Pressure 131/85 O2 Sat by Pulse 95 95 Oximetry CBC and BMP: 06/04/21 15:14 06/06/21 03:52 ABG, PT/INR, D-dimer: PT/INR, D-dimer D-Dimer 551.86 ng/mlDDU (0-234) H 06/07/21 13:36 Abnormal lab findings: Abnormal Labs 05/24/21 05/24/21 05/24/21 11:19 11:19 11:19 WBC RBC Hgb Hct MCHC 35 H RDW Plt Count Lymph % (Auto) 7.6 L [place] % (Auto) 10.2 H Lymph # (Auto) 0.4 L Seg Neutrophils % 82.0 H Seg Neuts % (Manual) Lymphocytes % (Manual) Seg Neutrophils # Seg Neutrophils # Man Lymphocytes # (Manual) Monocytes # (Manual) D-Dimer 809.12 H Sodium 131 L Chloride 96.9 L Carbon Dioxide BUN Creatinine Glucose 180 H POC Glucose Hemoglobin A1c Calcium Ferritin Lactate Dehydrogenase C-Reactive Protein Albumin 3.6 L Coronavirus (PCR) 05/24/21 05/24/21 05/24/21 11:19 11:19 20:30 WBC RBC Hgb Hct MCHC RDW Plt Count Lymph % (Auto) [place] % (Auto) Lymph # (Auto) Seg Neutrophils % Seg Neuts % (Manual) Lymphocytes % (Manual) Seg Neutrophils # Seg Neutrophils # Man Lymphocytes # (Manual) Monocytes # (Manual) D-Dimer Sodium Chloride Carbon Dioxide BUN Creatinine Glucose POC Glucose Hemoglobin A1c Calcium Ferritin 1761.0 H Lactate Dehydrogenase 491 H C-Reactive Protein 22.00 H 19.30 H Albumin Coronavirus (PCR) 05/24/21 05/24/21 05/24/21 20:30 20:30 20:30 WBC RBC Hgb Hct MCHC RDW Plt Count Lymph % (Auto) [place] % (Auto) Lymph # (Auto) Seg Neutrophils % Seg Neuts % (Manual) Lymphocytes % (Manual) Seg Neutrophils # Seg Neutrophils # Man Lymphocytes # (Manual) Monocytes # (Manual) D-Dimer 773.79 H Sodium Chloride Carbon Dioxide BUN Creatinine Glucose 186 H POC Glucose Hemoglobin A1c Calcium Ferritin 1632.0 H Lactate Dehydrogenase 433 H C-Reactive Protein 18.90 H Albumin Coronavirus (PCR) 08/26/21 08/26/21 08/26/21 07:48 07:48 14:42 WBC RBC Hgb Hct MCHC 35 H RDW Plt Count Lymph % (Auto) 7.8 L [place] % (Auto) Lymph # (Auto) 0.7 L Seg Neutrophils % 85.6 H Seg Neuts % (Manual) Lymphocytes % (Manual) Seg Neutrophils # 8.1 H Seg Neutrophils # Man Lymphocytes # (Manual) Monocytes # (Manual) D-Dimer Sodium 136 L Chloride Carbon Dioxide 20 L BUN Creatinine 0.6 L 0.7 L Glucose 178 H 271 H POC Glucose Hemoglobin A1c Calcium 8.3 L Ferritin Lactate Dehydrogenase C-Reactive Protein Albumin 3.0 L 3.0 L Coronavirus (PCR) 05/25/21 05/26/21 05/27/21 Unknown 05:50 04:14 WBC RBC Hgb Hct MCHC RDW Plt Count Lymph % (Auto) [place] % (Auto) Lymph # (Auto) Seg Neutrophils % Seg Neuts % (Manual) Lymphocytes % (Manual) Seg Neutrophils # Seg Neutrophils # Man Lymphocytes # (Manual) Monocytes # (Manual) D-Dimer Sodium Chloride Carbon Dioxide BUN Creatinine 0.6 L Glucose 206 H 182 H POC Glucose Hemoglobin A1c Calcium Ferritin Lactate Dehydrogenase C-Reactive Protein Albumin 3.2 L 3.1 L Coronavirus (PCR) Positive A 05/27/21 05/27/21 05/27/21 04:14 10:00 10:00 WBC RBC Hgb Hct MCHC RDW Plt Count Lymph % (Auto) [place] % (Auto) Lymph # (Auto) Seg Neutrophils % Seg Neuts % (Manual) Lymphocytes % (Manual) Seg Neutrophils # Seg Neutrophils # Man Lymphocytes # (Manual) Monocytes # (Manual) D-Dimer 1730.61 H Sodium Chloride Carbon Dioxide BUN Creatinine Glucose POC Glucose Hemoglobin A1c Calcium Ferritin 1694.0 H Lactate Dehydrogenase 604 H C-Reactive Protein 10.40 H Albumin Coronavirus (PCR) 05/28/21 05/28/21 05/28/21 04:05 04:05 04:05 WBC RBC Hgb Hct MCHC RDW Plt Count 449 H Lymph % (Auto) [place] % (Auto) Lymph # (Auto) Seg Neutrophils % Seg Neuts % (Manual) 94.0 H Lymphocytes % (Manual) 3.0 L Seg Neutrophils # Seg Neutrophils # Man 9.8 H Lymphocytes # (Manual) 0.3 L Monocytes # (Manual) D-Dimer 3141.44 H Sodium Chloride Carbon Dioxide BUN Creatinine 0.6 L Glucose 248 H POC Glucose Hemoglobin A1c Calcium Ferritin Lactate Dehydrogenase C-Reactive Protein Albumin 3.2 L Coronavirus (PCR) 05/28/21 05/28/21 05/28/21 04:05 04:05 23:41 WBC RBC Hgb Hct MCHC RDW Plt Count Lymph % (Auto) [place] % (Auto) Lymph # (Auto) Seg Neutrophils % Seg Neuts % (Manual) Lymphocytes % (Manual) Seg Neutrophils # Seg Neutrophils # Man Lymphocytes # (Manual) Monocytes # (Manual) D-Dimer Sodium Chloride Carbon Dioxide BUN Creatinine Glucose POC Glucose 259 H Hemoglobin A1c Calcium Ferritin 1374.0 H Lactate Dehydrogenase 460 H C-Reactive Protein 9.00 H Albumin Coronavirus (PCR) 05/29/21 05/29/21 05/29/21 07:40 12:04 16:20 WBC RBC Hgb Hct MCHC RDW Plt Count Lymph % (Auto) [place] % (Auto) Lymph # (Auto) Seg Neutrophils % Seg Neuts % (Manual) Lymphocytes % (Manual) Seg Neutrophils # Seg Neutrophils # Man Lymphocytes # (Manual) Monocytes # (Manual) D-Dimer Sodium Chloride Carbon Dioxide BUN Creatinine Glucose POC Glucose 276 H 296 H 250 H Hemoglobin A1c Calcium Ferritin Lactate Dehydrogenase C-Reactive Protein Albumin Coronavirus (PCR) 05/29/21 05/30/21 05/30/21 20:54 07:01 07:01 WBC 16.3 H RBC Hgb Hct MCHC RDW Plt Count 595 H Lymph % (Auto) [place] % (Auto) Lymph # (Auto) Seg Neutrophils % Seg Neuts % (Manual) 91.0 H Lymphocytes % (Manual) 2.0 L Seg Neutrophils # Seg Neutrophils # Man 14.8 H Lymphocytes # (Manual) 0.3 L Monocytes # (Manual) 1.1 H D-Dimer 1223.46 H Sodium Chloride Carbon Dioxide BUN Creatinine Glucose POC Glucose 248 H Hemoglobin A1c Calcium Ferritin Lactate Dehydrogenase C-Reactive Protein Albumin Coronavirus (PCR) 05/30/21 05/30/21 05/30/21 07:01 07:01 08:02 WBC RBC Hgb Hct MCHC RDW Plt Count Lymph % (Auto) [place] % (Auto) Lymph # (Auto) Seg Neutrophils % Seg Neuts % (Manual) Lymphocytes % (Manual) Seg Neutrophils # Seg Neutrophils # Man Lymphocytes # (Manual) Monocytes # (Manual) D-Dimer Sodium Chloride Carbon Dioxide BUN 21 H Creatinine 0.5 L Glucose 210 H POC Glucose 198 H Hemoglobin A1c Calcium Ferritin 1066.0 H Lactate Dehydrogenase 379 H C-Reactive Protein 2.80 H Albumin 3.0 L Coronavirus (PCR) 05/30/21 05/30/21 05/30/21 11:56 16:07 20:49 WBC RBC Hgb Hct MCHC RDW Plt Count Lymph % (Auto) [place] % (Auto) Lymph # (Auto) Seg Neutrophils % Seg Neuts % (Manual) Lymphocytes % (Manual) Seg Neutrophils # Seg Neutrophils # Man Lymphocytes # (Manual) Monocytes # (Manual) D-Dimer Sodium Chloride Carbon Dioxide BUN Creatinine Glucose POC Glucose 256 H 165 H 260 H Hemoglobin A1c Calcium Ferritin Lactate Dehydrogenase C-Reactive Protein Albumin Coronavirus (PCR) 05/31/21 05/31/21 05/31/21 08:13 11:32 17:14 WBC RBC Hgb Hct MCHC RDW Plt Count Lymph % (Auto) [place] % (Auto) Lymph # (Auto) Seg Neutrophils % Seg Neuts % (Manual) Lymphocytes % (Manual) Seg Neutrophils # Seg Neutrophils # Man Lymphocytes # (Manual) Monocytes # (Manual) D-Dimer Sodium Chloride Carbon Dioxide BUN Creatinine Glucose POC Glucose 254 H 257 H 322 H Hemoglobin A1c Calcium Ferritin Lactate Dehydrogenase C-Reactive Protein Albumin Coronavirus (PCR) 05/31/21 06/01/21 06/01/21 21:42 07:50 11:09 WBC RBC Hgb Hct MCHC RDW Plt Count Lymph % (Auto) [place] % (Auto) Lymph # (Auto) Seg Neutrophils % Seg Neuts % (Manual) Lymphocytes % (Manual) Seg Neutrophils # Seg Neutrophils # Man Lymphocytes # (Manual) Monocytes # (Manual) D-Dimer Sodium Chloride Carbon Dioxide BUN Creatinine Glucose POC Glucose 261 H 237 H 274 H Hemoglobin A1c Calcium Ferritin Lactate Dehydrogenase C-Reactive Protein Albumin Coronavirus (PCR) 06/01/21 06/01/21 06/02/21 16:51 20:54 03:55 WBC 25.4 H RBC 5.11 H Hgb 15.6 H Hct 46.7 H MCHC RDW 13.1 L Plt Count 568 H Lymph % (Auto) [place] % (Auto) Lymph # (Auto) Seg Neutrophils % Seg Neuts % (Manual) 91.0 H Lymphocytes % (Manual) 3.0 L Seg Neutrophils # Seg Neutrophils # Man 23.1 H Lymphocytes # (Manual) 0.8 L Monocytes # (Manual) 1.5 H D-Dimer Sodium Chloride Carbon Dioxide BUN Creatinine Glucose POC Glucose 239 H 275 H Hemoglobin A1c Calcium Ferritin Lactate Dehydrogenase C-Reactive Protein Albumin Coronavirus (PCR) 06/02/21 06/02/21 06/02/21 03:55 11:19 16:53 WBC RBC Hgb Hct MCHC RDW Plt Count Lymph % (Auto) [place] % (Auto) Lymph # (Auto) Seg Neutrophils % Seg Neuts % (Manual) Lymphocytes % (Manual) Seg Neutrophils # Seg Neutrophils # Man Lymphocytes # (Manual) Monocytes # (Manual) D-Dimer Sodium 132 L Chloride 96.0 L Carbon Dioxide BUN 23 H Creatinine 0.6 L Glucose 245 H POC Glucose 263 H 264 H Hemoglobin A1c Calcium Ferritin Lactate Dehydrogenase C-Reactive Protein Albumin Coronavirus (PCR) 06/02/21 06/03/21 06/03/21 21:20 05:29 07:31 WBC RBC Hgb Hct MCHC RDW Plt Count Lymph % (Auto) [place] % (Auto) Lymph # (Auto) Seg Neutrophils % Seg Neuts % (Manual) Lymphocytes % (Manual) Seg Neutrophils # Seg Neutrophils # Man Lymphocytes # (Manual) Monocytes # (Manual) D-Dimer Sodium Chloride Carbon Dioxide BUN 22 H Creatinine 0.6 L Glucose 246 H POC Glucose 341 H 231 H Hemoglobin A1c Calcium 8.2 L Ferritin Lactate Dehydrogenase C-Reactive Protein Albumin Coronavirus (PCR) 06/03/21 06/03/21 06/03/21 12:17 15:00 16:14 WBC RBC Hgb Hct MCHC RDW Plt Count Lymph % (Auto) [place] % (Auto) Lymph # (Auto) Seg Neutrophils % Seg Neuts % (Manual) Lymphocytes % (Manual) Seg Neutrophils # Seg Neutrophils # Man Lymphocytes # (Manual) Monocytes # (Manual) D-Dimer Sodium Chloride Carbon Dioxide BUN Creatinine Glucose POC Glucose 187 H 244 H Hemoglobin A1c 7.8 H Calcium Ferritin Lactate Dehydrogenase C-Reactive Protein Albumin Coronavirus (PCR) 06/03/21 06/04/21 06/04/21 22:00 08:17 12:01 WBC RBC Hgb Hct MCHC RDW Plt Count Lymph % (Auto) [place] % (Auto) Lymph # (Auto) Seg Neutrophils % Seg Neuts % (Manual) Lymphocytes % (Manual) Seg Neutrophils # Seg Neutrophils # Man Lymphocytes # (Manual) Monocytes # (Manual) D-Dimer Sodium Chloride Carbon Dioxide BUN Creatinine Glucose POC Glucose 234 H 237 H 176 H Hemoglobin A1c Calcium Ferritin Lactate Dehydrogenase C-Reactive Protein Albumin Coronavirus (PCR) 06/04/21 06/04/21 06/04/21 15:14 15:14 15:14 WBC 24.2 H RBC Hgb Hct MCHC RDW Plt Count 484 H Lymph % (Auto) [place] % (Auto) Lymph # (Auto) Seg Neutrophils % Seg Neuts % (Manual) 95.0 H Lymphocytes % (Manual) Seg Neutrophils # Seg Neutrophils # Man 23.0 H Lymphocytes # (Manual) 0.0 L Monocytes # (Manual) D-Dimer 612.11 H Sodium 135 L Chloride Carbon Dioxide BUN 26 H Creatinine 0.7 L Glucose 263 H POC Glucose Hemoglobin A1c Calcium Ferritin Lactate Dehydrogenase C-Reactive Protein Albumin Coronavirus (PCR) 06/04/21 06/04/21 06/04/21 15:14 15:14 15:40 WBC RBC Hgb Hct MCHC RDW Plt Count Lymph % (Auto) [place] % (Auto) Lymph # (Auto) Seg Neutrophils % Seg Neuts % (Manual) Lymphocytes % (Manual) Seg Neutrophils # Seg Neutrophils # Man Lymphocytes # (Manual) Monocytes # (Manual) D-Dimer Sodium Chloride Carbon Dioxide BUN Creatinine Glucose POC Glucose 232 H Hemoglobin A1c Calcium Ferritin 1264.0 H Lactate Dehydrogenase 303 H C-Reactive Protein Albumin Coronavirus (PCR) 06/04/21 06/05/21 06/05/21 21:26 07:41 11:35 WBC RBC Hgb Hct MCHC RDW Plt Count Lymph % (Auto) [place] % (Auto) Lymph # (Auto) Seg Neutrophils % Seg Neuts % (Manual) Lymphocytes % (Manual) Seg Neutrophils # Seg Neutrophils # Man Lymphocytes # (Manual) Monocytes # (Manual) D-Dimer Sodium Chloride Carbon Dioxide BUN Creatinine Glucose POC Glucose 272 H 117 H 229 H Hemoglobin A1c Calcium Ferritin Lactate Dehydrogenase C-Reactive Protein Albumin Coronavirus (PCR) 06/05/21 06/05/21 06/06/21 16:30 21:25 03:52 WBC RBC Hgb Hct MCHC RDW Plt Count Lymph % (Auto) [place] % (Auto) Lymph # (Auto) Seg Neutrophils % Seg Neuts % (Manual) Lymphocytes % (Manual) Seg Neutrophils # Seg Neutrophils # Man Lymphocytes # (Manual) Monocytes # (Manual) D-Dimer Sodium Chloride Carbon Dioxide BUN 25 H Creatinine 0.6 L Glucose 199 H POC Glucose 246 H 253 H Hemoglobin A1c Calcium 8.0 L Ferritin Lactate Dehydrogenase C-Reactive Protein Albumin Coronavirus (PCR) 06/06/21 06/06/21 06/06/21 08:37 11:26 16:10 WBC RBC Hgb Hct MCHC RDW Plt Count Lymph % (Auto) [place] % (Auto) Lymph # (Auto) Seg Neutrophils % Seg Neuts % (Manual) Lymphocytes % (Manual) Seg Neutrophils # Seg Neutrophils # Man Lymphocytes # (Manual) Monocytes # (Manual) D-Dimer Sodium Chloride Carbon Dioxide BUN Creatinine Glucose POC Glucose 172 H 188 H 239 H Hemoglobin A1c Calcium Ferritin Lactate Dehydrogenase C-Reactive Protein Albumin Coronavirus (PCR) 06/06/21 06/07/21 06/07/21 21:56 07:30 11:11 WBC RBC Hgb Hct MCHC RDW Plt Count Lymph % (Auto) [place] % (Auto) Lymph # (Auto) Seg Neutrophils % Seg Neuts % (Manual) Lymphocytes % (Manual) Seg Neutrophils # Seg Neutrophils # Man Lymphocytes # (Manual) Monocytes # (Manual) D-Dimer Sodium Chloride Carbon Dioxide BUN Creatinine Glucose POC Glucose 267 H 161 H 241 H Hemoglobin A1c Calcium Ferritin Lactate Dehydrogenase C-Reactive Protein Albumin Coronavirus (PCR) 06/07/21 06/07/21 06/07/21 13:36 13:36 13:36 WBC RBC Hgb Hct MCHC RDW Plt Count Lymph % (Auto) [place] % (Auto) Lymph # (Auto) Seg Neutrophils % Seg Neuts % (Manual) Lymphocytes % (Manual) Seg Neutrophils # Seg Neutrophils # Man Lymphocytes # (Manual) Monocytes # (Manual) D-Dimer 551.86 H Sodium Chloride Carbon Dioxide BUN Creatinine Glucose POC Glucose Hemoglobin A1c Calcium Ferritin 1438.0 H Lactate Dehydrogenase 299 H C-Reactive Protein Albumin Coronavirus (PCR) 06/07/21 06/07/21 06/08/21 15:59 21:50 07:53 WBC RBC Hgb Hct MCHC RDW Plt Count Lymph % (Auto) [place] % (Auto) Lymph # (Auto) Seg Neutrophils % Seg Neuts % (Manual) Lymphocytes % (Manual) Seg Neutrophils # Seg Neutrophils # Man Lymphocytes # (Manual) Monocytes # (Manual) D-Dimer Sodium Chloride Carbon Dioxide BUN Creatinine Glucose POC Glucose 268 H 244 H 146 H Hemoglobin A1c Calcium Ferritin Lactate Dehydrogenase C-Reactive Protein Albumin Coronavirus (PCR) 06/08/21 06/08/21 06/08/21 12:07 16:39 22:18 WBC RBC Hgb Hct MCHC RDW Plt Count Lymph % (Auto) [place] % (Auto) Lymph # (Auto) Seg Neutrophils % Seg Neuts % (Manual) Lymphocytes % (Manual) Seg Neutrophils # Seg Neutrophils # Man Lymphocytes # (Manual) Monocytes # (Manual) D-Dimer Sodium Chloride Carbon Dioxide BUN Creatinine Glucose POC Glucose 236 H 219 H 272 H Hemoglobin A1c Calcium Ferritin Lactate Dehydrogenase C-Reactive Protein Albumin Coronavirus (PCR) 06/09/21 13:22 WBC RBC Hgb Hct MCHC RDW Plt Count Lymph % (Auto) [place] % (Auto) Lymph # (Auto) Seg Neutrophils % Seg Neuts % (Manual) Lymphocytes % (Manual) Seg Neutrophils # Seg Neutrophils # Man Lymphocytes # (Manual) Monocytes # (Manual) D-Dimer Sodium Chloride Carbon Dioxide BUN Creatinine Glucose POC Glucose 248 H Hemoglobin A1c Calcium Ferritin Lactate Dehydrogenase C-Reactive Protein Albumin Coronavirus (PCR)
[2021-06-09] MEDS: INSULIN GLARGINE 100 UNITS/ML SUB-Q SCH (17:39)
[2021-06-09] MEDS: ENOXAPARIN 40 MG/0.4 ML INJ SUB-Q SCH (22:31)
[2021-06-10] MEDS: methylPREDNISolone Sod Succinate 125 MG/2 ML INJ IV SCH ×3 (00:17→18:19)
[2021-06-10] MEDS: BENZONATATE 100 MG CAP PO SCH ×3 (06:07→22:39)
--- NOTE | 2021-06-10 09:17 | Progress Note ---
Assessment and Plan Assessment and plan: -- COVID 19 Pneumonia Airborne and contact isolation Monitor inflammatory markers Continue IV empiric steroid IV remdesivir x 5 days completed Worsening respiratory status, status post Actemra on 05/26 Prophylactic Lovenox Ascorbic acid, zinc sulfate, vitamin D supplement Encourage the use of incentive spirometery Able to wean down to 3 L O2. Did not do well on most recent walk test. Repeat walk test in a.m. and anticipated discharge. -- Acute Hypoxic Respiratory Failure Supplemental oxygen nasal cannula now. 6 L.-Wean as tolerated. COVID-19 pneumonia. Admit CXR: Multifocal airspace disease, possible left-sided pulmonary mass. Please refer to official radiology report Admit CTA chest: Bilateral airspace disease with mildly enlarged mediastinal nodes. No suspicious mass or lymph nodes appreciated. Covid therapies as below prn albuterol Steroids weaned -- Hyponatremia Likely secondary to dehydration IV hydration with normal saline Monitor sodium level and other electrolytes --Diabetes mellitus type 2 with hyperglycemia, likely steroid-induced, A1c >7 suboptimal control. Continue sliding scale and will increase Lantus at bedtime, improved with increase long-acting insulin however remains suboptimal. Titrate Lantus. -- Elevated d-dimer CTA of the chestrule outs PE --Morbid obesity: Associated with worse outcome for COVID-19 Continue to follow clinically, dietary on board -- DVT prophylaxis Subcutaneous Lovenox Subjective Date of service: 06/10/21 Principal diagnosis: COVID-19 pneumonia Interval history: Hospital course to date 05/25/2021: Resting comfortably on encounter. Will follow up results of Covid test. Continue therapy above at this time. Will follow ID recommendations. If patient deteriorates will consult pulmonology. 05/26/2021: Resting comfortably on encounter. Patient is Covid positive. Continuing therapy with abx, steroids, remdesivir. De-escalate O2 to NC. Anticipate d/c home with O2 in 1-2 days if patient tolerates NC. 05/27/2021: Steroids increased by Pulmonology to Decadron 10 mg twice daily. May need to consider high-dose Solu-Medrol if no response in 96 hours. Patient will be encouraged to self prone. 05/28/2021: Patient remains on Ventimask. Did not tolerate de-escalation to nasal cannula. continued to encourage patient to self prone 05/29/2021: Patient remains on nonrebreather 100%. Encourage patient to get up and walk around room as he appears pretty comfortable on bedside encounter. We will continue therapy for Covid pneumonia. Will attempt de-escalation tomorrow patient continues to demonstrate improvement. 05/30/21: Patient on 15 L high flow O2, encourage proning yes abdomen, continue high dose of steroid. Pulmonary and ID following, follow inflammatory markers. 05/31: Patient on 35 L high flow O2 today, continue higher dose of steroid, continue to follow inflammatory markers, guarded prognosis, 06/01: Patient remains on high flow O2, 30 L. Continue empiric steroid, follow inflammatory markers. Completed remdesivir. Guarded prognosis 06/02/21: Patient remains on 30 L high flow O2, continue empiric steroid, follow inflammatory markers, guarded prognosis. ID and pulmonary following. 05/03/21: Patient on 25 mm high flow O2 today, continue empiric steroid continue to follow inflammatory markers, ordered A1c, ID and pulmonary care following. Guarded prognosis. 05/04/21; remains on high flow O2, vitals otherwise stable. Continue empiric steroid. Continue to follow inflammatory markers. Guarded prognosis. Wean off O2 as tolerated. 05/05/21: Patient appears to have no discomfort, but remains on high flow O2. Wean off O2 as tolerated per pulmonary. Continue to follow inflammatory markers . Guarded prognosis. 05/06/21: Chest x-ray has improved, pulmonary recommended aggressive weaning, r emains on high flow O2. Continue to follow inflammatory markers. Guarded prognosis. 06/08/2021 patient was on 25 L of O2 now. Now has been weaned down to 6 L nasal cannula. We will continue to wean as tolerated. When 3 L anticipate discharge 24 to 48 hours. All questions and concerns answered. 06/09/2021. Patient with significant improvement. Wean from 25 L down to 4 L. We did provide walk test. And patient became hypoxic to 84 and had to be placed back on 6 L. While patient has shown significant improvement continues to require hospitalization. 06/10/2021. Patient today weaned down to 3 L. Failed walk test. Had to be placed back on 6 L of oxygen. Will repeat walk test again tomorrow and anticipated discharge. Objective - Constitutional Vitals: Vital Signs - 12hr 06/09/21 06/09/21 06/10/21 22:00 23:32 00:00 Temperature 97.6 F Pulse Rate 65 Respiratory 20 Rate Blood Pressure Blood Pressure 133/81 [Left] O2 Sat by Pulse 96 95 96 Oximetry 06/10/21 05:21 Temperature 97.4 F L Pulse Rate 70 Respiratory 20 Rate Blood Pressure 131/85 Blood Pressure [Left] O2 Sat by Pulse 95 Oximetry General appearance: Present: no acute distress, well-nourished - EENT Eyes: PERRL, EOM intact ENT: hearing intact, clear oral mucosa Ears: bilateral: normal - Neck Neck: supple, normal ROM - Respiratory Respiratory effort: normal Respiratory: bilateral: CTA, diminished - Breasts Breasts: normal - Cardiovascular Rhythm: regular Heart Sounds: Present: S1 & S2. Absent: gallop, rub Extremities: pulses intact, No edema, normal color, Full ROM - Gastrointestinal General gastrointestinal: Present: soft, non-tender, non-distended, normal bowel sounds - Genitourinary Male genitourinary: normal - Integumentary Integumentary: clear, warm, dry - Musculoskeletal Musculoskeletal: 1, strength equal bilaterally - Neurologic Neurologic: moves all extremities - Psychiatric Psychiatric: memory intact, appropriate mood/affect, intact judgment & insight - Labs CBC & Chem 7: 06/04/21 15:14 06/06/21 03:52 Labs: Abnormal lab results 06/09/21 06/09/21 06/09/21 Range/Units 13:22 17:13 21:22 POC Glucose 248 H 257 H 326 H (70-105) mg/dL 06/10/21 Range/Units 07:33 POC Glucose 183 H (70-105) mg/dL
[2021-06-10] MEDS: INSULIN LISPRO 100 UNIT/ML SUB-Q SCH ×4 (09:28→22:46)
[2021-06-10] MEDS: FAMOTIDINE 20 MG TAB PO SCH ×2 (09:29→22:39)
[2021-06-10] MEDS: CHOLECALCIFEROL (VIT D3) 1000 UNIT (25 mcg) TAB PO SCH (09:29)
[2021-06-10] MEDS: ASCORBIC ACID 500 MG TAB PO SCH (09:29)
[2021-06-10] MEDS: ZINC SULFATE 220 MG CAP PO SCH (09:29)
--- NOTE | 2021-06-10 12:22 | Progress Note ---
Assessment and Plan 46 y/o obese male admitted with acute respiratory failure secondary to COVID 19 06/10/21: Continue to wean as tolerated. Suggest walk test to assess oxygen needs. maybe able to discharge tomorrow. If so would suggest the following taper: Prednisone 60mg daily for 5 days, then 40 daily for 5 days, then 20 daily for 5 days then 10 daily for 5 days then stop. 06/09/21: Continue to wean, should be able to drop to at least 4. Will drop steroids to 60q8. Proning should continue. Will need walk test prior to discharge to determine oxygen needs. 06/08/21: Now down to nasal cannula at 6 with good sats. Promising situation. Continue to wean as tolerated. Hopeful discharge in the next 24-48 hrs. 06/07/21: Still no further weaning. Not sure why he cant. Documented sats are good. Guarded prognosis 06/06/21: Wean HFNC, has been stable the last 2 days, should be able to. CXR actually is improved so may have just been a transient dip. Need to be more aggressive with weaning. Prognosis remains guarded. 06/05/21: COntinue to wean as tolerated. Needs repeat CXR as I am not sure why his oxygen requirement is increasing. Guarded prognosis. 06/02/21: Requirement continues to improve. Continue TID solumedrol with proning. Prognosis is still guarded. 06/01/21: Continue TID solumedrol. Prone as tolerated. Guarded prognosis. 05/31/21: Will increase to Solumedrol 125 TID starting now. 05/30/21: BID steroids for one more day. If not weaning then will put on solumedrol 125 TID. Appears patient is cooperating with all therapy now. 05/29/21: BID steroids, continue for 48 hours. Took prophylaxis last night for DVT. May need large doses of steroids. Guarded prognosis. 05/28/21: Continue BID steroids given obesity. Continue for another 72 hours. Patient refusing prophylaxis for DVT as D-Dimer continues to rise. COVID patient's are prone to be hypercoaguable. COntinue Remdesivir 1. Increased steroids to 10 BID given obesity. If no improvement in 96 hours then will change to high dose solumedrol 2. Remdesivir 3. Actemra pending availability 4. Prone 5. Guarded prognosis. Subjective Date of service: 06/10/21 Principal diagnosis: COVID-19 pneumonia Interval history: Down to 4 liters. Good sats. Objective Vital Signs - 12hr 06/10/21 05:21 Temperature 97.4 F L Pulse Rate 70 Respiratory 20 Rate Blood Pressure 131/85 O2 Sat by Pulse 95 Oximetry CBC and BMP: 06/04/21 15:14 06/06/21 03:52 ABG, PT/INR, D-dimer: PT/INR, D-dimer D-Dimer 551.86 ng/mlDDU (0-234) H 06/07/21 13:36 Abnormal lab findings: Abnormal Labs 05/24/21 05/24/21 05/24/21 11:19 11:19 11:19 WBC RBC Hgb Hct MCHC 35 H RDW Plt Count Lymph % (Auto) 7.6 L [place] % (Auto) 10.2 H Lymph # (Auto) 0.4 L Seg Neutrophils % 82.0 H Seg Neuts % (Manual) Lymphocytes % (Manual) Seg Neutrophils # Seg Neutrophils # Man Lymphocytes # (Manual) Monocytes # (Manual) D-Dimer 809.12 H Sodium 131 L Chloride 96.9 L Carbon Dioxide BUN Creatinine Glucose 180 H POC Glucose Hemoglobin A1c Calcium Ferritin Lactate Dehydrogenase C-Reactive Protein Albumin 3.6 L Coronavirus (PCR) 05/24/21 05/24/21 05/24/21 11:19 11:19 20:30 WBC RBC Hgb Hct MCHC RDW Plt Count Lymph % (Auto) [place] % (Auto) Lymph # (Auto) Seg Neutrophils % Seg Neuts % (Manual) Lymphocytes % (Manual) Seg Neutrophils # Seg Neutrophils # Man Lymphocytes # (Manual) Monocytes # (Manual) D-Dimer Sodium Chloride Carbon Dioxide BUN Creatinine Glucose POC Glucose Hemoglobin A1c Calcium Ferritin 1761.0 H Lactate Dehydrogenase 491 H C-Reactive Protein 22.00 H 19.30 H Albumin Coronavirus (PCR) 05/24/21 05/24/21 05/24/21 20:30 20:30 20:30 WBC RBC Hgb Hct MCHC RDW Plt Count Lymph % (Auto) [place] % (Auto) Lymph # (Auto) Seg Neutrophils % Seg Neuts % (Manual) Lymphocytes % (Manual) Seg Neutrophils # Seg Neutrophils # Man Lymphocytes # (Manual) Monocytes # (Manual) D-Dimer 773.79 H Sodium Chloride Carbon Dioxide BUN Creatinine Glucose 186 H POC Glucose Hemoglobin A1c Calcium Ferritin 1632.0 H Lactate Dehydrogenase 433 H C-Reactive Protein 18.90 H Albumin Coronavirus (PCR) 05/25/21 05/25/21 05/25/21 07:48 07:48 14:42 WBC RBC Hgb Hct MCHC 35 H RDW Plt Count Lymph % (Auto) 7.8 L [place] % (Auto) Lymph # (Auto) 0.7 L Seg Neutrophils % 85.6 H Seg Neuts % (Manual) Lymphocytes % (Manual) Seg Neutrophils # 8.1 H Seg Neutrophils # Man Lymphocytes # (Manual) Monocytes # (Manual) D-Dimer Sodium 136 L Chloride Carbon Dioxide 20 L BUN Creatinine 0.6 L 0.7 L Glucose 178 H 271 H POC Glucose Hemoglobin A1c Calcium 8.3 L Ferritin Lactate Dehydrogenase C-Reactive Protein Albumin 3.0 L 3.0 L Coronavirus (PCR) 05/25/21 05/26/21 05/27/21 Unknown 05:50 04:14 WBC RBC Hgb Hct MCHC RDW Plt Count Lymph % (Auto) [place] % (Auto) Lymph # (Auto) Seg Neutrophils % Seg Neuts % (Manual) Lymphocytes % (Manual) Seg Neutrophils # Seg Neutrophils # Man Lymphocytes # (Manual) Monocytes # (Manual) D-Dimer Sodium Chloride Carbon Dioxide BUN Creatinine 0.6 L Glucose 206 H 182 H POC Glucose Hemoglobin A1c Calcium Ferritin Lactate Dehydrogenase C-Reactive Protein Albumin 3.2 L 3.1 L Coronavirus (PCR) Positive A 05/27/21 05/27/21 05/27/21 04:14 10:00 10:00 WBC RBC Hgb Hct MCHC RDW Plt Count Lymph % (Auto) [place] % (Auto) Lymph # (Auto) Seg Neutrophils % Seg Neuts % (Manual) Lymphocytes % (Manual) Seg Neutrophils # Seg Neutrophils # Man Lymphocytes # (Manual) Monocytes # (Manual) D-Dimer 1730.61 H Sodium Chloride Carbon Dioxide BUN Creatinine Glucose POC Glucose Hemoglobin A1c Calcium Ferritin 1694.0 H Lactate Dehydrogenase 604 H C-Reactive Protein 10.40 H Albumin Coronavirus (PCR) 05/28/21 05/28/21 05/28/21 04:05 04:05 04:05 WBC RBC Hgb Hct MCHC RDW Plt Count 449 H Lymph % (Auto) [place] % (Auto) Lymph # (Auto) Seg Neutrophils % Seg Neuts % (Manual) 94.0 H Lymphocytes % (Manual) 3.0 L Seg Neutrophils # Seg Neutrophils # Man 9.8 H Lymphocytes # (Manual) 0.3 L Monocytes # (Manual) D-Dimer 3141.44 H Sodium Chloride Carbon Dioxide BUN Creatinine 0.6 L Glucose 248 H POC Glucose Hemoglobin A1c Calcium Ferritin Lactate Dehydrogenase C-Reactive Protein Albumin 3.2 L Coronavirus (PCR) 05/28/21 05/28/21 05/28/21 04:05 04:05 23:41 WBC RBC Hgb Hct MCHC RDW Plt Count Lymph % (Auto) [place] % (Auto) Lymph # (Auto) Seg Neutrophils % Seg Neuts % (Manual) Lymphocytes % (Manual) Seg Neutrophils # Seg Neutrophils # Man Lymphocytes # (Manual) Monocytes # (Manual) D-Dimer Sodium Chloride Carbon Dioxide BUN Creatinine Glucose POC Glucose 259 H Hemoglobin A1c Calcium Ferritin 1374.0 H Lactate Dehydrogenase 460 H C-Reactive Protein 9.00 H Albumin Coronavirus (PCR) 05/29/21 05/29/21 05/29/21 07:40 12:04 16:20 WBC RBC Hgb Hct MCHC RDW Plt Count Lymph % (Auto) [place] % (Auto) Lymph # (Auto) Seg Neutrophils % Seg Neuts % (Manual) Lymphocytes % (Manual) Seg Neutrophils # Seg Neutrophils # Man Lymphocytes # (Manual) Monocytes # (Manual) D-Dimer Sodium Chloride Carbon Dioxide BUN Creatinine Glucose POC Glucose 276 H 296 H 250 H Hemoglobin A1c Calcium Ferritin Lactate Dehydrogenase C-Reactive Protein Albumin Coronavirus (PCR) 05/29/21 05/30/21 05/30/21 20:54 07:01 07:01 WBC 16.3 H RBC Hgb Hct MCHC RDW Plt Count 595 H Lymph % (Auto) [place] % (Auto) Lymph # (Auto) Seg Neutrophils % Seg Neuts % (Manual) 91.0 H Lymphocytes % (Manual) 2.0 L Seg Neutrophils # Seg Neutrophils # Man 14.8 H Lymphocytes # (Manual) 0.3 L Monocytes # (Manual) 1.1 H D-Dimer 1223.46 H Sodium Chloride Carbon Dioxide BUN Creatinine Glucose POC Glucose 248 H Hemoglobin A1c Calcium Ferritin Lactate Dehydrogenase C-Reactive Protein Albumin Coronavirus (PCR) 05/30/21 05/30/21 05/30/21 07:01 07:01 08:02 WBC RBC Hgb Hct MCHC RDW Plt Count Lymph % (Auto) [place] % (Auto) Lymph # (Auto) Seg Neutrophils % Seg Neuts % (Manual) Lymphocytes % (Manual) Seg Neutrophils # Seg Neutrophils # Man Lymphocytes # (Manual) Monocytes # (Manual) D-Dimer Sodium Chloride Carbon Dioxide BUN 21 H Creatinine 0.5 L Glucose 210 H POC Glucose 198 H Hemoglobin A1c Calcium Ferritin 1066.0 H Lactate Dehydrogenase 379 H C-Reactive Protein 2.80 H Albumin 3.0 L Coronavirus (PCR) 05/30/21 05/30/21 05/30/21 11:56 16:07 20:49 WBC RBC Hgb Hct MCHC RDW Plt Count Lymph % (Auto) [place] % (Auto) Lymph # (Auto) Seg Neutrophils % Seg Neuts % (Manual) Lymphocytes % (Manual) Seg Neutrophils # Seg Neutrophils # Man Lymphocytes # (Manual) Monocytes # (Manual) D-Dimer Sodium Chloride Carbon Dioxide BUN Creatinine Glucose POC Glucose 256 H 165 H 260 H Hemoglobin A1c Calcium Ferritin Lactate Dehydrogenase C-Reactive Protein Albumin Coronavirus (PCR) 05/31/21 05/31/21 05/31/21 08:13 11:32 17:14 WBC RBC Hgb Hct MCHC RDW Plt Count Lymph % (Auto) [place] % (Auto) Lymph # (Auto) Seg Neutrophils % Seg Neuts % (Manual) Lymphocytes % (Manual) Seg Neutrophils # Seg Neutrophils # Man Lymphocytes # (Manual) Monocytes # (Manual) D-Dimer Sodium Chloride Carbon Dioxide BUN Creatinine Glucose POC Glucose 254 H 257 H 322 H Hemoglobin A1c Calcium Ferritin Lactate Dehydrogenase C-Reactive Protein Albumin Coronavirus (PCR) 05/31/21 06/01/21 06/01/21 21:42 07:50 11:09 WBC RBC Hgb Hct MCHC RDW Plt Count Lymph % (Auto) [place] % (Auto) Lymph # (Auto) Seg Neutrophils % Seg Neuts % (Manual) Lymphocytes % (Manual) Seg Neutrophils # Seg Neutrophils # Man Lymphocytes # (Manual) Monocytes # (Manual) D-Dimer Sodium Chloride Carbon Dioxide BUN Creatinine Glucose POC Glucose 261 H 237 H 274 H Hemoglobin A1c Calcium Ferritin Lactate Dehydrogenase C-Reactive Protein Albumin Coronavirus (PCR) 06/01/21 06/01/21 06/02/21 16:51 20:54 03:55 WBC 25.4 H RBC 5.11 H Hgb 15.6 H Hct 46.7 H MCHC RDW 13.1 L Plt Count 568 H Lymph % (Auto) [place] % (Auto) Lymph # (Auto) Seg Neutrophils % Seg Neuts % (Manual) 91.0 H Lymphocytes % (Manual) 3.0 L Seg Neutrophils # Seg Neutrophils # Man 23.1 H Lymphocytes # (Manual) 0.8 L Monocytes # (Manual) 1.5 H D-Dimer Sodium Chloride Carbon Dioxide BUN Creatinine Glucose POC Glucose 239 H 275 H Hemoglobin A1c Calcium Ferritin Lactate Dehydrogenase C-Reactive Protein Albumin Coronavirus (PCR) 06/02/21 06/02/21 06/02/21 03:55 11:19 16:53 WBC RBC Hgb Hct MCHC RDW Plt Count Lymph % (Auto) [place] % (Auto) Lymph # (Auto) Seg Neutrophils % Seg Neuts % (Manual) Lymphocytes % (Manual) Seg Neutrophils # Seg Neutrophils # Man Lymphocytes # (Manual) Monocytes # (Manual) D-Dimer Sodium 132 L Chloride 96.0 L Carbon Dioxide BUN 23 H Creatinine 0.6 L Glucose 245 H POC Glucose 263 H 264 H Hemoglobin A1c Calcium Ferritin Lactate Dehydrogenase C-Reactive Protein Albumin Coronavirus (PCR) 06/02/21 06/03/21 06/03/21 21:20 05:29 07:31 WBC RBC Hgb Hct MCHC RDW Plt Count Lymph % (Auto) [place] % (Auto) Lymph # (Auto) Seg Neutrophils % Seg Neuts % (Manual) Lymphocytes % (Manual) Seg Neutrophils # Seg Neutrophils # Man Lymphocytes # (Manual) Monocytes # (Manual) D-Dimer Sodium Chloride Carbon Dioxide BUN 22 H Creatinine 0.6 L Glucose 246 H POC Glucose 341 H 231 H Hemoglobin A1c Calcium 8.2 L Ferritin Lactate Dehydrogenase C-Reactive Protein Albumin Coronavirus (PCR) 06/03/21 06/03/21 06/03/21 12:17 15:00 16:14 WBC RBC Hgb Hct MCHC RDW Plt Count Lymph % (Auto) [place] % (Auto) Lymph # (Auto) Seg Neutrophils % Seg Neuts % (Manual) Lymphocytes % (Manual) Seg Neutrophils # Seg Neutrophils # Man Lymphocytes # (Manual) Monocytes # (Manual) D-Dimer Sodium Chloride Carbon Dioxide BUN Creatinine Glucose POC Glucose 187 H 244 H Hemoglobin A1c 7.8 H Calcium Ferritin Lactate Dehydrogenase C-Reactive Protein Albumin Coronavirus (PCR) 06/03/21 06/04/2106/04/21 22:00 08:17 12:01 WBC RBC Hgb Hct MCHC RDW Plt Count Lymph % (Auto) [place] % (Auto) Lymph # (Auto) Seg Neutrophils % Seg Neuts % (Manual) Lymphocytes % (Manual) Seg Neutrophils # Seg Neutrophils # Man Lymphocytes # (Manual) Monocytes # (Manual) D-Dimer Sodium Chloride Carbon Dioxide BUN Creatinine Glucose POC Glucose 234 H 237 H 176 H Hemoglobin A1c Calcium Ferritin Lactate Dehydrogenase C-Reactive Protein Albumin Coronavirus (PCR) 06/04/21 06/04/21 06/04/21 15:14 15:14 15:14 WBC 24.2 H RBC Hgb Hct MCHC RDW Plt Count 484 H Lymph % (Auto) [place] % (Auto) Lymph # (Auto) Seg Neutrophils % Seg Neuts % (Manual) 95.0 H Lymphocytes % (Manual) Seg Neutrophils # Seg Neutrophils # Man 23.0 H Lymphocytes # (Manual) 0.0 L Monocytes # (Manual) D-Dimer 612.11 H Sodium 135 L Chloride Carbon Dioxide BUN 26 H Creatinine 0.7 L Glucose 263 H POC Glucose Hemoglobin A1c Calcium Ferritin Lactate Dehydrogenase C-Reactive Protein Albumin Coronavirus (PCR) 06/04/21 06/04/21 06/04/21 15:14 15:14 15:40 WBC RBC Hgb Hct MCHC RDW Plt Count Lymph % (Auto) [place] % (Auto) Lymph # (Auto) Seg Neutrophils % Seg Neuts % (Manual) Lymphocytes % (Manual) Seg Neutrophils # Seg Neutrophils # Man Lymphocytes # (Manual) Monocytes # (Manual) D-Dimer Sodium Chloride Carbon Dioxide BUN Creatinine Glucose POC Glucose 232 H Hemoglobin A1c Calcium Ferritin 1264.0 H Lactate Dehydrogenase 303 H C-Reactive Protein Albumin Coronavirus (PCR) 06/04/21 06/05/21 06/05/21 21:26 07:41 11:35 WBC RBC Hgb Hct MCHC RDW Plt Count Lymph % (Auto) [place] % (Auto) Lymph # (Auto) Seg Neutrophils % Seg Neuts % (Manual) Lymphocytes % (Manual) Seg Neutrophils # Seg Neutrophils # Man Lymphocytes # (Manual) Monocytes # (Manual) D-Dimer Sodium Chloride Carbon Dioxide BUN Creatinine Glucose POC Glucose 272 H 117 H 229 H Hemoglobin A1c Calcium Ferritin Lactate Dehydrogenase C-Reactive Protein Albumin Coronavirus (PCR) 06/05/21 06/05/21 06/06/21 16:30 21:25 03:52 WBC RBC Hgb Hct MCHC RDW Plt Count Lymph % (Auto) [place] % (Auto) Lymph # (Auto) Seg Neutrophils % Seg Neuts % (Manual) Lymphocytes % (Manual) Seg Neutrophils # Seg Neutrophils # Man Lymphocytes # (Manual) Monocytes # (Manual) D-Dimer Sodium Chloride Carbon Dioxide BUN 25 H Creatinine 0.6 L Glucose 199 H POC Glucose 246 H 253 H Hemoglobin A1c Calcium 8.0 L Ferritin Lactate Dehydrogenase C-Reactive Protein Albumin Coronavirus (PCR) 06/06/21 06/06/21 06/06/21 08:37 11:26 16:10 WBC RBC Hgb Hct MCHC RDW Plt Count Lymph % (Auto) [place] % (Auto) Lymph # (Auto) Seg Neutrophils % Seg Neuts % (Manual) Lymphocytes % (Manual) Seg Neutrophils # Seg Neutrophils # Man Lymphocytes # (Manual) Monocytes # (Manual) D-Dimer Sodium Chloride Carbon Dioxide BUN Creatinine Glucose POC Glucose 172 H 188 H 239 H Hemoglobin A1c Calcium Ferritin Lactate Dehydrogenase C-Reactive Protein Albumin Coronavirus (PCR) 06/06/21 06/07/21 06/07/21 21:56 07:30 11:11 WBC RBC Hgb Hct MCHC RDW Plt Count Lymph % (Auto) [place] % (Auto) Lymph # (Auto) Seg Neutrophils % Seg Neuts % (Manual) Lymphocytes % (Manual) Seg Neutrophils # Seg Neutrophils # Man Lymphocytes # (Manual) Monocytes # (Manual) D-Dimer Sodium Chloride Carbon Dioxide BUN Creatinine Glucose POC Glucose 267 H 161 H 241 H Hemoglobin A1c Calcium Ferritin Lactate Dehydrogenase C-Reactive Protein Albumin Coronavirus (PCR) 06/07/21 06/07/21 06/07/21 13:36 13:36 13:36 WBC RBC Hgb Hct MCHC RDW Plt Count Lymph % (Auto) [place] % (Auto) Lymph # (Auto) Seg Neutrophils % Seg Neuts % (Manual) Lymphocytes % (Manual) Seg Neutrophils # Seg Neutrophils # Man Lymphocytes # (Manual) Monocytes # (Manual) D-Dimer 551.86 H Sodium Chloride Carbon Dioxide BUN Creatinine Glucose POC Glucose Hemoglobin A1c Calcium Ferritin 1438.0 H Lactate Dehydrogenase 299 H C-Reactive Protein Albumin Coronavirus (PCR) 06/07/21 06/07/21 06/08/21 15:59 21:50 07:53 WBC RBC Hgb Hct MCHC RDW Plt Count Lymph % (Auto) [place] % (Auto) Lymph # (Auto) Seg Neutrophils % Seg Neuts % (Manual) Lymphocytes % (Manual) Seg Neutrophils # Seg Neutrophils # Man Lymphocytes # (Manual) Monocytes # (Manual) D-Dimer Sodium Chloride Carbon Dioxide BUN Creatinine Glucose POC Glucose 268 H 244 H 146 H Hemoglobin A1c Calcium Ferritin Lactate Dehydrogenase C-Reactive Protein Albumin Coronavirus (PCR) 06/08/21 06/08/21 06/08/21 12:07 16:39 22:18 WBC RBC Hgb Hct MCHC RDW Plt Count Lymph % (Auto) [place] % (Auto) Lymph # (Auto) Seg Neutrophils % Seg Neuts % (Manual) Lymphocytes % (Manual) Seg Neutrophils # Seg Neutrophils # Man Lymphocytes # (Manual) Monocytes # (Manual) D-Dimer Sodium Chloride Carbon Dioxide BUN Creatinine Glucose POC Glucose 236 H 219 H 272 H Hemoglobin A1c Calcium Ferritin Lactate Dehydrogenase C-Reactive Protein Albumin Coronavirus (PCR) 06/09/21 06/09/21 06/09/21 13:22 17:13 21:22 WBC RBC Hgb Hct MCHC RDW Plt Count Lymph % (Auto) [place] % (Auto) Lymph # (Auto) Seg Neutrophils % Seg Neuts % (Manual) Lymphocytes % (Manual) Seg Neutrophils # Seg Neutrophils # Man Lymphocytes # (Manual) Monocytes # (Manual) D-Dimer Sodium Chloride Carbon Dioxide BUN Creatinine Glucose POC Glucose 248 H 257 H 326 H Hemoglobin A1c Calcium Ferritin Lactate Dehydrogenase C-Reactive Protein Albumin Coronavirus (PCR) 06/10/21 06/10/21 07:33 10:47 WBC RBC Hgb Hct MCHC RDW Plt Count Lymph % (Auto) [place] % (Auto) Lymph # (Auto) Seg Neutrophils % Seg Neuts % (Manual) Lymphocytes % (Manual) Seg Neutrophils # Seg Neutrophils # Man Lymphocytes # (Manual) Monocytes # (Manual) D-Dimer Sodium Chloride Carbon Dioxide BUN Creatinine Glucose POC Glucose 183 H 256 H Hemoglobin A1c Calcium Ferritin Lactate Dehydrogenase C-Reactive Protein Albumin Coronavirus (PCR)
[2021-06-10] MEDS: INSULIN GLARGINE 100 UNITS/ML SUB-Q SCH (18:19)
[2021-06-10] MEDS: ENOXAPARIN 40 MG/0.4 ML INJ SUB-Q SCH (22:39)
[2021-06-11] MEDS: methylPREDNISolone Sod Succinate 125 MG/2 ML INJ IV SCH ×3 (02:47→18:07)
[2021-06-11] MEDS: BENZONATATE 100 MG CAP PO SCH ×3 (05:53→21:40)
[2021-06-11] MEDS: ZINC SULFATE 220 MG CAP PO SCH (09:23)
[2021-06-11] MEDS: FAMOTIDINE 20 MG TAB PO SCH ×2 (09:23→21:40)
[2021-06-11] MEDS: CHOLECALCIFEROL (VIT D3) 1000 UNIT (25 mcg) TAB PO SCH (09:23)
[2021-06-11] MEDS: ASCORBIC ACID 500 MG TAB PO SCH (09:23)
[2021-06-11] MEDS: INSULIN LISPRO 100 UNIT/ML SUB-Q SCH ×4 (09:24→21:38)
--- NOTE | 2021-06-11 10:28 | Discharge Summary ---
Providers - Providers Date of Admission: 05/24/21 13:25 Date of discharge: 06/11/21 Attending physician: PERFECTO HARDEN 05/24/21 20:34 Consult to Physician [CONS] Routine Comment: Consulting Provider: DEYANIRA PATEL Physician Instructions: Reason For Exam: PUI 05/27/21 07:43 Consult to Physician [CONS] Routine Comment: Consulting Provider: JAMARI ELIAS Physician Instructions: Reason For Exam: covid pna 05/31/21 16:58 Physical Therapy Evaluation and Treat [CONS] Stat Comment: Reason For Exam: eval and treat Primary care physician: SHIPPING CHECKER Hospitalization Condition: Stable Hospital course: 46-year-old obese male presented with acute respiratory failure secondary to COVID-19 pneumonia. Patient had a prolonged and protracted course of oxygen dependency in which it was very difficult for him to wean. Patient was on high flow O2 up to 50 to 60 L for over 2 weeks. Patient was treated with remdesivir steroids dexamethasone prophylactic antibiotics for pneumonia Rocephin and azithromycin as well as monoclonal antibody therapy. Patient defervesced after [place] 18 days in the hospital. Patient was stable on walk test to be discharged with 3 L of O2. Disposition: 01 HOME / SELF CARE / HOMELESS Final Discharge Diagnosis (Prints w/discharge instructions): Acute hypoxemic respiratory failure COVID-19 pneumonia - Discharge Diagnoses (1) Bilateral pneumonia Status: Acute (2) Dehydration Status: Acute (3) Suspected COVID-19 virus infection Status: Acute Core Measure Documentation - Palliative Care Palliative Care/ Comfort Measures: Not Applicable - Core Measures Any of the following diagnoses?: none Exam - Constitutional Vitals: Temp Pulse Resp BP Pulse Ox 97.4 F L 70 19 131/85 96 06/10/21 05:21 06/10/21 05:21 06/10/21 22:00 06/10/21 05:21 06/11/21 08:31 General appearance: Present: no acute distress, well-nourished - EENT Eyes: Present: PERRL ENT: hearing intact, clear oral mucosa - Neck Neck: Present: supple, normal ROM - Respiratory Respiratory effort: normal Respiratory: bilateral: CTA, diminished (Otherwise clear) - Cardiovascular Heart Sounds: Present: S1 & S2. Absent: rub, click - Extremities Extremities: pulses symmetrical, No edema Peripheral Pulses: within normal limits - Abdominal General gastrointestinal: Present: soft, non-tender, non-distended, normal bowel sounds Male genitourinary: Present: normal - Integumentary Integumentary: Present: clear, warm, dry - Musculoskeletal Musculoskeletal: gait normal, strength equal bilaterally - Psychiatric Psychiatric: appropriate mood/affect, intact judgment & insight - Neurologic Neurologic: CNII-XII intact, moves all extremities Plan Activity: no restrictions Weight Bearing Status: Full Weight Bearing Diet: regular Special Instructions: home oxygen via Follow up with: PRIMARY CARE, [Primary Care Provider] - 7 Days Prescriptions: Insulin Glargine [Lantus VIAL] 24 units SUB-Q QPM #1 units Ascorbic Acid [Vitamin C] 500 mg PO QDAY #30 tablet Cholecalciferol Vit D3 [Vitamin D3 1,000 UNIT TAB] 1,000 unit PO QDAY #30 tablet Zinc Sulfate 220 mg PO QDAY #30 capsule
[2021-06-11] MEDS: predniSONE 10 MG TAB PO SCH ×2 (12:25→13:14)
[2021-06-11] MEDS: INSULIN GLARGINE 100 UNITS/ML SUB-Q SCH (18:07)
[2021-06-11] MEDS: ENOXAPARIN 40 MG/0.4 ML INJ SUB-Q SCH (21:39)
[2021-06-12] MEDS: methylPREDNISolone Sod Succinate 125 MG/2 ML INJ IV SCH ×3 (01:59→17:36)
[2021-06-12] MEDS: BENZONATATE 100 MG CAP PO SCH ×2 (05:50→15:20)
[2021-06-12 07:17] VITALS: BP 111/68
--- NOTE | 2021-06-12 08:06 | Progress Note ---
Assessment and Plan Assessment and plan: -- COVID 19 Pneumonia Airborne and contact isolation Monitor inflammatory markers Continue IV empiric steroid IV remdesivir x 5 days completed Worsening respiratory status, status post Actemra on 05/26 Prophylactic Lovenox Ascorbic acid, zinc sulfate, vitamin D supplement Encourage the use of incentive spirometery Able to wean down to 3 L O2. Did not do well on most recent walk test. Repeat walk test in a.m. and anticipated discharge. -- Acute Hypoxic Respiratory Failure Supplemental oxygen nasal cannula now. 3 L.-Wean as tolerated. Currently stable and not hypoxemic with 3 L however patient has no insurance coverage. Difficult to afford home O2. COVID-19 pneumonia. Admit CXR: Multifocal airspace disease, possible left-sided pulmonary mass. Please refer to official radiology report Admit CTA chest: Bilateral airspace disease with mildly enlarged mediastinal nodes. No suspicious mass or lymph nodes appreciated. Covid therapies as below prn albuterol Steroids weaned -- Hyponatremia Likely secondary to dehydration IV hydration with normal saline Monitor sodium level and other electrolytes --Diabetes mellitus type 2 with hyperglycemia, likely steroid-induced, A1c >7 suboptimal control. Continue sliding scale and will increase Lantus at bedtime, improved with increase long-acting insulin however remains suboptimal. Titrate Lantus. -- Elevated d-dimer CTA of the chestrule outs PE --Morbid obesity: Associated with worse outcome for COVID-19 Continue to follow clinically, dietary on board -- DVT prophylaxis Subcutaneous Lovenox - Patient Problems (1) Bilateral pneumonia Current Visit: Yes Status: Acute (2) Dehydration Current Visit: Yes Status: Acute (3) Suspected COVID-19 virus infection Current Visit: Yes Status: Acute Subjective Date of service: 06/12/21 Principal diagnosis: COVID-19 pneumonia Interval history: Hospital course to date 05/25/2021: Resting comfortably on encounter. Will follow up results of Covid test. Continue therapy above at this time. Will follow ID recommendations. If patient deteriorates will consult pulmonology. 05/26/2021: Resting comfortably on encounter. Patient is Covid positive. Continuing therapy with abx, steroids, remdesivir. De-escalate O2 to NC. Anticipate d/c home with O2 in 1-2 days if patient tolerates NC. 05/27/2021: Steroids increased by Pulmonology to Decadron 10 mg twice daily. May need to consider high-dose Solu-Medrol if no response in 96 hours. Patient will be encouraged to self prone. 05/28/2021: Patient remains on Ventimask. Did not tolerate de-escalation to nasal cannula. continued to encourage patient to self prone 05/29/2021: Patient remains on nonrebreather 100%. Encourage patient to get up and walk around room as he appears pretty comfortable on bedside encounter. We will continue therapy for Covid pneumonia. Will attempt de-escalation tomorrow patient continues to demonstrate improvement. 05/30/21: Patient on 15 L high flow O2, encourage proning yes abdomen, continue high dose of steroid. Pulmonary and ID following, follow inflammatory markers. 05/31: Patient on 35 L high flow O2 today, continue higher dose of steroid, continue to follow inflammatory markers, guarded prognosis, 06/01: Patient remains on high flow O2, 30 L. Continue empiric steroid, follow inflammatory markers. Completed remdesivir. Guarded prognosis 06/02/21: Patient remains on 30 L high flow O2, continue empiric steroid, follow inflammatory markers, guarded prognosis. ID and pulmonary following. 05/03/21: Patient on 25 mm high flow O2 today, continue empiric steroid continue to follow inflammatory markers, ordered A1c, ID and pulmonary care following. Guarded prognosis. 05/04/21; remains on high flow O2, vitals otherwise stable. Continue empiric steroid. Continue to follow inflammatory markers. Guarded prognosis. Wean off O2 as tolerated. 05/05/21: Patient appears to have no discomfort, but remains on high flow O2. Wean off O2 as tolerated per pulmonary. Continue to follow inflammatory markers. Guarded prognosis. 05/06/21: Chest x-ray has improved, pulmonary recommended aggressive weaning, remains on high flow O2. Continue to follow inflammatory markers. Guarded prognosis. 06/08/2021 patient was on 25 L of O2 now. Now has been weaned down to 6 L nasal cannula. We will continue to wean as tolerated. When 3 L anticipate discharge 24 to 48 hours. All questions and concerns answered. 06/09/2021. Patient with significant improvement. Wean from 25 L down to 4 L. We did provide walk test. And patient became hypoxic to 84 and had to be placed back on 6 L. While patient has shown significant improvement continues to require hospitalization. 06/10/2021. Patient today weaned down to 3 L. Failed walk test. Had to be placed back on 6 L of oxygen. Will repeat walk test again tomorrow and anticipated discharge. 06/13/2021. Patient was weaned down to 3 L. Patient was hypoxic with ambulation. Patient does not have any insurance and does not have any money. Difficult to go home with home oxygen and patient does not have the means to obt ain oxygen this time. Consult case management for possible solutions. Ge[place]ani patient can go home now can afford oxygen was $80. Objective - Constitutional Vitals: Vital Signs - 12hr 06/11/21 06/12/21 22:00 04:25 Temperature 97.8 F Pulse Rate 63 Respiratory 18 18 Rate Blood Pressure 111/68 O2 Sat by Pulse 96 93 Oximetry General appearance: Present: no acute distress, well-nourished - EENT Eyes: PERRL, EOM intact ENT: hearing intact, clear oral mucosa Ears: bilateral: normal - Neck Neck: supple, normal ROM - Respiratory Respiratory effort: normal Respiratory: bilateral: CTA - Breasts Breasts: normal - Cardiovascular Rhythm: regular Heart Sounds: Present: S1 & S2. Absent: gallop, rub Extremities: pulses intact, No edema, normal color, Full ROM - Gastrointestinal General gastrointestinal: Present: soft, non-tender, non-distended, normal bowel sounds - Genitourinary Male genitourinary: normal - Integumentary Integumentary: clear, warm, dry - Musculoskeletal Musculoskeletal: 1, strength equal bilaterally - Neurologic Neurologic: moves all extremities - Psychiatric Psychiatric: memory intact, appropriate mood/affect, intact judgment & insight - Labs CBC & Chem 7: 06/04/21 15:14 06/06/21 03:52 Labs: Abnormal lab results 06/11/21 06/11/21 06/11/21 Range/Units 11:27 16:37 21:20 POC Glucose 246 H 243 H 232 H (70-105) mg/dL 06/12/21 Range/Units 07:33 POC Glucose 192 H (70-105) mg/dL
[2021-06-12] MEDS: FAMOTIDINE 20 MG TAB PO SCH (09:47)
[2021-06-12] MEDS: INSULIN LISPRO 100 UNIT/ML SUB-Q SCH ×3 (09:47→17:15)
[2021-06-12] MEDS: ZINC SULFATE 220 MG CAP PO SCH (09:47)
[2021-06-12] MEDS: ASCORBIC ACID 500 MG TAB PO SCH (09:47)
[2021-06-12] MEDS: CHOLECALCIFEROL (VIT D3) 1000 UNIT (25 mcg) TAB PO SCH (09:47)
--- NOTE | 2021-06-12 09:49 | Discharge Summary ---
Providers - Providers Date of Admission: 05/24/21 13:25 Date of discharge: 06/12/21 Attending physician: PERFECTO HARDEN 05/24/21 20:34 Consult to Physician [CONS] Routine Comment: Consulting Provider: DEYANIRA PATEL Physician Instructions: Reason For Exam: PUI 05/27/21 07:43 Consult to Physician [CONS] Routine Comment: Consulting Provider: JAMARI ELIAS Physician Instructions: Reason For Exam: covid pna 05/31/21 16:58 Physical Therapy Evaluation and Treat [CONS] Stat Comment: Reason For Exam: eval and treat Primary care physician: HAND BENDER Hospitalization Condition: Stable Hospital course: 46-year-old obese male presented with acute respiratory failure secondary to COVID-19 pneumonia. Patient had a prolonged and protracted course of oxygen dependency in which it was very difficult for him to wean. Patient was on high flow O2 up to 50 to 60 L for over 2 weeks. Patient was treated with remdesivir steroids dexamethasone prophylactic antibiotics for pneumonia Rocephin and azithromycin as well as monoclonal antibody therapy. Patient defervesced after [place] 18 days in the hospital. Patient was stable on walk test to be discharged with 3 L of O2. Disposition: HOME / SELF CARE / HOMELESS Final Discharge Diagnosis (Prints w/discharge instructions): Acute hypoxemic respiratory failure COVID-19 pneumonia Disposition: HOME / SELF CARE / HOMELESS Final Discharge Diagnosis (Prints w/discharge instructions): Acute hypoxic respiratory failure. Due to severe COVID-19 pneumonia. - Discharge Diagnoses (1) Bilateral pneumonia Status: Acute Comment: Secondary to COVID-19 pneumonia. Patient defervesced well from high flow O2 down to 3 L. Patient stable with oxygen. Now cannot afford oxygen and will continue patient on 3 L follow-up primary care physician. (2) Dehydration Status: Acute (3) Suspected COVID-19 virus infection Status: Acute Core Measure Documentation - Palliative Care Palliative Care/ Comfort Measures: Not Applicable - Core Measures Any of the following diagnoses?: none Exam - Constitutional Vitals: Temp Pulse Resp BP Pulse Ox 97.8 F 63 18 111/68 93 06/12/21 04:25 06/12/21 04:25 06/12/21 04:25 06/12/21 04:25 06/12/21 04:25 General appearance: Present: no acute distress, well-nourished - EENT Eyes: Present: PERRL ENT: hearing intact, clear oral mucosa - Neck Neck: Present: supple, normal ROM - Respiratory Respiratory effort: normal Respiratory: bilateral: CTA - Cardiovascular Heart Sounds: Present: S1 & S2. Absent: rub, click - Extremities Extremities: pulses symmetrical, No edema Peripheral Pulses: within normal limits - Abdominal General gastrointestinal: Present: soft, non-tender, non-distended, normal bowel sounds Male genitourinary: Present: normal - Integumentary Integumentary: Present: clear, warm, dry - Musculoskeletal Musculoskeletal: gait normal, strength equal bilaterally - Psychiatric Psychiatric: appropriate mood/affect, intact judgment & insight - Neurologic Neurologic: CNII-XII intact, moves all extremities Plan Activity: no restrictions Weight Bearing Status: Full Weight Bearing Diet: regular, diabetic Special Instructions: home oxygen via Follow up with: PRIMARY CARE,MD [Primary Care Provider] - 7 Days Prescriptions: Insulin Glargine [Lantus VIAL] 24 units SUB-Q QPM #1 units predniSONE 10 mg PO QDAY #75 tablet Ascorbic Acid [Vitamin C] 500 mg PO QDAY #30 tablet Cholecalciferol Vit D3 [Vitamin D3 1,000 UNIT TAB] 1,000 unit PO QDAY #30 tablet Zinc Sulfate 220 mg PO QDAY #30 capsule
[2021-06-12] MEDS: INSULIN GLARGINE 100 UNITS/ML SUB-Q SCH (17:35)
== END 2021-06-12 17:50 | disposition home or self-care (01) | DRG 177 ==
LOC: ED 10:58 → 4A 13:25 → 3A 18:59
PROVIDERS: ADMIT Internal Medicine; ATTEND Internal Medicine
PROC: XW033E5 Introduction of Remdesivir Anti-infective into Peripheral Vein, Percutaneous Approach, New Technology Group 5 (ICD-10-PCS; principal; 2021-05-24)
PROC: XW033H5 Introduction of Tocilizumab into Peripheral Vein, Percutaneous Approach, New Technology Group 5 (ICD-10-PCS; 2021-05-25)
PROC: 5A0955A Assistance with Respiratory Ventilation, Greater than 96 Consecutive Hours, High Flow/Velocity Cannula (ICD-10-PCS; 2021-05-31)
DX: U07.1 COVID-19 (principal); J96.01 Acute respiratory failure with hypoxia; J12.82 Pneumonia due to coronavirus disease 2019; E87.1 Hypo-osmolality and hyponatremia; E86.0 Dehydration; R79.1 Abnormal coagulation profile; E66.01 Morbid (severe) obesity due to excess calories; Z68.35 Body mass index [BMI] 35.0-35.9, adult; E11.65 Type 2 diabetes mellitus with hyperglycemia
CPT/HCPCS: 36415; 71045; 71275; 80048; 80053; 82140; 82728; 82947; 82962; 83036; 83520; 83615; 84145; 85007; 85025; 85379; 86140; 87040; 93005; 94760; G0378; J0456; J0696; J1100; J1650; J1815; J2930; J3262; J7030; J7040; J7050; J7512; J8540; Q9967; U0003